=== PATIENT | female | born 1940 | race Caucasian/White ===

== ENCOUNTER → 2019-03-17 07:46 | Outpatient (CLI) | payer MEDICARE, MEDICAID, SELFPAY ==
--- NOTE | 2019-03-17 07:56 | CI_ITS ---
Cerebrovascular Exam Indications: 780.4 Dizziness and giddiness. 433.10 Occlusion/stenosis of carotid artery without cerebral infarction. IMPRESSIONS 1. The bilateral vertebral arteries are patent with normal antegrade flow. 2. Study suggests 50-69% stenosis involving the right internal carotid artery. No change from the study of 20-Nov-2016. 3. Study suggests less than 20% stenosis involving the left internal carotid artery. No change from the study of 20-Nov-2016. History: Risk factors: Current tobacco use. Hypertension. Carotid duplex study. Complete study and Doppler flow study including spectral analysis, color and lomas scale imaging. Height: Height: 144.8cm. Height: 57in. Weight: Weight: 63.5kg. Weight: 139.7lb. Body mass index: BMI: 30.3kg/m^2. Body surface area: BSA: 1.63m^2. Location: Vascular laboratory. Patient status: Outpatient. Tables: Arterial flow: + +--------+--------+ Location V sys V ed + +--------+--------+ Left CCA - distal 64.5cm/s 11.6cm/s + +--------+--------+ Left CCA - proximal 64cm/s 14.3cm/s + +--------+--------+ Left ICA - distal 104cm/s 18.2cm/s + +--------+--------+ Left ICA - mid 72.7cm/s 16.2cm/s + +--------+--------+ Left ICA - proximal 62.9cm/s 16.2cm/s + +--------+--------+ Left ECA 91.8cm/s -------- + +--------+--------+ Left vertebral 63.5cm/s -------- + +--------+--------+ Right CCA - distal 50.3cm/s 11.4cm/s + +--------+--------+ Right CCA - proximal 86.7cm/s 15.7cm/s + +--------+--------+ Right ICA - distal 107cm/s 28.8cm/s + +--------+--------+ Right ICA - mid 155cm/s 35.7cm/s + +--------+--------+ Right ICA - proximal 66.7cm/s 20.8cm/s + +--------+--------+ Right ECA 88cm/s -------- + +--------+--------+ Right vertebral 46.8cm/s -------- + +--------+--------+ Velocity ratios: + + + + + + Right, V sys Right, V ed Left, V sys Left, V ed + + + + + + Max ICA/dist CCA 3.08 3.13 1.61 1.57 + + + + + + (Report amended ) Electronically signed by: Damian Garland [id number]
[2019-03-17 10:33] LABS: Alanine Aminotransferase 23 U/L (12-78); Albumin Level 3.3 gm/dL (3.4-5.0); Alkaline Phosphatase 61 U/L (46-116); Aspartate Amino Transferase 15 U/L (15-37); Bilirubin,Direct 0.1 mg/dL (0.0-0.2); Bilirubin,Indirect 0.2 mg/dL (0.0-0.9); Bilirubin,Total 0.3 mg/dL (0.2-1.0); Chol/HDL Ratio 1.9 (1-3.5); Cholesterol 158 mg/dL (140-200); HDL Cholesterol 82 mg/dL (29-89); LDL Cholesterol 61 mg/dL (0-130); Total Protein,Serum 6.3 gm/dL (6.4-8.2); Triglycerides 74 mg/dL (30-200); VLDL Cholesterol 15 mg/dL (0-40)
== END ==
PROVIDERS: PCP Family Medicine; Visit Provider Nurse Practitioner Family
DX: I65.23 Occlusion and stenosis of bilateral carotid arteries; E11.9 Type 2 diabetes mellitus without complications; E78.5 Hyperlipidemia, unspecified; I11.9 Hypertensive heart disease without heart failure; I25.10 Atherosclerotic heart disease of native coronary artery without angina pectoris
CPT/HCPCS: 36415; 80061; 80076; 93880

== ENCOUNTER → 2019-09-09 14:49 | Outpatient (CLI) | payer MEDICARE, SELFPAY ==
[2019-09-09 15:45] LABS: Basophils # 0.1 K/mm3 (0-0.2); Basophils % 0.8 % (0.1-2.0); Eosinophils # 0.2 K/mm3 (0.0-0.4); Eosinophils % 2.7 % (0.1-12.0); Hematocrit 39.6 % (37.0-47.0); Hemoglobin 12.1 g/dL (12.2-16.2); Lymphocytes % 27.6 % (10-50); Mean Corpuscular HGB Conc 30.5 g/dL (31.8-35.4); Mean Corpuscular Hemoglobin 27.4 pg (27.0-31.2); Mean Corpuscular Volume 89.9 fl (81-99); Mean Platelet Volume 8.8 fl (7.4-10.4); Monocytes # 0.5 K/mm3 (0.1-1.0); Monocytes % 6.6 % (1.7-9.3); Neutrophils # 4.6 K/mm3 (1.8-7.8); Neutrophils % 62.3 % (37.0-80.0); Platelet Count 201 K/mm3 (142-424); Red Cell Distribution Width 18.3 % (11.5-17.5); White Blood Count 7.4 K/mm3 (4.8-10.8)
== END ==
PROVIDERS: Visit Provider Internal Medicine Cardiovascular Disease
DX: D64.9 Anemia, unspecified (principal)
CPT/HCPCS: 36415; 85025

== ENCOUNTER → 2020-06-28 10:02 | Outpatient (CLI) | payer MEDICARE, MEDICAID, SELFPAY ==
--- NOTE | 2020-06-28 10:05 | CA_ITS ---
APPROVED REPORT Environmental Health Safety Manager: Vy Sanchez RVT Laterality: Bilateral Study Quality: Good Indications: Carotid stenosis Risk Factors Hypertension: Hyperlipidemia Diabetes Doppler Spectral Velocity Analysis ECA (R) 56.50/4.50 cm/s ECA (L) 55.50/5.30 cm/s dICA (R) 132.70/16.20 cm/s dICA (L) 64.50/18.10 cm/s Zena (R) 66.00/18.30 cm/s Zena (L) 58.70/14.90 cm/s pICA (R) 110.00/20.80 cm/s pICA (L) 42.40/9.40 cm/s dCCA (R) 35.70/8.50 cm/s dCCA (L) 42.40/10.30 cm/s pCCA (R) 50.60/7.80 cm/s pCCA (L) 69.10/7.40 cm/s Vert (R) 46.30/7.70 cm/s Vert (L) 41.80/7.50 cm/s ICA/CCA 3.72 ICA/CCA 1.52 Findings Study suggests 50-69% stenosis of the right internal cartoid artery unchanged from the 03/17/19 study. Right internal cartoid artery is very tortuous. Study suggests less than 20% stenosis of the left internal cartoid artery unchanged from the 03/17/19 study. Antegrade flow seen bilateral vertebral arteries. Conclusion Study suggests 50-69% stenosis of the right internal cartoid artery unchanged from the 03/17/19 study. Right internal cartoid artery is very tortuous. Study suggests less than 20% stenosis of the left internal cartoid artery unchanged from the 03/17/19 study. Antegrade flow seen bilateral vertebral arteries. Electronically signed by : Damian Garland MD 06/28/2020 16:21:42
--- NOTE | 2020-06-28 10:05 | CA_ITS ---
APPROVED REPORT EXAM: Comprehensive 2D, Doppler, and color-flow Echocardiogram Fruit Sorter: Sheri Arevalo RDCS Ht: 4 ft 6 in Wt: 144lbs BSA: 1.50 BP: 126/44 mmHg Indications: SOA,CAD,HTN,DM,VILLALTA,HLP 2D Dimensions LVOT 1.77 cm (M/F) 1.5-2.5 M-Mode Dimensions RVDd 2.65 cm (0.9-2.6) LVDd 3.68 cm (3.5-5.7) LVDs 2.59 cm (3.5-5.7) IVSd 1.31 cm (0.6-1.1) PWd 1.12 cm (0.6-1.1) EF (Teich) 57.50% FS 29.60% EDV (Teich) 57.40 mL ESV (Teich) 24.40 mL LV Diastology E/A Ratio 0.69 Mitral Valve MV A Velocity 85.00 (40-130 cm/s) Left Ventricle Left atrium is moderately enlarged, left ventricle is normal size, mild concentric left ventricular hypertrophy, visually estimated ejection fraction 55% with no regional wall motion abnormality, grade 1 diastolic dysfunction seen with tissue Doppler evidence of raise left atrial pressure. Right Ventricle Right atrium and right ventricle are normal size and contractility. Aortic Valve Aortic valve is minimally thickened and fibrosed, there is no aortic stenosis or aortic insufficiency. Mitral Valve Mitral valve leaflets are minimally thickened, there is no mitral stenosis, there is mild mitral regurgitation. Tricuspid Valve Tricuspid valve is grossly normal, there is mild tricuspid regurgitation, calculated right ventricular systolic pressure is 42 mmHg. Pulmonic Valve Pulmonic valve is poorly visualized. Great Vessels Aortic root is normal size. Pericardium No significant pericardial effusion noted. Conclusion 1. Moderately enlarged left atrium, normal left ventricular size, mild concentric left ventricular hypertrophy, visually estimated ejection fraction 55% with no regional wall motion abnormality, grade 1 diastolic dysfunction seen with tissue Doppler evidence of raise left atrial pressure. 2. Mild mitral and tricuspid regurgitation. 3. No significant pericardial effusion noted. Electronically signed by : Marvin Elliott, 06/29/2020 15:08:17
== END ==
PROVIDERS: PCP Family Medicine; Visit Provider Internal Medicine Cardiovascular Disease
DX: E78.5 Hyperlipidemia, unspecified (principal); F17.200 Nicotine dependence, unspecified, uncomplicated; I11.9 Hypertensive heart disease without heart failure; I25.10 Atherosclerotic heart disease of native coronary artery without angina pectoris; R42 Dizziness and giddiness; Z95.5 Presence of coronary angioplasty implant and graft; E11.9 Type 2 diabetes mellitus without complications; R06.00 Dyspnea, unspecified; R94.31 Abnormal electrocardiogram [ECG] [EKG]; I65.23 Occlusion and stenosis of bilateral carotid arteries
CPT/HCPCS: 93306; 93880

== ENCOUNTER → 2020-07-14 10:27 | Outpatient (CLI) | payer MEDICARE, SELFPAY ==
[2020-07-14 11:23] LABS: Chloride 107 mmol/L (98-107); Sodium 141 mmol/L (136-145)
[2020-07-14 11:24] LABS: Potassium 4.9 mmoL/L (3.5-5.1)
[2020-07-14 11:26] LABS: Anion Gap 12.9 mEq/L (5-15); Blood Urea Nitrogen 19 mg/dl (7-17); Carbon Dioxide 26 mmol/L (22.0-30.0); Estimated Glomerular Filt Rate 48 ml/min (>60); GFR (African American) 58 ML/MIN (>60)
[2020-07-14 11:27] LABS: Calcium 9.4 mg/dl (8.4-10.2); Glucose 112 mg/dl (74-100)
== END ==
PROVIDERS: Visit Provider Internal Medicine Cardiovascular Disease
DX: E11.9 Type 2 diabetes mellitus without complications (principal); E78.5 Hyperlipidemia, unspecified; F17.200 Nicotine dependence, unspecified, uncomplicated; I10 Essential (primary) hypertension; I11.9 Hypertensive heart disease without heart failure; I25.10 Atherosclerotic heart disease of native coronary artery without angina pectoris; I65.29 Occlusion and stenosis of unspecified carotid artery; R94.31 Abnormal electrocardiogram [ECG] [EKG]; Z95.5 Presence of coronary angioplasty implant and graft
CPT/HCPCS: 36415; 80048

== ENCOUNTER 2020-09-04 17:18 | Emergency (ER) | payer MEDICARE, MEDICAID, SELFPAY ==
--- NOTE | 2020-09-04 17:30 | XR_ITS ---
PROCEDURE: XR WRIST RT MIN 3V CLINICAL INDICATION: FALL Posttraumatic pain COMPARISON: No exams were available for comparison FINDINGS: Severe osteoarthritic changes are present at the 1st metacarpal-carpal joint with prominent periarticular ossification. There is deformity of the trapezium with flattening of the trapezium. Calcification is present lateral to the trapezium consistent with loose body or soft tissue calcification. No fracture or dislocation. Other findings:None. 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
--- NOTE | 2020-09-04 17:30 | XR_ITS ---
PROCEDURE: XR HAND RT MIN 3V CLINICAL INDICATION: FALL Pain and swelling along the dorsal aspect of the hand COMPARISON: No exams were available for comparison FINDINGS: There are severe osteoarthritic changes of the 1st metacarpal-carpal joint with periarticular calcification and lateral subluxation of the 1st metacarpal. Erosive osteoarthritic changes are present at the DIP joint of the third finger. Soft tissue swelling is present dorsally involving the hand. No obvious soft tissue gas or radiopaque foreign body. IMPRESSION: Osteoarthritis with soft tissue swelling. Dictated by: Damian Garland MD 09/05/2020 06:04 Damian Garland MD in [place] 09/05/2020 06:04
[2020-09-04 17:31] VITALS: BP 160/100; PULSE 82; RESP 17; TEMP 36.8; O2SAT 96; BMI 29.2
[2020-09-04 18:06] VITALS: BP 160/100; PULSE 82; RESP 17; TEMP 36.8; O2SAT 96; BMI 29.4
--- NOTE | 2020-09-04 18:32 | HMH.EDUTC ---
[facility] Disposition Clinical Impression: Cellulitis of hand Wrist sprain Qualifiers: Encounter type: initial encounter Laterality: right Qualified Code(s): S63.501A - Unspecified sprain of right wrist, initial encounter Contusion Qualifiers: Encounter type: initial encounter Contusion area: hand Laterality: right Qualified Code(s): S60.221A - Contusion of right hand, initial encounter Disposition: Home, Self-Care Condition on Discharge: Good Instructions: Cellulitis, DI for Wrist Sprain, How To Perform RICE (Rest, Ice, Compress, Elevate) Additional Instructions: *RICE, Rest the extremity, Ice 15-20 minutes 3-4 times daily, Compress- wear the jg wrap as discussed as much as possible to help reduce swelling and pain, Elevate the extremity when at rest *Jg wrap is for support and help control swelling, use it except in the shower. Be sure that is not to tight but not to loose either *Elevate when resting *Ibuprofen every 6-8 hours as needed for pain an inflammation. If need something more can take Tylenol in between doses of Ibuprofen to help Call Orthopedic office for appointment with Dr Richardson Return if needed Follow up with Family Doctor if no improvement or any worsening of symptoms Prescriptions: cephALEXin [Keflex 500mg Cap] 500 mg PO QID 5 Days #20 cap Transmission Status: Received by [facility] #[id number] Referrals: Lee Persaud [Primary Care Provider] - As needed Alissa Richardson MD [Physician] - As needed (Call office for appointment) Time of Disposition: 19:02 Medical Decision Making - Ramon Inquiry Pt receiving controlled substance: No Ramon was queried for this patient: No Vital Signs: 09/04/20 17:31 09/04/20 18:06 09/04/20 18:56 Temperature 98.2 F 98.2 F 98.2 F Temperature Source Oral Oral Pulse Rate 82 Pulse Rate [Right] 82 82 Respiratory Rate 17 17 17 Blood Pressure 160/100 H Blood Pressure [Right Arm] 160/100 H 160/100 H Blood Pressure Mean [Right Arm] 120 120 Blood Pressure Source [Right Arm] Automatic Cuff Blood Pressure Position [Right Arm] Sitting 02 Sat by Pulse Oximetry 96 96 Oxygen Delivery Method Room Air Orders (Tests/Meds): ORDERS Category Date Time Status XR hand RT min 3V Stat Exams 09/04/20 17:30 Taken XR wrist RT min 3V Stat Exams 09/04/20 17:30 Taken - Radiology Data #1 Image(s): Wrist Image Reviewed: Yes I reviewed the patient's radiology image, Yes I reviewed the patient's radiology image w/the ED provider No obvious fracture noted however patient complains of pain over the snuff box area and ? abdnormality noted will place in thumb spica and have patient follow up with orthopedics #2 Image(s): Hand Image Reviewed: Yes I reviewed the patient's radiology image No obvious fracture noted however pain noted over snuff box ?scaphoid fracture - Physician Consults Physician Consulted: Debra Time: 18:35 Reason -: Orthopedic Eval/Care Comment/Response: Spoke with Dr Richardson and she observed xray and advised place patient in thumb spica splint and have her call the office for appointment Medical Decision Narrative: Patient reports pain over the snuff box area however patient also has redness and swelling noted to top of hand like that commonly seen with cellulitis will place patient in thumb spica due to ? scaphoid fracture and place patient on Keflex to cover cellulitis where dog jumped on her hand/wrist [facility] HPI - General Stated complaint: AO possible broken R wrist jumped on by dog Time Seen by Provider: 09/04/20 18:32 Mode of Arrival: Ambulatory Source of Information: Patient Limitations: No Limitations Description of Symptoms (Recalled from Triage Doc. by RN): PATIENT C/O RIGHT WRIST PAIN AND SWELLING AFTER SHE INJURED IT LAST WEEK WHEN SHE TRIPPED AND FELL HEENT Symptoms (Recalled from RN notes): No Resp Symptoms (Recalled from RN notes): No Skin Symptoms (Recalled from RN notes): No MS Symptoms (Recalled f
[2020-09-04 18:56] VITALS: BP 160/100; PULSE 82; RESP 17; TEMP 36.8; O2SAT 96
== END 2020-09-04 19:05 | disposition home or self-care (01) ==
PROVIDERS: Emergency Provider Emergency Medicine; PCP Family Medicine
DX: S63.501A Unspecified sprain of right wrist, initial encounter (principal); S60.221A Contusion of right hand, initial encounter; W54.1XXA Struck by dog, initial encounter; Y92.019 Unspecified place in single-family (private) house as the place of occurrence of the external cause; I25.10 Atherosclerotic heart disease of native coronary artery without angina pectoris; K21.9 Gastro-esophageal reflux disease without esophagitis; E78.5 Hyperlipidemia, unspecified; I10 Essential (primary) hypertension; F17.210 Nicotine dependence, cigarettes, uncomplicated
CPT/HCPCS: 29125; G0463; 73110; 73130; 99201

== ENCOUNTER 2020-09-06 10:04 | Outpatient (RCR) | payer MEDICARE, MEDICAID, SELFPAY | END 2020-09-06 10:25 | disposition home or self-care (01) | LOC: OT 10:04 | PROVIDERS: Visit Provider Orthopaedic Surgery | DX: S60.211A Contusion of right wrist, initial encounter (principal) | CPT/HCPCS: 97763 ==

== ENCOUNTER 2021-01-12 10:50 | Observation (INO) | payer MEDICARE, MEDICAID, SELFPAY ==
[2021-01-12] VITALS (19 sets, daily range): BP systolic 131–164; BP diastolic 52–78; PULSE 60–80; RESP 12–20; TEMP 36.1–36.8; O2SAT 94–100; BMI 30.2; BMI 26.2; BMI 29.9
--- NOTE | 2021-01-12 10:51 | PC.NURSE ---
fsbs 119
--- NOTE | 2021-01-12 10:52 | HMH.EDGENADL ---
ED Disposition Clinical Impression: Syncope and collapse Leukocytosis Qualifiers: Leukocytosis type: unspecified Qualified Code(s): D72.829 - Elevated white blood cell count, unspecified Disposition: Admitted as Observation Condition on Discharge: Good Referrals: PCP,No [Non-Staff] - - Critical Care Critical Care Time: No Attestation: On , the high probability of a clinically significant, sudden or life threatening deterioration of the following system(s) required my full and direct attention, intervention and personal management. The time I documented below is in addition to time spent performing reported procedures but includes the following listed in this critical care notation. Medical Decision Making - Medical Records Medical records reviewed: Yes: I reviewed the patient's medical records. MR Comment: prior [facility], below - [place] Inquiry Pt receiving controlled substance: No Vital Signs: 01/12/21 10:50 01/12/21 11:30 01/12/21 11:33 Temperature 97.8 F Temperature Source Oral Pulse Rate [Apical] 70 68 Pulse Rate [Orthostatic Lying Left Brachial] 65 Pulse Rate [Orthostatic Sitting Left Brachial] 67 Pulse Rate [Orthostatic Standing Left Brachial] 70 Respiratory Rate 12 18 Blood Pressure [Orthostatic Lying Left Arm] 156/60 H Blood Pressure [Orthostatic Sitting Left Arm] 164/72 H Blood Pressure [Orthostatic Standing Left Arm] 139/65 Blood Pressure [Right Arm] 144/52 H 151/67 H Blood Pressure Mean [Right Arm] 82 95 Blood Pressure Source [Right Arm] Automatic Cuff Automatic Cuff Blood Pressure Position [Right Arm] Supine Supine 02 Sat by Pulse Oximetry 94 L 96 Oxygen Delivery Method Room Air Nasal Cannula Oxygen Flow Rate (LPM) 2 - Lab Data Lab Results 01/12/21 10:50: WBC 15.4 H, RBC 4.25, Hgb 12.8, Hct 41.1, MCV 96.8, MCH 30.2, MCHC 31.2 L, RDW 14.0, Plt Count 291, MPV 8.5, Neut % (Auto) 48.7, Lymph % (Auto) 42.3, Gallia % (Auto) 6.5, Eos % (Auto) 1.7, Baso % (Auto) 0.7, Neut # (Auto) 7.5, Lymph # (Auto) 6.5 H, Gallia # (Auto) 1.0, Eos # (Auto) 0.3, Baso # (Auto) 0.1, Total Counted 100, Neutrophils % (Manual) 49, Lymphocytes % (Manual) 42, Monocytes % (Manual) 8, Eosinophils % (Manual) 1, Platelet Estimate Normal, RBC Morphology Normal 01/12/21 10:50: Sodium 139, Potassium 4.7, Chloride 110 H, Carbon Dioxide 23, Anion Gap 10.7, BUN 19 H, Creatinine 1.10 H, Estimated Creat Clear 37, Estimated GFR 48 L, Est GFR ( Amer) 58 L, Glucose 126 H, Calcium 9.3, Troponin I < 0.01 01/12/21 10:55: Urine Color Yellow, Urine Appearance Clear, Urine pH 5.5, Ur Specific Grannis >= 1.030, Urine Protein Negative, Urine Glucose (UA) Negative, Urine Ketones Negative, Urine Blood Negative, Urine Nitrate Negative, Urine Bilirubin Negative, Urine Urobilinogen 0.2, Ur Leukocyte Esterase Negative, Urine WBC 5-10, Urine Bacteria 2+, Hyaline Casts Occasional Result diagrams: 01/12/21 10:50 01/12/21 10:50 Orders (Tests/Meds): ORDERS Category Date Time Status Consult to Cardiology [CONS] Routine Cons 01/12/21 11:32 Active Covid-19 Nasal PCR ([facility]) Routine Lab 01/12/21 11:30 Received Lactic Acid Stat Lab 01/12/21 12:11 Ordered Troponin I Q3H Lab 01/12/21 14:15 Ordered Troponin I Q3H Lab 01/12/21 17:15 Ordered Blood Culture Stat Micro 01/12/21 12:11 Ordered Urine Culture Stat Micro 01/12/21 10:55 Received - ECG Data Tracing #1 EKG interpreted by Wu Barton MD: Rhythm: sinus Rate: 71 [place]: Left Ectopy: none Conduction: Incomplete right bundle branch block ST Segment Changes: J-point elevation in V2 T Wave Changes: none Q Waves: none Voltage criteria for LVH. - Physician Consults Physician Consulted: Van Time: 12:12 Reason -: Admission Comment/Response: Agrees to admit the patient to the hospital. We discussed the patient's clinical information, including history, exam, laboratory and radiology results and ED course. Per hospital procedure, I will write tempor
--- NOTE | 2021-01-12 10:54 | ECG_ITS ---
APPROVED REPORT Exam: Resting ECG HR:71 bpm ECG Measurements Heart Rate 71 AXES WY 168 P 45 QRSd 98 QRS -31 QT 412 T 11 QTc 447 Conclusion Normal sinus rhythm Left axis deviation Incomplete right bundle branch block Voltage criteria for left ventricular hypertrophy Abnormal ECG Electronically signed by : Dov Gonzales, 01/12/2021 20:10:07
--- NOTE | 2021-01-12 11:02 | XR_ITS ---
PROCEDURE: XR CHEST PORTABLE CLINICAL HISTORY: lethargic COMPARISON: CR CXR CHEST(2 VIEWS-NOT PORTABLE) from 11/05/2016 FINDINGS: The cardiomediastinal silhouette and pulmonary vascularity are within normal limits considering a somewhat poor inspiration. There is elevation left hemidiaphragm which was not seen on the previous chest film 11/05/2016. No definite pneumonic infiltrate is seen. I doubt pleural effusion on either side. IMPRESSION: Somewhat poor inspiration which could possibly explain the elevated left hemidiaphragm although there could be interval paresis left phrenic nerve since the previous chest film Dictated by: Dr. Sebastien Marquez MD 01/12/2021 11:50 Dr. Sebastien Marquez MD in [place] 01/12/2021 11:50
--- NOTE | 2021-01-12 11:08 | PC.NURSE ---
notified cardiology of consult on pt.
[2021-01-12 11:17] LABS: Appearance,Urine CLEAR (Clear); Bilirubin,Urine Negative (Negative); Blood, Urine Negative (Negative); Color,Urine YELLOW (Yellow); Glucose,Urine (UA) Negative (Negative); Ketones,Urine Negative (Negative); Leukocyte Esterase,Urine Negative (Negative); Microscopic, Urine URINE MICROSCOPIC (MICROSCOPIC); Nitrate,Urine Negative (Negative); PH,Urine 5.5 (5.0-8.5); Protein,Urine Negative (Negative); Specific Gravity, Urine >= 1.030 (1.005-1.030); Urobilinogen,Urine 0.2 EU/dl (0.2)
[2021-01-12 11:18] LABS: Chloride 110 mmol/L (98-107)
[2021-01-12 11:19] LABS: Basophils # 0.1 K/mm3 (0-0.2); Basophils % 0.7 % (0.1-2.0); Eosinophils # 0.3 K/mm3 (0.0-0.4); Eosinophils % 1.7 % (0.1-12.0); Hematocrit 41.1 % (37.0-47.0); Hemoglobin 12.8 g/dL (12.2-16.2); Lymphocytes # 6.5 K/mm3 (0.7-4.5); Lymphocytes % 42.3 % (10-50); Mean Corpuscular HGB Conc 31.2 g/dL (31.8-35.4); Mean Corpuscular Hemoglobin 30.2 pg (27.0-31.2); Mean Corpuscular Volume 96.8 fl (81-99); Mean Platelet Volume 8.5 fl (7.4-10.4); Monocytes % 6.5 % (1.7-9.3); Neutrophils # 7.5 K/mm3 (1.8-7.8); Neutrophils % 48.7 % (37.0-80.0); Platelet Count 291 K/mm3 (142-424); Potassium 4.7 mmoL/L (3.5-5.1); Red Blood Count 4.25 M/mm3 (4.20-5.40); Sodium 139 mmol/L (136-145); White Blood Count 15.4 K/mm3 (4.8-10.8)
[2021-01-12 11:21] LABS: MANUAL DIFFERENTIAL MANUAL DIFFERENTIAL (MANUAL DIFF)
[2021-01-12 11:22] LABS: Anion Gap 10.7 mEq/L (5-15); Blood Urea Nitrogen 19 mg/dl (7-17); Calcium 9.3 mg/dl (8.4-10.2); Carbon Dioxide 23 mmol/L (22.0-30.0); Creatinine Clearance Estimated 37 mL/min (50-200); Estimated Glomerular Filt Rate 48 ml/min (>60); GFR (African American) 58 ML/MIN (>60); Glucose 126 mg/dl (74-100)
--- NOTE | 2021-01-12 11:24 | PC.NURSE ---
rad at bedside
--- NOTE | 2021-01-12 11:32 | PC.NURSE ---
Caleb Faust at bedside
[2021-01-12 11:34] LABS: Bacteria,Urine 2+ /lpf; Hyaline Casts,Urine Occasional #/lpf (0)
[2021-01-12 11:40] LABS: Troponin I < 0.01 ng/ml (0.00-0.034)
--- NOTE | 2021-01-12 11:42 | HMH.CNCARD ---
History of Present Illness Consult date: 01/12/21 Chief complaint: Syncope Additional Medical History:: 1. Tobacco use, continued 2. History of cardiac catheterization A. History of LAD stent B. Left heart cath, 09/2015:ANGIOGRAPHIC RESULTS: 1. The left main artery is normal 2. The left anterior descending artery has a proximal 20-30% concentric stenosis immediately proximal to the proximal LAD stent which itself is widely patent free of in-stent restenosis 3. The circumflex artery has mild midvessel nonflow limiting plaque 4. The right coronary artery is a dominant vessel and has a proximal [id number]% to 40% stenosis 5. The BRONSON ventriculogram reveals normal ejection fraction estimated at 65% 6. The left ventricular end-diastolic pressure less than 10 mmHg 7. Right atrial pressure is 5 mmHg 8. Right ventricular pressure is 30/5 mmHg 9. Pulmonary artery pressure is 30/10 mmHg 10. Pulmonary artery occlusion pressure is 8 mmHg 11. Right atrial saturation is 74 % 12. Pulmonary artery saturation 7 2 % IMPRESSION: 1. Mild disease in the proximal LAD with a widely patent stent also in the proximal LAD 2. Mild nonocclusive disease in the circumflex artery and dominant right coronary artery 3. Normal ejection fraction 4. Mild pulmonary hypertension 5. Normal left-sided filling pressures PLAN: 1. Medical management 2. Patient requires cardiac rehabilitation. I suspect most of her symptoms are from cardiopulmonary deconditioning 3. Tobacco cessation 4. Treatment of lung disease 3. Obstructive sleep apnea, noncompliant with treatment 4. Hypertension A. Echo, 06/2020, 1. Moderately enlarged left atrium, normal left ventricular size, mild concentric left ventricular hypertrophy, visually estimated ejection fraction 55% with no regional wall motion abnormality, grade 1 diastolic dysfunction seen with tissue Doppler evidence of raise left atrial pressure. 2. Mild mitral and tricuspid regurgitation. 3. No significant pericardial effusion noted 5. GERD 6. Hyperlipidemia 7. Carotid artery stenosis, 50 to 69% ICA stenosis on the right, less than 20% ICA stenosis on the left by ultrasound 06/2020. Reportedly this is stable compared to 2019 study. History of present illness: 80-year-old white female seen in the emergency department for apparent syncopal episode. Patient and daughter are in the room. Daughter relates patient was coming to see Dr. RODAS in the office for routine 6-month follow-up when she had difficulty getting into the car and fell but landed on her bottom without syncopal episode. The daughter required some assistance to get the patient into the car. Upon arriving at the hospital for the office appointment daughter was unable to arouse the patient and called for assistance. ER staff transported the patient into the emergency department. Pulse was noted to be weak and slow but upon examination in the ER, vital signs were noted to be stable. Patient would awaken to verbal stimuli. EKG was obtained with questionable changes and cardiology consulted. EKG shows sinus rhythm with left axis deviation and chronic scooping ST elevation in lead V2 that has been present on prior tracings. Patient denies any chest pain, pressure or tightness. She just describes being weak for a couple of weeks. Upon further questioning the patient was placed on tramadol about 2 weeks ago for chronic back pain. Due to a possible interaction with sertraline patient stopped this sertraline on her own. Patient does awaken to answer questions but drifts off to sleep. She denies any recent fever, chills, nausea, vomiting or diarrhea. Patient states she discontinued tobacco use approximately 4 months ago but the daughter indicates that this has continued. [facility] History Medical History: Reports:: Coronary Artery Disease, Gastroesophageal Reflux Disease(GERD), Hyperlipidemia, Hypertension *Have
[2021-01-12 11:43] LABS: Eosinophils % 1 % (0-3); Lymphocytes % 42 % (10-50); Monocytes % 8 % (2-9); Neutrophils % 49 % (42-76); Platelet Estimate Normal; RBC Morphology Normal; Total Cells Counted 100
--- NOTE | 2021-01-12 11:58 | CA_ITS ---
APPROVED REPORT EXAM: Limited 2D Echocardiogram Russian History Professor: Vy Sanchez RVT Ht: 4 ft 11 in Wt: 130lbs BSA: 1.54 BP: 151/67 mmHg Indications: EF CHECK,SYNCOPE,HTN,HLD,ABN EKG,CAD,STENT,GERD 2D Dimensions LVOT 1.96 cm (M/F) 1.5-2.5 M-Mode Dimensions RVDd 2.13 cm (0.9-2.6) LA Diam 4.32 cm (1.9-4.0) LVDd 5.06 cm (3.5-5.7) Ao Diam 2.54 cm (2.0-3.7) LVDs 3.73 cm (3.5-5.7) IVSd 0.56 cm (0.6-1.1) PWd 0.76 cm (0.6-1.1) EF (Teich) 51.20% FS 26.30% EDV (Teich) 121.60 mL ESV (Teich) 59.30 mL Tricuspid Valve TR P. Velocity 202.00 cm/s RAP Estimate 10.00 mmHg RVSP 26.40 mmHg Conclusion 1. Limited transthoracic echocardiogram is performed to assess left ventricular systolic function. 2. Normal left ventricular size, mild concentric left ventricular hypertrophy, visually estimated ejection fraction in the obtained views 55% with no regional wall motion abnormality. Electronically signed by : Marvin Elliott, 01/12/2021 12:46:01
--- NOTE | 2021-01-12 12:06 | PC.NURSE ---
DR AGUAYO SPEAKING WITH DR LONG
--- NOTE | 2021-01-12 12:19 | PC.NURSE ---
DR LONG HAS AGREED TO ADMIT PT
--- NOTE | 2021-01-12 12:20 | PC.NURSE ---
notified care management of admission
--- NOTE | 2021-01-12 12:38 | HMH.HP ---
*Admission Date: 01/12/21 *Chief complaint: syncope *History of present illness: 80-year-old white female seen in the emergency department for apparent syncopal episode. Patient and daughter are in the room. Daughter relates patient was coming to see Dr. RODAS in the office for routine 6-month follow-up when she had difficulty getting into the car and fell but landed on her bottom without syncopal episode. The daughter required some assistance to get the patient into the car. Upon arriving at the hospital for the office appointment daughter was unable to arouse the patient and called for assistance. ER staff transported the patient into the emergency department. Pulse was noted to be weak and slow but upon examination in the ER, vital signs were noted to be stable. Patient would awaken to verbal stimuli. EKG was obtained with questionable changes and cardiology consulted. EKG shows sinus rhythm with left axis deviation and chronic scooping ST elevation in lead V2 that has been present on prior tracings. Patient denies any chest pain, pressure or tightness. She just describes being weak for a couple of weeks. Upon further questioning the patient was placed on tramadol about 2 weeks ago for chronic back pain. Due to a possible interaction with sertraline patient stopped the sertraline on her own. (above as per Caleb Faust) The patient also states she has had a cold for the past 4 to 5 days. She has had a cough and some sinus congestion as well as some wheezing. She is still down in the emergency room and has had no further syncopal episodes. Her daughter states she has been sleeping most of the time and the patient states she feels weak. [facility] History I have reviewed the patient's past medical history: Yes Medical History: Reports:: Coronary Artery Disease, Gastroesophageal Reflux Disease(GERD), Hyperlipidemia, Hypertension *Have you ever received a pneumonia vaccine?: No *Have you received a flu vaccine this season?: No Other Surgeries: Yes: Cardiac Catheterization, Cholecystectomy, Coronary Stent, Hysterectomy-Total Fractures: Yes - *Social History Smoking Status: Current every day smoker Tobacco Type: cigarettes # Packs/Day (cigarettes): 1 Alcohol Intake: never Substance Use Type: denies use *Occupational Status:: other *Travel in the last 8 weeks: Inside the [place] Family Hx:: Coronary Artery Disease Review of Systems - Constitutional Reports fatigue, Reports malaise, Reports weakness, Denies chills, Denies fever(s) - Eyes Denies blurry vision, Denies double vision - ENT Reports nasal congestion, Denies sore throat - *Cardiovascular Reports shortness of breath, Reports lightheadedness, Denies chest pain, Denies rapid, pounding, or irregular heartbeat - *Respiratory Reports chest congestion, Reports cough, Reports shortness of breath, Reports wheezing - *Gastrointestinal Denies abdominal pain, Denies loose stools, Denies nausea, Denies vomiting - *Genitourinary Denies difficulty urinating, Denies painful urination - *Musculoskeletal Reports muscle weakness, Denies joint pain - *Neurologic Reports fainting, Reports dizziness, Reports weakness, Denies localized weakness, Denies headache(s), Denies numbness Meds Home Medications Medication Instructions Recorded Confirmed Type gabapentin 300 mg capsule 600 mg PO QHS 30 Days #60 cap 03/11/19 01/12/21 History potassium chloride 20 mEq 20 meq PO BID 90 Days #180 tab 03/11/19 01/12/21 History tablet,extended release(part/cryst) ranolazine 500 mg tablet,extended 500 mg PO BID 90 Days #180 tab 03/11/19 01/12/21 History release,12 hr rosuvastatin 40 mg tablet 40 mg PO DAILY 90 Days #90 tab 03/11/19 01/12/21 History sertraline 25 mg tablet 25 mg PO DAILY 90 Days #90 tab 03/11/19 01/12/21 History pantoprazole 20 mg tablet,delayed 40 mg PO DAILY 09/09/19 01/12/21 History release levothyroxine 50 mcg tablet 50 mcg PO DAILY tab 07/14/20 01/12/21 History sucr
[2021-01-12 13:56] LABS: Lactic Acid 0.9 mmol/L (0.7-2.1)
--- NOTE | 2021-01-12 14:05 | PC.NURSE ---
waiting on fax of medication list from [facility]
[2021-01-12 14:32] LABS: Troponin I < 0.01 ng/ml (0.00-0.034)
--- NOTE | 2021-01-12 16:53 | PC.NURSE ---
report given to binta aiken at this time
--- NOTE | 2021-01-12 16:54 | PC.NURSE ---
cheng roman at bs at this time
--- NOTE | 2021-01-12 17:10 | PC.NURSE ---
patient to floor by wheelchair
[2021-01-12 17:31] LABS: Troponin I < 0.01 ng/ml (0.00-0.034)
--- NOTE | 2021-01-12 18:33 | PC.NURSE ---
Attempted to complete medication reconciliation, pt does not know what medications she takes. Contacted daughter and requested home medicines be brought in for review. She stated that she will bring them in the AM.
--- NOTE | 2021-01-12 19:18 | PC.NURSE ---
Sputum induced, pt able to make productive cough. Specimen cup sent to lab.
[2021-01-13] VITALS (8 sets, daily range): BP systolic 150–190; BP diastolic 72–90; PULSE 60–86; RESP 16–18; TEMP 36.8–36.9; O2SAT 91–100; BMI 30.4
--- NOTE | 2021-01-13 06:02 | PC.NURSE ---
Pt is A&Ox4. Inspiratory rhonchi heard bilat t/o. No cough noted. Pt continues to tolerate 1.5-2L NC. Active bowel sounds in all 4 quads, no BM noted. Pt has c/o lower back pain x1 this shift, pt medicated per MAR. No other acute changes or complaints at this time.
--- NOTE | 2021-01-13 07:00 | XR_ITS ---
PROCEDURE: XR CHEST PORTABLE Referring Doctor: Mayte Velasquez Patient Age:80Y CLINICAL HISTORY: wheezing, leukocytosis syncopal episode leading to admission Former smoker COMPARISON: XA R LHEART R L HEART from 10/06/2015 CR CXR CHEST(2 VIEWS-NOT PORTABLE) from 11/05/2016 CR XR CHEST PORTABLE from 01/12/2021 FINDINGS: Today's AP portable upright CXR compared to yesterday's study: On yesterday's P CXR there was prominent elevation left hemidiaphragm-but this is shown significant improvement since then with left hemidiaphragm returning to near baseline position, as seen 2016. 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 Also note borderline thickening of central airways which could reflect mild bronchitis or asthma noting of particularly with noting the history of wheezing Suggestion of round density lower mediastinum projecting to the left of midline-most likely hiatal hernia measuring up to 7 cm diameter. A suggest performing a follow-up CXR after carbonated beverage in attempt to additionally confirm this density as hiatal hernia. . Hilar region the mediastinal structures otherwise with no prominent findings but calcified aortic knob with mildly tortuous aorta. Heart is upper normal in size but of normal pulmonary vascularity no CHF but no pleural effusions. Chest wall unremarkable IMPRESSION: 1..The notable elevation of left hemidiaphragm seen yesterday has for the most part resolved,. The left lower lobe is re-expanded with only minimal residual atelectasis at left infrahilar region/left lung base. Notable improvement and re-expansion here on left 2.. Mild accentuation markings right infrahilar region right base most likely reflecting technique on this student admissions clerk film . Most likely stable since yesterday, difficult to exclude subtle minimal airspace disease in this area 3.. moderate size hiatal hernia most likely accounts for the round at lower mediastinum; however this was not seen in 2016 (At some point in follow-up suggest upright PA and lateral CXR following carbonated beverage, in attempt to further confirm HH the and to re-establish baseline) Dictated by: Alex Walker MD 01/13/2021 08:31 Alex Walker MD in [facility] 01/13/2021 08:31
[2021-01-13 07:06] LABS: Basophils # 0.1 K/mm3 (0-0.2); Basophils % 0.6 % (0.1-2.0); Eosinophils # 0.2 K/mm3 (0.0-0.4); Eosinophils % 1.8 % (0.1-12.0); Hematocrit 41.3 % (37.0-47.0); Hemoglobin 12.9 g/dL (12.2-16.2); Lymphocytes # 3.1 K/mm3 (0.7-4.5); Lymphocytes % 26.3 % (10-50); Mean Corpuscular HGB Conc 31.3 g/dL (31.8-35.4); Mean Corpuscular Hemoglobin 29.6 pg (27.0-31.2); Mean Corpuscular Volume 94.5 fl (81-99); Mean Platelet Volume 8.1 fl (7.4-10.4); Monocytes # 0.7 K/mm3 (0.1-1.0); Monocytes % 6.1 % (1.7-9.3); Neutrophils # 7.6 K/mm3 (1.8-7.8); Neutrophils % 65.2 % (37.0-80.0); Platelet Count 238 K/mm3 (142-424); Red Blood Count 4.37 M/mm3 (4.20-5.40); White Blood Count 11.7 K/mm3 (4.8-10.8)
[2021-01-13 07:27] LABS: Chloride 107 mmol/L (98-107); Potassium 4.4 mmoL/L (3.5-5.1); Sodium 137 mmol/L (136-145)
[2021-01-13 07:30] LABS: Blood Urea Nitrogen 21 mg/dl (7-17); Creatinine Clearance Estimated 45 mL/min (50-200); Estimated Glomerular Filt Rate 60 ml/min (>60); GFR (African American) 73 ML/MIN (>60)
[2021-01-13 07:31] LABS: Anion Gap 7.4 mEq/L (5-15); Calcium 8.9 mg/dl (8.4-10.2); Carbon Dioxide 27 mmol/L (22.0-30.0); Glucose 93 mg/dl (74-100)
--- NOTE | 2021-01-13 08:42 | HMH.ACPN2 ---
<Mayte Velasquez - Last Filed: 01/13/21 08:42> Internal Medicine - PN: Subj *Date: 01/13/21 *Time: 08:42 Interval history: Patient states she is feeling better today. She says her joints are achy and stiff, but otherwise she feels fine. She is unsure if her legs are still weak. She is not been up moving around her room. She states she did rest well last night and ate some breakfast this morning. She has not had any further syncopal episodes. Exam Vital signs and Labs for Last 24 Hours: Temp Pulse Resp BP Pulse Ox 98.2 F 75 16 150/75 H 94 L 01/13/21 03:35 01/13/21 05:50 01/13/21 03:35 01/13/21 03:35 01/13/21 05:50 Laboratory Results - last 24 hr 01/12/21 10:50: WBC 15.4 H, RBC 4.25, Hgb 12.8, Hct 41.1, MCV 96.8, MCH 30.2, MCHC 31.2 L, RDW 14.0, Plt Count 291, MPV 8.5, Neut % (Auto) 48.7, Lymph % (Auto) 42.3, [place] % (Auto) 6.5, Eos % (Auto) 1.7, Baso % (Auto) 0.7, Neut # (Auto) 7.5, Lymph # (Auto) 6.5 H, [place] # (Auto) 1.0, Eos # (Auto) 0.3, Baso # (Auto) 0.1, Total Counted 100, Neutrophils % (Manual) 49, Lymphocytes % (Manual) 42, Monocytes % (Manual) 8, Eosinophils % (Manual) 1, Platelet Estimate Normal, RBC Morphology Normal 01/12/21 10:50: Sodium 139, Potassium 4.7, Chloride 110 H, Carbon Dioxide 23, Anion Gap 10.7, BUN 19 H, Creatinine 1.10 H, Estimated Creat Clear 37, Estimated GFR 48 L, Est GFR ( Amer) 58 L, Glucose 126 H, Calcium 9.3, Troponin I < 0.01 01/12/21 10:55: Urine Color Yellow, Urine Appearance Clear, Urine pH 5.5, Ur Specific [place] >= 1.030, Urine Protein Negative, Urine Glucose (UA) Negative, Urine Ketones Negative, Urine Blood Negative, Urine Nitrate Negative, Urine Bilirubin Negative, Urine Urobilinogen 0.2, Ur Leukocyte Esterase Negative, Urine WBC 5-10, Urine Bacteria 2+, Hyaline Casts Occasional 01/12/21 13:22: Lactate 0.9 01/12/21 14:00: Troponin I < 0.01 01/12/21 16:53: Troponin I < 0.01 01/13/21 06:40: WBC 11.7 H, RBC 4.37, Hgb 12.9, Hct 41.3, MCV 94.5, MCH 29.6, MCHC 31.3 L, RDW 14.0, Plt Count 238, MPV 8.1, Neut % (Auto) 65.2, Lymph % (Auto) 26.3, Runnels % (Auto) 6.1, Eos % (Auto) 1.8, Baso % (Auto) 0.6, Neut # (Auto) 7.6, Lymph # (Auto) 3.1, Runnels # (Auto) 0.7, Eos # (Auto) 0.2, Baso # (Auto) 0.1 01/13/21 06:40: Sodium 137, Potassium 4.4, Chloride 107, Carbon Dioxide 27, Anion Gap 7.4, BUN 21 H, Creatinine 0.90, Estimated Creat Clear 45, Estimated GFR 60, Est GFR ( Amer) 73 D, Glucose 93 D, Calcium 8.9 I & O for Last 24 hours: Intake & Output 01/10/21 01/11/21 01/12/21 01/13/21 11:59 11:59 11:59 11:59 Intake Total 480 / 480 Balance 480 / 480 Weight 130 lb 145 lb 1 oz Microbiology Reports for the Last 24 Hours: Microbiology 01/12/21 19:18 Sputum - Expectorated Sputum Gram Stain - Final 01/12/21 11:30 Nasopharyngeal Coronavirus COVID-19 PCR - Final Radiology Reports for the Last 24 Hours: CXR 1..The notable elevation of left hemidiaphragm seen yesterday has for the most part resolved,. The left lower lobe is re-expanded with only minimal residual atelectasis at left infrahilar region/left lung base. Notable improvement and re-expansion here on left 2.. Mild accentuation markings right infrahilar region right base most likely reflecting technique on this telecommunications repairer film . Most likely stable since yesterday, difficult to exclude subtle minimal airspace disease in this area 3.. moderate size hiatal hernia most likely accounts for the round at lower mediastinum; however this was not seen in 2016 (At some point in follow-up suggest upright PA and lateral CXR following carbonated beverage, in attempt to further confirm HH the and to re-establish baseline) - Constitutional no acute distress - *Routine Respiratory Exam Present: wheezes (improved from yesterday) - *Routine Cardiovascular Exam Present: RRR - *Routine Abdominal Exam Present: soft, normoactive bowel sounds. Absent: tenderness - *Routine Extremities Exam Absent:
--- NOTE | 2021-01-16 17:30 | HMH.DCSUM ---
General - General Admission date:: 01/12/21 Discharge date: 01/13/21 HPI HPI: 80-year-old white female seen in the emergency department for apparent syncopal episode. Patient and daughter are in the room. Daughter relates patient was coming to see Dr. RODAS in the office for routine 6-month follow-up when she had difficulty getting into the car and fell but landed on her bottom without syncopal episode. The daughter required some assistance to get the patient into the car. Upon arriving at the hospital for the office appointment daughter was unable to arouse the patient and called for assistance. ER staff transported the patient into the emergency department. Pulse was noted to be weak and slow but upon examination in the ER, vital signs were noted to be stable. Patient would awaken to verbal stimuli. EKG was obtained with questionable changes and cardiology consulted. EKG shows sinus rhythm with left axis deviation and chronic scooping ST elevation in lead V2 that has been present on prior tracings. Patient denies any chest pain, pressure or tightness. She just describes being weak for a couple of weeks. Upon further questioning the patient was placed on tramadol about 2 weeks ago for chronic back pain. Due to a possible interaction with sertraline patient stopped the sertraline on her own. (above as per Caleb Faust) The patient also states she has had a cold for the past 4 to 5 days. She has had a cough and some sinus congestion as well as some wheezing. She is still down in the emergency room and has had no further syncopal episodes. Her daughter states she has been sleeping most of the time and the patient states she feels weak. Hospital Course Hospital Course: Patient's chest x-ray was relatively unremarkable. Echo showed an EF of 55% . Cardiology felt the patient syncope was related to her medication and/or vasovagal cause. She was admitted for monitoring overnight. She had an elevated white blood cell count and had been sick for 4 to 5 days. It was felt she had a bronchitis and this could contribute to her weakness and syncopal episode. She was started on Zithromax, Rocephin, and duo nebs. She had a repeat chest x-ray the next day showing a moderate size hiatal hernia but nothing acute in the lungs. She felt much better. She stated her joints were achy and stiff, but her weakness had improved. She was able to rest well and ate some breakfast and had no further syncopal episodes. Her white blood cell count improved. She was able to ambulate with a walker and was stable to be discharged home and will follow up with Dr. Persaud in 4 days. Objective Vital signs: Temp Pulse Resp BP Pulse Ox 98.3 F 86 18 190/90 H 97 01/13/21 12:00 01/13/21 12:00 01/13/21 12:00 01/13/21 12:00 01/13/21 12:00 Narrative: - Constitutional no acute distress (appears tired) - *Routine HEENT Exam Head: Present: normocephalic Eye: Present: EOMI, PERRL ENT: Present: mucous membranes dry - *Routine Neck Exam Present: supple. Absent: lymphadenopathy - *Routine Respiratory Exam Present: wheezes (expiratory). Absent: rales - *Routine Cardiovascular Exam Present: RRR - *Routine Abdominal Exam Present: soft, normoactive bowel sounds. Absent: tenderness - *Routine Extremities Exam Absent: cyanosis, clubbing, edema - *Routine Skin Exam Present: warm. Absent: rash - *Routine Neurological Exam Present: alert, oriented X3 Results Labs on day of discharge: Preliminary micro results at discharge 01/12/21 13:22 Blood Culture - Preliminary Blood NO GROWTH AFTER 48 HOURS 01/12/21 13:22 Blood Culture - Preliminary Blood NO GROWTH AFTER 48 HOURS DS: Diagnosis - Discharge Diagnosis (1) Syncope Status: Acute (2) Abnormal EKG Status: Acute (3) CAD (coronary artery disease) Status: Chronic (4) HLD (hyperlipidemia) Status: Chronic (5) HTN (hypertension) Status:
[2021-02-14 11:08] LABS: POC Glucose,Bedside 119 (70-110)
== END 2021-01-13 12:42 | disposition home or self-care (01) ==
LOC: ER 12:12 → 2ND 16:30
PROVIDERS: Admitting Provider Family Medicine; Emergency Provider Emergency Medicine; PCP Family Medicine; Visit Provider Family Medicine
DX: R55 Syncope and collapse (principal); I25.10 Atherosclerotic heart disease of native coronary artery without angina pectoris; E03.9 Hypothyroidism, unspecified; Z72.0 Tobacco use; I10 Essential (primary) hypertension; E78.5 Hyperlipidemia, unspecified; M54.9 Dorsalgia, unspecified; G89.29 Other chronic pain; Z79.899 Other long term (current) drug therapy; Z95.5 Presence of coronary angioplasty implant and graft
CPT/HCPCS: 36415; 71045; 80048; 81001; 82962; 83605; 84484; 85007; 85025; 87040; 87070; 87086; 87205; 93005; 93308; 94640; 99285; G0378; J0456; U0003

== ENCOUNTER 2021-01-27 22:46 | Observation (INO) | payer MEDICARE, MEDICAID, SELFPAY ==
[2021-01-27 22:46] VITALS: BP 160/80; BP 210/97; PULSE 82; RESP 14; TEMP 36.5; O2SAT 97; BMI 31.4
--- NOTE | 2021-01-27 23:14 | ECG_ITS ---
APPROVED REPORT Exam: Resting ECG HR:78 bpm ECG Measurements Heart Rate 78 AXES AK 140 P 35 QRSd 80 QRS -38 QT 392 T 39 QTc 446 Conclusion Normal sinus rhythm Left axis deviation Voltage criteria for left ventricular hypertrophy Abnormal ECG Electronically signed by : Dov Gonzales, 01/28/2021 07:10:16
--- NOTE | 2021-01-27 23:14 | XR_ITS ---
PROCEDURE: XR CHEST PORTABLE CLINICAL HISTORY: weakness COMPARISON: CR CXR CHEST(2 VIEWS-NOT PORTABLE) from 11/05/2016 CR XR CHEST PORTABLE from 01/12/2021 CR XR CHEST PORTABLE from 01/13/[address] CHEST WO CON from 01/28/2021 FINDINGS: The cardiomediastinal silhouette and pulmonary vascularity are within normal limits. Mild atelectatic change noted in the left lower lobe. The remaining lungs are clear. No acute bony abnormalities. IMPRESSION: No change mild left lower lobe atelectasis Dictated by: Damian Garland MD 01/28/2021 07:10 Damian Garland MD in [facility] 01/28/2021 07:10
[2021-01-27 23:25] LABS: Basophils # 0.1 K/mm3 (0-0.2); Basophils % 0.6 % (0.1-2.0); Eosinophils # 0.1 K/mm3 (0.0-0.4); Eosinophils % 1.1 % (0.1-12.0); Hematocrit 39.3 % (37.0-47.0); Hemoglobin 12.9 g/dL (12.2-16.2); Lymphocytes # 2.5 K/mm3 (0.7-4.5); Lymphocytes % 22.8 % (10-50); Mean Corpuscular HGB Conc 32.8 g/dL (31.8-35.4); Mean Corpuscular Hemoglobin 30.3 pg (27.0-31.2); Mean Corpuscular Volume 92.3 fl (81-99); Mean Platelet Volume 8.6 fl (7.4-10.4); Monocytes # 0.7 K/mm3 (0.1-1.0); Monocytes % 6.7 % (1.7-9.3); Neutrophils # 7.6 K/mm3 (1.8-7.8); Neutrophils % 68.8 % (37.0-80.0); Platelet Count 229 K/mm3 (142-424); Red Blood Count 4.25 M/mm3 (4.20-5.40); Red Cell Distribution Width 14.3 % (11.5-17.5)
[2021-01-27 23:32] LABS: Alanine Aminotransferase 18 U/L (12-78); Albumin Level 3.7 g/dl (3.5-5.0); Albumin/Globulin Ratio 1.5 (1.1-1.8); Alkaline Phosphatase 93 U/L (38-126); Anion Gap 6.9 mEq/L (5-15); Aspartate Amino Transferase 32 U/L (14-36); Bilirubin,Total 0.5 mg/dl (0.2-1.3); Blood Urea Nitrogen 15 mg/dl (7-17); Calcium 9.6 mg/dl (8.4-10.2); Carbon Dioxide 25 mmol/L (22.0-30.0); Chloride 108 mmol/L (98-107); Creatinine Clearance Estimated 43 mL/min (50-200); Estimated Glomerular Filt Rate 69 ml/min (>60); GFR (African American) 83 ML/MIN (>60); Globulin 2.5 g/dL (1.3-3.2); Glucose 108 mg/dl (74-100); Potassium 3.9 mmoL/L (3.5-5.1); Sodium 136 mmol/L (136-145); Total Protein,Serum 6.2 g/dl (6.3-8.2)
[2021-01-27 23:37] LABS: C-Reactive Protein 5.7 mg/L (0-4)
[2021-01-27 23:45] LABS: NT Pro Brain Natriuretic Pep. 220 pg/mL (0-450)
[2021-01-27 23:48] LABS: Troponin I < 0.01 ng/ml (0.00-0.034)
[2021-01-27 23:49] LABS: Erythrocyte Sedimentation Rate 19 mm/hr (0-30)
[2021-01-27 23:51] LABS: Procalcitonin 0.047 ng/mL (0.0-2.0)
[2021-01-27 23:52] LABS: Free T4 (Free Thyroxine) 1.59 ng/dl (0.78-2.19)
[2021-01-28] VITALS (12 sets, daily range): BP systolic 138–230; BP diastolic 57–100; PULSE 64–100; RESP 16–18; TEMP 36.4–37.2; O2SAT 91–100; BMI 39.0
[2021-01-28 00:06] LABS: Thyroid Stimulating Hormone 3.99 uIU/mL (0.465-4.68)
[2021-01-28 00:13] LABS: Microscopic, Urine URINE MICROSCOPIC (MICROSCOPIC)
[2021-01-28 00:16] LABS: Appearance,Urine CLEAR (Clear); Bilirubin,Urine Negative (Negative); Blood, Urine 1+ (Negative); Color,Urine YELLOW (Yellow); Glucose,Urine (UA) Negative (Negative); Ketones,Urine Negative (Negative); Leukocyte Esterase,Urine Negative (Negative); Nitrate,Urine Negative (Negative); Protein,Urine Negative (Negative); Specific Gravity, Urine 1.025 (1.005-1.030); Urobilinogen,Urine 0.2 EU/dl (0.2)
--- NOTE | 2021-01-28 00:16 | HMH.EDWEAK ---
ED Disposition Clinical Impression: Hypertensive urgency, Obesity (BMI 30.0-34.9), Hypothyroidism (acquired), Tobacco dependence CAD (coronary artery disease) Qualifiers: Coronary Disease-Associated Artery/Lesion type: [place] artery [place] vs. transplanted heart: [place] heart Associated angina: with unspecified angina Qualified Code(s): I25.119 - Atherosclerotic heart disease of [place] coronary artery with unspecified angina pectoris Disposition: Admitted as Observation Condition on Discharge: Good - Critical Care Critical Care Time: No Attestation: On 01/27/21, the high probability of a clinically significant, sudden or life threatening deterioration of the following system(s) required my full and direct attention, intervention and personal management. The time I documented below is in addition to time spent performing reported procedures but includes the following listed in this critical care notation. Medical Decision Making - Medical Records Medical records reviewed: Yes: I reviewed the patient's medical records. - Ramon Inquiry Pt receiving controlled substance: No Vital Signs: 01/27/21 22:46 01/28/21 00:41 01/28/21 01:08 Temperature 97.7 F Temperature Source Oral Pulse Rate [Right] 82 98 H Respiratory Rate 14 Blood Pressure [Orthostatic Lying] 230/90 H Blood Pressure [Orthostatic Sitting] 220/100 H Blood Pressure [Orthostatic Standing] 210/100 H Blood Pressure [Right Arm] 160/80 H 171/67 H Blood Pressure Mean [Right Arm] 106 101 Blood Pressure Source [Right Arm] Manual Cuff/ Auscultation 02 Sat by Pulse Oximetry 97 99 Oxygen Delivery Method Room Air 01/28/21 02:00 01/28/21 02:30 Temperature Temperature Source Pulse Rate [Right] 100 H 85 Respiratory Rate Blood Pressure [Orthostatic Lying] Blood Pressure [Orthostatic Sitting] Blood Pressure [Orthostatic Standing] Blood Pressure [Right Arm] 160/68 H 166/64 H Blood Pressure Mean [Right Arm] 98 98 Blood Pressure Source [Right Arm] 02 Sat by Pulse Oximetry 99 100 Oxygen Delivery Method - Lab Data Lab results reviewed: Yes: I reviewed the patient's lab results. Lab Results 01/27/21 23:11: WBC 11.0 H, RBC 4.25, Hgb 12.9, Hct 39.3, MCV 92.3, MCH 30.3, MCHC 32.8, RDW 14.3, Plt Count 229, MPV 8.6, Neut % (Auto) 68.8, Lymph % (Auto) 22.8, Gem % (Auto) 6.7, Eos % (Auto) 1.1, Baso % (Auto) 0.6, Neut # (Auto) 7.6, Lymph # (Auto) 2.5, Gem # (Auto) 0.7, Eos # (Auto) 0.1, Baso # (Auto) 0.1, ESR 19 01/27/21 23:11: Sodium 136, Potassium 3.9, Chloride 108 H, Carbon Dioxide 25, Anion Gap 6.9, BUN 15, Creatinine 0.80, Estimated Creat Clear 43, Estimated GFR 69, Est GFR ( Amer) 83, Glucose 108 H, Calcium 9.6, Total Bilirubin 0.5, AST 32, ALT 18, Alkaline Phosphatase 93, Troponin I < 0.01, C-Reactive Protein 5.7 H, Total Protein 6.2 L, Albumin 3.7, Globulin 2.5, Albumin/Globulin Ratio 1.5, Procalcitonin 0.047, TSH 3.99 01/27/21 23:11: Free T4 1.59 01/27/21 23:11: NT-Pro-B Natriuret Pep 220 01/28/21 00:04: Urine Color Yellow, Urine Appearance Clear, Urine pH 6.0, Ur Specific [place] 1.025, Urine Protein Negative, Urine Glucose (UA) Negative, Urine Ketones Negative, Urine Blood 1+, Urine Nitrate Negative, Urine Bilirubin Negative, Urine Urobilinogen 0.2, Ur Leukocyte Esterase Negative, Urine RBC 3-5, Urine WBC Occasional, Ur Squamous Epith Cells 3-5 01/28/21 02:30: Troponin I < 0.01 Result diagrams: 01/27/21 23:11 01/27/21 23:11 Orders (Tests/Meds): ED MEDICATIONS Generic Name Dose Route Start Last Admin Trade Name Freq PRN Reason Stop Dose Admin Sodium Chloride 1,000 mls @ 999 mls/hr 01/27/21 23:15 01/27/21 23:26 Sod Chlor 0.9% 1000ml Bag IV 01/28/21 00:15 999 mls/hr .[id number] LATA Administration Discontinued Medications Generic Name Dose Route Start Last Admin Trade Name Freq PRN Reason Stop Dose Admin Hydralazine HCl 10 mg 01/28/21 00:42 01/28/21 00:50 Hydralazine 20mg/Ml Vial IV 01/28/21 0
[2021-01-28 00:21] LABS: WBC,Urine Occasional #/hpf (0-3)
--- NOTE | 2021-01-28 00:41 | PC.NURSE ---
Bp done manually
--- NOTE | 2021-01-28 01:12 | CT_ITS ---
PROCEDURE: CT CHEST WO CON CLINICAL INDICATION: abd chest xray COMPARISON: CR XR CHEST PORTABLE from 01/27/2021 TECHNIQUE: Axial images obtained with sagittal and coronal reformats. All CT scans at the facility use one or more dose reduction, viz: automated exposure control, ma/kV adjustment per patient size (including targeted exams where dose is matched to indication, i.e. head), or iterative reconstruction technique. FINDINGS: HEART AND MEDIASTINAL STRUCTURES: Enlarged thyroid gland along the isthmus and right lobe which may be better evaluated with ultrasound. Coronary artery calcifications and/or stents noted. Mitral valve annular calcifications noted. LUNGS AND PLEURAL SPACES: 3 mm noncalcified nodule right middle lobe. Atelectasis or infiltrate in the right middle lobe laterally and in the left lower lobe posteriorly. BONY STRUCTURES: No acute bony abnormalities apparent. UPPER ABDOMEN: There is a tubular density in the upper abdomen. This encircles the body/antrum of the stomach and may represent a displaced angelchik prosthesis. ADDITIONAL FINDINGS: There is a 2.5 x 1.7 cm spiculated mass in the mid aspect of the right breast. Suggest mammogram with ultrasound for further evaluation. This is suspicious for malignancy IMPRESSION: 1. Moderate-sized hiatal hernia. 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 2.5 cm spiculated right breast mass suspicious for malignancy. Suggests mammogram and ultrasound for further evaluation. Dictated by: Damian Garland MD 01/28/2021 08:13 Damian Garland MD in [facility] 01/28/2021 08:13
[2021-01-28 03:00] LABS: Troponin I < 0.01 ng/ml (0.00-0.034)
--- NOTE | 2021-01-28 05:14 | PC.NURSE ---
patient up to floor via wheelchair.
[2021-01-28 05:33] LABS: Basophils # 0.1 K/mm3 (0-0.2); Basophils % 0.5 % (0.1-2.0); Eosinophils # 0.2 K/mm3 (0.0-0.4); Hematocrit 39.7 % (37.0-47.0); Hemoglobin 12.8 g/dL (12.2-16.2); Lymphocytes # 2.7 K/mm3 (0.7-4.5); Mean Corpuscular HGB Conc 32.3 g/dL (31.8-35.4); Mean Corpuscular Hemoglobin 29.8 pg (27.0-31.2); Mean Corpuscular Volume 92.4 fl (81-99); Mean Platelet Volume 8.2 fl (7.4-10.4); Monocytes % 6.4 % (1.7-9.3); Neutrophils # 11.2 K/mm3 (1.8-7.8); Platelet Count 255 K/mm3 (142-424); Red Cell Distribution Width 14.1 % (11.5-17.5); White Blood Count 15.1 K/mm3 (4.8-10.8)
[2021-01-28 05:38] LABS: MANUAL DIFFERENTIAL MANUAL DIFFERENTIAL (MANUAL DIFF)
[2021-01-28 05:39] LABS: Chloride 109 mmol/L (98-107); Potassium 3.6 mmoL/L (3.5-5.1); Sodium 139 mmol/L (136-145)
[2021-01-28 05:42] LABS: Anion Gap 8.6 mEq/L (5-15); Blood Urea Nitrogen 15 mg/dl (7-17); Calcium 9.4 mg/dl (8.4-10.2); Carbon Dioxide 25 mmol/L (22.0-30.0); Creatinine Clearance Estimated 56 mL/min (50-200); Estimated Glomerular Filt Rate 60 ml/min (>60); GFR (African American) 73 ML/MIN (>60); Magnesium 1.9 mg/dl (1.6-2.3)
[2021-01-28 05:55] LABS: Troponin I 0.06 ng/ml (0.00-0.034)
[2021-01-28 05:59] LABS: Lymphocytes % 10 % (10-50); Monocytes % 4 % (2-9); Neutrophils % 85 % (42-76); Platelet Estimate Normal; RBC Morphology Normal; Total Cells Counted 100
[2021-01-28 06:00] LABS: Glucose 130 mg/dl (74-100)
--- NOTE | 2021-01-28 06:10 | PC.NURSE ---
patient arrived to the floor at 05:25 in wheelchair; no acute distress noted at this time. Will continue to monitor.
--- NOTE | 2021-01-28 08:25 | HMH.PHAVTE ---
[facility] Pharmacy VTE Monitoring - Patient Demographics Admission date: 01/28/21 Report Date: 01/28/21 Time: 08:25 Allergies/Adverse Reactions: Patient Allergies No Known Drug Allergies [NO KNOWN DRUG ALLERGIES] Allergy (Unknown, Verified 09/22/20 15:34) Height: 1.45 m Weight: 81.873 kg Patient Problems: Current Active Problems Hypertensive urgency (Acute) Obesity (BMI 30.0-34.9) (Acute) Hypothyroidism (acquired) (Acute) Tobacco dependence (Chronic) CAD (coronary artery disease) (Chronic) - VTE Risk Labs: VTE Related Lab Results Hgb 12.8 g/dL (12.2-16.2) 01/28/21 05:25 Hct 39.7 % (37.0-47.0) 01/28/21 05:25 Plt Count 255 K/mm3 (142-424) 01/28/21 05:25 BUN 15 mg/dl (7-17) 01/28/21 05:25 Creatinine 0.90 mg/dl (0.52-1.04) 01/28/21 05:25 Estimated Creat Clear 56 mL/min (50-200) 01/28/21 05:25 - Prophylaxis VTE Prophylaxis Ordered?: Yes Types of VTE Prophylaxis: TEDS Knee High Location of Applied Device: Bilateral Lower Extremeties
--- NOTE | 2021-01-28 08:35 | HMH.PHAINT ---
Addendum entered and electronically signed by Penny Dumas PharmD 01/28/21 10:19: ALSO RECONCILED FROM RX BOTTLES. ALL HOME MEDICATIONS HAVE BEEN RESTARTED. Original Note: HOME MEDICATIONS RECONCILED FROM RECENT DISCHARGE AND PHARMACY FILL LIST.
--- NOTE | 2021-01-28 09:08 | HMH.HP ---
*Admission Date: 01/28/21 *Chief complaint: weakness *History of present illness: this pt presented by ems to ed last pm with wekaness and dec ability to ambulate - usually with walker - her daughter reports progressive weakness over the last few weeks - she was admitted to [facility] overnight in dec for vasovagal episode and bronchitis - has had progressive weakness since - no chest pain and no fever - she was seen in the ed with marked elevated bp - she was admitted for eval and treatment [facility] History I have reviewed the patient's past medical history: Yes Medical History: Reports:: Coronary Artery Disease, Gastroesophageal Reflux Disease(GERD), Hyperlipidemia, Hypertension Denies:: Cancer, Diabetes Mellitus Type 1, Diabetes Mellitus Type 2, MRSA *Have you ever received a pneumonia vaccine?: Yes *Have you received a flu vaccine this season?: Yes Other Medical History: Reports: Arthritis, Thyroid Disease Other Surgeries: Yes: Cardiac Catheterization, Cholecystectomy, Coronary Stent, Hysterectomy-Total, Hysterectomy-Partial Amputation: No Fractures: Yes - *Social History Last grade of school completed: 9th or 10th Smoking Status: Current every day smoker Tobacco Type: cigarettes # Packs/Day (cigarettes): 1 Alcohol Intake: never Substance Use Type: denies use *Occupational Status:: retired Housing: apartment Household Members: none *Travel in the last 8 weeks: None Family Hx:: Heart Attack Review of Systems - Review of Systems Review of systems:: pertinent systems reviewed and negative unless documented below - Constitutional Reports weakness, Denies fever(s) - Eyes Denies change in vision - ENT Denies dry mouth, Denies nosebleed - *Cardiovascular Denies chest pain - *Respiratory Denies cough - *Gastrointestinal Denies abdominal pain - *Genitourinary Denies difficulty starting urination, Denies urinary incontinence - *Musculoskeletal Reports joint pain, Reports back pain, Denies neck pain - Integumentary/Breasts Reports breast lump, Denies rash - *Neurologic Reports weakness, Denies localized weakness, Denies tingling/numbness/burning sensations, Denies seizure-like activity Meds Home Medications Medication Instructions Recorded Confirmed Type gabapentin 300 mg capsule 300 mg PO TID 30 Days #60 cap 03/11/19 01/28/21 History potassium chloride 20 mEq 20 meq PO BID 90 Days #180 tab 03/11/19 01/28/21 History tablet,extended release(part/cryst) ranolazine 500 mg tablet,extended 500 mg PO BID 90 Days #180 tab 03/11/19 01/28/21 History release,12 hr sertraline 25 mg tablet 25 mg PO DAILY 90 Days #90 tab 03/11/19 01/28/21 History levothyroxine 50 mcg tablet 50 mcg PO DAILY tab 07/14/20 01/28/21 History sucralfate 1 gram tablet 1 gm PO ACHS tab 07/14/20 01/28/21 History Losartan Potassium [Cozaar 25mg 25 mg PO DAILY 01/12/21 01/28/21 History Tablets] Metoprolol Succinate [Metoprolol 25 mg PO DAILY 01/12/21 01/28/21 History Succinate 25mg Tablet*] Spironolactone [Spironolactone 25 mg PO MOWEFR 01/12/21 01/28/21 History 25mg Tablet] Aspirin [Aspirin 325mg Tab] 325 mg PO DAILY 01/27/21 01/28/21 History Pantoprazole Sodium [Protonix 40mg 40 mg PO BID 01/28/21 01/28/21 History tablet] Rosuvastatin Calcium [Crestor 40mg 40 mg PO DAILY 01/28/21 01/28/21 History Tablets] Allergies Allergy/AdvReac Type Severity Reaction Status Date / Time No Known Drug Allergies Allergy Unknown Verified 09/22/20 15:34 [NO KNOWN DRUG ALLERGIES] Exam Vital signs and Labs for Last 24 Hours: Temp Pulse Resp BP Pulse Ox 98.9 F 91 H 16 162/59 H 96 01/28/21 08:00 01/28/21 08:00 01/28/21 08:00 01/28/21 08:00 01/28/21 08:00 Laboratory Results - last 24 hr 01/27/21 23:11: WBC 11.0 H, RBC 4.25, Hgb 12.9, Hct 39.3, MCV 92.3, MCH 30.3, MCHC 32.8, RDW 14.3, Plt Count 229, MPV 8.6, Neut % (Auto) 68.8, Lymph % (Auto) 22.8, [place] % (Auto) 6.7, Eos % (Auto) 1.1, Baso % (Auto) 0.6,
--- NOTE | 2021-01-28 17:41 | PC.NURSE ---
Pt has been asleep most of the day in recliner. VSS this shift. Lung sounds clear, pt continues on RA. Pt is able to ambulate w/ x1 assist and walker. Pt is urinating dark, yellow urine per BSC. No other acute changes or complaints at this time.
[2021-01-29] VITALS (22 sets, daily range): BP systolic 137–187; BP diastolic 57–111; PULSE 59–95; RESP 16–19; TEMP 36.4–37.1; O2SAT 92–99; BMI 32.3
--- NOTE | 2021-01-29 | IR_ITS ---
APPROVED REPORT Patient Location: Inpatient Solar Sales Assessor: SPENCER Black RT (R) PROCEDURES Left heart catheterization Left ventriculogram Selective coronary angiogram INDICATION Unstable angina with elevated troponin Informed consent was obtained prior to the procedure. COMPLICATIONS None Estimated Blood Loss: Less than 10 mls TECHNIQUE One percent lidocaine used to anesthetize the right anterior aspect of the wrist. The right radial artery was accessed via the Seldinger technique. A 6 [place] sheath was placed in the right radial artery. 2.5 mg of verapamil, 800 mcg of nitroglycerin, 1mg Lidocaine and 5000 U Heparin were given through the arterial sheath. The trap catheter was also used to perform left heart catheterization, left ventriculogram and selective coronary angiogram. At the end of the procedure the sheath was removed good hemostasis was achieved using Traclet band, patient was transferred to the postop holding area in stable condition. ANGIOGRAPHIC RESULTS The left main artery Normal The left anterior descending artery Is widely patent the proximal segment with a stent in the mid segment which is also widely patent with no in-stent restenosis. Proximally there is excellent transitioning distally to the stent there is a 20% transitioning stenosis The circumflex artery Is nondominant and has a proximal eccentric 30% stenosis followed by an additional 30% stenosis The right coronary artery Is a dominant vessel and has proximal 30 to 40% eccentric stenosis The BRONSON ventriculogram reveals Normal 65% with at least +2 mitral regurgitation The left ventricular end-diastolic pressure 25 mmHg IMPRESSION Widely patent stent with mild nonflow limiting coronary disease Normal ejection fraction with at least +2 mitral regurgitation Elevated LVEDP consistent with diastolic dysfunction PLAN 1. Echocardiogram to evaluate mitral regurgitation 2. Treatment of diastolic dysfunction 3. Medical management for coronary disease Electronically signed by : Remi Anton, 01/29/2021 14:32:49
--- NOTE | 2021-01-29 03:03 | PC.NURSE ---
Pt A&O x4 and has slept on and off through the night. Pt is able to ambulate to the BSC with stand by assist and tolerates well. No complaints of pain. IV patent, NS @ 50. Lungs CTA, bowel sounds x4. abd soft and nontender. No acute changes. VSS, call light in reach, no concerns at this time.
--- NOTE | 2021-01-29 07:57 | HMH.CNCARD ---
History of Present Illness Consult date: 01/29/21 Requesting physician: Coy Romero Consult reason: hypertension Chief complaint: weakness Additional Medical History:: 1. Tobacco use, continued 2. History of cardiac catheterization A. History of LAD stent B. Left heart cath, 09/2015:ANGIOGRAPHIC RESULTS: 1. The left main artery is normal 2. The left anterior descending artery has a proximal 20-30% concentric stenosis immediately proximal to the proximal LAD stent which itself is widely patent free of in-stent restenosis 3. The circumflex artery has mild midvessel nonflow limiting plaque 4. The right coronary artery is a dominant vessel and has a proximal [id number]% to 40% stenosis 5. The BRONSON ventriculogram reveals normal ejection fraction estimated at 65% 6. The left ventricular end-diastolic pressure less than 10 mmHg 7. Right atrial pressure is 5 mmHg 8. Right ventricular pressure is 30/5 mmHg 9. Pulmonary artery pressure is 30/10 mmHg 10. Pulmonary artery occlusion pressure is 8 mmHg 11. Right atrial saturation is 74 % 12. Pulmonary artery saturation 7 2 % IMPRESSION: 1. Mild disease in the proximal LAD with a widely patent stent also in the proximal LAD 2. Mild nonocclusive disease in the circumflex artery and dominant right coronary artery 3. Normal ejection fraction 4. Mild pulmonary hypertension 5. Normal left-sided filling pressures PLAN: 1. Medical management 2. Patient requires cardiac rehabilitation. I suspect most of her symptoms are from cardiopulmonary deconditioning 3. Tobacco cessation 4. Treatment of lung disease 3. Obstructive sleep apnea, noncompliant with treatment 4. Hypertension A. Echo, 06/2020, 1. Moderately enlarged left atrium, normal left ventricular size, mild concentric left ventricular hypertrophy, visually estimated ejection fraction 55% with no regional wall motion abnormality, grade 1 diastolic dysfunction seen with tissue Doppler evidence of raise left atrial pressure. 2. Mild mitral and tricuspid regurgitation. 3. No significant pericardial effusion noted 5. GERD 6. Hyperlipidemia 7. Carotid artery stenosis, 50 to 69% ICA stenosis on the right, less than 20% ICA stenosis on the left by ultrasound 06/2020. Reportedly this is stable compared to 2019 study. History of present illness: this pt presented by ems to ed last pm with wekaness and dec ability to ambulate - usually with walker - her daughter reports progressive weakness over the last few weeks - she was admitted to [facility] overnight in fe for vasovagal episode and bronchitis - has had progressive weakness since - no chest pain and no fever - she was seen in the ed with marked elevated bp - she was admitted for eval and treatment The above per Dr. Romero Patient denies any chest pain, pressure or tightness recently. She does confirm the progression of weakness as noted above and endorses some progressive shortness of breath with exertion over the last several months but no chest pain. Patient also relates her great grandson, age 13, a week ago for meningitis. His organs were harvested for transplant purposes. She is still rightfully very emotional regarding this loss. The is planned this week. Patient denies missing any doses of her medications and admits she was thinking about the loss of her great grandson prior to coming to the ER and being admitted. Peak blood pressure in the ER noted to be 220/100 mmHg. Blood pressure over the last 24 hours has been in the 140-180/80-90s millimeters mercury range. Troponin initially normal x2 with third troponin slightly elevated at 0.06. EKG is sinus rhythm with left axis deviation and voltage criteria for LVH. Discussed consideration of left heart catheterization in light of her positive troponin and patient would like to proceed with this. [facility] History Medical History: Reports:: Coronary Artery Disease, [place]
--- NOTE | 2021-01-29 07:59 | CA_ITS ---
APPROVED REPORT Food And Beverage Lead: Vy Sanchez RVT Study Quality: Fair Indications: HTN urgency Risk Factors Hypertension Obesity Renal Artery Doppler Origin (R) 96.8/ cm/sec Distal (R) 96.8/ cm/sec Renal Aorta Ratio (R) 0.74 Segmental A. (R) 49.8/14.8 cm/sec RI: 0.70 Segmental A. Sup (R) 46.6/14.8 cm/sec Segmental A. Mid (R) 49.8/14.8 cm/sec Segmental A. Inf (R) 47.7/9.5 cm/sec Origin (L) 86.7/ cm/sec Distal (L) 66.5/ cm/sec Renal Aorta Ratio (L) 0.67 Segmental A. (L) 70.8/23.1 cm/sec RI: 0.67 Segmental A. Sup (L) 53.5/11.6 cm/sec Segmental A. Mid (L) 47.7/15.9 cm/sec Segmental A. Inf (L) 70.8/23.1 cm/sec Renal Measurements Kidney Size (R) 9.9x5.3 cm Cortical Thickness (R) 1.3 cm Kidney Size (L) 10.2x6.8 cm Cortical Thickness (L) 1.5 cm Findings Study suggests no evidence of stenosis of the bilateral renal arteries. Non-visualization of bilateral mid renal arteries. Conclusion Study suggests no evidence of stenosis of the bilateral renal arteries. Non-visualization of bilateral mid renal arteries. Electronically signed by : Damian Garland MD 01/29/2021 14:52:47
--- NOTE | 2021-01-29 09:55 | HMH.OTEV ---
OT Inpatient Evaluation Rehab OT IP Evaluation Start: 01/29/21 07:19 Freq: ONCE Status: Complete Protocol: Document 01/29/21 09:46 VEENA (Rec: 01/29/21 09:55 [email or web address] [id number]) Rehab OT IP Assessment Subjective History 80 year old female admitted presented by ems to ed last pm with weakness and dec ability to ambulate - usually with walker - her daughter reports progressive weakness over the last few weeks - she was admitted to [facility] overnight in dec for vasovagal episode and bronchitis - has had progressive weakness since - no chest pain and no fever - she was seen in the ed with marked elevated bp - she was admitted for eval and treatment. PMH: Coronary Artery Disease, Gastroesophageal Reflux Disease(GERD), Hyperlipidemia, Hypertensio Subjective I feel good today. Patient sitting up in recliner at arrival of tx. Patient verbalize to live alone in 1 story apartment with 4-5 NIKKI. Patient ambulated with rollator and completed all ADLs independently. Dtr assist with transportation and IADL tasks. Patient completed all transfers and ambulation task independently with standard walker. Patient completed toileting and LB drsg task independently. No LOB noted. Objective Patient Orientation Person,Place,Time,Name,Age, Birthday,Month,Year,Situation Upper Extremity Gross ROM WNL Transfer Training Sit/Stand Transfer,Sit/Stand/ Step Transfer Assist Level Independent Chair Transfer Ability Independent Chair Transfer Technique Sit to/from Ambulatory Chair Transfer Assistive Devices Standard Walker Lower Body Dressing Ability Independent Overall Commode/Toilet Transfer Ability Independent Commode/Toilet Transfer Technique Sit to/from Ambulatory Rehab OT IP prob,goals,plan Problems Date of Evaluation:
--- NOTE | 2021-01-29 10:42 | HMH.PTEV ---
Physical Therapy Evaluation Rehab PT IP Evaluation Start: 01/29/21 07:19 Freq: ONCE Status: Active Protocol: Document 01/29/21 10:39 BRISEYDA (Rec: 01/29/21 10:42 PHOTAMARA [id number]) Subjective/History History History 80 yowf adm to [facility] with generalized weakness. She reports she lives alone, 7 steps to enter the home, independent with ambulation using RW at baseline. She has intermittent assistance during the day. Subjective Subjective Pt reports she feels good this am. Rehab PT IP Eval Objective Appearance Patient Behavior Appropriate Patient Orientation Person,Place,Time Difficulty following instructions none Speech Pattern Clear Ambulation Patient Able to Ambulate Yes Ambulation Observation IP General Gait Pattern Observation No Deviations/Normal Ambulation Distance (feet) 50 Ambulation Assistive Device Standard Walker Ambulation Ability Supervision/Stand by Balance Ability to Arise Able, uses arms to help Sitting Balance Steady, safe Standing Balance Steady, wide stance Dynamic Sitting Balance Ability Normal Dynamic Standing Balance Ability Good Transfers Bed Transfer Ability Supervision/Stand by Chair Transfer Ability Supervision/Stand by Sit to Stand Bed Transfer Ability Supervision/Stand by Sit to Stand Chair Transfer Ability Supervision/Stand by ROM All Extremities PT ROM Status WFL MMT All Extremities PT MMT WFL Rehab PT IP prob,goals,plan Problems Date of Evaluation: 01/29/21 Discharge Plan PT Discharge Plan Pt appears to be at baseline for all mobility at this time. No inpatient therapy needs currently and she is appropriate to return home once medically stable. G -code Required No Eval Complexity Eval Charge Codes 16892 - Moderate Complexity PHYSICIAN CERTIFICATION: I certify the specified therapy services for Marti Huddleston are required, authorized, and reviewed every 30 days.
[2021-01-29 10:54] LABS: Troponin I 0.02 ng/ml (0.00-0.034)
--- NOTE | 2021-01-29 10:57 | SW/DCPLANNER ---
Addendum entered by Shira Dorsey 01/30/21 10:52: Lizet with [facility] confirmed that patient information has been received and services will begin for this patient. Patient will discharge home today. Addendum entered by Shira Dorsey 01/30/21 09:05: This patient will discharge home today. Patient information and order will be faxed to [facility]. I will follow up with Pratik with [facility] once patient information is reviewed. Addendum entered by Shira Dorsey 01/29/21 13:37: I spoke with patient this afternoon and she has chose to use [facility] at time of discharge. Original Note: Patient/family has requested home health services at time of discharge. I will speak with this patient once heart cath is completed regarding discharge plans and home health services. PT/OT has stated that patient did well and can return home at time of discharge.
--- NOTE | 2021-01-29 13:10 | P.PN_ITS ---
Internal Medicine - PN: Subj *Date: 01/29/21 *Time: 08:10 Interval history: pt sitting up in chair states she feels well today Exam Vital signs and Labs for Last 24 Hours: Temp Pulse Resp BP Pulse Ox 98.0 F 95 H 16 146/85 H 94 L 01/29/21 08:00 01/29/21 08:00 01/29/21 08:00 01/29/21 08:00 01/29/21 08:00 Laboratory Results - last 24 hr 01/29/21 10:28: Troponin I 0.02 I & O for Last 24 hours: Intake & Output 01/27/21 01/28/21 01/29/21 01/30/21 11:59 11:59 11:59 11:59 Intake Total 1000 / 1000 840 / 840 0 / 0 Balance 1000 / 1000 840 / 840 0 / 0 Weight 180 lb 8 oz 150 lb 3 oz - Constitutional no acute distress - *Routine HEENT Exam Head: Present: normocephalic Eye: Present: PERRL ENT: Present: mucous membranes moist - *Routine Neck Exam Present: supple. Absent: lymphadenopathy - *Routine Respiratory Exam Present: CTA bilaterally - *Routine Cardiovascular Exam Present: murmur, S4 - *Routine Abdominal Exam Present: soft, normoactive bowel sounds. Absent: tenderness - *Routine Extremities Exam Absent: cyanosis, clubbing, edema - *Routine Skin Exam Present: warm. Absent: rash - *Routine Neurological Exam Present: alert, oriented X3 - Routine Psychiatric Exam Present: normal affect Assessment and Plan (1) Hypertensive urgency Status: Acute Category: Medical Code(s): I16.0 - Hypertensive urgency (2) Obesity (BMI 30.0-34.9) Status: Acute Category: Medical Code(s): E66.9 - Obesity, unspecified (3) Hypothyroidism (acquired) Status: Acute Category: Medical Code(s): E03.9 - Hypothyroidism, unspecified (4) CAD (coronary artery disease) Status: Chronic Qualifiers: Coronary Disease-Associated Artery/Lesion type: [place] artery [place] vs. transplanted heart: [place] heart Associated angina: with unspecified angina Qualified Code(s): I25.119 - Atherosclerotic heart disease of [place] coronary artery with unspecified angina pectoris Category: Medical Code(s): I25.10 - Atherosclerotic heart disease of [place] coronary artery without angina pectoris (5) Tobacco dependence Status: Chronic Category: Medical Code(s): F17.200 - Nicotine dependence, unspecified, uncomplicated (6) Abnormal EKG Status: Acute Category: Medical Code(s): R94.31 - Abnormal electrocardiogram [ECG] [EKG] (7) Carotid artery stenosis Status: Chronic Qualifiers: Laterality: bilateral Qualified Code(s): I65.23 - Occlusion and stenosis of bilateral carotid arteries Category: Medical Code(s): I65.29 - Occlusion and stenosis of unspecified carotid artery (8) Reactive depression (situational) Status: Acute Category: Medical Code(s): F32.9 - Major depressive disorder, single episode, unspecified - Assessment and plan all Dx Assessment and Plan for all problems:: rounded with Dr Romero all orders per Dr Romero cardiology consult ss consult pt/ot
--- NOTE | 2021-01-29 14:30 | CA_ITS ---
APPROVED REPORT EXAM: Comprehensive 2D, Doppler, and color-flow Echocardiogram Waste Minimization Technician: Teena Valdez, RCS, RVS Ht: 4 ft 9 in Wt: 150lbs BSA: 1.59 BP: 182/101 mmHg Indications: MR, CAD, ABN EKG, GERD Echo Enhancing Agent Comments: Technically difficult exam due to constant patient motion, scanned supine. 2D Dimensions IVSd 0.97 cm LVEF (Visual) 50.60 % PWd 0.94 cm LA Volume 55.20 mL LVDd 4.88 cm LA Volume Index 34.70 mL/m2 (M/F) 16-34 LVDs 3.62 cm Aortic Root 2.81 cm LVOT 1.64 cm (M/F) 1.5-2.5 M-Mode Dimensions LA Diam 4.24 cm (1.9-4.0) Ao Diam 2.87 cm (2.0-3.7) TAPSE 1.30 (<1.7) LV Diastology E Decel Time 240.00 (160-240 msec) E/A Ratio 1.05 MED E' 6.80 (< 7 cm/sec) MED A' 7.30 cm/s E'/MED E' Ratio 16.50 (>14) LAT E' 8.20 (<10 cm/sec) LAT A' 6.80 cm/s E/LAT E' Ratio 13.68 (>14) Pulm Vein s 33.00 cm/sec Ar-A Duration 110.00 msec Aortic Valve LVOT Max 92.00 (70-110 cm/s) LVOT VTI 24.47 cm AoV Peak Declan. 135.00 (50-130 cm/s) AO Peak GR. 7.30 mmHg AO Mean GR. 3.90 (<5 mmHg) AO VTI 34.26 (18-25 cm) GONZALO (VTI) 1.51 (2.5-4.5 cm2) Mitral Valve MV E Max Declan. 112.00 (40-130 cm/s) MV A Velocity 107.00 (40-130 cm/s) E/A Ratio 1.05 MV Decel. Time 240.00 (160-240 ms) MV PHT 70.00 ms Pulmonary Valve PV Peak Velocity 68.00 (50-150 cm/s) Tricuspid Valve TR P. Velocity 255.00 cm/s RAP Estimate 10.00 mmHg RVSP 35.90 mmHg Left Ventricle Left atrium is mildly enlarged, left ventricle is normal size, mild concentric left ventricular hypertrophy, visually estimated ejection fraction 55% with no regional wall motion abnormality, grade 2 diastolic dysfunction seen with tissue Doppler evidence of raise left atrial pressure. Right Ventricle Right atrium and right ventricle are normal size and contractility. Aortic Valve Aortic valve is minimally thickened and fibrosed, there is no aortic stenosis or aortic insufficiency. Mitral Valve Mitral valve leaflets are minimally thickened, there is mild mitral regurgitation. Tricuspid Valve Tricuspid valve grossly normal, there is mild tricuspid regurgitation, calculated right ventricular systolic pressure is 35 mmHg. Pulmonic Valve Pulmonic valve is poorly visualized. Great Vessels Aortic root is normal size. Pericardium No significant pericardial effusion noted. Conclusion 1. Mildly enlarged left atrium, normal left ventricular size, mild concentric left ventricular hypertrophy, visually estimated ejection fraction 55% with no regional wall motion abnormality, grade 2 diastolic dysfunction seen with tissue Doppler evidence of raise left atrial pressure. 2. Mild mitral and tricuspid regurgitation, calculated right ventricular systolic pressure 35 mmHg. 3. No significant pericardial effusion noted. Electronically signed by : Marvin Elliott, 01/29/2021 18:10:04
--- NOTE | 2021-01-29 18:09 | PC.NURSE ---
SHE IS AOX4 BUT HAS SOME EPISODES OF CONFUSION. SHE AMBULATES INDEPENDENTLY TO THE [facility] COM[facility], DOES NOT REQUIRE O2 SUPPORT, ABD IS SOFT AND NON-TENDER WILL BOWEL SOUNDS ACTIVEX4, SHE IS UP TO CHAIR AT THIS TIME, TELFA AND TEGADERM IN PLACE TO RIGHT RADIAL CATH SITE.
[2021-01-30] VITALS: BP 136/84; PULSE 70; PULSE 84; RESP 17; TEMP 36.7; O2SAT 97
[2021-01-30 04:00] VITALS: BP 146/72; PULSE 60; PULSE 80; RESP 17; TEMP 36.7; O2SAT 96
[2021-01-30 05:15] VITALS: BMI 32.3
--- NOTE | 2021-01-30 05:53 | PC.NURSE ---
shift summary pts lung sounds are clear with sats maintained above 90% on room air with a rate ranging from 16-18. pt is alert and oriented X4. pt denies any pain, nausea, vomiting, or diarrhea. pts right radial dressing is clean, dry, and intact.
[2021-01-30 07:21] LABS: Blood Urea Nitrogen 20 mg/dl (7-17); Calcium 8.7 mg/dl (8.4-10.2); Carbon Dioxide 26 mmol/L (22.0-30.0); Chloride 109 mmol/L (98-107); Creatinine Clearance Estimated 47 mL/min (50-200); Estimated Glomerular Filt Rate 60 ml/min (>60); GFR (African American) 73 ML/MIN (>60); Glucose 94 mg/dl (74-100); Sodium 139 mmol/L (136-145)
[2021-01-30 07:31] LABS: Basophils % 0.4 % (0.1-2.0); Eosinophils # 0.2 K/mm3 (0.0-0.4); Hemoglobin 11.1 g/dL (12.2-16.2); Lymphocytes # 1.7 K/mm3 (0.7-4.5); Lymphocytes % 19.3 % (10-50); Mean Corpuscular HGB Conc 31.8 g/dL (31.8-35.4); Mean Corpuscular Hemoglobin 29.8 pg (27.0-31.2); Mean Corpuscular Volume 93.8 fl (81-99); Mean Platelet Volume 8.7 fl (7.4-10.4); Monocytes # 0.7 K/mm3 (0.1-1.0); Neutrophils # 6.2 K/mm3 (1.8-7.8); Neutrophils % 70.3 % (37.0-80.0); Platelet Count 195 K/mm3 (142-424); Red Blood Count 3.74 M/mm3 (4.20-5.40); Red Cell Distribution Width 14.3 % (11.5-17.5); White Blood Count 8.9 K/mm3 (4.8-10.8)
[2021-01-30 08:00] VITALS: BP 133/79; PULSE 57; RESP 18; TEMP 36.6; O2SAT 96
[2021-01-30 08:07] VITALS: PULSE 70
--- NOTE | 2021-01-30 08:39 | HMH.DCSUM ---
General - General Admission date:: 01/28/21 <Coy Romero - 01/30/21 15:54> 01/28/21 <Huey Coley - 01/30/21 08:51> Discharge date: 01/30/21 <RupertopaxtonHuey - 01/30/21 08:51> HPI HPI: this pt presented by ems to ed last pm with wekaness and dec ability to ambulate - usually with walker - her daughter reports progressive weakness over the last few weeks - she was admitted to [facility] overnight in feb for vasovagal episode and bronchitis - has had progressive weakness since - no chest pain and no fever - she was seen in the ed with marked elevated bp - she was admitted for eval and treatment <Huey Coley - 01/30/21 11:46> Hospital Course Hospital Course: this pt presented by ems to ed last pm with wekaness and dec ability to ambulate - usually with walker - her daughter reports progressive weakness over the last few weeks - she was admitted to [facility] overnight in feb for vasovagal episode and bronchitis - has had progressive weakness since - no chest pain and no fever - she was seen in the ed with marked elevated bp - she was admitted for eval and treatment Laboratories in the ED revealed white blood count 11, hemoglobin 12.9, hematocrit 39.3 UA negative Chemistries within normal limits 01/28/21 CXR: IMPRESSION: No change mild left lower lobe atelectasis Dictated by: Dada, 01/28/[address]: FINDINGS: HEART AND MEDIASTINAL STRUCTURES: Enlarged thyroid gland along the isthmus and right lobe which may be better evaluated with ultrasound. Coronary artery calcifications and/or stents noted. Mitral valve annular calcifications noted. LUNGS AND PLEURAL SPACES: 3 mm noncalcified nodule right middle lobe. Atelectasis or infiltrate in the right middle lobe laterally and in the left lower lobe posteriorly. BONY STRUCTURES: No acute bony abnormalities apparent. UPPER ABDOMEN: There is a tubular density in the upper abdomen. This encircles the body/antrum of the stomach and may represent a displaced angelchik prosthesis. ADDITIONAL FINDINGS: There is a 2.5 x 1.7 cm spiculated mass in the mid aspect of the right breast. Suggest mammogram with ultrasound for further evaluation. This is suspicious for malignancy IMPRESSION: 1. Moderate-sized hiatal hernia. 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 2.5 cm spiculated right breast mass suspicious for malignancy. Suggests mammogram and ultrasound for further evaluation. Dictated by: Dada 01/29/21 Renal Artery Duplex: Findings Study suggests no evidence of stenosis of the bilateral renal arteries. Non-visualization of bilateral mid renal arteries. Conclusion Study suggests no evidence of stenosis of the bilateral renal arteries. Non-visualization of bilateral mid renal arteries. Electronically signed by : Damian 01/29/21 Card Cath: ANGIOGRAPHIC RESULTS The left main artery Normal The left anterior descending artery Is widely patent the proximal segment with a stent in the mid segment which is also widely patent with no in-stent restenosis. Proximally there is excellent transitioning distally to the stent there is a 20% transitioning stenosis The circumflex artery Is nondominant and has a proximal eccentric 30% stenosis followed by an additional 30% stenosis The right coronary artery Is a dominant vessel and has proximal 30 to 40% eccentric stenosis The BRONSON ventriculogram reveals Normal 65% with at least +2 mitral regurgitation The left ventricular end-diastolic pressure 25 mmHg IMPRESSION Widely patent stent with mild nonflow limiting coronary disease Normal ejection fraction with at least +2 mitral regurgitation Elevated LVEDP consistent with diastolic dysfunction PLAN 1. Echocardiogram to evaluate mitral regurgitation 2. Treatment of diastolic dysfunction 3. Medical management for coronary disease Electronically signed by : Remi Anton, 01/29/21 ECHO: Conclusion 1. Mildly enlarged left atrium, normal left ventricu
--- NOTE | 2021-01-30 10:26 | HMH.PNCARD ---
Subjective Date: 01/30/21 Time: 10:26 Principal diagnosis: Hypertension Interval history: 80-year-old white female in bedside chair in no acute distress. Sleepy but arouses easily to verbal stimuli but drifts off to sleep again very easily. Denies any chest pain, pressure or tightness. Cardiac catheter results showed stable coronary artery disease. Suspected mitral regurgitation on cardiac cath not verified by echocardiogram. No further work-up at this time. Exam Vital signs and Labs for Last 24 Hours: Temp Pulse Resp BP Pulse Ox 97.9 F 70 18 133/79 96 01/30/21 08:00 01/30/21 08:07 01/30/21 08:00 01/30/21 08:00 01/30/21 08:00 Laboratory Results - last 24 hr 01/29/21 10:28: Troponin I 0.02 01/30/21 06:38: WBC 8.9 D, RBC 3.74 L, Hgb 11.1 L, Hct 35.0 L, MCV 93.8, MCH 29.8, MCHC 31.8, RDW 14.3, Plt Count 195, MPV 8.7, Neut % (Auto) 70.3, Lymph % (Auto) 19.3, Greer % (Auto) 8.0, Eos % (Auto) 2.0, Baso % (Auto) 0.4, Neut # (Auto) 6.2, Lymph # (Auto) 1.7, Greer # (Auto) 0.7, Eos # (Auto) 0.2, Baso # (Auto) 0.0 01/30/21 06:38: Sodium 139, Potassium 4.0, Chloride 109 H, Carbon Dioxide 26, Anion Gap 8.0, BUN 20 H D, Creatinine 0.90, Estimated Creat Clear 47, Estimated GFR 60, Est GFR ( Amer) 73, Glucose 94, Calcium 8.7 I & O for Last 24 hours: Intake & Output 01/27/21 01/28/21 01/29/21 01/30/21 11:59 11:59 11:59 11:59 Intake Total 1000 / 1000 840 / 840 180 / 180 Output Total 600 / 600 Balance 1000 / 1000 840 / 840 -420 / -420 Weight 180 lb 8 oz 150 lb 3 oz 150 lb 3 oz - *Routine Respiratory Exam Present: CTA bilaterally - *Routine Cardiovascular Exam Present: RRR - *Routine Extremities Exam Absent: cyanosis, clubbing, edema Comments: Right radial cath site looks good. Some forearm swelling noted. No evidence of oozing or hematoma at this time Progress Note: A&P (1) Hypertensive urgency Status: Acute (2) Obesity (BMI 30.0-34.9) Status: Acute (3) Hypothyroidism (acquired) Status: Acute (4) CAD (coronary artery disease) Status: Chronic (5) Tobacco dependence Status: Chronic (6) Abnormal EKG Status: Acute (7) Carotid artery stenosis Status: Chronic (8) Reactive depression (situational) Status: Acute Assessment and Plan for All Diagnoses:: Stable from cardiology standpoint for discharge home. Follow-up in our office in 2 weeks. Continue home medications. Will not add furosemide which was started yesterday.
[2021-01-30 12:00] VITALS: PULSE 60
[2021-01-30 12:49] VITALS: BP 148/69; PULSE 67; RESP 18; TEMP 36.7; O2SAT 97
== END 2021-01-30 16:00 | disposition home health service (06) ==
LOC: ER 01-28 01:11 → 2ND 01-28 04:39
PROVIDERS: Internal Medicine; Physician Assistant; Admitting Provider Emergency Medicine; Emergency Provider Emergency Medicine; PCP Family Medicine; Visit Provider Emergency Medicine
DX: I25.110 Atherosclerotic heart disease of native coronary artery with unstable angina pectoris (principal); I10 Essential (primary) hypertension; Z95.5 Presence of coronary angioplasty implant and graft; E03.9 Hypothyroidism, unspecified; Z72.0 Tobacco use; I16.0 Hypertensive urgency; I65.23 Occlusion and stenosis of bilateral carotid arteries; F32.9 Major depressive disorder, single episode, unspecified
CPT/HCPCS: 36415; 71045; 71250; 80048; 80053; 81001; 83735; 83880; 84145; 84439; 84443; 84484; 85007; 85025; 85651; 86140; 93005; 93306; 93458; 93976; 96365; 96375; 97162; 97165; 99152; 99284; C1725; C1769; G0378; J1644; Q9967; U0003

== ENCOUNTER → 2021-02-07 08:02 | Outpatient (CLI) | payer MEDICARE, MEDICAID, SELFPAY ==
--- NOTE | 2021-02-07 08:03 | US_ITS ---
PROCEDURE: US BREAST RT COMPLETE CLINICAL INDICATION: right breast mass seen on chest ct COMPARISON: No exams were available for comparison FINDINGS: There is a markedly hypoechoic mass 6 o'clock position near the nipple with prominent acoustic shadowing beneath with lobulated borders almost as tall as wide corresponding in size and location to the mass on mammogram and this must be considered carcinoma until proven otherwise. There is peripheral vascularity. IMPRESSION: Markedly suspicious hypoechoic mass compatible with the mass seen on the mammogram same date Dictated by: Dr. Sebastien Marquez MD 02/16/2021 11:47 Dr. Sebastien Marquez MD in [facility] 02/16/2021 11:47
--- NOTE | 2021-02-07 08:03 | CT_ITS ---
PROCEDURE: CT HEAD/BRAIN WO CON CLINICAL INDICATION: weakness COMPARISON: CR XR CHEST PORTABLE from 01/27/2021 TECHNIQUE: Axial images obtained. All CT scans at the facility use one or more dose reduction, viz: automated exposure control, ma/kV adjustment per patient size (including targeted exams where dose is matched to indication, i.e. head), or iterative reconstruction technique. FINDINGS: No midline shift, mass effect, intracranial hemorrhage, hydrocephalus, or extra-axial fluid collection is evident. There is generalized atrophy with hypoattenuation of the periventricular white matter consistent with microangiopathic changes. Decreased density inferior aspect of the right cerebellum measuring 9 mm and could be due to small area encephalomalacia change. A small space-occupying lesion is included in the differential diagnosis. 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 There is an air-fluid level in left maxillary sinus and mucosal thickening of the right ethmoid sinus. Frontal sinuses are hypoplastic. IMPRESSION: 1. Small hypodensity in the right cerebellum inferiorly which could be due to small area of infarction or small space-occupying lesion. MRI without and with contrast suggested for further evaluation. 2. Atrophy with chronic ischemic changes and old bilateral lacunar infarctions. 3. Sinusitis Dictated by: Damian Garland MD 02/07/2021 17:07 Damian Garland MD in [facility] 02/07/2021 17:07
--- NOTE | 2021-02-07 08:03 | MM_ITS ---
PROCEDURE: MM DIG MAMM BI DX W/CAD Digital Breast Tomosynthesis Included CLINICAL INDICATION: right breast mass seen on chest ct COMPARISON: No exams were available for comparison TECHNIQUE: Standard CC and MLO images and 3D Tomosynthesis was obtained. R2 CAD reviewed. FINDINGS: Scattered fibroglandular densities are seen in both breast. Is a dominant markedly suspicious mass lower outer quadrant right breast approximately the 8 o'clock position with spiculated borders and suspicious microcalcifications. There is slight inward retraction of skin and superficial breast tissue over the mass. There multiple benign-appearing micro and macrocalcifications in each breast. There appears be a biopsy clip inner quadrant right breast. Recommend the patient be scheduled for immediate biopsy. IMPRESSION: Markedly suspicious mass right breast BI-RAD Category: 5 Highly Suggestive Of Malignancy FOLLOW-UP: IMM Immediate Follow-up Recommended (A letter has been sent to the patient regarding results of the study.) Dictated by: Dr. Sebastien Marquez MD 02/10/2021 09:07 Dr. Sebastien Marquez MD in [facility] 02/10/2021 09:07
== END ==
PROVIDERS: PCP Family Medicine; Visit Provider Emergency Medicine
DX: N64.59 Other signs and symptoms in breast (principal); R53.1 Weakness; R93.0 Abnormal findings on diagnostic imaging of skull and head, not elsewhere classified
CPT/HCPCS: 70450; 76641; 77062; 77066; G0279

== ENCOUNTER → 2021-02-21 17:34 | Outpatient (CLI) | payer MEDICARE, MEDICAID, SELFPAY ==
[2021-02-21 18:03] LABS: Alanine Aminotransferase 12 U/L (12-78); Albumin Level 3.5 g/dl (3.5-5.0); Albumin/Globulin Ratio 1.5 (1.1-1.8); Alkaline Phosphatase 87 U/L (38-126); Anion Gap 10.5 mEq/L (5-15); Aspartate Amino Transferase 22 U/L (14-36); Bilirubin,Total 0.2 mg/dl (0.2-1.3); Blood Urea Nitrogen 25 mg/dl (7-17); Calcium 9.1 mg/dl (8.4-10.2); Carbon Dioxide 25 mmol/L (22.0-30.0); Chloride 108 mmol/L (98-107); Estimated Glomerular Filt Rate 47 ml/min (>60); GFR (African American) 57 ML/MIN (>60); Globulin 2.4 g/dL (1.3-3.2); Glucose 131 mg/dl (74-100); Potassium 4.5 mmoL/L (3.5-5.1); Sodium 139 mmol/L (136-145); Total Protein,Serum 5.9 g/dl (6.3-8.2)
== END ==
PROVIDERS: Visit Provider Nurse Practitioner Family
DX: I10 Essential (primary) hypertension (principal)
CPT/HCPCS: 80053

== ENCOUNTER → 2021-02-22 14:30 | Outpatient (CLI) | payer MEDICARE, MEDICAID, SELFPAY | PROVIDERS: PCP Family Medicine; Visit Provider Physician Assistant | DX: R93.0 Abnormal findings on diagnostic imaging of skull and head, not elsewhere classified (principal) ==

== ENCOUNTER → 2021-02-27 12:27 | Outpatient (CLI) | payer MEDICARE, MEDICAID, SELFPAY ==
--- NOTE | 2021-02-27 12:42 | US_ITS ---
PROCEDURE: US MAMMOTOME BX RT CLINICAL INDICATION: RT BREAST MASS COMPARISON: 02/07/2021 mammogram and ultrasound FINDINGS: Following obtaining informed consent and time-out procedure under aseptic conditions and local anesthesia with 1 percent buffered lidocaine and deeper anesthesia with lidocaine mixed with epinephrine, skin victor manuel was performed and mammotome needle was inserted into the suspicious mass at the 6 o'clock region of the right breast. Multiple mammotome biopsies were obtained and a sterile non ferromagnetic clip was then placed. The patient tolerated the procedure well without evidence of immediate complication. Post biopsy mammogram: Post biopsy changes are noted in the deep and slightly medial aspect of the right breast within the right breast mass. Biopsy clip is present along the dorsal and medial aspect of the mass. Pathology: Invasive moderately differentiated ductal adenocarcinoma, ductal carcinoma in situ, intermediate nuclear grade and cribriform types with necrosis and cancer is a gonzalez of lobules, microcalcifications. ER PA positive and HER2 Jerrica negative IMPRESSION: Uneventful and successful ultrasound-guided mammotome biopsy of the right breast demonstrated invasive ductal adenocarcinoma. Suggest oncology and surgical consult. Dictated by: Damian Garland MD 03/05/2021 09:43 Damian Garland MD in [facility] 03/05/2021 09:43
--- NOTE | 2021-02-27 13:46 | MM_ITS ---
PROCEDURE: US MAMMOTOME BX RT CLINICAL INDICATION: RT BREAST MASS COMPARISON: 02/07/2021 mammogram and ultrasound FINDINGS: Following obtaining informed consent and time-out procedure under aseptic conditions and local anesthesia with 1 percent buffered lidocaine and deeper anesthesia with lidocaine mixed with epinephrine, skin victor manuel was performed and mammotome needle was inserted into the suspicious mass at the 6 o'clock region of the right breast. Multiple mammotome biopsies were obtained and a sterile non ferromagnetic clip was then placed. The patient tolerated the procedure well without evidence of immediate complication. Post biopsy mammogram: Post biopsy changes are noted in the deep and slightly medial aspect of the right breast within the right breast mass. Biopsy clip is present along the dorsal and medial aspect of the mass. Pathology: Invasive moderately differentiated ductal adenocarcinoma, ductal carcinoma in situ, intermediate nuclear grade and cribriform types with necrosis and cancer is a gonzalez of lobules, microcalcifications. ER NV positive and HER2 Jerrica negative IMPRESSION: Uneventful and successful ultrasound-guided mammotome biopsy of the right breast demonstrated invasive ductal adenocarcinoma. Suggest oncology and surgical consult. Dictated by: Damian Garland MD 03/05/2021 09:43 Damian Garland MD in [place] 03/05/2021 09:43
== END ==
PROVIDERS: PCP Family Medicine; Visit Provider Surgery
DX: N63.10 Unspecified lump in the right breast, unspecified quadrant (principal); C50.811 Malignant neoplasm of overlapping sites of right female breast; Z17.0 Estrogen receptor positive status [ER+]
CPT/HCPCS: 19083; 77065; 88305; 88342; 88360; C2618

== ENCOUNTER → 2021-03-21 14:15 | Outpatient (CLI) | payer MEDICARE, MEDICAID, SELFPAY ==
--- NOTE | 2021-03-21 14:35 | ECG_ITS ---
APPROVED REPORT Exam: Resting ECG HR:81 bpm ECG Measurements Heart Rate 81 AXES NC 158 P 37 QRSd 90 QRS -44 QT 376 T -10 QTc 436 Conclusion Normal sinus rhythm Left axis deviation Moderate voltage criteria for LVH, may be normal variant Abnormal ECG Electronically signed by : Dov Gonzales, 03/22/2021 21:18:24
[2021-03-21 14:42] LABS: Basophils # 0.1 K/mm3 (0-0.2); Basophils % 0.8 % (0.1-2.0); Eosinophils # 0.2 K/mm3 (0.0-0.4); Eosinophils % 2.1 % (0.1-12.0); Hematocrit 40.9 % (37.0-47.0); Lymphocytes # 1.9 K/mm3 (0.7-4.5); Lymphocytes % 24.6 % (10-50); Mean Corpuscular HGB Conc 31.7 g/dL (31.8-35.4); Mean Corpuscular Hemoglobin 29.2 pg (27.0-31.2); Mean Corpuscular Volume 92.1 fl (81-99); Mean Platelet Volume 8.6 fl (7.4-10.4); Monocytes # 0.5 K/mm3 (0.1-1.0); Monocytes % 5.7 % (1.7-9.3); Neutrophils # 5.2 K/mm3 (1.8-7.8); Neutrophils % 66.7 % (37.0-80.0); Platelet Count 265 K/mm3 (142-424); Red Blood Count 4.44 M/mm3 (4.20-5.40); Red Cell Distribution Width 13.9 % (11.5-17.5); White Blood Count 7.8 K/mm3 (4.8-10.8)
[2021-03-21 15:23] LABS: Chloride 109 mmol/L (98-107); Potassium 4.7 mmoL/L (3.5-5.1); Sodium 139 mmol/L (136-145)
[2021-03-21 15:26] LABS: Anion Gap 8.7 mEq/L (5-15); Blood Urea Nitrogen 25 mg/dl (7-17); Calcium 9.2 mg/dl (8.4-10.2); Carbon Dioxide 26 mmol/L (22.0-30.0); Estimated Glomerular Filt Rate 53 ml/min (>60); GFR (African American) 64 ML/MIN (>60); Glucose 138 mg/dl (74-100)
[2021-03-21 15:52] LABS: Coronavirus 19 IgG Antibody Positive (Negative); Coronavirus 19 IgM Antibody Negative (Negative)
== END ==
PROVIDERS: Visit Provider Surgery
DX: C50.511 Malignant neoplasm of lower-outer quadrant of right female breast (principal); Z17.0 Estrogen receptor positive status [ER+]; Z01.818 Encounter for other preprocedural examination; Z20.822 Contact with and (suspected) exposure to COVID-19
CPT/HCPCS: 36415; 80048; 85025; 86328; 93005

== ENCOUNTER → 2021-03-22 14:48 | Outpatient (CLI) | payer MEDICARE, MEDICAID, SELFPAY | PROVIDERS: PCP Family Medicine; Visit Provider Surgery | DX: Z20.822 Contact with and (suspected) exposure to COVID-19 (principal) | CPT/HCPCS: 88307; 88342 ==

== ENCOUNTER 2021-03-23 11:02 | Observation (INO) | payer MEDICARE, MEDICAID, SELFPAY ==
[2021-03-22 14:29] VITALS: BMI 30.2
[2021-03-22 15:33] LABS: Adenovirus,PCR Not Detected (NotDetected); Bordetella Pertussis Not Detected (NotDetected); Chlamydophila Pneumoniae, PCR Not Detected (NotDetected); Coronavirus 19, PCR Not Detected (NotDetected); Coronavirus 229E Not Detected (NotDetected); Coronavirus NL63 Not Detected (NotDetected); Coronavirus OC43 Not Detected (NotDetected); Coronovirus HKU1,PCR Not Detected (NotDetected); Human Metapneumovirus Not Detected (NotDetected); Influenza A, PCR Not Detected (NotDetected); Influenza AH1, 2009 Not Detected (NotDetected); Influenza AH1, PCR Not Detected (NotDetected); Influenza AH3,PCR Not Detected (NotDetected); Influenza B, PCR Not Detected (NotDetected); Mycoplasma Pneumoniae, PCR Not Detected (NotDetected); Parainfluenza 1, PCR Not Detected (NotDetected); Parainfluenza 2, PCR Not Detected (NotDetected); Parainfluenza 3, PCR Not Detected (NotDetected); Parainfluenza 4, PCR Not Detected (NotDetected); Respiratory Syncytial Virus Not Detected (NotDetected); Rhinovirus/Enterovirus Not Detected (NotDetected)
[2021-03-23] VITALS (23 sets, daily range): BP systolic 118–200; BP diastolic 55–78; PULSE 73–97; RESP 14–20; TEMP 36.3–42.7; O2SAT 92–99
--- NOTE | 2021-03-23 09:27 | HMH.ANESCL ---
[facility] Anesthesia Checklist - Patient Identification Patient Identification: Arm Band - Structural Data Admitted From: Home Planned Operative Procedure/s: Mastectomy with sentinel node bx Consent for Planned Operative Procedure(s) Verified: Yes - NPO Status Verified Time NPO: 00:00 - Additional verifications Anesthesia Reactions: No Hx Blood Transfusions: Yes Blood Transfusion Reaction: No - Airway Assessment C-Spine Mobility Assessed: Yes TMJ Mobility Assessed: Yes Dentition: Dentures-good fit (Removed) - Neurological Assessment Level of Consciousness: Awake, Alert Hx Seizures: No Numbness or tingling in extremities: No - Anesthesia Plan Anesthesia Risk discussed: Yes ASA Class: III Anesthesia Type: General [facility] History I have reviewed the patient's past medical history: Yes Medical History: Reports:: Cancer (right breast), Chronic Obstructive Pulmonary Disease (COPD), Coronary Artery Disease, Gastroesophageal Reflux Disease(GERD), Hyperlipidemia, Hypertension Denies:: Diabetes Mellitus Type 1, Diabetes Mellitus Type 2, Internal Pacemaker, MRSA, Seizures *Have you ever received a pneumonia vaccine?: Yes *Have you received a flu vaccine this season?: Yes Other Medical History: Reports: Arthritis, Thyroid Disease. Denies: Blood Transfusion Reaction Anesthesia experience/problems:: None Other Surgeries: Yes: Cardiac Catheterization, Cholecystectomy, Colonoscopy, Coronary Stent, Hysterectomy-Total, Hysterectomy-Partial. No: Pacemaker Amputation: No Fractures: Yes - *Social History Last grade of school completed: 9th or 10th Smoking Status: Current every day smoker Tobacco Type: cigarettes # Packs/Day (cigarettes): 1 Alcohol Intake: never Substance Use Type: denies use *Occupational Status:: retired Housing: house Household Members: none *Travel in the last 8 weeks: None Family Hx:: Heart Attack
--- NOTE | 2021-03-23 09:35 | HMH.GSHP ---
HPI HPI: This is an 81-year-old female with recently-diagnosed right breast carcinoma. After discussion with the patient concerning the risks and benefits the decision was made to proceed with mastectomy and axillary sentinel lymph node biopsy. [facility] History Medical History: Reports:: Cancer (right breast), Chronic Obstructive Pulmonary Disease (COPD), Coronary Artery Disease, Gastroesophageal Reflux Disease(GERD), Hyperlipidemia, Hypertension Denies:: Diabetes Mellitus Type 1, Diabetes Mellitus Type 2, Internal Pacemaker, MRSA, Seizures *Have you ever received a pneumonia vaccine?: No *Have you received a flu vaccine this season?: No Other Medical History: Reports: Arthritis, Thyroid Disease. Denies: Blood Transfusion Reaction Anesthesia experience/problems:: None Other Surgeries: Yes: Cardiac Catheterization, Cholecystectomy, Colonoscopy, Coronary Stent, Hysterectomy-Total, Hysterectomy-Partial. No: Pacemaker Amputation: No Fractures: Yes - *Social History Last grade of school completed: 9th or 10th Smoking Status: Current every day smoker Tobacco Type: cigarettes # Packs/Day (cigarettes): 1 Alcohol Intake: never Substance Use Type: denies use *Occupational Status:: retired Housing: house Household Members: none *Travel in the last 8 weeks: None Family Hx:: Heart Attack Review of Systems - Constitutional Denies chills - Eyes Denies change in vision - ENT Denies difficulty swallowing - *Cardiovascular Denies chest pain - *Respiratory Denies cough - *Gastrointestinal Denies abdominal pain - *Genitourinary Denies blood in urine - *Musculoskeletal Denies tingling - Integumentary/Breasts Denies redness - *Neurologic Denies confusion - Psychiatric Denies anxiety - Endocrine Denies cold intolerance - Hematologic/Lymphatic Denies easy bleeding - Allergic/Immunologic Denies wheezing Meds Home Medications Medication Instructions Recorded Confirmed Type potassium chloride 20 mEq 20 meq PO BID 90 Days #180 tab 03/11/19 03/23/21 History tablet,extended release(part/cryst) ranolazine 500 mg tablet,extended 500 mg PO BID 90 Days #180 tab 03/11/19 03/23/21 History release,12 hr sertraline 25 mg tablet 25 mg PO DAILY 90 Days #90 tab 03/11/19 03/23/21 History levothyroxine 50 mcg tablet 50 mcg PO DAILY tab 07/14/20 03/23/21 History sucralfate 1 gram tablet 1 gm PO ACHS tab 07/14/20 03/23/21 History RX: Spironolactone [Spironolactone 25 mg PO MOWEFR 01/12/21 03/23/21 History 25mg Tablet] RX: Aspirin [Aspirin 325mg Tab] 325 mg PO DAILY 01/27/21 03/23/21 History RX: Pantoprazole Sodium [Protonix 40 mg PO BID 01/28/21 03/23/21 History 40mg tablet] RX: Rosuvastatin Calcium [Crestor 40 mg PO DAILY 01/28/21 03/23/21 History 40mg Tablets] RX: Gabapentin [Neurontin 300mg 300 mg PO TID 03/23/21 03/23/21 History capsule] RX: Losartan Potassium [Cozaar 100 mg PO DAILY 03/23/21 03/23/21 History 100mg Tablets] RX: Metoprolol Succinate 25 mg PO DAILY 03/23/21 03/23/21 History [Metoprolol Succinate 25mg Tablet*] Hydrocod/Acet 5/325 mg [Dauphin 1 - 2 tab PO Q6HP PRN #33 tab 03/24/21 Rx 5/325mg tablet] Allergies Allergy/AdvReac Type Severity Reaction Status Date / Time No Known Drug Allergies Allergy Unknown Verified 03/22/21 14:08 [NO KNOWN DRUG ALLERGIES] Exam Vital signs and Labs for Last 24 Hours: Temp Pulse Resp BP Pulse Ox 97.5 F L 90 17 165/78 H 98 03/26/21 08:27 03/26/21 08:27 03/24/21 16:00 03/26/21 08:27 03/24/21 16:00 I & O for Last 24 hours: Intake & Output 03/24/21 03/25/21 03/26/21 03/27/21 11:59 11:59 11:59 11:59 Intake Total 1120 / 1120 360 / 360 0 / 0 Output Total 645 / 645 Balance 475 / 475 360 / 360 0 / 0 - Constitutional no acute distress - *Routine HEENT Exam Head: Present: normocephalic Eye: Present: EOMI ENT: Present: mucous membranes moist - *Routine Neck Exam Present
--- NOTE | 2021-03-23 09:45 | NM_ITS ---
PROCEDURE: NM SENTINEL NODE INJECT ONLY CLINICAL INDICATION: breast mass COMPARISON: No exams were available for comparison FINDINGS: Following obtaining informed consent and after a time-out procedure, under aseptic conditions and local anesthesia with 1 % buffered lidocaine, 1.61 mCi technetium sulfur colloid was injected in the periareolar region of the RIGHT breast in 6 divided doses. The patient tolerated the procedure well without evidence of immediate complications and left nuclear medicine suite in stable condition. IMPRESSION: UNEVENTFUL SENTINEL NODE INJECTION OF THE RIGHT BREAST. Dictated by: Damian Garland MD 03/23/2021 11:52 Damian Garland MD in [facility] 03/23/2021 11:52
--- NOTE | 2021-03-23 12:50 | HMH.OPNOTE ---
Date of procedure: 03/23/21 Pre-op Diagnosis:: Right breast cancer Post-op Diagnosis:: Same Procedure performed:: Right axillary sentinel lymph node biopsy Right mastectomy Surgeon:: Marlon Myles MD Anesthesia: GETA Estimated blood loss (mL): 50 Operative findings:: Right axillary sentinel lymph node with primary count 4273 Background uptake less than 100 Significant lateral extension completed secondary to abundant lateral chest wall adiposity. Despite this lateral extension, formal axillary dissection not completed. Operative note:: After informed consent was obtained the patient was taken to the radiology suite where radioisotope was injected. Please see separate report from the radiology service for detail. After 45 minutes elapsed she was transferred to the operating room. Injection of diluted Lymphazurin was then completed. The right breast and axilla were prepped and draped in a sterile fashion. The neoprobe device was utilized to identify the area of greatest uptake in the axilla. Uptake at the skin level at the axillary margin ranged from 75-400. The point of maximum uptake was carefully marked. A curvilinear incision was made at this site. The subcutaneous tissue was dissected with electrocautery and also bluntly. Fairly deep within the axilla and somewhat cephalad to the point of entry a area of increased nodularity consistent with round lymph nodes was noted. This tissue was carefully elevated and a combination of blunt dissection and electrocautery was utilized to the somewhat firm lymph nodes from surrounding tissue. The target count of this tissue was 4273. Reevaluation of the axilla revealed background to be significantly less than 100 at this site. No additional areas of increased uptake were noted. The deep subcutaneous tissue was reapproximated with interrupted Vicryl and skin was closed with 3-0 Stratafix. Attention was then turned to the breast. The patient had a fairly inferior/lateral palpable mass. She also had abnormal thickening of her skin and underlying tissue and needs the right breast. The decision was made to proceed with fairly caudal incision to just encompass the areolar margin superiorly. An elliptical incision was completed. Secondary to significant lateral chest wall adiposity the incision was extended laterally. A foam wedge was also excised along the lateral margin to allow for closure. The breast tissue was carefully dissected free utilizing electrocautery. The dissection initiated along the medial/superior margin. The dissection was taken to the fascial margin with electrocautery as the breast tissue was elevated. Once the breast was freed from surrounding tissue the superior margin was marked with a short suture and the lateral margin was marked with a long suture. It was passed off for pathologic evaluation. Electrocautery was utilized to achieve hemostasis. The deep subcutaneous tissue was reapproximated with 0 Vicryl after placement of a #10 flat Rodrigo-German drain. Skin was then stapled and dressings were applied. The patient was transferred to recovery in stable condition. Condition: stable Disposition: PACU Specimens:: Right axillary sentinel lymph nodes with target count 4273 Right breast Complications:: No immediate
--- NOTE | 2021-03-23 13:01 | P.PN_ITS ---
[facility] Anesthesia Record Part I Intake, IV Amount: 1,000 Estimated blood loss (mL): 50 Urine output (mL): 300 Blood Pressure: 150/71 SaO2: 99 Pulse Rate: 93 Respiratory Rate: 14 Temperature: 97.4 F Patient is:: Drowsy, Oral/Nasal airway Stable to PACU at:: 12:58
[2021-03-23 13:32] LABS: Microscopic,Cath URINE MICROSCOPIC (MICROSCOPIC)
[2021-03-23 13:46] LABS: Appearance,Urine/Cath CLEAR (Clear); Bilirubin,Cath Negative (Negative); Blood, Urine/Cath Negative (Negative); Color,Urine/Cath YELLOW (Yellow); Glucose,Urine/Cath (UA) Negative (Negative); Ketones,Urine/Cath Negative (Negative); Leukocyte Esterase,Cath Negative (Negative); Nitrate,Cath Negative (Negative); PH,Urine/Cath 5.5 (5.0-8.5); Protein,Urine/Cath Negative (Negative); Urobilinogen,Cath 0.2 EU/dl (0.2)
[2021-03-23 14:26] LABS: RBC,Urine/Cath Occasional # /hpf (0-3)
--- NOTE | 2021-03-23 15:30 | HMH.PHAINT ---
HOME MEDICATIONS RECONCILED FROM RX BOTTLES.
--- NOTE | 2021-03-23 15:31 | P.CONPHA_ITS ---
[facility] Pharmacy VTE Monitoring - Patient Demographics Admission date: 03/23/21 Report Date: 03/23/21 Time: 15:31 Allergies/Adverse Reactions: Patient Allergies No Known Drug Allergies [NO KNOWN DRUG ALLERGIES] Allergy (Unknown, Verified 03/22/21 14:08) Height: 1.45 m Weight: 63.503 kg - VTE Risk Was VTE Risk Assessment Performed: Yes VTE Score: 6 VTE Risk Level: Moderate Risk - Prophylaxis VTE Prophylaxis Ordered?: Yes Types of VTE Prophylaxis: IPCS Thigh High Location of Applied Device: Bilateral Lower Extremeties
--- NOTE | 2021-03-23 15:47 | PC.NURSE ---
DR. GINI CARRION NOTIFIED OF PT'S SURGERY AND ADMIT. VERBALIZES UNDERSTANDING. (NOTIFIED OFFICE STAFF, OFFICE STAFF WILL NOTIFY PHYSICIAN).
--- NOTE | 2021-03-23 22:00 | PC.NURSE ---
SPOKE WITH DR. BORRERO AT THIS TIME REGARDING PT'S DRESSING BEING SATURATED ON THE VERTICAL PORTION OF THE DRESSING. ORDERS TO REMOVE SATURATED PORTION OF DRESSING, CLEAN WITH ALCOHOL AND REPLACE WITH 4X4 GAUZE AND TEGADERM. USE STRICT ASEPTIC TECHNIQUE AND REMAIN STERILE POSSIBLE. NO FURTHER ORDERS AT THIS TIME.
--- NOTE | 2021-03-23 22:35 | PC.NURSE ---
DRESSING CHANGE PERFORMED AT THIS TIME. DRESSING SATURATED WITH SANGENOUS DRAINAGE AND BLOOD REMOVED. WOUND CLEANSED WITH ALCOHOL PER MD. NEW DRESSING OF 4X4 GAUZE AND TEGADERM PLACED. PATIENT TOLERATED DRESSING CHANGE WELL.
[2021-03-24 00:05] VITALS: BP 119/52; PULSE 81; RESP 18; TEMP 37; O2SAT 96
[2021-03-24 04:15] VITALS: BP 150/62; PULSE 81; RESP 17; TEMP 37.3; O2SAT 96
--- NOTE | 2021-03-24 04:15 | PC.NURSE ---
PATIENT HAS DONE WELL THIS SHIFT. VSS AND PAIN WELL CONTROLLED. PT IS A&OX4. BOWELS REMAIN ACTIVE IN ALL QUADRANTS AND LUNGS ARE CTAB. PATIENT HAS AMBULATED TO THE BEDSIDE COMMODE WITH X1 ASSIST. PATIENT HAS DECLINED PAIN MEDICATION FOR MOST OF THE SHIFT. CHEST IS BOUND WITH RONALD WRAP. SMALL AMOUNT OF SERO SANG DRAINAGE NOTED TO DRESSING ON THE FAR RIGHT SIDE. ANITA DRAINING EFFECTIVELY. 115 NOTED TO HAVE BEEN DRAINED THIS SHIFT. CALL LIGHT WITHIN REACH. WILL CONTINUE TO MONITOR.
[2021-03-24 08:03] LABS: Basophils % 0.3 % (0.1-2.0); Eosinophils % 0.2 % (0.1-12.0); Hematocrit 29.3 % (37.0-47.0); Hemoglobin 9.4 g/dL (12.2-16.2); Lymphocytes # 1.4 K/mm3 (0.7-4.5); Lymphocytes % 15.9 % (10-50); Mean Corpuscular HGB Conc 31.9 g/dL (31.8-35.4); Mean Corpuscular Hemoglobin 28.8 pg (27.0-31.2); Mean Corpuscular Volume 90.3 fl (81-99); Mean Platelet Volume 8.7 fl (7.4-10.4); Monocytes # 0.7 K/mm3 (0.1-1.0); Monocytes % 7.4 % (1.7-9.3); Neutrophils # 6.8 K/mm3 (1.8-7.8); Neutrophils % 76.2 % (37.0-80.0); Platelet Count 197 K/mm3 (142-424); Red Blood Count 3.25 M/mm3 (4.20-5.40); White Blood Count 8.9 K/mm3 (4.8-10.8)
[2021-03-24 08:14] LABS: Anion Gap 8.8 mEq/L (5-15); Blood Urea Nitrogen 22 mg/dl (7-17); Carbon Dioxide 25 mmol/L (22.0-30.0); Chloride 107 mmol/L (98-107); Creatinine Clearance Estimated 39 mL/min (50-200); Estimated Glomerular Filt Rate 47 ml/min (>60); GFR (African American) 57 ML/MIN (>60); Glucose 161 mg/dl (74-100); Potassium 4.8 mmoL/L (3.5-5.1); Sodium 136 mmol/L (136-145)
[2021-03-24 08:15] LABS: Calcium 8.1 mg/dl (8.4-10.2)
[2021-03-24 08:18] VITALS: BP 154/62; PULSE 85; RESP 18; TEMP 37.3; O2SAT 94
[2021-03-24 08:22] VITALS: O2SAT 94
--- NOTE | 2021-03-24 08:35 | PC.NURSE ---
30ml blood drainage emptied out of ANITA this morning during assessment. Incision dressing has moderate amt of light red bloody drainage on it. Jg Wraps x2 in place around pt's chest. Pt given incentive spirometer this morning, usage explained as well as demonstrated. Pt only able to obtain 500ml level on incentive. Stressed importance of using q 1hr and reasons why. Verbalized understanding. Low grade temp noted (99.2 oral). Lungs wheezy with light rhonchi. Pt smokes and has intermittent non-productive smokers cough . Wearing scuds while in bed. (+) BS all quads hyperactive. Denies flatus or BM yet. Vitals- 154/62, 85, 18, 99.2 oral, 94% RA H/H- 9.4/29.3 WBC- 8.9
--- NOTE | 2021-03-24 09:45 | HMH.GSPN ---
Subjective Patient reports: no new complaints Progress Note: A&P (1) Breast cancer, right Status: Acute (2) Postoperative anemia Status: Acute Assessment and Plan for All Diagnoses:: Overall, doing well status post right mastectomy and sentinel node biopsy. Repeat hemoglobin/hematocrit this afternoon Possible discharge home later today Exam Vital signs and Labs for Last 24 Hours: Temp Pulse Resp BP Pulse Ox 99.2 F 85 18 154/62 H 94 L 03/24/21 08:18 03/24/21 08:18 03/24/21 08:18 03/24/21 08:18 03/24/21 08:22 Laboratory Results - last 24 hr 03/23/21 10:45: Urine Color Yellow, Urine Appearance Clear, Urine pH 5.5, Ur Specific [place] 1.020, Urine Protein Negative, Urine Glucose (UA) Negative, Urine Ketones Negative, Urine Blood Negative, Urine Nitrate Negative, Urine Bilirubin Negative, Urine Urobilinogen 0.2, Ur Leukocyte Esterase Negative, Urine RBC Occasional, Urine WBC 3-5, Ur Squamous Epith Cells 3-5, Urine Bacteria None 03/24/21 07:42: WBC 8.9, RBC 3.25 L D, Hgb 9.4 L, Hct 29.3 L, MCV 90.3, MCH 28.8, MCHC 31.9, RDW 14.0, Plt Count 197 D, MPV 8.7, Neut % (Auto) 76.2, Lymph % (Auto) 15.9, Bertie % (Auto) 7.4, Eos % (Auto) 0.2, Baso % (Auto) 0.3, Neut # (Auto) 6.8, Lymph # (Auto) 1.4, Bertie # (Auto) 0.7, Eos # (Auto) 0.0, Baso # (Auto) 0.0 03/24/21 07:42: Sodium 136, Potassium 4.8, Chloride 107, Carbon Dioxide 25, Anion Gap 8.8, BUN 22 H, Creatinine 1.10 H, Estimated Creat Clear 39, Estimated GFR 47 L, Est GFR ( Amer) 57 L, Glucose 161 H, Calcium 8.1 L D I & O for Last 24 hours: Intake & Output 03/21/21 03/22/21 03/23/21 03/24/21 11:59 11:59 11:59 11:59 Intake Total 1000 / 1000 Output Total 645 / 645 Balance 355 / 355 Weight 140 lb - Constitutional no acute distress - Routine Chest/Breast/Axilla Exam Comments: Dressings in place. No sign of expanding hematoma. - *Routine Respiratory Exam Absent: respiratory distress - *Routine Cardiovascular Exam Present: RRR
[2021-03-24 12:00] VITALS: BP 126/73; PULSE 85; RESP 18; TEMP 36.6; O2SAT 96
--- NOTE | 2021-03-24 14:10 | PC.NURSE ---
Lab personnel at to draw blood for H/H.
[2021-03-24 14:49] LABS: Hematocrit 29.2 % (37.0-47.0); Hemoglobin 9.4 g/dL (12.2-16.2)
--- NOTE | 2021-03-24 15:12 | HMH.DCSUM ---
General - General Admission date:: 03/23/21 Discharge date: 03/24/21 HPI HPI: This is an 81-year-old female recently diagnosed with right-sided breast cancer. After a long discussion with the patient concern the risks and benefits she chose to undergo right mastectomy and sentinel lymph node biopsy. Hospital Course Hospital Course: The patient underwent right mastectomy with sentinel lymph node biopsy. Please see operative report for detail. Postoperatively, she convalesced well. She remained afebrile with stable and normal vital signs. On the morning of postoperative day one she was found to have mild anemia with a hemoglobin of 9.4. Repeat hemoglobin later that afternoon was stable at 9.4. She was deemed appropriate for discharge. Rhogam Administration: Not Indicated Objective Vital signs: Temp Pulse Resp BP Pulse Ox 97.9 F 85 18 126/73 96 03/24/21 12:00 03/24/21 12:00 03/24/21 12:00 03/24/21 12:00 03/24/21 12:00 no acute distress - *Routine HEENT Exam Head: Present: normocephalic Eye: Present: EOMI ENT: Present: mucous membranes moist - *Routine Neck Exam Present: full ROM - Routine Chest/Breast/Axilla Exam Breast: Present: right mastectomy Comments: Dressings in place. No spreading cellulitis. - *Routine Respiratory Exam Absent: respiratory distress - *Routine Cardiovascular Exam Present: RRR - *Routine Abdominal Exam Present: soft - *Routine Rectal Exam Patient deferred: visual exam - *Routine Exam Patient deferred: external exam - *Routine Extremities Exam Absent: edema - Routine Back/Spine/Pelvis Exam Back/Spine: Present: full ROM - *Routine Skin Exam Absent: erythema - *Routine Neurological Exam Present: alert - Routine Psychiatric Exam Present: normal affect Results Labs on day of discharge: Labs from last 24 hours 03/24/21 03/24/21 03/24/21 14:25 07:42 07:42 WBC 8.9 RBC 3.25 L D Hgb 9.4 L 9.4 L Hct 29.2 L 29.3 L MCV 90.3 MCH 28.8 MCHC 31.9 RDW 14.0 Plt Count 197 D MPV 8.7 Neut % (Auto) 76.2 Lymph % (Auto) 15.9 [place] % (Auto) 7.4 Eos % (Auto) 0.2 Baso % (Auto) 0.3 Neut # (Auto) 6.8 Lymph # (Auto) 1.4 [place] # (Auto) 0.7 Eos # (Auto) 0.0 Baso # (Auto) 0.0 Sodium 136 Potassium 4.8 Chloride 107 Carbon Dioxide 25 Anion Gap 8.8 BUN 22 H Creatinine 1.10 H Estimated Creat Clear 39 Estimated GFR 47 L Est GFR ( Amer) 57 L Glucose 161 H Calcium 8.1 L D DS: Diagnosis - Discharge Diagnosis (1) Breast cancer, right Status: Acute (2) Postoperative anemia Status: Acute Discharge Plan - Patient Discharge Instructions ACTIVITY: Continue current activity, Ambulate as tolerated Additional Instructions: CALL OFFICE Friday03/26/21 TO MAKE AN APPOINTMENT FOR 03/28/21 Patient Instructions: How to Care for a Surgical Wound, How to Use and Care for Your Rodrigo-German Drain, DI for Breast Cancer, DI for Mastectomy with Lymph Node Removal - Follow up Plan Follow up with: Marlon Myles MD [Staff Physician] - 03/28/21 Disposition: Home, Self-Correction Medications: Home Medications Medication Instructions Recorded Confirmed Type potassium chloride 20 mEq 20 meq PO BID 90 Days #180 tab 03/11/19 03/23/21 History tablet,extended release(part/cryst) ranolazine 500 mg tablet,extended 500 mg PO BID 90 Days #180 tab 03/11/19 03/23/21 History release,12 hr sertraline 25 mg tablet 25 mg PO DAILY 90 Days #90 tab 03/11/19 03/23/21 History levothyroxine 50 mcg tablet 50 mcg PO DAILY tab 07/14/20 03/23/21 History sucralfate 1 gram tablet 1 gm PO ACHS tab 07/14/20 03/23/21 History Spironolactone [Spironolactone 25 mg PO MOWEFR 01/12/21 03/23/21 History 25mg Tablet] Aspirin [Aspirin 325mg Tab] 325 mg PO DAILY 01/27/21 03/23/21 History Pantoprazole Sodium [Protonix 40mg 40 mg PO BID 01/28/21
--- NOTE | 2021-03-24 15:18 | PC.NURSE ---
Sitting up in chair watching TV ([place] Cover[employer]). ANITA Drain emptied, 40mls blood. Pt denies feeling any pain or needing anything. States Lortab helped. Small amt of additional bloody drainage noted on Vertical incision. Jg wraps x2 remain in place.
[2021-03-24 16:00] VITALS: BP 137/48; PULSE 72; RESP 17; TEMP 36.6; O2SAT 98
--- NOTE | 2021-03-24 16:30 | PC.NURSE ---
Both IV sites discontinued at this time (rt arm and left arm). Catheters intact. 2x2 gauze and coban applied to sites. Tolerated well.
--- NOTE | 2021-03-24 16:45 | PC.NURSE ---
Dressings removed from surgical site. Site cleaned with alcohol and aseptic technique. Rangel intact. Minimal bruising. Well approximated. No active bleeding or drainage noted. New 4x4, tegaderm and foam tape applied. Tolerated well. Reviewed incision care and s/s to observe for with pt and her daughter. Also instructed them on care and emptying of ANITA drain. Verbalized understanding.
--- NOTE | 2021-03-24 17:40 | PC.NURSE ---
Discharged home via w/c with daughter. Accompanied to private vehicle by OB staff. Verbalized understanding of discharge instructions, medications, and follow up appts.
--- NOTE | 2021-03-26 08:26 | P.PN_ITS ---
[facility] Anesthesia Record Part II Discharge Time: 13:28 Destination: Obstetric PACU nurse assessment reviewed?: Yes Patient Condition:: Good Anesthesia Complications:: None Swallowing reflex intact?: Yes Cyanosis?: No Blood Pressure: 165/78 Pulse Rate: 90 Temperature: 97.5 F Mental Status: Alert & Oriented Pain level:: 0 Nausea and/or vomitting:: None Intake, IV Amount: 0
[2021-03-26 08:27] VITALS: BP 165/78; PULSE 90; TEMP 36.4
== END 2021-03-24 17:40 | disposition home or self-care (01) ==
LOC: OB 11:02
PROVIDERS: Admitting Provider Surgery; PCP Family Medicine; Visit Provider Surgery
PROC: (CPT 19307; principal; 2021-03-23 10:15)
DX: C50.111 Malignant neoplasm of central portion of right female breast (principal); C77.3 Secondary and unspecified malignant neoplasm of axilla and upper limb lymph nodes; Z17.0 Estrogen receptor positive status [ER+]; I10 Essential (primary) hypertension; I25.10 Atherosclerotic heart disease of native coronary artery without angina pectoris; J44.9 Chronic obstructive pulmonary disease, unspecified
CPT/HCPCS: 19307; 38792; 80048; 81001; 85014; 85018; 85025; 87581; 87633; 87798; 88307; 88342; 94761; 96374; G0283; G0378; J0330; J2405

== ENCOUNTER → 2021-04-04 14:07 | Outpatient (CLI) | payer MEDICARE, MEDICAID, SELFPAY ==
[2021-04-04 15:08] LABS: Basophils # 0.1 K/mm3 (0-0.2); Basophils % 0.6 % (0.1-2.0); Eosinophils # 0.2 K/mm3 (0.0-0.4); Eosinophils % 1.5 % (0.1-12.0); Hematocrit 34.6 % (37.0-47.0); Hemoglobin 10.6 g/dL (12.2-16.2); Lymphocytes # 1.6 K/mm3 (0.7-4.5); Lymphocytes % 12.1 % (10-50); Mean Corpuscular HGB Conc 30.6 g/dL (31.8-35.4); Mean Corpuscular Hemoglobin 28.1 pg (27.0-31.2); Monocytes # 0.7 K/mm3 (0.1-1.0); Neutrophils # 10.5 K/mm3 (1.8-7.8); Neutrophils % 80.8 % (37.0-80.0); Platelet Count 407 K/mm3 (142-424); Red Blood Count 3.76 M/mm3 (4.20-5.40); Red Cell Distribution Width 14.5 % (11.5-17.5)
== END ==
PROVIDERS: Visit Provider Surgery
DX: C50.911 Malignant neoplasm of unspecified site of right female breast (principal); Z79.891 Long term (current) use of opiate analgesic
CPT/HCPCS: 36415; 85025

== ENCOUNTER 2021-04-25 14:55 | Outpatient (RCR) | payer MEDICARE, MEDICAID, SELFPAY ==
--- NOTE | 2021-04-25 15:47 | HMH.PTOPWND ---
Rehab Outpt Wound Evaluation Rehab OP Wound Evaluation Start: 04/25/21 15:07 Freq: Status: Active Protocol: Document 04/25/21 15:28 BRISEYDA (Rec: 04/25/21 15:46 PHORNE [id number]) Electronically Signed By Raghu Campo, PT 04/25/21 15:28 Subjective/History History History Pt is 81 yowf who presents with R shld stiffness and edema S/P R mastectomy and SLNB performed 03/23/21 due to breast cancer. She reports no current c/o pain, numbness, tingling, or weakness. She has hx of CCY, partial hysterectomy, HTN, and CAD. Subjective Subjective Currently no c/o of heaviness, aching, or edema in the R UE or axilla. Lymphedema Eval Classification of Lymphedema Secondary Lymphedema Yes Post-Surgical Lymphedema Yes Stemmer's sign Stemmer's Sign no Stage of Lymphedema Lymphedema stages Stage 0 (subjective c/o heaviness and aching) Pain Scale Pain Scale (0-10) 0 Radiation Therapy Has received radiation therapy no Chemo Therapy Has received chemo therapy no Affected Extremities Areas Affected by Lymphedema/Edema Right Upper Extremity,Right Breast,Right Axilla Manual Lymphatic Drainage Treatment Area MLD Treatment Area Right Upper Extremity,Right Breast,Right Axilla Wound Problems/Impairments Impairments Problems/Impairmments Palpation Tenderness,Impaired Recreational Activities, Lymphedema Present,Impaired Self Care/Self Management Prognosis Rehab Potential Good Clinical Impression Consistent with Diagnosis Yes Short Term Goals Number of Weeks 4 Decreased Palpation Tenderness Yes: 1/4 Patient to Understand Lymphedema Yes Treatment and Exercises Shelter Goals Number of Weeks 8 Decreased Palpation Tenderness Yes: 0/4 Decrease Lymphedema Yes Patient to be Ind w/ HEP Yes Patient to be Ind w/ [place] Yes Compression Garments Outpatient Therapy Plan of Care Treatment Plan May Include Therapeutic Exercise Including Home Yes Exercise Program Manual Therapy Techniques Yes Neuromuscular Re-education Yes Therapeutic Activities to Return to Yes Previous Functional/Work Level ADL/Self Care Education Yes Orthotics/Bracing/Splinting Yes Vasopneumatic Comp
== END 2021-04-25 14:59 | disposition home or self-care (01) ==
LOC: PT 14:55
PROVIDERS: PCP Family Medicine; Visit Provider Internal Medicine Medical Oncology
DX: I89.0 Lymphedema, not elsewhere classified (principal); C50.111 Malignant neoplasm of central portion of right female breast
CPT/HCPCS: 97110; 97162

== ENCOUNTER → 2021-05-30 14:19 | Outpatient (CLI) | payer MEDICARE, MEDICAID, SELFPAY ==
[2021-05-30 15:45] LABS: Basophils % 0.5 % (0.1-2.0); Eosinophils # 0.1 K/mm3 (0.0-0.4); Eosinophils % 1.6 % (0.1-12.0); Hematocrit 35.5 % (37.0-47.0); Hemoglobin 11.6 g/dL (12.2-16.2); Lymphocytes # 2.2 K/mm3 (0.7-4.5); Lymphocytes % 26.6 % (10-50); Mean Corpuscular HGB Conc 32.5 g/dL (31.8-35.4); Mean Corpuscular Volume 79.9 fl (81-99); Mean Platelet Volume 8.5 fl (7.4-10.4); Monocytes # 0.6 K/mm3 (0.1-1.0); Monocytes % 6.6 % (1.7-9.3); Neutrophils # 5.3 K/mm3 (1.8-7.8); Neutrophils % 64.6 % (37.0-80.0); Platelet Count 247 K/mm3 (142-424); Red Blood Count 4.45 M/mm3 (4.20-5.40); Red Cell Distribution Width 15.6 % (11.5-17.5); White Blood Count 8.2 K/mm3 (4.8-10.8)
[2021-05-30 16:07] LABS: Alanine Aminotransferase 15 U/L (12-78); Albumin Level 3.5 g/dl (3.5-5.0); Albumin/Globulin Ratio 1.4 (1.1-1.8); Alkaline Phosphatase 85 U/L (38-126); Anion Gap 11.8 mEq/L (5-15); Aspartate Amino Transferase 24 U/L (14-36); Bilirubin,Total 0.3 mg/dl (0.2-1.3); Blood Urea Nitrogen 20 mg/dl (7-17); Calcium 8.9 mg/dl (8.4-10.2); Carbon Dioxide 24 mmol/L (22.0-30.0); Chloride 110 mmol/L (98-107); Estimated Glomerular Filt Rate 53 ml/min (>60); GFR (African American) 64 ML/MIN (>60); Globulin 2.5 g/dL (1.3-3.2); Glucose 111 mg/dl (74-100); Potassium 4.8 mmoL/L (3.5-5.1); Sodium 141 mmol/L (136-145)
[2021-05-30 16:26] LABS: 25-OH Vitamin D, Total 57.1 ng/mL (30-100)
[2021-05-30 17:12] LABS: Vitamin B12 869 pg/mL (239-931)
[2021-05-30 17:23] LABS: Folate > 20.00 ng/mL
== END ==
PROVIDERS: Visit Provider Family Medicine
DX: I25.10 Atherosclerotic heart disease of native coronary artery without angina pectoris (principal); J44.9 Chronic obstructive pulmonary disease, unspecified; R53.83 Other fatigue
CPT/HCPCS: 36415; 80053; 82306; 82607; 82746; 84443; 85025

== ENCOUNTER → 2021-09-12 15:30 | Outpatient (CLI) | payer MEDICARE, MEDICAID, SELFPAY ==
[2021-09-12 16:14] LABS: Basophils # 0.1 K/mm3 (0-0.2); Basophils % 0.7 % (0.1-2.0); Eosinophils # 0.1 K/mm3 (0.0-0.4); Eosinophils % 1.5 % (0.1-12.0); Hemoglobin 12.1 g/dL (12.2-16.2); Lymphocytes % 21.9 % (10-50); Mean Corpuscular HGB Conc 29.6 g/dL (31.8-35.4); Mean Corpuscular Hemoglobin 25.9 pg (27.0-31.2); Mean Corpuscular Volume 87.4 fl (81-99); Mean Platelet Volume 8.1 fl (7.4-10.4); Monocytes # 0.6 K/mm3 (0.1-1.0); Monocytes % 6.3 % (1.7-9.3); Neutrophils # 6.4 K/mm3 (1.8-7.8); Neutrophils % 69.7 % (37.0-80.0); Platelet Count 291 K/mm3 (142-424); Red Blood Count 4.69 M/mm3 (4.20-5.40); Red Cell Distribution Width 16.9 % (11.5-17.5); White Blood Count 9.1 K/mm3 (4.8-10.8)
[2021-09-12 17:38] LABS: Alanine Aminotransferase 14 U/L (12-78); Albumin Level 3.5 g/dl (3.5-5.0); Albumin/Globulin Ratio 1.3 (1.1-1.8); Alkaline Phosphatase 78 U/L (38-126); Anion Gap 13.5 mEq/L (5-15); Aspartate Amino Transferase 21 U/L (14-36); Bilirubin,Total 0.1 mg/dl (0.2-1.3); Blood Urea Nitrogen 19 mg/dl (7-17); Calcium 9.1 mg/dl (8.4-10.2); Carbon Dioxide 22 mmol/L (22.0-30.0); Chloride 109 mmol/L (98-107); Estimated Glomerular Filt Rate 60 ml/min (>60); GFR (African American) 72 ML/MIN (>60); Globulin 2.7 g/dL (1.3-3.2); Glucose 121 mg/dl (74-100); Potassium 4.5 mmoL/L (3.5-5.1); Sodium 140 mmol/L (136-145); Total Protein,Serum 6.2 g/dl (6.3-8.2)
[2021-09-13 15:31] LABS: NT Pro Brain Natriuretic Pep. 199 pg/mL (0-450)
== END ==
PROVIDERS: Internal Medicine Cardiovascular Disease; Visit Provider Internal Medicine Medical Oncology
DX: C50.911 Malignant neoplasm of unspecified site of right female breast (principal); J44.9 Chronic obstructive pulmonary disease, unspecified; Z72.0 Tobacco use; R06.09 Other forms of dyspnea
CPT/HCPCS: 36415; 80053; 83880; 85025

== ENCOUNTER → 2021-09-13 14:35 | Outpatient (CLI) | payer MEDICARE, MEDICAID, SELFPAY | PROVIDERS: Visit Provider Internal Medicine Cardiovascular Disease | DX: R06.02 Shortness of breath (principal) ==

== ENCOUNTER → 2021-09-26 13:09 | Outpatient (CLI) | payer MEDICARE, BC, SELFPAY ==
--- NOTE | 2021-09-26 13:11 | CA_ITS ---
APPROVED REPORT Teletypesetter Monitor: VILMA Laterality: Bilateral Study Quality: Adequate Indications: kristan Risk Factors Hypertension: CAD, Smoking Doppler Spectral Velocity Analysis ECA (R) 91.80/3.20 cm/s ECA (L) 83.90/5.90 cm/s dICA (R) 99.40/24.60 cm/s dICA (L) 71.60/19.20 cm/s Zena (R) 151.80/23.50 cm/s Zena (L) 74.90/20.30 cm/s pICA (R) 33.90/9.20 cm/s pICA (L) 67.90/13.90 cm/s dCCA (R) 50.80/11.80 cm/s dCCA (L) 55.10/11.80 cm/s pCCA (R) 70.00/9.10 cm/s pCCA (L) 63.10/12.30 cm/s Vert (R) 40.60/9.60 cm/s Vert (L) 140.50/11.10 cm/s ICA/CCA 2.10 ICA/CCA 1.30 Findings Duplex evaluation demonstrates antegrade flow of the bilateral Vertebral Arteries. Duplex evaluation demonstrates stenosis of the right proximal internal carotid artery in the range of 50-69% with PSV =140 cm/sec, EDV <100 cm/sec, and IC/CC Ratio <4.0. Duplex evaluation demonstrates stenosis of the left proximal internal carotid artery in the range of 20-49% with PSV <140 cm/sec, EDV <100 cm/sec, and IC/CC Ratio <4.0. Conclusion Duplex evaluation demonstrates antegrade flow of the bilateral Vertebral Arteries. Duplex evaluation demonstrates stenosis of the right proximal internal carotid artery in the range of 50-69% with PSV =140 cm/sec, EDV <100 cm/sec, and IC/CC Ratio <4.0. Duplex evaluation demonstrates stenosis of the left proximal internal carotid artery in the range of 20-49% with PSV <140 cm/sec, EDV <100 cm/sec, and IC/CC Ratio <4.0. Bilateral Toruosity of ICA's noted. Incidentally, a Right Thyroid mass vs enlarged thyroid, suggest thyroid US Electronically signed by : Damian Garland MD 09/26/2021 17:40:05
== END ==
PROVIDERS: PCP Family Medicine; Visit Provider Nurse Practitioner Family
DX: E11.9 Type 2 diabetes mellitus without complications (principal); E78.5 Hyperlipidemia, unspecified; F17.200 Nicotine dependence, unspecified, uncomplicated; I11.9 Hypertensive heart disease without heart failure; I25.10 Atherosclerotic heart disease of native coronary artery without angina pectoris; R42 Dizziness and giddiness; R94.31 Abnormal electrocardiogram [ECG] [EKG]; Z95.5 Presence of coronary angioplasty implant and graft; I65.23 Occlusion and stenosis of bilateral carotid arteries
CPT/HCPCS: 93880

== ENCOUNTER → 2022-03-13 13:34 | Outpatient (CLI) | payer MEDICARE, MEDICAID, SELFPAY ==
[2022-03-13 14:02] LABS: Basophils # 0.1 K/mm3 (0-0.2); Basophils % 1.6 % (0.1-2.0); Eosinophils # 0.1 K/mm3 (0.0-0.4); Hematocrit 36.2 % (37.0-47.0); Hemoglobin 11.3 g/dL (12.2-16.2); Lymphocytes # 1.9 K/mm3 (0.7-4.5); Lymphocytes % 27.6 % (10-50); Mean Corpuscular HGB Conc 31.2 g/dL (31.8-35.4); Mean Corpuscular Hemoglobin 27.4 pg (27.0-31.2); Mean Corpuscular Volume 87.6 fl (81-99); Mean Platelet Volume 8.8 fl (7.4-10.4); Monocytes # 0.6 K/mm3 (0.1-1.0); Monocytes % 8.1 % (1.7-9.3); Neutrophils # 4.1 K/mm3 (1.8-7.8); Neutrophils % 60.6 % (37.0-80.0); Platelet Count 274 K/mm3 (142-424); Red Blood Count 4.13 M/mm3 (4.20-5.40); Red Cell Distribution Width 15.9 % (11.5-17.5); White Blood Count 6.8 K/mm3 (4.8-10.8)
[2022-03-13 14:34] LABS: Alanine Aminotransferase 21 U/L (12-78); Albumin Level 3.4 g/dl (3.5-5.0); Albumin/Globulin Ratio 1.5 (1.1-1.8); Alkaline Phosphatase 81 U/L (38-126); Anion Gap 10.5 mEq/L (5-15); Aspartate Amino Transferase 25 U/L (14-36); Bilirubin,Total 0.2 mg/dl (0.2-1.3); Blood Urea Nitrogen 24 mg/dl (7-17); Calcium 8.7 mg/dl (8.4-10.2); Carbon Dioxide 25 mmol/L (22.0-30.0); Chloride 109 mmol/L (98-107); Estimated Glomerular Filt Rate 53 ml/min (>60); GFR (African American) 64 ML/MIN (>60); Globulin 2.3 g/dL (1.3-3.2); Glucose 143 mg/dl (74-100); Potassium 4.5 mmoL/L (3.5-5.1); Sodium 140 mmol/L (136-145); Total Protein,Serum 5.7 g/dl (6.3-8.2)
== END ==
PROVIDERS: Visit Provider Internal Medicine Medical Oncology
DX: C50.911 Malignant neoplasm of unspecified site of right female breast (principal)
CPT/HCPCS: 36415; 80053; 85025

== ENCOUNTER → 2022-03-20 10:18 | Outpatient (CLI) | payer MEDICARE, MEDICAID, SELFPAY ==
--- NOTE | 2022-03-20 10:27 | XR_ITS ---
FINAL REPORT TECHNIQUE: Chest PA & Lateral CLINICAL HISTORY: dyspnea COMPARISON: January 27, 2021 FINDINGS: 2 views of the chest were performed. The patient is kyphotic. The heart size is normal. There is a small sliding type hiatal hernia. There is scarring in the lung bases. There are no pleural effusions. There is no pneumothorax. The bony thorax appears intact. IMPRESSION: No acute cardiopulmonary process. Reviewed, Interpreted and Dictated by Rasta Conteh MD Transcribed by Laron Poon Authenticated by Rasta Conteh MD on 03/20/2022 01:32:[address] [facility]
== END ==
PROVIDERS: PCP Family Medicine; Visit Provider Physician Assistant
DX: E78.2 Mixed hyperlipidemia (principal); F17.200 Nicotine dependence, unspecified, uncomplicated; I11.9 Hypertensive heart disease without heart failure; I25.119 Atherosclerotic heart disease of native coronary artery with unspecified angina pectoris; I65.23 Occlusion and stenosis of bilateral carotid arteries; R06.00 Dyspnea, unspecified; R42 Dizziness and giddiness; R53.83 Other fatigue; Z95.5 Presence of coronary angioplasty implant and graft
CPT/HCPCS: 71046

== ENCOUNTER → 2022-03-27 12:02 | Outpatient (CLI) | payer MEDICARE, MEDICAID, SELFPAY ==
--- NOTE | 2022-03-27 | CA_ITS ---
APPROVED REPORT Exam: Pharmacologic Technologist: Viridiana Lezama, Ht: 4 ft 11 in Wt: 161 lbs BSA: 1.68 m2 HR: 65 bpm BP: 180/96 mmHg Rhythm: NSR, poor R wave progression, T wave abn inferiorly Indications: SOA Medical History Medical History: HTN, Hyperlipidemia Medications: Levothyroxine,,,,, Metoprolol,,,,, Asa,,,,, Gabapentin,,,,, Losartan,,,,, Pantoprazole,,,,, Sucralfate,,,,, Sertraline,,,,, SpirOnolactone,,,,, RoSUVASTATIN,,,,, Ranolazine,,,,, Potassium,,,,, Cardiac Risk Factors: HTN, Hyperlipidemia Stress Test Details Test: LEXISCAN HR Resting HR: 65 bpm Max Heart Rate (APMHR): 136.531780 bpm Max HR Achieved: 89 bpm Target HR (85% APMHR): 115.065398 bpm % of APMHR: 65.44 Recovery HR: 84 bpm BP Resting BP: 180/96 mmHg Max BP: 186/84 mmHg Recovery BP: 162.0/70.0 mmHg ECG Resting ECG: NSR, poor R wave progression, T wave abn inferiorly Clinical Exercise duration: 04:04 min Highest Stage Achieved: Exercise capacity: 1.0 METs Stress ECG Conclusion During lexiscan pt experinced mild SOA, hot/flushed, nausea, and lightheaded. No CP noted. No arrhythmias noted. No significant changes. Unremarkable lexiscan stress. Myoview images reported separately. Test Summary REST . . . . . . . Sitting REST . . . . . . . Sitting REST 12:08 . . 65 . 180/ 96 . . Stage 1 01:00 . . 77 . . . . Stage 2 01:00 . . 86 . . . . Stage 3 01:00 . . 85 . 154/ 60 . . Stage 4 01:00 . . 85 . 155/ 66 . . Stage 4 01:04 . . 85 . 155/ 66 . Stop exercise at 04:04 RECOVERY 01:00 . . 84 . 158/ 60 . . RECOVERY 02:00 . . 85 . 158/ 60 . . RECOVERY 03:00 . . 80 . 158/ 60 . . RECOVERY 04:00 . . 80 . 158/ 60 . . RECOVERY 05:00 . . 77 . 162/ 70 . . RECOVERY 06:00 . . 77 . 162/ 70 . . RECOVERY 07:00 . . 69 . 162/ 70 . . RECOVERY 08:00 . . 68 . 162/ 70 . . RECOVERY 09:00 . . 67 . 162/ 70 . . RECOVERY 10:00 . . 69 . 186/ 84 . . RECOVERY 11:00 . . 68 . 186/ 84 . . Electronically signed by : Marvin Elliott MD 03/28/2022 06:01:30
--- NOTE | 2022-03-27 12:03 | NM_ITS ---
APPROVED REPORT Exam: Nuclear Stress Test Indication: HTN, HYPERLIPIDEMIA, TOB USE, FM HX., SOB, FATIGUE Patient Location: Outpatient Stress Tech: Viridiana Lezama NM Tech:Alyce Obrien NIMCORahel RT (R)(N)(M) Ht: 4 ft 11 in Wt: 161 lbs Bra Size: 38C HR: 65 bpm BP: 180/96 mmHg BSA: 1.68 m2 BMI: 32.5 History: HTN, HYPERLIPIDEMIA, TOB USE, FM HX., SOB, FATIGUE PT. COULD NOT LAY ON STOMACH FOR PRONE IMAGES Procedure: Patient received a 0.4 mg of intravenous Lexiscan, resting heart rate 65 bpm, resting blood pressure 180/96 mmHg, with Lexiscan maximum heart rate achived was 85 bpm which is Less than 85 % of the maximum predicted heart rate and blood pressure was 154/60 mmHg. With Lexiscan, patient denied any complaint of chest pain. Electrocardiogram Resting electrocardiogram shows sinus rhythm, with Lexiscan there is less than 1.[address] segment depression noted from the baseline EKG. The EKG portion of the Lexiscan is nondiagnostic. Cardiac Stress and Resting SPECT Images: Cardiac Stress and Resting SPECT images were obtained using technetium 99m Myoview 31.1 mCi stress and 10.41 mCi at rest. Gated SPECT for analysis of segmental wall motion and calculation of the ejection fraction also done. Cardiac stress and resting SPECT images show uniform myocardial perfusion without segmental perfusion abnormality, computer derived ejection fraction is 58% with no regional wall motion abnormality, right ventricle is normal size and contractility. Conclusion: 1. The EKG portion of the Lexiscan is nondiagnostic. 2. No scintigraphic evidence of reversible ischemia seen, computer derived ejection fraction is 58% with no regional wall motion abnormality, right ventricle is normal size and contractility. 3. Normal Lexiscan Myoview study. Electronically signed by : Marvin Elliott MD 03/28/2022 06:04:19
--- NOTE | 2022-03-27 12:37 | CA_ITS ---
APPROVED REPORT EXAM: Comprehensive 2D, Doppler, and color-flow Echocardiogram Mask Design Engineer: Danielle Holly, RT(R) Ht: 4 ft 11 in Wt: 161lbs BSA: 1.68 BP: 136/64 mmHg Indications: Shortness of Breath, Fatigue, CAD, Hyperlipidemia, Hypertension/HDD, CAD, stent, R mastectomy 2D Dimensions LVOT 1.87 cm (M/F) 1.5-2.5 LA Volume 34.00 mL LA Volume Index 20.20 mL/m2 (M/F) 16-34 M-Mode Dimensions RVDd 2.44 cm (0.9-2.6) LA Diam 3.62 cm (1.9-4.0) LVDd 4.58 cm (3.5-5.7) Ao Diam 2.30 cm (2.0-3.7) LVDs 3.51 cm (3.5-5.7) IVSd 0.68 cm (0.6-1.1) PWd 0.72 cm (0.6-1.1) EF (Teich) 46.80% FS 23.40% EDV (Teich) 96.30 mL ESV (Teich) 51.20 mL LV Diastology E Decel Time 330.00 (160-240 msec) E/A Ratio 0.64 MED E' 5.40 (< 7 cm/sec) E'/MED E' Ratio 16.63 (>14) LAT E' 4.60 (<10 cm/sec) E/LAT E' Ratio 19.52 (>14) Aortic Valve LVOT Max 107.00 (70-110 cm/s) LVOT VTI 24.39 cm AoV Peak Declan. 125.00 (50-130 cm/s) AO Peak GR. 6.20 mmHg AO Mean GR. 3.10 (<5 mmHg) AO VTI 28.07 (18-25 cm) GONZALO (VTI) 2.39 (2.5-4.5 cm2) Mitral Valve MV E Max Declan. 90.00 (40-130 cm/s) MV A Velocity 140.00 (40-130 cm/s) E/A Ratio 0.64 MV Decel. Time 330.00 (160-240 ms) MV PHT 97.00 ms Tricuspid Valve TR P. Velocity 248.00 cm/s RAP Estimate 15.00 mmHg RVSP 39.60 mmHg Left Ventricle Left atrium is mildly enlarged, left ventricle is normal size, mild concentric left ventricular hypertrophy, estimated ejection fraction 55% with no regional wall motion abnormality, grade 1 diastolic dysfunction seen with tissue Doppler evidence of raise left atrial pressure. Right Ventricle Right atrium and right ventricle are mildly enlarged with normal contractility. Aortic Valve Aortic valve is minimally thickened and fibrosed there is no aortic stenosis or aortic insufficiency. Mitral Valve Mitral valve leaflets are minimally thickened, there is mild mitral regurgitation. Tricuspid Valve Tricuspid grossly normal, there is mild tricuspid regurgitation, calculated right ventricular systolic pressure 39 mmHg. Pulmonic Valve Pulmonic valve is poorly visualized. Great Vessels Aortic root is normal size. Inferior vena cava is poorly visualized. Pericardium No significant pericardial effusion noted. Conclusion 1. Biatrial enlargement, normal left ventricular size, mild concentric left ventricular hypertrophy, estimated ejection fraction 55% with no regional wall motion abnormality, grade 1 diastolic dysfunction seen with tissue Doppler evidence of raise left atrial pressure. 2. Mild mitral and tricuspid regurgitation, calculated right ventricular systolic pressure 39 mmHg. 3. No significant pericardial effusion noted. 4. Inferior vena cava is poorly visualized. Electronically signed by : Marvin Elliott MD 03/27/2022 22:27:39
== END ==
PROVIDERS: PCP Family Medicine; Visit Provider Physician Assistant
DX: E78.2 Mixed hyperlipidemia (principal); F17.200 Nicotine dependence, unspecified, uncomplicated; I11.9 Hypertensive heart disease without heart failure; I25.119 Atherosclerotic heart disease of native coronary artery with unspecified angina pectoris; I65.23 Occlusion and stenosis of bilateral carotid arteries; R06.00 Dyspnea, unspecified; R42 Dizziness and giddiness; R53.83 Other fatigue; Z95.5 Presence of coronary angioplasty implant and graft
CPT/HCPCS: 78452; 93017; 93306; A9502; J2785

== ENCOUNTER → 2022-04-17 08:18 | Outpatient (CLI) | payer MEDICARE, MEDICAID, SELFPAY ==
--- NOTE | 2022-04-17 08:18 | CA_ITS ---
FINAL REPORT TECHNIQUE: Grayscale, color Doppler and duplex Doppler ultrasound of the kidneys, aorta and renal arteries was performed. Multiple velocities were measured. CLINICAL HISTORY: .HTN, Smoker FINDINGS: Aorta velocity: 99.0 cm/sec Right kidney: 10 cm. No evidence of hydronephrosis or mass. Right intrarenal RI: .62 Right renal artery velocity: 186 cm/sec. Right RAR (Renal artery-Aortic Ratio): 1.9 Left Kidney: 10.3 cm. No evidence of hydronephrosis or mass. Left intrarenal RI: .70 Left renal artery velocity: 333 cm/sec. Left RAR (Renal Artery-Aortic Ratio): 3.4 IMPRESSION: There is less than 60% renal artery stenosis on the right. There is greater than or equal to 60% renal artery stenosis on the left. CT angiogram or postcontrast MR angiogram would be more sensitive for evaluation of possible renal artery stenosis. Reviewed, Interpreted and Dictated by Duyen Gregorio MD Transcribed by Narda Gonzales Authenticated by Duyen Gregorio MD on 04/18/2022 07:50:44 AM [facility]
== END ==
PROVIDERS: PCP Family Medicine; Visit Provider Physician Assistant
DX: I10 Essential (primary) hypertension (principal)
CPT/HCPCS: 93976

== ENCOUNTER → 2022-05-15 08:45 | Outpatient (CLI) | payer MEDICARE, MEDICAID, SELFPAY ==
--- NOTE | 2022-05-15 08:46 | CT_ITS ---
FINAL REPORT TECHNIQUE: Pre-and postcontrast images of the abdomen were performed by computed tomography. Extensive 3-D reconstruction images were performed. A CTA was performed. This study was performed with techniques to keep radiation doses as low as reasonably achievable (ALARA). Individualized dose reduction techniques using automated exposure control or adjustment of mA and/or kV according to the patient''s size were employed. CLINICAL HISTORY: ARTHEROSCLEROSIS OF RENAL ARTERY FINDINGS: ABDOMEN: There is mild scarring in the lung bases. There is a moderate hiatal hernia. There are postoperative changes of the right anterior chest wall. There is a presumed gastric lap band sleeve that appears to surround the distal body/antrum of the stomach. Recommend correlation with surgical history and if indicated upper GI. Patient is status post cholecystectomy. There is mild biliary ductal dilatation, likely post cholecystectomy change. Precontrast images demonstrate no evidence of nephrolithiasis. No adrenal masses are identified. The liver, spleen and pancreas are unremarkable. CTA: The abdominal aorta is proper caliber. There is no evidence of aortic dissection. There are moderate to severe vascular calcifications. The celiac axis is normal. There is calcification at the origin of the SMA which obscures detail. There is at least moderate stenosis at this level. There is approximately 60% stenosis of the right renal artery. There is calcified plaque at the origin of the left renal artery which decreases sensitivity with at least 60-70% stenosis. The JOAO is patent. There are severe degenerative changes of the lumbar spine. There are bilateral L5 pars defects. There is grade 2 anterolisthesis of L5 on S1. IMPRESSION: Left greater than right renal artery stenosis. Moderate stenosis of the SMA. Recommend catheter directed angiography. Postoperative changes as described. Reviewed, Interpreted and Dictated by Ilan Patel III, MD Transcribed by Davina Raymundo Authenticated and [facility]
[2022-05-15 09:11] LABS: Blood Urea Nitrogen 18 mg/dl (7-17); Estimated Glomerular Filt Rate 80 ml/min (>60); GFR (African American) 96 ML/MIN (>60)
== END ==
LOC: RAD 08:46
PROVIDERS: PCP Family Medicine; Visit Provider Nurse Practitioner
DX: I70.1 Atherosclerosis of renal artery (principal)
CPT/HCPCS: 36415; 74175; 82565; 84520; Q9967

== ENCOUNTER → 2022-05-28 14:08 | Outpatient (CLI) | payer MEDICARE, MEDICAID, SELFPAY ==
[2022-05-28 15:03] LABS: Basophils # 0.1 K/mm3 (0-0.2); Basophils % 1.1 % (0.1-2.0); Eosinophils # 0.2 K/mm3 (0.0-0.4); Eosinophils % 1.8 % (0.1-12.0); Hematocrit 40.8 % (37.0-47.0); Lymphocytes # 2.2 K/mm3 (0.7-4.5); Lymphocytes % 20.6 % (10-50); Mean Corpuscular HGB Conc 29.5 g/dL (31.8-35.4); Mean Corpuscular Hemoglobin 26.3 pg (27.0-31.2); Mean Corpuscular Volume 89.2 fl (81-99); Mean Platelet Volume 8.6 fl (7.4-10.4); Monocytes # 0.7 K/mm3 (0.1-1.0); Monocytes % 6.7 % (1.7-9.3); Neutrophils # 7.4 K/mm3 (1.8-7.8); Neutrophils % 69.9 % (37.0-80.0); Platelet Count 260 K/mm3 (142-424); Red Blood Count 4.58 M/mm3 (4.20-5.40); Red Cell Distribution Width 17.3 % (11.5-17.5); White Blood Count 10.6 K/mm3 (4.8-10.8)
[2022-05-28 15:17] LABS: Chloride 104 mmol/L (98-107); Potassium 3.3 mmoL/L (3.5-5.1); Sodium 139 mmol/L (136-145)
[2022-05-28 15:20] LABS: Anion Gap 8.3 mEq/L (5-15); Blood Urea Nitrogen 12 mg/dl (7-17); Calcium 9.2 mg/dl (8.4-10.2); Carbon Dioxide 30 mmol/L (22.0-30.0); Estimated Glomerular Filt Rate 80 ml/min (>60); GFR (African American) 96 ML/MIN (>60); Glucose 121 mg/dl (74-100)
== END ==
PROVIDERS: PCP Family Medicine; Visit Provider Physician Assistant
DX: E78.2 Mixed hyperlipidemia (principal); F17.200 Nicotine dependence, unspecified, uncomplicated; I65.23 Occlusion and stenosis of bilateral carotid arteries; I70.1 Atherosclerosis of renal artery; R06.00 Dyspnea, unspecified; R42 Dizziness and giddiness; R93.5 Abnormal findings on diagnostic imaging of other abdominal regions, including retroperitoneum; Z95.5 Presence of coronary angioplasty implant and graft; Z01.812 Encounter for preprocedural laboratory examination; Z20.822 Contact with and (suspected) exposure to COVID-19
CPT/HCPCS: 36415; 80048; 85025; C9803; U0003; U0005

== ENCOUNTER 2022-06-12 06:38 | Day surgery (SDC) | payer MEDICARE, MEDICAID, SELFPAY ==
[2022-06-12] VITALS (62 sets, daily range): BP systolic 70–217; BP diastolic 20–82; PULSE 55–76; RESP 16–48; O2SAT 93–98; BMI 35.2
--- NOTE | 2022-06-12 07:03 | IR_ITS ---
APPROVED REPORT Patient Location: Outpatient Return Agent Airport: [place] RT (R) PROCEDURES Bilateral selective renal angiogram Bare-metal stent deployment to the ostial proximal left renal artery Bare-metal stent deployment to the ostial proximal right renal artery INDICATION Renovascular hypertension, Renal artery stenosis, Malignant hypertension, Abnormal renal duplex Informed consent was obtained prior to the procedure. COMPLICATIONS None Estimated Blood Loss: Less than 10 mls TECHNIQUE 1% lidocaine used to anesthetize the right femoral groin. The right femoral artery was accessed via the Seldinger technique. A 5 Sudanese sheath was placed in the right femoral artery. The JR4 catheter was used to selectively intubate each renal artery. At the end the diagnostic angiogram therapeutic heparin was administered and the 5 Sudanese sheath was exchanged for a 7 Sudanese sheath. A short 7 Sudanese RAVI guide catheter was used to intubate the right renal artery followed by a Choice PT extra-support wire. Initially a 6 mm x 15 mm Herculink stent was deployed at 20 logan reducing the stenosis. A 7 mm x 20 mm balloon was then used to post dilate. The ostium of the right renal artery was not adequately covered therefore 6.5 x 15 mm Herculink stent was then deployed at 20 logan in the ostium of the right renal artery which overlapped the first stent. At the end of the procedure there were excellent angiographic results with wide patency of the right renal artery. This technique was then repeated involving the left renal artery where a 6 mm x 18 mm Herculink stent was deployed at 20 logan reducing the severe ostial stenosis to 0%. After achieving excellent angiographic results the apparatus was removed the patient was transferred to the postop holding area in stable condition for sheath removal ANGIOGRAPHIC RESULTS Right renal artery singular and has an ostial proximal 80% stenosis Left renal artery singular and has an ostial proximal 80% stenosis IMPRESSION Severe to critical bilateral renal artery stenosis Successful percutaneous revascularization of the critically stenosed bilateral renal arteries reducing both vessels to 0% PLAN 1. Dual antiplatelet therapy for 1 month 2. Control of hypertension 3. Close monitoring of blood pressure given the potential for labile and fluctuating hypertension. Electronically signed by : Remi Anton MD 06/12/2022 08:51:32
[2022-06-12 07:23] LABS: Coronavirus 19, PCR Not Detected (NotDetected); Influenza A, PCR Not Detected (NotDetected); Influenza B, PCR Not Detected (NotDetected)
[2022-06-12 09:23] LABS: CATHL Activated Clotting Time 375 SEC (74-125)
[2022-06-12 10:40] LABS: CATHL Activated Clotting Time 219 SEC (74-125)
[2022-06-12 10:41] LABS: CATHL Activated Clotting Time 301 SEC (74-125)
--- NOTE | 2022-06-12 10:57 | SUR.PHASEII ---
called and spoke with Shira Dorsey, Postdoctoral Fellow in regards to patient. Shira stated she will work on obtaining [facility] through [facility] for patient.
--- NOTE | 2022-06-12 10:59 | SW/DCPLANNER ---
I received a call from [employer] Turning [employer] staff (Shayla) regarding home situation. Medicaid Waiver services has been offered to this patient and patient is agreeable. Patient information has been faxed to [facility] / [email or web address] to review.
--- NOTE | 2022-06-12 14:23 | SUR.PHASEII ---
Rissa, pt's daughter, at bedside to pick pt up. pt and daughter both given teaching on home care and discharge instructions (bleeding, dressing, f/u, new medication--plavix). I also spoke with Rissa in regards to patient living alone and needing someone to stay with her tonight. Rissa stated that she would stay with the patient or be sure that someone would stay with her. I also informed her of social worker psychiatric consult and Shira working on getting [facility] through [facility] [place]. Rissa is agreeable with the need for assistance. At discharge right femoral dressing c/d/i.
--- NOTE | 2022-06-12 14:38 | HMH.PHACLD ---
Marti Huddleston has received discharge medication counseling on the following medications: ASPIRIN PLAVIX (NEW) CRESTOR LOSARTAN METOPROLOL
== END 2022-06-12 14:44 | disposition home or self-care (01) ==
PROVIDERS: PCP Family Medicine; Visit Provider Internal Medicine
DX: I70.1 Atherosclerosis of renal artery (principal); E78.2 Mixed hyperlipidemia; F17.200 Nicotine dependence, unspecified, uncomplicated; I77.1 Stricture of artery; I25.119 Atherosclerotic heart disease of native coronary artery with unspecified angina pectoris; I65.23 Occlusion and stenosis of bilateral carotid arteries; R06.00 Dyspnea, unspecified; R93.5 Abnormal findings on diagnostic imaging of other abdominal regions, including retroperitoneum; Z95.5 Presence of coronary angioplasty implant and graft; Z20.822 Contact with and (suspected) exposure to COVID-19; I12.9 Hypertensive chronic kidney disease with stage 1 through stage 4 chronic kidney disease, or unspecified chronic kidney disease; N18.9 Chronic kidney disease, unspecified; Z79.01 Long term (current) use of anticoagulants; F17.210 Nicotine dependence, cigarettes, uncomplicated
CPT/HCPCS: 37236; 37237; 85347; 99152; 99153; C1725; C1769; C1876; C1894; C9803; J1644; J2405; Q9967; U0003; U0005

== ENCOUNTER 2022-06-21 01:51 | Observation (INO) | payer MEDICARE, MEDICAID, SELFPAY ==
[2022-06-21] VITALS (13 sets, daily range): BP systolic 151–211; BP diastolic 65–88; PULSE 61–88; RESP 16–20; TEMP 36.4–37.5; O2SAT 94–99; BMI 33.3; BMI 37.6; BMI 37.7
--- NOTE | 2022-06-21 02:24 | XR_ITS ---
PROCEDURE INFORMATION: Exam: XR Abdomen Exam date and time: 06/21/2022 2:28 AM Age: 82 years old Clinical indication: Constipation TECHNIQUE: Imaging protocol: Radiologic exam of the abdomen. Views: Frontal supine view of the abdomen. 1 View. COMPARISON: CT ANGIO ABDOMEN 05/15/2022 9:39 AM FINDINGS: Tubes, catheters and devices: Nasogastric tube extending below the diaphragm and coiled projecting over left upper hemiabdomen. Surgical clips projecting over the pelvis. Lungs: Left basilar opacity, possibly pneumonia. Gastrointestinal tract: Nonspecific bowel gas pattern. Moderate amount of stool in the colon. Organs: Cholecystectomy. Bones/joints: Unremarkable. IMPRESSION: 1. Nasogastric tube extending below the diaphragm and coiled projecting over left upper hemiabdomen. 2. Nonspecific bowel gas pattern. 3. Left basilar opacity, possibly pneumonia.
--- NOTE | 2022-06-21 02:34 | CT_ITS ---
PROCEDURE INFORMATION: Exam: CT Abdomen And Pelvis With Contrast Exam date and time: 06/21/2022 3:53 AM Age: 82 years old Clinical indication: Constipation; Abdominal pain; Additional info: Abdominal pain, no bm in 5 days TECHNIQUE: Imaging protocol: Computed tomography of the abdomen and pelvis with contrast. Radiation optimization: All CT scans at this facility use at least one of these dose optimization techniques: automated exposure control; mA and/or kV adjustment per patient size (includes targeted exams where dose is matched to clinical indication); or iterative reconstruction. Contrast material: ISOVUE; Contrast volume: 75 ml; Contrast route: IV; COMPARISON: CT ANGIO ABDOMEN 05/15/2022 9:39 AM FINDINGS: Lungs: Nonspecific bibasilar opacities, favoring atelectasis or pneumonia. Punctate subpleural nodule in the right middle lobe. Diaphragm: Large hiatal hernia. Liver: See Gallbladder and bile ducts finding. Gallbladder and bile ducts: Intrahepatic and extrahepatic biliary duct dilatation probably related to cholecystectomy. Pancreas: No ductal dilation. No peripancreatic inflammatory changes. Spleen: Unremarkable. Adrenal glands: Bilateral adrenal thickening. Kidneys and ureters: No hydronephrosis. Unremarkable renogram. Stomach and bowel: Extensive colonic diverticulosis without definite evidence of acute diverticulitis. Postsurgical changes in the stomach. Appendix: No evidence of appendicitis. Intraperitoneal space: No free air. Vasculature: No abdominal aortic aneurysm. Lymph nodes: No enlarged lymph nodes. Urinary bladder: Contrast in the urinary bladder. Reproductive: Hysterectomy. Bones/joints: Scoliosis. Great 3 anterolisthesis of L5 on S1. Soft tissues: Indeterminate 2.4 cm low-attenuation lesion along the pelvic sidewall on the left. This is nonspecific, cannot exclude abscess. Extensive atherosclerotic calcifications small fat containing umbilical hernia. IMPRESSION: 1. Indeterminate 2.4 cm low-attenuation lesion along the pelvic sidewall on the left. This is nonspecific, cannot exclude abscess. This could be definitively characterized with MRI. 2. Nonspecific bibasilar opacities, favoring atelectasis or pneumonia. Recommend imaging follow-up until complete resolution. 3. Intrahepatic and extrahepatic biliary duct dilatation probably related to cholecystectomy. 4. Extensive colonic diverticulosis without definite evidence of acute diverticulitis. 5. Large hiatal hernia. 6. Great 3 anterolisthesis of L5 on S1.
--- NOTE | 2022-06-21 02:44 | HMH.EDGENADL ---
ED Disposition Clinical Impression: Diverticulitis, Intra-abdominal abscess Disposition: Admitted As Inpatient Condition on Discharge: Good - Critical Care Critical Care Time: No Attestation: On 06/21/22, the high probability of a clinically significant, sudden or life threatening deterioration of the following system(s) required my full and direct attention, intervention and personal management. The time I documented below is in addition to time spent performing reported procedures but includes the following listed in this critical care notation. Medical Decision Making - Ramon Inquiry Pt receiving controlled substance: No Vital Signs: 06/21/22 01:52 06/21/22 03:00 06/21/22 03:30 Temperature 99.5 F Temperature Source Oral Pulse Rate 69 66 Pulse Rate [Left Radial] 88 Respiratory Rate 17 Blood Pressure 181/73 H 197/74 H Blood Pressure [Left Arm] 188/71 H Blood Pressure Mean [Left Arm] 110 Blood Pressure Position [Left Arm] Sitting 02 Sat by Pulse Oximetry 99 96 95 Oxygen Delivery Method Room Air Room Air Room Air - Lab Data Lab Results 06/21/22 02:48: WBC 11.4 H, RBC 3.97 L, Hgb 11.3 L, Hct 35.9 L, MCV 90.4, MCH 28.4, MCHC 31.4 L, RDW 16.3, Plt Count 345, MPV 8.6, Neut % (Auto) 70.2, Lymph % (Auto) 20.6, Blaine % (Auto) 6.4, Eos % (Auto) 2.1, Baso % (Auto) 0.7, Neut # (Auto) 8.0 H, Lymph # (Auto) 2.4, Blaine # (Auto) 0.7, Eos # (Auto) 0.2, Baso # (Auto) 0.1, Total Counted 100, Neutrophils % (Manual) 73, Lymphocytes % (Manual) 20, Monocytes % (Manual) 7, Platelet Estimate Normal, Anisocytosis 1+ 06/21/22 02:48: PT 10.8, INR 0.95, APTT 25.7 06/21/22 02:48: Sodium 142, Potassium 3.3 L, Chloride 108 H, Carbon Dioxide 30, Anion Gap 7.3, BUN 22 H, Creatinine 0.90, Estimated Creat Clear 49, Estimated GFR 60, Est GFR ( Amer) 72, Glucose 128 H, Calcium 9.0, Total Bilirubin 0.2, AST 33, ALT 21, Alkaline Phosphatase 106, Total Protein 6.3, Albumin 3.7, Globulin 2.6, Albumin/Globulin Ratio 1.4, Lipase 166 06/21/22 02:48: Lactate 1.5 Result diagrams: 06/21/22 02:48 06/21/22 02:48 Orders (Tests/Meds): ED MEDICATIONS Generic Name Dose Route Start Last Admin Trade Name Vinny PRN Reason Stop Dose Admin Acetaminophen 650 mg 06/21/22 05:38 Acetaminophen 325mg Tab PO 07/21/22 05:37 Q4HP PRN Fever or Mild Pain Piperacillin Sod/Tazobactam 50 mls @ 100 mls/hr 06/21/22 05:45 06/21/22 05:43 Sod 3.375 gm/ Sodium Chloride IV 07/05/22 05:44 100 mls/hr Q8H LATA Administration Lactated Ringer's 1,000 mls @ 50 mls/hr 06/21/22 05:45 Lactated Ringer's 1000 Ml Bag IV 07/21/22 05:44 .Q20H LATA Ibuprofen 400 mg 06/21/22 05:38 Ibuprofen 400 Mg Tablet PO 07/21/22 05:37 Q6HP PRN Mild Pain Ondansetron HCl 4 mg 06/21/22 05:38 Ondansetron 4mg/2ml Vial IV 07/21/22 05:37 Q8HP PRN Nausea Pantoprazole Sodium 40 mg 06/21/22 09:00 Pantoprazole 40mg Tablet PO 07/21/22 08:59 DAILY LATA Discontinued Medications Generic Name Dose Route Start Last Admin Trade Name Vinny PRN Reason Stop Dose Admin Diatrizoate Meglum/Diatrizoate Sod 30 ml 06/21/22 02:34 06/21/22 04:26 Diatrizoate Yolande 66% & Diatrizoate Na 10% 30ml Udc PO 06/21/22 02:35 Not Given ONCE ONE Iopamidol 75 ml 06/21/22 04:23 06/21/22 04:24 Iopamidol-370 (76%);100ml Bottle IV 06/21/22 04:24 75 ml ONCE ONE Administration Sodium Chloride 10 ml 06/21/22 04:23 06/21/22 04:24 Sodium Chloride 0.9% 10ml Syr (Rad Only) IV 06/21/22 04:24 10 ml ONCE ONE Administration ORDERS Category Date Time Status Consult to General Surgery [CONS] Routine Cons 06/21/22 05:35 Ordered UA [Urinalysis and Microscopic] Stat Lab 06/21/22 05:15 Received Medical Decision Narrative: In summary, this patient is an 82-year-old female presenting to the emergency department for evaluation of abdominal pain and constipation. Differential diagnoses include constipation, tessie
--- NOTE | 2022-06-21 02:55 | PC.NURSE ---
PT AND FAMILY MADE AWARE OF EXPECTED WAIT TIMES. BLANKET PROVIDED FOR COMFORT. NO ACUTE DISTRESS NOTED. SMALL AMOUNT OF FORMED STOOL NOTED.
[2022-06-21 03:02] LABS: Basophils # 0.1 K/mm3 (0-0.2); Basophils % 0.7 % (0.1-2.0); Eosinophils # 0.2 K/mm3 (0.0-0.4); Eosinophils % 2.1 % (0.1-12.0); Hematocrit 35.9 % (37.0-47.0); Hemoglobin 11.3 g/dL (12.2-16.2); Lymphocytes # 2.4 K/mm3 (0.7-4.5); Lymphocytes % 20.6 % (10-50); MANUAL DIFFERENTIAL MANUAL DIFFERENTIAL (MANUAL DIFF); Mean Corpuscular HGB Conc 31.4 g/dL (31.8-35.4); Mean Corpuscular Hemoglobin 28.4 pg (27.0-31.2); Mean Corpuscular Volume 90.4 fl (81-99); Mean Platelet Volume 8.6 fl (7.4-10.4); Monocytes # 0.7 K/mm3 (0.1-1.0); Monocytes % 6.4 % (1.7-9.3); Neutrophils % 70.2 % (37.0-80.0); Platelet Count 345 K/mm3 (142-424); Red Blood Count 3.97 M/mm3 (4.20-5.40); Red Cell Distribution Width 16.3 % (11.5-17.5); White Blood Count 11.4 K/mm3 (4.8-10.8)
[2022-06-21 03:24] LABS: Chloride 108 mmol/L (98-107); Potassium 3.3 mmoL/L (3.5-5.1); Sodium 142 mmol/L (136-145)
[2022-06-21 03:27] LABS: Alanine Aminotransferase 21 U/L (12-78); Albumin Level 3.7 g/dl (3.5-5.0); Albumin/Globulin Ratio 1.4 (1.1-1.8); Alkaline Phosphatase 106 U/L (38-126); Anion Gap 7.3 mEq/L (5-15); Aspartate Amino Transferase 33 U/L (14-36); Bilirubin,Total 0.2 mg/dl (0.2-1.3); Blood Urea Nitrogen 22 mg/dl (7-17); Carbon Dioxide 30 mmol/L (22.0-30.0); Creatinine Clearance Estimated 49 mL/min (50-200); Estimated Glomerular Filt Rate 60 ml/min (>60); GFR (African American) 72 ML/MIN (>60); Globulin 2.6 g/dL (1.3-3.2); Glucose 128 mg/dl (74-100); Lipase 166 U/L (23-300); Total Protein,Serum 6.3 g/dl (6.3-8.2)
[2022-06-21 03:28] LABS: Lactic Acid 1.5 mmol/L (0.7-2.1)
[2022-06-21 03:30] LABS: Activated Partial Thrombo Time 25.7 seconds (22.8-30.6); INR 0.95 (0.9-1.1); Prothrombin Time 10.8 seconds (10.1-12.5)
[2022-06-21 04:57] LABS: Anisocytosis 1+; Lymphocytes % 20 % (10-50); Monocytes % 7 % (2-9); Neutrophils % 73 % (42-76); Platelet Estimate Normal; Total Cells Counted 100
--- NOTE | 2022-06-21 05:06 | PC.NURSE ---
Pt ambulated to bathroom with assistance.
[2022-06-21 05:20] LABS: Microscopic, Urine URINE MICROSCOPIC (MICROSCOPIC)
--- NOTE | 2022-06-21 05:36 | PC.NURSE ---
PT AND FAMILY MADE AWARE OF PLAN TO ADMIT.
[2022-06-21 05:48] LABS: Coronavirus 19, PCR Not Detected (NotDetected); Influenza A, PCR Not Detected (NotDetected); Influenza B, PCR Not Detected (NotDetected)
[2022-06-21 06:01] LABS: Appearance,Urine CLEAR (Clear); Bilirubin,Urine Negative (Negative); Blood, Urine Negative (Negative); Color,Urine YELLOW (Yellow); Glucose,Urine (UA) Negative (Negative); Ketones,Urine Negative (Negative); Leukocyte Esterase,Urine Negative (Negative); Nitrate,Urine Negative (Negative); Protein,Urine Negative (Negative); Specific Gravity, Urine 1.015 (1.005-1.030); Urobilinogen,Urine 0.2 EU/dl (0.2)
--- NOTE | 2022-06-21 06:04 | PC.NURSE ---
PT AND FAMILY MADE AWARE THAT REPORT HAS BEEN CALLED AND THEY ARE AWAITING TRANSPORT TO FLOOR. NO COMPLAINTS VOICED. NO ACUTE DISTRESS NOTED.
--- NOTE | 2022-06-21 06:20 | PC.NURSE ---
Report recieved awaiting covid results for transfer to floor.
[2022-06-21 06:29] LABS: Bacteria,Urine Trace /lpf; Squamous Epithelial Cell,Urine Occasional #/hpf (0-5)
--- NOTE | 2022-06-21 06:43 | PC.NURSE ---
PATIENT UP TO FLOOR @ THIS TIME.
--- NOTE | 2022-06-21 07:21 | PC.NURSE ---
Notified Dr. Rosario of consult on pt.
--- NOTE | 2022-06-21 07:59 | HMH.PHAVTE ---
[facility] Pharmacy VTE Monitoring - Patient Demographics Admission date: 06/21/22 Report Date: 06/21/22 Time: 07:59 Allergies/Adverse Reactions: Patient Allergies No Known Drug Allergies [NO KNOWN DRUG ALLERGIES] Allergy (Unknown, Verified 06/19/22 08:24) Height: 1.42 m Weight: 76.158 kg Patient Problems: Current Active Problems Diverticulitis (Acute) Intra-abdominal abscess (Acute) - VTE Risk Labs: VTE Related Lab Results Hgb 11.3 g/dL (12.2-16.2) L 06/21/22 02:48 Hct 35.9 % (37.0-47.0) L 06/21/22 02:48 Plt Count 345 K/mm3 (142-424) 06/21/22 02:48 PT 10.8 seconds (10.1-12.5) 06/21/22 02:48 INR 0.95 (0.9-1.1) 06/21/22 02:48 APTT 25.7 seconds (22.8-30.6) 06/21/22 02:48 BUN 22 mg/dl (7-17) H 06/21/22 02:48 Creatinine 0.90 mg/dl (0.52-1.04) 06/21/22 02:48 Estimated Creat Clear 49 mL/min (50-200) 06/21/22 02:48 Was VTE Risk Assessment Performed: Yes VTE Score: 4 VTE Risk Level: Low Risk Clinical Trial Participant: No - Prophylaxis VTE Prophylaxis Ordered?: Yes Types of VTE Prophylaxis: TEDS Knee High
--- NOTE | 2022-06-21 09:40 | PC.NURSE ---
Called pre op stated that it was okay to take morning meds with sip of water
--- NOTE | 2022-06-21 09:48 | HMH.PHAINT ---
VERIFIED HOME MEDICAITON LIST USING LIST FROM OUTPATIENT PHARMACY
--- NOTE | 2022-06-21 10:06 | HMH.HP ---
*Admission Date: 06/21/22 <Mayte Velasquez - 06/21/22 10:27> *Chief complaint: abdominal pain <Mayte Velasquez - 06/21/22 10:27> *History of present illness: Patient is a 82-year-old female with a history of recent ureteral stent placement, COPD, CAD on Plavix presenting to the emergency department for evaluation of abdominal pain. She reports that she is having diffuse abdominal cramping. She states that she had been constipated and drink magnesium citrate on Friday, and that cleaned her out really well. She states that since then, she has had no bowel movement. She states that her stools have been dark green, but not bloody or melanotic. She has had no other symptoms, such as fevers, chills, nausea, vomiting, chest pain, shortness of breath, dysuria, polyuria, rashes, or swelling. Her daughter reports that they came in tonight because she feels that her mom is anxious because her relative of a bowel perforation. On reassessment, the patient is resting comfortably. Labs demonstrate very mild leukocytosis but otherwise no acute abnormalities. CT scan shows nonspecific intra and extrahepatic biliary duct dilation likely consistent with cholecystectomy. No right upper quadrant tenderness or bump in liver enzymes or bilirubin noted, so do not feel that this is acute. CT scan does demonstrate fat stranding in the left lower quadrant with 2.4 cm fluid collection concerning for an abscess. On reassessment, patient is muffler tender in the suprapubic and left lower quadrant regions. Given this in commendation with her CT scan findings, general surgery was consulted and they recommended admitting to the medicine service and managing the patient here. I started the patient on Zosyn, and the patient was admitted in stable condition for further evaluation and management. Urinalysis pending at this time. (above as per ER physician) This a.m., the patient does feel better. She continues with pain in her suprapubic area and left lower quadrant. She denies any vomiting or nausea. She has not had any further bowel movements. <Mayte Velasquez - 06/21/22 10:27> [facility] History I have reviewed the patient's past medical history: Yes <Mayte Velasquez - 06/21/22 10:27> Medical History: Reports:: Cancer (Hx breast ca), Chronic Obstructive Pulmonary Disease (COPD), Coronary Artery Disease, Gastroesophageal Reflux Disease(GERD), Hyperlipidemia, Hypertension Denies:: Diabetes Mellitus Type 1, Diabetes Mellitus Type 2, Internal Pacemaker, MRSA, Seizures <RonMayte 06/21/22 10:27> *Have you ever received a pneumonia vaccine?: Yes <RonMayte 06/21/22 10:27> *Have you received a flu vaccine this season?: Yes <RonMayte 06/21/22 10:27> Other Medical History: Reports: Arthritis, Thyroid Disease. Denies: Blood Transfusion Reaction <RonMayte 06/21/22 10:27> Laterality Cases: Right: Mastectomy <RonMayte 06/21/22 10:27> Other Surgeries: Yes: Angiogram, Cardiac Catheterization, Cholecystectomy, Colonoscopy, Coronary Stent, Hysterectomy-Total, Hysterectomy-Partial, Other. No: Pacemaker <Mayte Velasquez 06/21/22 10:27> Amputation: No <Trev Velasquez06/21/22 10:27> Fractures: Yes <RonMayte - 06/21/22 10:27> - *Social History Last grade of school completed: High school graduate <RonMayte 06/21/22 10:27> Smoking Status: Current every day smoker <RonMayte 06/21/22 10:27> Tobacco Type: cigarettes <RonMayte - 06/21/22 10:27> # Packs/Day (cigarettes): 1 <RonMayte - 06/21/22 10:27> Alcohol Intake: never <Mayte Velasquez 06/21/22 10:27> Substance Use Type: denies use <Mayte Velasquez 06/21/22 10:27> *Occupational Status:: retired <Mayte Velasquez 06/21/22 10:27> Housing: apartment <Mayte Velasquez 06/21/22 10:27> Household Members: none <Mayte Velasquez 06/21/22 10:27> *Travel in the last 8 weeks: None <Mayte Velasquez 06/21/22 10:27> Family Hx:: Diabetes <Mayte Velasquez 06/21/22 10:27> Review
--- NOTE | 2022-06-21 14:23 | HMH.GSCON ---
*Admission Date: 06/21/22 *Reason for consult:: Diverticulitis with abscess *History of present illness: Patient is an 82-year-old female. She had recently undergone bilateral renal artery stenting by Dr. Anton for hypertension on 06/13/2022. Recommendations were for dual antiplatelet therapy. She has a history of COPD, coronary artery disease, breast cancer. She has undergone mastectomy and managed surgically for her breast cancer by Dr. Myles. Patient states that recently she had felt constipated. She had tried some magnesium citrate. She had developed some lower abdominal cramping. She underwent CT scan which revealed findings of indeterminate 2.4 cm low attenuation lesion along the pelvic sidewall on the left. This was felt to be nonspecific but could not exclude abscess. There was extensive diverticulosis without definite evidence of diverticulitis. She has a large hiatal hernia. She was admitted for inpatient management of possible diverticulitis and surgical consultation was obtained. She was placed on Zosyn. Patient has undergone several previous colonoscopies at outside facility. Sounds as though the last colonoscopy was likely at [facility] approximately 8 or 10 years ago and it was recommended she not undergo additional colonoscopy as she had severe diverticulosis. Patient does feel better but does describe some discomfort in the lower abdomen. Review of Systems - Review of Systems Review of systems:: pertinent systems reviewed and negative unless documented below - *Neurologic Denies headache(s), Denies dizziness, Denies weakness [facility] History I have reviewed the patient's past medical history: Yes Medical History: Reports:: Cancer (Hx breast ca), Chronic Obstructive Pulmonary Disease (COPD), Coronary Artery Disease, Gastroesophageal Reflux Disease(GERD), Hyperlipidemia, Hypertension Denies:: Diabetes Mellitus Type 1, Diabetes Mellitus Type 2, Internal Pacemaker, MRSA, Seizures *Have you ever received a pneumonia vaccine?: Yes *Have you received a flu vaccine this season?: Yes Other Medical History: Reports: Arthritis, Thyroid Disease. Denies: Blood Transfusion Reaction Laterality Cases: Right: Mastectomy Other Surgeries: Yes: Angiogram, Cardiac Catheterization, Cholecystectomy, Colonoscopy, Coronary Stent, Hysterectomy-Total, Hysterectomy-Partial, Other. No: Pacemaker Amputation: No Fractures: Yes - *Social History Last grade of school completed: High school graduate Smoking Status: Current every day smoker Tobacco Type: cigarettes # Packs/Day (cigarettes): 1 Alcohol Intake: never Substance Use Type: denies use *Occupational Status:: retired Housing: apartment Household Members: none *Travel in the last 8 weeks: None Family Hx:: Diabetes Meds Home Medications Medication Instructions Recorded Confirmed Type potassium chloride 20 mEq 20 meq PO BID 90 Days #180 tab 03/11/19 06/21/22 History tablet,extended release(part/cryst) ranolazine 500 mg tablet,extended 500 mg PO BID 90 Days #180 tab 03/11/19 06/21/22 History release,12 hr sertraline 25 mg tablet 25 mg PO DAILY 90 Days #90 tab 03/11/19 06/21/22 History levothyroxine 50 mcg tablet 50 mcg PO DAILY tab 07/14/20 06/21/22 History Aspirin [Aspirin 325mg Tab] 325 mg PO DAILY 01/27/21 06/21/22 History Pantoprazole Sodium [Protonix 40mg 40 mg PO BID 01/28/21 06/21/22 History tablet] Rosuvastatin Calcium [Crestor 40mg 40 mg PO DAILY 01/28/21 06/21/22 History Tablets] Gabapentin [Neurontin 300mg 300 mg PO TID 03/23/21 06/21/22 History capsule] anastrozole 1 mg tablet 1 mg PO DAILY tab 05/30/21 06/21/22 History spironolactone 25 mg tablet 25 mg PO DAILY #30 tab 03/20/22 06/21/22 Rx sucralfate 1 gram tablet 1 g PO ACHS tab 03/20/22 06/21/22 History ipratropium 0.5 mg-albuterol 3 mg 3 ml IH BID ml 05/08/22 06/21/22 History (2.5 mg base)/3 mL nebulization soln losartan 100 mg tablet 100 mg PO DAILY #30 tab 04/24
--- NOTE | 2022-06-21 15:20 | PC.NURSE ---
rounded on patient who was asleep, but easily aroused when staff walked in room. pump was beeping and fixed. patient states she has no questions or concerns about plan of care, she was just tired. call light within reach and encouraged her to ring out with needs or concerns.
--- NOTE | 2022-06-21 18:32 | PC.NURSE ---
Pt is A/Ox4. She has been advanced to a full liquid diet and has tolerated it well. She napping on and off all day. She has went to the bathroom a few times today. Twice being diarrhea episode. She states that she has no abdominal pain.
[2022-06-22] VITALS (9 sets, daily range): BP systolic 152–165; BP diastolic 64–91; PULSE 60–70; RESP 16–17; TEMP 36.4–36.6; O2SAT 92–98; BMI 37.8
--- NOTE | 2022-06-22 05:53 | PC.NURSE ---
pt restless through the night, up to bathroom several times, only 1 moderate loose bm at start of shift, pt stated she felt some better, pts main concern at this time is back pain, pt up to chair this am for comfort, pt is a&o x4; lung sounds noted with some expiratory rhonchi, o2 sats 98% on room air, VSS, no other issues at this time.
--- NOTE | 2022-06-22 08:45 | HMH.ACPN2 ---
<Mayte Velasquez - Last Filed: 06/22/22 08:45> Internal Medicine - PN: Subj *Date: 06/22/22 *Time: 08:45 Interval history: Patient is feeling better this morning. Her abdominal pain is improved and she has tolerated her diet. She does states she did not sleep all night. Her bowels did begin moving. Exam Vital signs and Labs for Last 24 Hours: Temp Pulse Resp BP Pulse Ox 97.8 F 67 16 158/91 H 95 06/22/22 07:46 06/22/22 07:46 06/22/22 07:46 06/22/22 07:46 06/22/22 07:46 I & O for Last 24 hours: Intake & Output 06/19/22 06/20/22 06/21/22 06/22/22 11:59 11:59 11:59 11:59 Intake Total 0 / 0 2316 / 2316 Balance 0 / 0 2316 / 2316 Weight 167 lb 14.4 oz 168 lb 4.8 oz - Constitutional no acute distress - *Routine Respiratory Exam Present: rhonchi, wheezes - *Routine Cardiovascular Exam Present: RRR - *Routine Abdominal Exam Present: soft, normoactive bowel sounds, tenderness (less tenderness in the lower quadrants) - *Routine Extremities Exam Absent: cyanosis, clubbing, edema - *Routine Skin Exam Present: warm. Absent: rash - *Routine Neurological Exam Present: alert, oriented X3 Assessment and Plan (1) Diverticulitis Status: Acute Category: Medical Code(s): K57.92 - Diverticulitis of intestine, part unspecified, without perforation or abscess without bleeding (2) Intra-abdominal abscess Status: Acute Category: Medical Code(s): K65.1 - Peritoneal abscess (3) Hypokalemia Status: Acute Category: Medical Code(s): E87.6 - Hypokalemia (4) Hypothyroidism (acquired) Status: Chronic Category: Medical Code(s): E03.9 - Hypothyroidism, unspecified (5) CAD (coronary artery disease) Status: Chronic Qualifiers: Coronary Disease-Associated Artery/Lesion type: [place] artery [place] vs. transplanted heart: [place] heart Associated angina: with unspecified angina Category: Medical Code(s): I25.10 - Atherosclerotic heart disease of [place] coronary artery without angina pectoris (6) HLD (hyperlipidemia) Status: Chronic Qualifiers: Hyperlipidemia type: mixed hyperlipidemia Qualified Code(s): E78.2 - Mixed hyperlipidemia Category: Medical Code(s): E78.5 - Hyperlipidemia, unspecified (7) HTN (hypertension) Status: Chronic Qualifiers: Hypertension type: essential hypertension Category: Medical Code(s): I10 - Essential (primary) hypertension (8) History of renal stent Problem details: Bilateral renal stents MAY 2022 Status: Chronic Category: Surgical (9) Stented coronary artery Status: Chronic Category: Surgical Code(s): Z95.5 - Presence of coronary angioplasty implant and graft (10) Tobacco dependence Status: Chronic Category: Medical Code(s): F17.200 - Nicotine dependence, unspecified, uncomplicated (11) GERD (gastroesophageal reflux disease) Status: Acute Category: Medical Code(s): K21.9 - Gastro-esophageal reflux disease without esophagitis (12) History of stent insertion of renal artery Status: Acute Category: Medical Code(s): Z98.890 - Other specified postprocedural states - Assessment and plan all Dx Assessment and Plan for all problems:: Abdominal pain is improving. We will continue antibiotics. She has quite a bit more wheezing today. We will check a chest x-ray. <Kvng Aguilar - Last Filed: 06/22/22 09:19> Internal Medicine - PN: Subj *Date: 06/22/22 *Time: 09:18 Exam Vital signs and Labs for Last 24 Hours: Temp Pulse Resp BP Pulse Ox 97.8 F 67 16 158/91 H 95 06/22/22 07:46 06/22/22 07:46 06/22/22 07:46 06/22/22 07:46 06/22/22 07:46 I & O for Last 24 hours: Intake & Output 06/19/22 06/20/22 06/21/22 06/22/22 11:59 11:59 11:59 11:59 Intake Total 0 / 0 6 / 2316 Balance 0 / 0 2315 / 2316 Weight 167 lb 14.4 oz 168 lb 4.8 oz Assessment and Plan (1) Diverticulitis Status: Acute Category: Medical Code
--- NOTE | 2022-06-22 08:47 | XR_ITS ---
PROCEDURE INFORMATION: Exam: XR Chest Exam date and time: 06/22/2022 10:12 AM Age: 82 years old Clinical indication: Wheezing; Additional info: Wheezes TECHNIQUE: Imaging protocol: Radiologic exam of the chest. Views: 1 view. COMPARISON: CR XR CHEST 2V 03/20/2022 10:39 AM FINDINGS: Lungs: Streaky bibasilar atelectasis. Otherwise, no focal airspace consolidation. Pleural spaces: Unremarkable. No pleural effusion. No pneumothorax. Heart/Mediastinum: Unremarkable. No cardiomegaly. Bones/joints: Unremarkable. IMPRESSION: Streaky bibasilar atelectasis. Otherwise, no acute cardiopulmonary abnormality.
[2022-06-22 10:31] LABS: Basophils # 0.1 K/mm3 (0-0.2); Basophils % 0.7 % (0.1-2.0); Eosinophils # 0.2 K/mm3 (0.0-0.4); Eosinophils % 2.3 % (0.1-12.0); Hematocrit 31.8 % (37.0-47.0); Hemoglobin 10.7 g/dL (12.2-16.2); Lymphocytes % 20.5 % (10-50); Mean Corpuscular HGB Conc 33.6 g/dL (31.8-35.4); Mean Corpuscular Hemoglobin 28.7 pg (27.0-31.2); Mean Corpuscular Volume 85.4 fl (81-99); Mean Platelet Volume 7.9 fl (7.4-10.4); Monocytes # 0.7 K/mm3 (0.1-1.0); Monocytes % 7.4 % (1.7-9.3); Neutrophils # 6.6 K/mm3 (1.8-7.8); Neutrophils % 69.1 % (37.0-80.0); Platelet Count 288 K/mm3 (142-424); Red Blood Count 3.72 M/mm3 (4.20-5.40); Red Cell Distribution Width 15.7 % (11.5-17.5); White Blood Count 9.6 K/mm3 (4.8-10.8)
--- NOTE | 2022-06-22 11:40 | HMH.GSPN ---
Subjective Narrative: Patient states that she feels better. Her abdominal tenderness has improved. She has been moving her bowels yesterday. She is tolerating full liquid diet. White blood cell count is normal. Denies nausea. Progress Note: A&P (1) Diverticulitis Status: Acute (2) Intra-abdominal abscess Status: Acute (3) Hypokalemia Status: Acute (4) Hypothyroidism (acquired) Status: Chronic (5) CAD (coronary artery disease) Status: Chronic (6) HLD (hyperlipidemia) Status: Chronic (7) HTN (hypertension) Status: Chronic (8) History of renal stent Problem details: Bilateral renal stents MAY 2022 Status: Chronic (9) Stented coronary artery Status: Chronic (10) Tobacco dependence Status: Chronic (11) GERD (gastroesophageal reflux disease) Status: Acute (12) History of stent insertion of renal artery Status: Acute Assessment and Plan for All Diagnoses:: White blood cell count has normalized. Tolerating diet and no tenderness on examination. Chest x-ray reveals atelectasis. Regarding her possible diverticulitis I will go ahead and advance her diet. May be able to transition to oral antibiotics to complete as an outpatient such as Augmentin. Exam Vital signs and Labs for Last 24 Hours: Temp Pulse Resp BP Pulse Ox 97.6 F 66 16 155/67 H 94 L 06/22/22 11:09 06/22/22 11:09 06/22/22 11:09 06/22/22 11:09 06/22/22 11:09 Laboratory Results - last 24 hr 06/22/22 09:26: WBC 9.6, RBC 3.72 L, Hgb 10.7 L, Hct 31.8 L, MCV 85.4, MCH 28.7, MCHC 33.6, RDW 15.7, Plt Count 288, MPV 7.9, Neut % (Auto) 69.1, Lymph % (Auto) 20.5, [place] % (Auto) 7.4, Eos % (Auto) 2.3, Baso % (Auto) 0.7, Neut # (Auto) 6.6, Lymph # (Auto) 2.0, [place] # (Auto) 0.7, Eos # (Auto) 0.2, Baso # (Auto) 0.1 I & O for Last 24 hours: Intake & Output 07/27/06/20/22 06/21/22 06/22/22 11:59 11:59 11:59 11:59 Intake Total 0 / 0 2316 / 2316 Balance 0 / 0 2316 / 2316 Weight 167 lb 14.4 oz 168 lb 4.8 oz - *Routine Abdominal Exam Absent: tenderness
--- NOTE | 2022-06-22 14:35 | PC.NURSE ---
pt has been up in chair through out the shift. has ambulated with SBA to the bathroom multiple times. has been continent of bowel and bladder. She denies any pain but has audible wheezes upon assessment. md aware. chest xray obtained. she is alert and approprate.
[2022-06-23] VITALS (9 sets, daily range): BP systolic 138–183; BP diastolic 54–84; PULSE 65–84; RESP 16–19; TEMP 36.5–36.7; O2SAT 90–94; BMI 37.8
--- NOTE | 2022-06-23 04:38 | PC.NURSE ---
pt up numerous times to void, pt a&o x4; VSS, pt with scattered rhonchi noted, 02 sats 90 on room air, no edema, no other issues noted, no bm this shift, pt denies any belly discomfort.
--- NOTE | 2022-06-23 08:11 | P.PN_ITS ---
Subjective Narrative: When questioned how she feels the patient states that she feels, terrible . She complains of right hip pain and low back pain. She denies abdominal pain. She has been tolerating a low residue diet without issue. Progress Note: A&P (1) Diverticulitis Status: Acute (2) Intra-abdominal abscess Status: Acute (3) Hypokalemia Status: Acute (4) Hypothyroidism (acquired) Status: Chronic (5) CAD (coronary artery disease) Status: Chronic (6) HLD (hyperlipidemia) Status: Chronic (7) HTN (hypertension) Status: Chronic (8) History of renal stent Problem details: Bilateral renal stents MAY 2022 Status: Chronic (9) Stented coronary artery Status: Chronic (10) Tobacco dependence Status: Chronic (11) GERD (gastroesophageal reflux disease) Status: Acute (12) History of stent insertion of renal artery Status: Acute Assessment and Plan for All Diagnoses:: Regarding her possible diverticulitis I feel that it would be reasonable to transition to oral antibiotics such as Augmentin for planned continued outpatient care of this. Likely would ultimately plan for follow-up imaging in the future as an outpatient with CT scan and possible MRI (based on r adiologist's recommendations) and possible contrast enema. Exam Vital signs and Labs for Last 24 Hours: Temp Pulse Resp BP Pulse Ox 97.9 F 77 17 183/73 H 90 L 06/23/22 04:00 06/23/22 06:34 06/23/22 04:00 06/23/22 04:00 06/23/22 04:00 Laboratory Results - last 24 hr 06/22/22 09:26: WBC 9.6, RBC 3.72 L, Hgb 10.7 L, Hct 31.8 L, MCV 85.4, MCH 28.7, MCHC 33.6, RDW 15.7, Plt Count 288, MPV 7.9, Neut % (Auto) 69.1, Lymph % (Auto) 20.5, [place] % (Auto) 7.4, Eos % (Auto) 2.3, Baso % (Auto) 0.7, Neut # (Auto) 6.6, Lymph # (Auto) 2.0, [place] # (Auto) 0.7, Eos # (Auto) 0.2, Baso # (Auto) 0.1 I & O for Last 24 hours: Intake & Output 07/28/22 07/29/22 07/30/22 07/31/22 11:59 11:59 11:59 11:59 Intake Total 0 / 0 2316 / 2316 1416 / 1416 Balance 0 / 0 2316 / 2316 1416 / 1416 Weight 167 lb 14.4 oz 168 lb 4.8 oz 168 lb 4.814 oz - *Routine Abdominal Exam Present: soft. Absent: tenderness
--- NOTE | 2022-06-23 09:38 | HMH.ACPN2 ---
Internal Medicine - PN: Subj *Date: 06/23/22 *Time: 10:33 Interval history: Patient with no new complaints, states she feels bad, was able to sit in a chair yesterday. Exam Vital signs and Labs for Last 24 Hours: Temp Pulse Resp BP Pulse Ox 97.7 F 80 16 164/68 H 94 L 06/23/22 08:00 06/23/22 08:00 06/23/22 08:00 06/23/22 08:00 06/23/22 08:00 Laboratory Results - last 24 hr 06/22/22 09:26: WBC 9.6, RBC 3.72 L, Hgb 10.7 L, Hct 31.8 L, MCV 85.4, MCH 28.7, MCHC 33.6, RDW 15.7, Plt Count 288, MPV 7.9, Neut % (Auto) 69.1, Lymph % (Auto) 20.5, [place] % (Auto) 7.4, Eos % (Auto) 2.3, Baso % (Auto) 0.7, Neut # (Auto) 6.6, Lymph # (Auto) 2.0, [place] # (Auto) 0.7, Eos # (Auto) 0.2, Baso # (Auto) 0.1 Vital Signs - 24 hr 06/22/22 11:09 06/22/22 15:11 06/22/22 18:36 Temperature 97.6 F 97.9 F Pulse Rate 66 Pulse Rate [Left Radial] 66 68 Respiratory Rate 16 17 Blood Pressure [Left Arm] 155/67 H 152/64 H 02 Sat by Pulse Oximetry 94 L 92 L 06/22/22 19:39 06/22/22 20:00 06/23/22 00:00 Temperature 97.9 F 98.0 F Pulse Rate Pulse Rate [Left Radial] 70 84 Respiratory Rate 17 19 Blood Pressure [Left Arm] 162/75 H 142/54 H 02 Sat by Pulse Oximetry 98 98 90 L 06/23/22 04:00 06/23/22 06:34 06/23/22 08:00 Temperature 97.9 F 97.7 F Pulse Rate 77 Pulse Rate [Left Radial] 72 80 Respiratory Rate 17 16 Blood Pressure [Left Arm] 183/73 H 164/68 H 02 Sat by Pulse Oximetry 90 L 94 L I & O for Last 24 hours: Intake & Output 06/20/22 06/21/22 06/22/22 06/23/22 23:59 23:59 23:59 23:59 Intake Total 600 / 840 2256 / 2256 1176 / 1176 Balance 600 / 840 2256 / 2256 1176 / 1176 Weight 167 lb 8.821 oz 168 lb 4.8 oz 168 lb 4.814 oz - Constitutional no acute distress (sleeping, awakens to voice) - *Routine Respiratory Exam Present: CTA bilaterally - *Routine Cardiovascular Exam Present: RRR Assessment and Plan (1) Diverticulitis Status: Acute Category: Medical Code(s): K57.92 - Diverticulitis of intestine, part unspecified, without perforation or abscess without bleeding (2) Intra-abdominal abscess Status: Acute Category: Medical Code(s): K65.1 - Peritoneal abscess (3) Hypokalemia Status: Acute Category: Medical Code(s): E87.6 - Hypokalemia (4) Hypothyroidism (acquired) Status: Chronic Category: Medical Code(s): E03.9 - Hypothyroidism, unspecified (5) CAD (coronary artery disease) Status: Chronic Qualifiers: Coronary Disease-Associated Artery/Lesion type: [place] artery [place] vs. transplanted heart: [place] heart Associated angina: with unspecified angina Category: Medical Code(s): I25.10 - Atherosclerotic heart disease of [place] coronary artery without angina pectoris (6) HLD (hyperlipidemia) Status: Chronic Qualifiers: Hyperlipidemia type: mixed hyperlipidemia Qualified Code(s): E78.2 - Mixed hyperlipidemia Category: Medical Code(s): E78.5 - Hyperlipidemia, unspecified (7) HTN (hypertension) Status: Chronic Qualifiers: Hypertension type: essential hypertension Category: Medical Code(s): I10 - Essential (primary) hypertension (8) History of renal stent Problem details: Bilateral renal stents MAY 2022 Status: Chronic Category: Surgical (9) Stented coronary artery Status: Chronic Category: Surgical Code(s): Z95.5 - Presence of coronary angioplasty implant and graft (10) Tobacco dependence Status: Chronic Category: Medical Code(s): F17.200 - Nicotine dependence, unspecified, uncomplicated (11) GERD (gastroesophageal reflux disease) Status: Acute Category: Medical Code(s): K21.9 - Gastro-esophageal reflux disease without esophagitis (12) History of stent insertion of renal artery Status: Acute Category: Medical Code(s): Z98.890 - Other specified postprocedural states - Assessment and plan all Dx Assessment and Plan for all problems:: Continue current treatment.
--- NOTE | 2022-06-23 18:09 | PC.NURSE ---
pt has been pleasant. up to chair majority of shift. assist X1 to bsc. pt c/o of back pain this am relieved with Motrin. no c/o pain since then. personal items and call [facility] within reach, no concerns at this time.
--- NOTE | 2022-06-24 03:33 | PC.NURSE ---
pt restless tonight, pt up in chair most of night, pt states that her back hurts in the bed and she sleeps in her recliner at home, VSS, pt with 02 sats 90% on room air, lung sounds clear and diminished with scattered expiratory rhonchi, pt complains of bottom irriated and noted small hemorrhoids, barrier cream applied, pt with bm this shift, pt states her diverticulitis is bothering her, pt up with assist x1 to bsc, skin pwd, no edema noted, pt states she just doesn't feel good, no other issues noted.
[2022-06-24 05:00] VITALS: BMI 37.8
[2022-06-24 06:12] VITALS: PULSE 66; PULSE 70
[2022-06-24 06:40] LABS: Basophils # 0.1 K/mm3 (0-0.2); Basophils % 0.6 % (0.1-2.0); Eosinophils # 0.3 K/mm3 (0.0-0.4); Eosinophils % 3.2 % (0.1-12.0); Hematocrit 32.6 % (37.0-47.0); Hemoglobin 10.5 g/dL (12.2-16.2); Lymphocytes # 1.9 K/mm3 (0.7-4.5); Lymphocytes % 20.6 % (10-50); Mean Corpuscular HGB Conc 32.2 g/dL (31.8-35.4); Mean Corpuscular Hemoglobin 28.2 pg (27.0-31.2); Mean Corpuscular Volume 87.4 fl (81-99); Mean Platelet Volume 8.4 fl (7.4-10.4); Monocytes # 0.6 K/mm3 (0.1-1.0); Monocytes % 6.8 % (1.7-9.3); Neutrophils # 6.5 K/mm3 (1.8-7.8); Neutrophils % 68.8 % (37.0-80.0); Platelet Count 339 K/mm3 (142-424); Red Blood Count 3.73 M/mm3 (4.20-5.40); Red Cell Distribution Width 16.4 % (11.5-17.5); White Blood Count 9.5 K/mm3 (4.8-10.8)
[2022-06-24 06:53] LABS: Chloride 109 mmol/L (98-107)
[2022-06-24 06:54] LABS: Potassium 4.5 mmoL/L (3.5-5.1); Sodium 138 mmol/L (136-145)
[2022-06-24 06:57] LABS: Anion Gap 9.5 mEq/L (5-15); Blood Urea Nitrogen 15 mg/dl (7-17); Calcium 9.4 mg/dl (8.4-10.2); Carbon Dioxide 24 mmol/L (22.0-30.0); Creatinine Clearance Estimated 50 mL/min (50-200); Estimated Glomerular Filt Rate 68 ml/min (>60); GFR (African American) 83 ML/MIN (>60); Glucose 102 mg/dl (74-100)
[2022-06-24 08:00] VITALS: BP 161/66; PULSE 75; RESP 18; TEMP 36.6; O2SAT 93
--- NOTE | 2022-06-24 08:25 | HMH.ACPN2 ---
Internal Medicine - PN: Subj *Date: 06/24/22 *Time: 08:25 Interval history: Patient states she feels better today, wants to go home, tolerating diet. Exam Vital signs and Labs for Last 24 Hours: Temp Pulse Resp BP Pulse Ox 98.1 F 66 17 138/73 90 L 06/23/22 20:00 06/24/22 06:12 06/23/22 20:00 06/23/22 20:00 06/23/22 20:00 Laboratory Results - last 24 hr 06/24/22 06:03: WBC 9.5, RBC 3.73 L, Hgb 10.5 L, Hct 32.6 L, MCV 87.4, MCH 28.2, MCHC 32.2, RDW 16.4, Plt Count 339, MPV 8.4, Neut % (Auto) 68.8, Lymph % (Auto) 20.6, [place] % (Auto) 6.8, Eos % (Auto) 3.2, Baso % (Auto) 0.6, Neut # (Auto) 6.5, Lymph # (Auto) 1.9, [place] # (Auto) 0.6, Eos # (Auto) 0.3, Baso # (Auto) 0.1 06/24/22 06:03: Sodium 138, Potassium 4.5, Chloride 109 H, Carbon Dioxide 24, Anion Gap 9.5, BUN 15, Creatinine 0.80, Estimated Creat Clear 50, Estimated GFR 68, Est GFR ( Amer) 83, Glucose 102 H, Calcium 9.4 I & O for Last 24 hours: Intake & Output 06/21/22 06/22/22 06/23/22 06/24/22 23:59 23:59 23:59 23:59 Intake Total 600 / 840 2256 / 2256 1776 / 1776 1170 / 1170 Balance 600 / 840 2256 / 2256 1776 / 1776 1170 / 1170 Weight 167 lb 8.821 oz 168 lb 4.8 oz 168 lb 4.814 oz 168 lb 4.814 oz - Constitutional no acute distress - *Routine Respiratory Exam Present: CTA bilaterally - *Routine Cardiovascular Exam Present: RRR - *Routine Abdominal Exam Present: soft, normoactive bowel sounds. Absent: tenderness Assessment and Plan (1) Diverticulitis Status: Acute Category: Medical Code(s): K57.92 - Diverticulitis of intestine, part unspecified, without perforation or abscess without bleeding (2) Intra-abdominal abscess Status: Acute Category: Medical Code(s): K65.1 - Peritoneal abscess (3) Hypokalemia Status: Acute Category: Medical Code(s): E87.6 - Hypokalemia (4) Hypothyroidism (acquired) Status: Chronic Category: Medical Code(s): E03.9 - Hypothyroidism, unspecified (5) CAD (coronary artery disease) Status: Chronic Qualifiers: Coronary Disease-Associated Artery/Lesion type: [place] artery [place] vs. transplanted heart: [place] heart Associated angina: with unspecified angina Category: Medical Code(s): I25.10 - Atherosclerotic heart disease of [place] coronary artery without angina pectoris (6) HLD (hyperlipidemia) Status: Chronic Qualifiers: Hyperlipidemia type: mixed hyperlipidemia Qualified Code(s): E78.2 - Mixed hyperlipidemia Category: Medical Code(s): E78.5 - Hyperlipidemia, unspecified (7) HTN (hypertension) Status: Chronic Qualifiers: Hypertension type: essential hypertension Category: Medical Code(s): I10 - Essential (primary) hypertension (8) History of renal stent Problem details: Bilateral renal stents MAY 2022 Status: Chronic Category: Surgical (9) Stented coronary artery Status: Chronic Category: Surgical Code(s): Z95.5 - Presence of coronary angioplasty implant and graft (10) Tobacco dependence Status: Chronic Category: Medical Code(s): F17.200 - Nicotine dependence, unspecified, uncomplicated (11) GERD (gastroesophageal reflux disease) Status: Acute Category: Medical Code(s): K21.9 - Gastro-esophageal reflux disease without esophagitis (12) History of stent insertion of renal artery Status: Acute Category: Medical Code(s): Z98.890 - Other specified postprocedural states - Assessment and plan all Dx Assessment and Plan for all problems:: OK to discharge home today with oral antibiotics.
--- NOTE | 2022-06-24 08:45 | PC.NURSE ---
Patient stated her daughter could pick pt up but not until around 1800 as she works in [employer] at [employer] and does not get off work until 1700
--- NOTE | 2022-06-24 08:52 | HMH.ACPN2 ---
Internal Medicine - PN: Subj *Date: 06/24/22 *Time: 08:52 Exam Vital signs and Labs for Last 24 Hours: Temp Pulse Resp BP Pulse Ox 97.9 F 75 18 161/66 H 93 L 06/24/22 08:00 06/24/22 08:00 06/24/22 08:00 06/24/22 08:00 06/24/22 08:00 Laboratory Results - last 24 hr 06/24/22 06:03: WBC 9.5, RBC 3.73 L, Hgb 10.5 L, Hct 32.6 L, MCV 87.4, MCH 28.2, MCHC 32.2, RDW 16.4, Plt Count 339, MPV 8.4, Neut % (Auto) 68.8, Lymph % (Auto) 20.6, [place] % (Auto) 6.8, Eos % (Auto) 3.2, Baso % (Auto) 0.6, Neut # (Auto) 6.5, Lymph # (Auto) 1.9, [place] # (Auto) 0.6, Eos # (Auto) 0.3, Baso # (Auto) 0.1 06/24/22 06:03: Sodium 138, Potassium 4.5, Chloride 109 H, Carbon Dioxide 24, Anion Gap 9.5, BUN 15, Creatinine 0.80, Estimated Creat Clear 50, Estimated GFR 68, Est GFR ( Amer) 83, Glucose 102 H, Calcium 9.4 I & O for Last 24 hours: Intake & Output 06/21/22 06/22/22 06/23/22 06/24/22 23:59 23:59 23:59 23:59 Intake Total 600 / 840 2256 / 2256 1776 / 177 1223 / 1223 Balance 600 / 840 2256 / 2256 177 / 177 1223 / 1223 Weight 76 kg 76.34 kg 76.34 kg 76.34 kg Assessment and Plan (1) Diverticulitis Status: Acute Category: Medical Code(s): K57.92 - Diverticulitis of intestine, part unspecified, without perforation or abscess without bleeding (2) Intra-abdominal abscess Status: Acute Category: Medical Code(s): K65.1 - Peritoneal abscess (3) Hypokalemia Status: Acute Category: Medical Code(s): E87.6 - Hypokalemia (4) Hypothyroidism (acquired) Status: Chronic Category: Medical Code(s): E03.9 - Hypothyroidism, unspecified (5) CAD (coronary artery disease) Status: Chronic Qualifiers: Coronary Disease-Associated Artery/Lesion type: [place] artery [place] vs. transplanted heart: [place] heart Associated angina: with unspecified angina Category: Medical Code(s): I25.10 - Atherosclerotic heart disease of [place] coronary artery without angina pectoris (6) HLD (hyperlipidemia) Status: Chronic Qualifiers: Hyperlipidemia type: mixed hyperlipidemia Qualified Code(s): E78.2 - Mixed hyperlipidemia Category: Medical Code(s): E78.5 - Hyperlipidemia, unspecified (7) HTN (hypertension) Status: Chronic Qualifiers: Hypertension type: essential hypertension Category: Medical Code(s): I10 - Essential (primary) hypertension (8) History of renal stent Problem details: Bilateral renal stents MAY 2022 Status: Chronic Category: Surgical (9) Stented coronary artery Status: Chronic Category: Surgical Code(s): Z95.5 - Presence of coronary angioplasty implant and graft (10) Tobacco dependence Status: Chronic Category: Medical Code(s): F17.200 - Nicotine dependence, unspecified, uncomplicated (11) GERD (gastroesophageal reflux disease) Status: Acute Category: Medical Code(s): K21.9 - Gastro-esophageal reflux disease without esophagitis (12) History of stent insertion of renal artery Status: Acute Category: Medical Code(s): Z98.890 - Other specified postprocedural states The patient's infection will respond to the chosen ABx?: Yes (NO SPECIMAN, ZOSYN FOR DIVERTICULITIS, WBC HAVE DECREASED, AFEBRILE) Is the patient receiving the right drug, dose, and route?: Yes Could a more targeted ABx be ordered?: No
--- NOTE | 2022-06-24 22:23 | HMH.DCSUM ---
General - General Admission date:: 06/21/22 Discharge date: 06/24/22 HPI HPI: Patient is a 82-year-old female with a history of recent ureteral stent placement, COPD, CAD on Plavix presenting to the emergency department for evaluation of abdominal pain. She reports that she is having diffuse abdominal cramping. She states that she had been constipated and drink magnesium citrate on Friday, and that cleaned her out really well. She states that since then, she has had no bowel movement. She states that her stools have been dark green, but not bloody or melanotic. She has had no other symptoms, such as fevers, chills, nausea, vomiting, chest pain, shortness of breath, dysuria, polyuria, rashes, or swelling. Her daughter reports that they came in tonight because she feels that her mom is anxious because her relative of a bowel perforation. On reassessment, the patient is resting comfortably. Labs demonstrate very mild leukocytosis but otherwise no acute abnormalities. CT scan shows nonspecific intra and extrahepatic biliary duct dilation likely consistent with cholecystectomy. No right upper quadrant tenderness or bump in liver enzymes or bilirubin noted, so do not feel that this is acute. CT scan does demonstrate fat stranding in the left lower quadrant with 2.4 cm fluid collection concerning for an abscess. On reassessment, patient is bottom turning lathe tender in the suprapubic and left lower quadrant regions. Given this in commendation with her CT scan findings, general surgery was consulted and they recommended admitting to the medicine service and managing the patient here. I started the patient on Zosyn, and the patient was admitted in stable condition for further evaluation and management. Urinalysis pending at this time. (above as per ER physician) This a.m., the patient does feel better. She continues with pain in her suprapubic area and left lower quadrant. She denies any vomiting or nausea. She has not had any further bowel movements. Hospital Course Hospital Course: The patient was admitted and started on IV antibiotics and surgery was consulted. She was admitted with a working diagnosis of diverticulitis and possible pelvic abscess. Dr. Rosario saw her and did not feel the need for surgical intervention or interventional radiology. He felt she should be continued on antibiotics and started on a clear liquid diet. If she improved, he felt she could be converted to oral antibiotics and continued outpatient care and follow-up. Her pain did begin improving and she was tolerating a diet. She did begin having some wheezing, therefore chest x-ray was ordered. It showed streaky bibasilar atelectasis, but was otherwise normal. Her bowels did begin moving and her white blood cell count normalized. Dr. Rosario felt her diet could be advanced and she could be transitioned to oral antibiotics such as Augmentin. He felt she would need follow-up imaging in the future such and as outpatient CT or possible MRI. By 06/24/2022, she was feeling better and wanted to go home. She was tolerating her diet and it was felt she could be discharged on oral antibiotics. She will follow-up with Dr. Rosario and her PCP. Objective Vital signs: Temp Pulse Resp BP Pulse Ox 97.9 F 75 18 161/66 H 93 L 06/24/22 08:00 06/24/22 08:00 06/24/22 08:00 06/24/22 08:00 06/24/22 08:00 Narrative: - Constitutional no acute distress <Mayte Velasquez 06/21/22 10:27> - *Routine HEENT Exam Head: Present: normocephalic <Mayte Velasquez 06/21/22 10:27> Eye: Present: EOMI, PERRL <Mayte Velasquez 06/21/22 10:27> ENT: Present: mucous membranes moist <Mayte Velasquez 06/21/22 10:27> - *Routine Neck Exam Present: supple. Absent: lymphadenopathy <Mayte Velasquez 06/21/22 10:27> - *Routine Respiratory Exam Present: wheezes <Mayte Velasquez 06/21/22 10:27> - *Routine Cardiovascular Exam Present: RRR <Mayte Velasquez 06/21/22 10:27>
--- NOTE | 2022-06-25 15:17 | CARE MANAGER ---
Left patient a message for her to call us regarding post discharge status.
--- NOTE | 2022-06-26 14:36 | CARE MANAGER ---
Called and spoke with patient regarding post discharge status. Patient states that she was able to get her 2 new medications and plans to attend her 2 f/u appt that were scheduled at discharge. She states that she feels well and has no complaints at this time.
== END 2022-06-24 12:21 | disposition home or self-care (01) ==
LOC: ER 01:57 → 2ND 05:44
PROVIDERS: Family Medicine; Admitting Provider Family Medicine; Emergency Provider Emergency Medicine; PCP Family Medicine; Visit Provider Family Medicine
DX: K57.20 Diverticulitis of large intestine with perforation and abscess without bleeding (principal); K65.1 Peritoneal abscess; Z79.899 Other long term (current) drug therapy; Z79.01 Long term (current) use of anticoagulants; J44.9 Chronic obstructive pulmonary disease, unspecified; I25.10 Atherosclerotic heart disease of native coronary artery without angina pectoris; I10 Essential (primary) hypertension; E78.5 Hyperlipidemia, unspecified; K21.9 Gastro-esophageal reflux disease without esophagitis; F17.210 Nicotine dependence, cigarettes, uncomplicated; Z95.828 Presence of other vascular implants and grafts; E87.6 Hypokalemia; Z20.822 Contact with and (suspected) exposure to COVID-19; Z90.11 Acquired absence of right breast and nipple; Z85.3 Personal history of malignant neoplasm of breast
CPT/HCPCS: G0378; 36415; 71045; 74018; 74177; 80048; 80053; 81001; 83605; 83690; 85007; 85014; 85018; 85025; 85048; 85049; 85610; 85730; 94640; 99285; C9803; J2543; Q9967; U0003; U0005

== ENCOUNTER → 2022-07-10 16:04 | Outpatient (CLI) | payer MEDICARE, MEDICAID, SELFPAY ==
[2022-07-10 17:42] LABS: Blood Urea Nitrogen 19 mg/dl (7-17); Estimated Glomerular Filt Rate 68 ml/min (>60); GFR (African American) 83 ML/MIN (>60)
== END ==
PROVIDERS: PCP Family Medicine; Visit Provider Surgery
DX: K57.92 Diverticulitis of intestine, part unspecified, without perforation or abscess without bleeding (principal)
CPT/HCPCS: 36415; 82565; 84520

== ENCOUNTER → 2022-07-16 08:58 | Outpatient (CLI) | payer MEDICARE, MEDICAID, SELFPAY ==
--- NOTE | 2022-07-16 09:04 | CT_ITS ---
FINAL REPORT TECHNIQUE: After the administration of oral and intravenous contrast, axial images were obtained through the abdomen and pelvis by computed tomography. Oral contrast was administered. The study was performed with techniques to keep radiation dose as low as reasonably achievable, (ALARA). Individual dose reduction techniques using automated exposure control or adjustment of mA and/or kV according to the patient's size were employed. CLINICAL HISTORY: diverticulitis COMPARISON: June 21, 2022 FINDINGS: Abdomen: There is scarring at the left lung base. The liver parenchyma is homogeneous. There is mild intra and extrahepatic biliary ductal dilatation likely related to prior cholecystectomy. There is a moderate hiatal hernia. The spleen, pancreas, adrenals and kidneys appear unremarkable. The aorta is normal in caliber. There is no free fluid or adenopathy. Pelvis: There is extensive sigmoid diverticulosis without acute sigmoid diverticulitis. There is a small fluid attenuation structure in the lateral left pelvis. This structure measures 2.1 cm and is stable as compared to the previous exam. The structure is well seen on image 86 of series 2. The urinary bladder is unremarkable. There is no free fluid or adenopathy. There is grade 2 spondylolisthesis of L5 on S1 with advanced degenerative change. IMPRESSION: Moderate hiatal hernia. Extensive sigmoid diverticulosis with no acute sigmoid diverticulitis. Fluid attenuation structure in the lateral left pelvis which could represent an ovarian cyst, stable. Reviewed, Interpreted and Dictated by Rasta Conteh MD Transcribed by Davina Raymundo Authenticated and [facility]
== END ==
PROVIDERS: PCP Family Medicine; Visit Provider Surgery
DX: K57.92 Diverticulitis of intestine, part unspecified, without perforation or abscess without bleeding (principal)
CPT/HCPCS: 74177; Q9967

== ENCOUNTER → 2022-08-07 09:19 | Outpatient (CLI) | payer MEDICARE, MEDICAID, SELFPAY ==
--- NOTE | 2022-08-07 09:19 | US_ITS ---
FINAL REPORT CLINICAL HISTORY: pelvic pain-- done tabd COMPARISON: CT dated July 16, 2022 FINDINGS: Sonographic images of the pelvis were obtained. Note is made that this was a technically difficult exam. The uterus and the right ovary are not seen which is consistent with patient history of partial hysterectomy. The left ovary is difficult to visualize and measures approximately 3.2 cm in length. Normal blood flow seen. There is a 2.6 cm probable ovarian or paraovarian cyst. There is no evidence of free fluid. IMPRESSION: 2.6 cm probable left ovarian or paraovarian cyst. Reviewed, Interpreted and Dictated by Ilan Patel III, MD Transcribed by Swathi Garcia Authenticated and [facility]
[2022-08-07 10:49] LABS: Basophils # 0.1 K/mm3 (0-0.2); Basophils % 0.9 % (0.1-2.0); Eosinophils # 0.2 K/mm3 (0.0-0.4); Eosinophils % 2.1 % (0.1-12.0); Hematocrit 40.2 % (37.0-47.0); Lymphocytes # 1.5 K/mm3 (0.7-4.5); Lymphocytes % 19.5 % (10-50); Mean Corpuscular HGB Conc 32.2 g/dL (31.8-35.4); Mean Corpuscular Volume 89.9 fl (81-99); Mean Platelet Volume 8.3 fl (7.4-10.4); Monocytes # 0.6 K/mm3 (0.1-1.0); Monocytes % 7.6 % (1.7-9.3); Neutrophils # 5.4 K/mm3 (1.8-7.8); Platelet Count 294 K/mm3 (142-424); Red Blood Count 4.48 M/mm3 (4.20-5.40); Red Cell Distribution Width 14.7 % (11.5-17.5); White Blood Count 7.7 K/mm3 (4.8-10.8)
[2022-08-07 12:13] LABS: Albumin Level 3.6 g/dl (3.5-5.0); Albumin/Globulin Ratio 1.5 (1.1-1.8); Alkaline Phosphatase 109 U/L (38-126); Anion Gap 10.1 mEq/L (5-15); Blood Urea Nitrogen 14 mg/dl (7-17); Calcium 8.9 mg/dl (8.4-10.2); Carbon Dioxide 31 mmol/L (22.0-30.0); Chloride 103 mmol/L (98-107); Estimated Glomerular Filt Rate 60 ml/min (>60); GFR (African American) 72 ML/MIN (>60); Globulin 2.4 g/dL (1.3-3.2); Glucose 113 mg/dl (74-100); Potassium 4.1 mmoL/L (3.5-5.1); Sodium 140 mmol/L (136-145)
[2022-08-07 12:14] LABS: Alanine Aminotransferase 18 U/L (12-78); Aspartate Amino Transferase 26 U/L (14-36)
[2022-08-07 12:22] LABS: Bilirubin,Total < 0.1 mg/dl (0.2-1.3)
== END ==
PROVIDERS: Internal Medicine Medical Oncology; PCP Family Medicine; Visit Provider Surgery
DX: C50.911 Malignant neoplasm of unspecified site of right female breast (principal); R10.2 Pelvic and perineal pain; N83.209 Unspecified ovarian cyst, unspecified side
CPT/HCPCS: 36415; 76856; 80053; 85025

== ENCOUNTER → 2022-08-21 09:45 | Outpatient (CLI) | payer MEDICARE, MEDICAID, SELFPAY ==
--- NOTE | 2022-08-21 09:46 | FL_ITS ---
FINAL REPORT CLINICAL HISTORY: diverticulitis ft: 2:06 done with gastrografin not barium FINDINGS: GASRTOGRAFIN ENEMA HISTORY: Incomplete colonoscopy. PROCEDURE: Single-contrast Gastrografin was introduced by gravity drip. Spot and overhead films were obtained. FINDINGS: Elementary Librarian film is unremaunremarkable. There is pandiverticulosis most pronounced within the distal colon. No obvious constricting or obstructing lesion is identified to the level of the cecum. IMPRESSION: Pandiverticulosis. FLUOROSCOPY TIME: 2 minutes 6 seconds. 20 radiographs were obtained. Films reviewed , interpreted and dictated by Dr. Avila. Transcribed by Alex Agudelo PA-C. Reviewed, Interpreted and Dictated by Bridger Avila MD Transcribed by YUDY Bee Authenticated and [facility]
== END ==
PROVIDERS: PCP Family Medicine; Visit Provider Surgery
DX: K57.92 Diverticulitis of intestine, part unspecified, without perforation or abscess without bleeding (principal)
CPT/HCPCS: 74270

== ENCOUNTER 2022-10-10 23:22 | Emergency (ER) | payer MEDICARE, MEDICAID, SELFPAY ==
[2022-10-10 23:23] VITALS: BP 203/89; PULSE 78; RESP 16; TEMP 37; O2SAT 95; BMI 34.6
[2022-10-10 23:48] LABS: Basophils # 0.1 K/mm3 (0-0.2); Eosinophils # 0.2 K/mm3 (0.0-0.4); Hematocrit 41.6 % (37.0-47.0); Hemoglobin 13.3 g/dL (12.2-16.2); Lymphocytes # 2.4 K/mm3 (0.7-4.5); Lymphocytes % 20.8 % (10-50); Mean Corpuscular HGB Conc 31.9 g/dL (31.8-35.4); Mean Corpuscular Volume 87.8 fl (81-99); Mean Platelet Volume 8.6 fl (7.4-10.4); Monocytes # 0.7 K/mm3 (0.1-1.0); Monocytes % 6.3 % (1.7-9.3); Neutrophils # 7.9 K/mm3 (1.8-7.8); Neutrophils % 69.8 % (37.0-80.0); Platelet Count 298 K/mm3 (142-424); Red Blood Count 4.74 M/mm3 (4.20-5.40); Red Cell Distribution Width 14.6 % (11.5-17.5); White Blood Count 11.3 K/mm3 (4.8-10.8)
[2022-10-10 23:55] LABS: Chloride 102 mmol/L (98-107); Sodium 142 mmol/L (136-145)
[2022-10-10 23:56] LABS: Potassium 4.1 mmoL/L (3.5-5.1)
[2022-10-10 23:58] LABS: Alanine Aminotransferase 17 U/L (12-78); Alkaline Phosphatase 126 U/L (38-126); Amylase 55 U/L (30-110); Anion Gap 14.1 mEq/L (5-15); Aspartate Amino Transferase 23 U/L (14-36); Blood Urea Nitrogen 20 mg/dl (7-17); Carbon Dioxide 30 mmol/L (22.0-30.0); Creatinine Clearance Estimated 48 mL/min (50-200); Estimated Glomerular Filt Rate 53 ml/min (>60); GFR (African American) 64 ML/MIN (>60); Lipase 128 U/L (23-300)
[2022-10-10 23:59] LABS: Albumin Level 3.9 g/dl (3.5-5.0); Albumin/Globulin Ratio 1.4 (1.1-1.8); Globulin 2.8 g/dL (1.3-3.2); Glucose 104 mg/dl (74-100); Total Protein,Serum 6.7 g/dl (6.3-8.2)
[2022-10-11] LABS: Bilirubin,Total < 0.1 mg/dl (0.2-1.3)
--- NOTE | 2022-10-11 | CT_ITS ---
PROCEDURE INFORMATION: Exam: CT Abdomen And Pelvis With Contrast Exam date and time: 10/11/2022 12:16 AM Age: 82 years old Clinical indication: Abdominal pain; Additional info: Abd pain TECHNIQUE: Imaging protocol: Computed tomography of the abdomen and pelvis with contrast. Radiation optimization: All CT scans at this facility use at least one of these dose optimization techniques: automated exposure control; mA and/or kV adjustment per patient size (includes targeted exams where dose is matched to clinical indication); or iterative reconstruction. Contrast material: ISOVUE; Contrast volume: 75 ml; Contrast route: IV; COMPARISON: CT ABDOMEN PELVIS W CON 07/16/2022 9:18 AM FINDINGS: Lungs: Mild atelectasis in the lung bases. Heart: Heart size normal. Moderate coronary artery calcification in the RCA distribution. Moderate calcification of the mitral annulus. Diaphragm: Moderate-sized hiatal hernia. Liver: Normal contour. No mass lesions. Slight intrahepatic biliary ductal dilatation is unchanged. Gallbladder and bile ducts: Prior cholecystectomy with expected mild postoperative dilatation of the common bile duct. This is unchanged. Pancreas: Normal. No inflammatory changes or ductal dilation. Spleen: Normal. No splenomegaly. Adrenal glands: Slight thickening of the adrenal glands suggesting mild hyperplasia without focal nodule/mass, unchanged. Kidneys and ureters: No acute abnormalities. No hydronephrosis or hydroureter. No urinary tract stones are identified. Stomach and bowel: Stomach is largely contracted. Gastric band surgery, unchanged back to oldest comparison CT 01/28/2021. Discontinuity at the lesser curvature may indicate chronic band disruption. No evidence of associated obstruction or bowel perforation. The small bowel is nondilated with no gross abnormality. Severe diverticulosis involving the distal colon without evidence of acute diverticulitis. Appendix: No evidence of appendicitis. Intraperitoneal space: No free fluid or air. Vasculature: Severe calcific atherosclerosis in the aorta and iliac vessels. Bilateral renal artery stents are patent. Short segment calcified intimal flap in the distal abdominal aortic segment is unchanged suggesting chronic short segment arterial dissection, stable from 06/21/2022. Lymph nodes: No adenopathy. Urinary bladder: Unremarkable as visualized. Reproductive: Uterus and right ovary unremarkable. Simple left adnexal cyst which is probably of ovarian origin measuring 2 cm maximum diameter is unchanged.No further imaging is recommended. (Reference: [facility]) Bones/joints: No acute osseous abnormalities. Osteopenia. Chronic bilateral L5 spondylolysis with grade 2 anterolisthesis and advanced disc degenerative changes L5-S1, with ankylosis across the disc space. Multilevel advanced lumbar disc degenerative changes with moderate leftward convexity scoliosis. Soft tissues: Right breast prosthesis marginally visualized. Small fatty umbilical hernia . No evidence of associated bowel herniation or strangulation. IMPRESSION: 1. No definite acute process. No significant interval change from 07/16/2022. 2. Severe distal colonic diverticulosis with no changes of acute diverticulitis. 3. Moderate-sized hiatal hernia. Evidence of remote prior gastric band placement which is unchanged in appearance back to 01/28/2021, with possible chronic band disruption along the lesser curvature but no evidence of bowel obstruction or perforation. 4. Additional nonemergent findings detailed above. REFERENCES: Edmundo et al. Management of Incidental Adnexal Findings on CT and MRI: A White Paper of the ACR Incidental Findings
--- NOTE | 2022-10-11 | XR_ITS ---
PROCEDURE INFORMATION: Exam: XR Chest Exam date and time: 10/11/2022 12:33 AM Age: 82 years old Clinical indication: Cough TECHNIQUE: Imaging protocol: Radiologic exam of the chest. Views: 1 view. COMPARISON: CR XR CHEST PORTABLE 06/22/2022 10:12 AM FINDINGS: Lungs: Question slight hyperexpansion and hyperlucency with minimal diaphragmatic flattening suggesting possible COPD. Pulmonary vasculature grossly normal. Bandlike alveolar density in the left lung base, atelectasis or scarring, unchanged. Pleural spaces: No pleural effusion. No pneumothorax. Heart/Mediastinum: Heart size within normal limits for portable AP technique. No tracheal/mediastinal shift. Vasculature: The aorta demonstrates mild ectasia/tortuosity and moderate calcific atherosclerosis. Bones/joints: No acute osseous abnormalities are identified. Osteopenia. Intraperitoneal space: Right upper quadrant surgical clips suggest prior cholecystectomy. IMPRESSION: 1. No acute process. No significant radiographic change from 06/22/2022. 2. Bandlike atelectasis or scarring in the left lung base unchanged. No gross pulmonary infiltrates. 3. COPD.
--- NOTE | 2022-10-11 00:05 | PC.NURSE ---
Pt assisted to bedside toilet per Bridger Sutherland RN. No other needs voiced at this time.
[2022-10-11 00:11] LABS: Coronavirus 19, PCR Not Detected (NotDetected); Influenza A, PCR Not Detected (NotDetected); Influenza B, PCR Not Detected (NotDetected); Microscopic, Urine URINE MICROSCOPIC (MICROSCOPIC)
--- NOTE | 2022-10-11 00:16 | PC.NURSE ---
pt to radiology
[2022-10-11 00:25] LABS: Appearance,Urine CLEAR (Clear); Bilirubin,Urine Negative (Negative); Blood, Urine Negative (Negative); Color,Urine YELLOW (Yellow); Glucose,Urine (UA) Negative (Negative); Ketones,Urine Negative (Negative); Leukocyte Esterase,Urine TRACE (Negative); Nitrate,Urine Negative (Negative); Protein,Urine TRACE (Negative); Specific Gravity, Urine 1.015 (1.005-1.030); Urobilinogen,Urine 0.2 EU/dl (0.2)
--- NOTE | 2022-10-11 00:30 | PC.NURSE ---
Pt assisted to BS toilet
--- NOTE | 2022-10-11 00:31 | PC.NURSE ---
Dr. Romero at
--- NOTE | 2022-10-11 00:34 | HMH.EDABDPAI ---
Discharge Plan Disposition Patient Disposition: Home, Self-Care Chief Complaint: Abdominal Pain Prescriptions Prescriptions: No Action potassium chloride 20 mEq tablet,ER particles/crystals 20 meq PO BID 90 Days Qty: 180 Label Comments: ranolazine 500 mg tablet extended release 12 hr 500 mg PO BID 90 Days Qty: 180 Label Comments: sertraline 25 mg tablet 25 mg PO DAILY 90 Days Qty: 90 Label Comments: anastrozole 1 mg tablet 1 mg PO DAILY levothyroxine 50 mcg tablet 50 mcg PO DAILY sucralfate 1 gram tablet 1 gm PO ACHS metoprolol succinate 100 mg tablet extended release 24 hr 100 mg PO DAILY Qty: 90 3RF ipratropium-albuterol 0.5 mg-3 mg(2.5 mg base)/3 mL solution for nebulization 3 ml IH BID losartan 100 mg tablet 100 mg PO DAILY Qty: 30 5RF spironolactone 25 mg tablet 25 mg PO DAILY Qty: 30 5RF clopidogrel 75 mg tablet 75 mg PO DAILY Qty: 90 3RF gabapentin 300 MG capsule 300 mg PO TID aspirin 325 MG tablet 325 mg PO DAILY pantoprazole 40 MG tablet,delayed release (DR/EC) 40 mg PO BID rosuvastatin 40 MG tablet 40 mg PO DAILY amlodipine 5 MG tablet 5 mg PO DAILY 90 Days Qty: 90 1RF Referrals Follow up/Referrals: Lee Persaud [Primary Care Provider] - See instructions Clinical Impressions Clinical Impression: Abdominal pain, Diverticulosis large intestine w/o perforation or abscess w/bleeding, Tobacco dependence Instructions Patient Instructions: DI for Acute Abdominal Pain Discharge ED Provider: Coy Romero Abdominal Pain HPI General Chief Complaint: Abdominal Pain Stated Complaint: Somach pain Time Seen by Provider: 10/11/22 00:00 Mode of Arrival: Wheelchair Source of Information: Patient, Relative and Medical Record Limitations: No Limitations Description of Symptoms (Recalled from ER Triage Doc. by RN): pt c/o abd pain x 3 days. pt denies n/v/d History of Present Illness HPI narrative: abd pain over the last few days MD complaint: abdominal pain Onset (ago): day(s) Consistency: intermittent Location: diffuse Severity: moderate Related Data Home Medications Medication Instructions Recorded Confirmed potassium chloride 20 mEq 20 meq PO BID Supplement 90 days 03/11/19 10/09/22 tablet,extended release(part/cryst) #180 tabs ranolazine 500 mg tablet,extended 500 mg PO BID angina 90 days #180 03/11/19 10/09/22 release,12 hr tabs sertraline 25 mg tablet 25 mg PO DAILY mood 90 days #90 03/11/19 10/09/22 tabs levothyroxine 50 mcg tablet 50 mcg PO DAILY thyroid 07/14/20 10/09/22 aspirin 325 mg tablet 325 mg PO DAILY Heart disease 01/27/21 10/09/22 pantoprazole 40 mg tablet,delayed 40 mg PO BID acid reflux 01/28/21 10/09/22 release rosuvastatin 40 mg tablet 40 mg PO DAILY Cholesterol 01/28/21 10/09/22 gabapentin 300 mg capsule 300 mg PO TID Pain 03/23/21 10/09/22 anastrozole 1 mg tablet 1 mg PO DAILY CHEMO 05/30/21 10/09/22 sucralfate 1 gram tablet 1 gm PO ACHS stomach pain 03/20/22 10/09/22 ipratropium 0.5 mg-albuterol 3 mg 3 ml inhalation BID COPD 05/08/22 10/09/22 (2.5 mg base)/3 mL nebulization soln Previous Rx's Medication Instructions Recorded losartan 100 mg tablet 100 mg PO DAILY High blood 05/08/22 pressure #30 tabs amlodipine 5 mg tablet 5 mg PO DAILY 90 days #90 tabs 06/24/22 spironolactone 25 mg tablet 25 mg PO DAILY Edema #30 tabs 08/01/22 clopidogrel 75 mg tablet 75 mg PO DAILY HX of stents #90 10/02/22 tabs metoprolol succinate 100 mg 100 mg PO DAILY #90 tabs 10/09/22 tablet,extended release 24 hr Allergies Allergy/AdvReac Type Severity Reaction Status Date / Time No Known Drug Allergies Allergy Unknown Verified 10/09/22 13:52 [NO KNOWN DRUG ALLERGIES] [facility] Medical History Breast cancer, right [id number] 2.5cm ER: Positive IN: Positive HER-2/ginger: negati
--- NOTE | 2022-10-11 00:45 | PC.NURSE ---
Pt assisted to BS toilet
--- NOTE | 2022-10-11 01:00 | PC.NURSE ---
Pt assisted to BS toilet per Bridger Sutherland, RN
[2022-10-11 01:10] LABS: Bacteria,Urine Trace /lpf; Squamous Epithelial Cell,Urine Occasional #/hpf (0-5); WBC,Urine Occasional #/hpf (0-3)
--- NOTE | 2022-10-11 01:17 | PC.NURSE ---
Pt assisted to BS toilet per Eren Gabriel RN
[2022-10-11 01:38] LABS: Lactic Acid 1.3 mmol/L (0.7-2.1)
[2022-10-11 01:50] LABS: Troponin I < 0.01 ng/ml (0.00-0.034)
[2022-10-11 02:05] VITALS: BP 195/72; PULSE 78; RESP 16; TEMP 37.1; O2SAT 98
== END 2022-10-11 02:20 | disposition home or self-care (01) ==
PROVIDERS: Emergency Provider Emergency Medicine; PCP Family Medicine
DX: K57.31 Diverticulosis of large intestine without perforation or abscess with bleeding (principal); F17.210 Nicotine dependence, cigarettes, uncomplicated; Z79.899 Other long term (current) drug therapy; E78.5 Hyperlipidemia, unspecified; I10 Essential (primary) hypertension; Z85.3 Personal history of malignant neoplasm of breast; Z86.79 Personal history of other diseases of the circulatory system
CPT/HCPCS: 71045; 74177; 80053; 81001; 82150; 83605; 83690; 84484; 85025; 96365; 96375; 99285; C9803; J2405; Q9967; U0003; U0005

== ENCOUNTER → 2022-11-06 14:49 | Outpatient (CLI) | payer MEDICARE, MEDICAID, SELFPAY ==
--- NOTE | 2022-11-06 14:58 | CA_ITS ---
FINAL REPORT TECHNIQUE: Color Doppler, duplex Doppler and lomas scale sonography of the bilateral neck arterial vasculature was performed. Velocities were measured in the carotid arteries. Stenosis evaluation based on the validated velocity criteria. CLINICAL HISTORY: CASCAD,SMOKER,HTN FINDINGS: The peak systolic velocity of the right common carotid artery is 44 cm/s. The peak systolic velocity of the right internal carotid artery is 153 cm/s and end diastolic velocity 21 cm/s. The ICA/CCA ratio is 3.5. A moderate amount of plaque is present. The right external carotid artery is patent. The right vertebral artery is patent with antegrade flow. The peak systolic velocity of the left common carotid artery is 76 cm/s. The peak systolic velocity of the left internal carotid artery is 61 cm/s and end diastolic velocity 9 cm/s. The ICA/CCA ratio is 0.8. A moderate amount of plaque is present. The left external carotid artery is patent.The left vertebral artery is patent with antegrade flow. IMPRESSION: Less than 50% left carotid stenoses. Less than 50% right carotid stenosis based upon velocity criteria, but the ICA/CCA ratio is elevated suggestive of 50-69% right carotid stenosis. This could be further evaluated with CTA or catheter angiogram. Bilateral patent vertebral arteries with antegrade flow. Reviewed, Interpreted and Dictated by Ilan Patel III, MD Transcribed by Swathi Garcia Authenticated and [facility][1]
== END ==
PROVIDERS: PCP Family Medicine; Visit Provider Physician Assistant
DX: I65.23 Occlusion and stenosis of bilateral carotid arteries (principal)
CPT/HCPCS: 93880

== ENCOUNTER → 2022-12-04 12:46 | Outpatient (CLI) | payer MEDICARE, MEDICAID, SELFPAY ==
--- NOTE | 2022-12-04 12:46 | US_ITS ---
FINAL REPORT CLINICAL HISTORY: following ovarian cyst in post menopausal patient COMPARISON: 07/28/2022 FINDINGS: Limited transvaginal sonographic images of the pelvis were obtained. The uterus is not seen. The right ovary measures 2 cm. There is a 1.3 cm cystic mass in the left adnexa, may represent a small ovarian cyst, partially improved since previous. No free fluid is identified. IMPRESSION: Partially improved left ovarian cyst. Reviewed, Interpreted and Dictated by Ilan Patel III, MD Transcribed by Narda Gonzales Authenticated and . [facility]
== END ==
PROVIDERS: PCP Family Medicine; Visit Provider Obstetrics & Gynecology
DX: N94.89 Other specified conditions associated with female genital organs and menstrual cycle (principal); N95.8 Other specified menopausal and perimenopausal disorders
CPT/HCPCS: 76830

== ENCOUNTER 2022-12-17 00:31 | Emergency (ER) | payer MEDICARE, MEDICAID, SELFPAY ==
[2022-12-17 00:32] VITALS: BP 197/82; PULSE 64; RESP 18; TEMP 36.6; O2SAT 97; BMI 35.9
--- NOTE | 2022-12-17 00:37 | CT_ITS ---
PROCEDURE INFORMATION: Exam: CT Abdomen And Pelvis With Contrast Exam date and time: 12/17/2022 1:24 AM Age: 82 years old Clinical indication: Abdominal pain; Prior surgery TECHNIQUE: Imaging protocol: Computed tomography of the abdomen and pelvis with contrast. Radiation optimization: All CT scans at this facility use at least one of these dose optimization techniques: automated exposure control; mA and/or kV adjustment per patient size (includes targeted exams where dose is matched to clinical indication); or iterative reconstruction. Contrast material: ISOVUE; Contrast volume: 75 ml; Contrast route: IV; COMPARISON: CT ABDOMEN PELVIS W CON 10/11/2022 12:16 AM FINDINGS: Heart: Mild cardiomegaly. Coronary arteries: Moderate coronary artery calcifications in the right coronary artery distribution. Moderate mitral annular calcifications.. Diaphragm: Large hiatal hernia. Liver: Normal. No mass. Gallbladder and bile ducts: Mild intrahepatic biliary ductal dilatation similar to prior exam. Cholecystectomy clips. Post cholecystectomy prominence of the common bile duct. Pancreas: Normal. No ductal dilation. Spleen: Splenule identified. Adrenal glands: Mild adrenal gland thickening bilaterally suggesting mild hyperplasia. Kidneys and ureters: Normal. No hydronephrosis. Stomach and bowel: Gastric band surgery unchanged from the previous exam. Discontinuity at the lesser curvature may indicate chronic band disruption. Scattered colonic diverticula especially in the sigmoid colon. Retained stool in the rectosigmoid colon. Appendix: No evidence of appendicitis. Intraperitoneal space: Unremarkable. No free air. No significant fluid collection. Vasculature: The aorta demonstrates moderate atherosclerotic calcification. Bilateral renal artery stents. Short-segment calcified intimal flap distal abdominal aorta segment is unchanged. Lymph nodes: Unremarkable. No enlarged lymph nodes. Urinary bladder: Unremarkable as visualized. Reproductive: Previously visualized 2 cm left adnexal cyst is no longer visualized. Bones/joints: The lumbar spine demonstrates marked degenerative changes at multiple levels. Chronic bilateral L5 spondylolysis with grade 2 anterolisthesis and advanced disc degenerative changes L5-S1 with ankylosis across the disc space. Multilevel advanced lumbar disc degenerative changes with moderate leftward convex scoliosis. Soft tissues: Fat filled umbilical hernia. IMPRESSION: 1. No free air or fluid or adenopathy. 2. Severe distal predominantly sigmoid diverticulosis similar to the prior exam with no clear-cut evidence for acute diverticulitis. 3. Other (less critical/noncritical/incidental) findings as above; please refer to the body of report for further details.
[2022-12-17 00:48] LABS: Chloride 106 mmol/L (98-107); Potassium 3.7 mmoL/L (3.5-5.1); Sodium 141 mmol/L (136-145)
--- NOTE | 2022-12-17 00:50 | HMH.EDABDPAI ---
Discharge Plan Disposition Patient Disposition: Home, Self-Care Chief Complaint: Abdominal Pain Prescriptions Prescriptions: No Action potassium chloride 20 mEq tablet,ER particles/crystals 20 meq PO BID 90 Days Qty: 180 Label Comments: ranolazine 500 mg tablet extended release 12 hr 500 mg PO BID 90 Days Qty: 180 Label Comments: sertraline 25 mg tablet 25 mg PO DAILY 90 Days Qty: 90 Label Comments: anastrozole 1 mg tablet 1 mg PO DAILY levothyroxine 50 mcg tablet 50 mcg PO DAILY sucralfate 1 gram tablet 1 gm PO ACHS metoprolol succinate 100 mg tablet extended release 24 hr 100 mg PO DAILY Qty: 90 3RF ipratropium-albuterol 0.5 mg-3 mg(2.5 mg base)/3 mL solution for nebulization 3 ml IH BID spironolactone 25 mg tablet 25 mg PO DAILY Qty: 30 5RF clopidogrel 75 mg tablet 75 mg PO DAILY Qty: 90 3RF losartan 100 mg tablet 100 mg PO DAILY Qty: 90 3RF amlodipine 5 mg tablet 5 mg PO DAILY Qty: 90 3RF gabapentin 300 MG capsule 300 mg PO TID aspirin 325 MG tablet 325 mg PO DAILY pantoprazole 40 MG tablet,delayed release (DR/EC) 40 mg PO BID rosuvastatin 40 MG tablet 40 mg PO DAILY Referrals Follow up/Referrals: Lee Persaud [Primary Care Provider] - See instructions Clinical Impressions Clinical Impression: Abdominal pain Instructions Patient Instructions: DI for Acute Abdominal Pain Discharge ED Provider: Coy Romero Abdominal Pain HPI General Chief Complaint: Abdominal Pain Stated Complaint: ABD cramping, constipated Time Seen by Provider: 12/17/22 00:50 Mode of Arrival: Ambulatory Source of Information: Patient and Medical Record Limitations: No Limitations Description of Symptoms (Recalled from ER Triage Doc. by RN): Patient arrived via ems c c/o abdominal pain that began 2 hours ago. States that the pain feels like her stomach is rolling . States that she feels as though she may need to have a bowel movement. States that she had a bm yesterday but her stool was hard. Other way patient states that her bowels have been semi-regular. History of Present Illness HPI narrative: acute abd pain this pm crampy - no diarrhea - no fever or vomiting - has banding 20 yrs ago and has hiatal hernia MD complaint: abdominal pain Onset (ago): hour(s) Consistency: intermittent Severity: moderate Associated symptoms: denies other symptoms Related Data Home Medications Medication Instructions Recorded Confirmed potassium chloride 20 mEq 20 meq PO BID Supplement 90 days 03/11/19 10/09/22 tablet,extended release(part/cryst) #180 tabs ranolazine 500 mg tablet,extended 500 mg PO BID angina 90 days #180 03/11/19 10/09/22 release,12 hr tabs sertraline 25 mg tablet 25 mg PO DAILY mood 90 days #90 03/11/19 10/09/22 tabs levothyroxine 50 mcg tablet 50 mcg PO DAILY thyroid 07/14/20 10/09/22 aspirin 325 mg tablet 325 mg PO DAILY Heart disease 01/27/21 10/09/22 pantoprazole 40 mg tablet,delayed 40 mg PO BID acid reflux 01/28/21 10/09/22 release rosuvastatin 40 mg tablet 40 mg PO DAILY Cholesterol 01/28/21 10/09/22 gabapentin 300 mg capsule 300 mg PO TID Pain 03/23/21 10/09/22 anastrozole 1 mg tablet 1 mg PO DAILY CHEMO 05/30/21 10/09/22 sucralfate 1 gram tablet 1 gm PO ACHS stomach pain 03/20/22 10/09/22 ipratropium 0.5 mg-albuterol 3 mg 3 ml inhalation BID COPD 05/08/22 10/09/22 (2.5 mg base)/3 mL nebulization soln Previous Rx's Medication Instructions Recorded spironolactone 25 mg tablet 25 mg PO DAILY Edema #30 tabs 08/01/22 clopidogrel 75 mg tablet 75 mg PO DAILY HX of stents #90 10/02/22 tabs metoprolol succinate 100 mg 100 mg PO DAILY #90 tabs 10/09/22 tablet,extended release 24 hr losartan 100 mg tablet 100 mg PO DAILY High blood 11/04/22 pressure #90 tabs amlodipine 5 mg tablet 5 mg PO DAILY #90 tabs 12/12/22 Allergies Allergy/AdvReac Type Severity Reaction St
[2022-12-17 00:51] LABS: Alanine Aminotransferase 18 U/L (12-78); Albumin Level 3.6 g/dl (3.5-5.0); Albumin/Globulin Ratio 1.3 (1.1-1.8); Alkaline Phosphatase 95 U/L (38-126); Anion Gap 7.7 mEq/L (5-15); Aspartate Amino Transferase 23 U/L (14-36); Bilirubin,Total 0.3 mg/dl (0.2-1.3); Blood Urea Nitrogen 13 mg/dl (7-17); Carbon Dioxide 31 mmol/L (22.0-30.0); Creatinine Clearance Estimated 48 mL/min (50-200); Estimated Glomerular Filt Rate 80 ml/min (>60); GFR (African American) 96 ML/MIN (>60); Globulin 2.8 g/dL (1.3-3.2); Total Protein,Serum 6.4 g/dl (6.3-8.2)
[2022-12-17 00:52] LABS: Calcium 8.7 mg/dl (8.4-10.2); Glucose 106 mg/dl (74-100)
[2022-12-17 00:59] LABS: Basophils # 0.1 K/mm3 (0-0.2); Eosinophils # 0.2 K/mm3 (0.0-0.4); Eosinophils % 1.9 % (0.1-12.0); Hematocrit 41.5 % (37.0-47.0); Hemoglobin 13.1 g/dL (12.2-16.2); Lymphocytes # 2.4 K/mm3 (0.7-4.5); Lymphocytes % 21.8 % (10-50); Mean Corpuscular HGB Conc 31.6 g/dL (31.8-35.4); Mean Corpuscular Hemoglobin 27.5 pg (27.0-31.2); Mean Corpuscular Volume 86.8 fl (81-99); Mean Platelet Volume 8.3 fl (7.4-10.4); Monocytes # 0.7 K/mm3 (0.1-1.0); Monocytes % 6.6 % (1.7-9.3); Neutrophils # 7.5 K/mm3 (1.8-7.8); Neutrophils % 68.6 % (37.0-80.0); Platelet Count 299 K/mm3 (142-424); Red Blood Count 4.77 M/mm3 (4.20-5.40); Red Cell Distribution Width 15.1 % (11.5-17.5); White Blood Count 10.9 K/mm3 (4.8-10.8)
[2022-12-17 01:25] LABS: Microscopic, Urine URINE MICROSCOPIC (MICROSCOPIC)
[2022-12-17 01:27] LABS: Appearance,Urine CLEAR (Clear); Bilirubin,Urine Negative (Negative); Blood, Urine Negative (Negative); Color,Urine YELLOW (Yellow); Glucose,Urine (UA) Negative (Negative); Ketones,Urine Negative (Negative); Leukocyte Esterase,Urine TRACE (Negative); Nitrate,Urine Negative (Negative); Protein,Urine TRACE (Negative); Specific Gravity, Urine 1.015 (1.005-1.030); Urobilinogen,Urine 0.2 EU/dl (0.2)
[2022-12-17 01:41] LABS: Bacteria,Urine Trace /lpf; WBC,Urine Occasional #/hpf (0-3)
[2022-12-17 03:51] VITALS: BP 160/76; PULSE 76; RESP 20; TEMP 36.8; O2SAT 96
--- NOTE | 2022-12-17 04:10 | PC.NURSE ---
pt helped to family's car. Her clothes that were removed for decontamination was given to family.
== END 2022-12-17 04:10 | disposition home or self-care (01) ==
PROVIDERS: Emergency Provider Emergency Medicine; PCP Family Medicine
DX: R10.9 Unspecified abdominal pain (principal); Z85.3 Personal history of malignant neoplasm of breast; I10 Essential (primary) hypertension; E78.5 Hyperlipidemia, unspecified; Z90.10 Acquired absence of unspecified breast and nipple; Z96.0 Presence of urogenital implants; F17.210 Nicotine dependence, cigarettes, uncomplicated; Z95.5 Presence of coronary angioplasty implant and graft
CPT/HCPCS: 74177; 80053; 81001; 85025; 99285; Q9967

== ENCOUNTER 2023-02-05 21:32 | Emergency (ER) | payer MEDICARE, SELFPAY ==
[2023-02-05 21:35] VITALS: BP 177/88; PULSE 77; RESP 16; TEMP 37.1; O2SAT 100; BMI 34.6
--- NOTE | 2023-02-05 22:13 | CT_ITS ---
PROCEDURE INFORMATION: Exam: CT Abdomen And Pelvis Without Contrast Exam date and time: 02/05/2023 10:32 PM Age: 83 years old Clinical indication: Abdominal pain; Generalized; Additional info: Abd pain TECHNIQUE: Imaging protocol: Computed tomography of the abdomen and pelvis without contrast. Radiation optimization: All CT scans at this facility use at least one of these dose optimization techniques: automated exposure control; mA and/or kV adjustment per patient size (includes targeted exams where dose is matched to clinical indication); or iterative reconstruction. REPORTING DATA: Count of CT and Cardiac NM exams in prior 12 months: This patient has received 5 known CTs and 0 known cardiac nuclear medicine studies in the 12 months prior to the current study. COMPARISON: CT ABDOMEN PELVIS W CON 12/17/2022 1:24 AM FINDINGS: Lungs: Hypoventilatory changes at the lung bases. No lobar consolidation. Coronary arteries: Coronary artery calcifications. Diaphragm: Moderate hiatal hernia. Liver: Parenchymal enhancement is not evaluated without contrast. No hepatomegaly. Gallbladder and bile ducts: Post cholecystectomy change. Pancreas: Parenchymal enhancement is not evaluated without contrast. No ductal dilation. Spleen: Parenchymal enhancement is not evaluated without contrast. No splenomegaly. Adrenal glands: No mass. Kidneys and ureters: Parenchymal enhancement is not evaluated without contrast. No hydronephrosis. Stomach and bowel: Gastric band is present. No bowel obstruction. Diverticulosis coli without evidence for diverticulitis. Appendix: No evidence of appendicitis. Intraperitoneal space: No free air. No significant fluid collection. Vasculature: Limited evaluation without contrast. Extensive calcified atherosclerosis. No abdominal aortic aneurysm. Lymph nodes: No enlarged lymph nodes. Urinary bladder: No acute abnormality. Reproductive: No acute abnormality. Bones/joints: S shaped curvature of the spine. Stable anterolisthesis at L5-S1. No fracture. Soft tissues: 2.3 cm fat containing ventral hernia. Extensive subcutaneous adipose extending beyond the field of view. IMPRESSION: 1. Moderate hiatal hernia. 2. Diverticulosis coli without evidence for diverticulitis. 3. 2.3 cm fat containing ventral hernia. 4. Other chronic and incidental findings described above.
[2023-02-05 22:17] LABS: Microscopic, Urine URINE MICROSCOPIC (MICROSCOPIC)
[2023-02-05 22:30] LABS: Chloride 104 mmol/L (98-107); Potassium 3.2 mmoL/L (3.5-5.1); Sodium 142 mmol/L (136-145)
[2023-02-05 22:32] LABS: Lipase 119 U/L (23-300)
[2023-02-05 22:33] LABS: Alanine Aminotransferase 20 U/L (12-78); Albumin Level 3.7 g/dl (3.5-5.0); Albumin/Globulin Ratio 1.4 (1.1-1.8); Alkaline Phosphatase 154 U/L (38-126); Amylase 48 U/L (30-110); Anion Gap 10.2 mEq/L (5-15); Aspartate Amino Transferase 31 U/L (14-36); Bilirubin,Total 0.3 mg/dl (0.2-1.3); Blood Urea Nitrogen 20 mg/dl (7-17); Calcium 8.4 mg/dl (8.4-10.2); Carbon Dioxide 31 mmol/L (22.0-30.0); Creatinine Clearance Estimated 47 mL/min (50-200); Estimated Glomerular Filt Rate 68 ml/min (>60); GFR (African American) 82 ML/MIN (>60); Globulin 2.7 g/dL (1.3-3.2); Glucose 109 mg/dl (74-100); Total Protein,Serum 6.4 g/dl (6.3-8.2)
[2023-02-05 22:34] LABS: Basophils # 0.1 K/mm3 (0-0.2); Basophils % 0.6 % (0.1-2.0); Eosinophils # 0.1 K/mm3 (0.0-0.4); Eosinophils % 0.9 % (0.1-12.0); Hematocrit 42.2 % (37.0-47.0); Hemoglobin 13.2 g/dL (12.2-16.2); Lymphocytes # 2.5 K/mm3 (0.7-4.5); Lymphocytes % 21.1 % (10-50); Mean Corpuscular HGB Conc 31.2 g/dL (31.8-35.4); Mean Corpuscular Hemoglobin 27.5 pg (27.0-31.2); Mean Corpuscular Volume 88.2 fl (81-99); Mean Platelet Volume 8.4 fl (7.4-10.4); Monocytes # 0.8 K/mm3 (0.1-1.0); Monocytes % 6.6 % (1.7-9.3); Neutrophils # 8.2 K/mm3 (1.8-7.8); Neutrophils % 70.8 % (37.0-80.0); Platelet Count 379 K/mm3 (142-424); Red Blood Count 4.79 M/mm3 (4.20-5.40); White Blood Count 11.7 K/mm3 (4.8-10.8)
--- NOTE | 2023-02-05 22:38 | HMH.EDABDPAI ---
Discharge Plan Disposition Patient Disposition: Home, Self-Care Prescriptions Prescriptions: New cephalexin [cephalexin] 500 mg capsule 500 mg PO TID Qty: 21 0RF No Action potassium chloride 20 mEq tablet,ER particles/crystals 20 meq PO BID 90 Days Qty: 180 Label Comments: ranolazine 500 mg tablet extended release 12 hr 500 mg PO BID 90 Days Qty: 180 Label Comments: sertraline 25 mg tablet 25 mg PO DAILY 90 Days Qty: 90 Label Comments: anastrozole 1 mg tablet 1 mg PO DAILY levothyroxine 50 mcg tablet 50 mcg PO DAILY sucralfate 1 gram tablet 1 gm PO ACHS metoprolol succinate 100 mg tablet extended release 24 hr 100 mg PO DAILY Qty: 90 3RF ipratropium-albuterol 0.5 mg-3 mg(2.5 mg base)/3 mL solution for nebulization 3 ml IH BID spironolactone 25 mg tablet 25 mg PO DAILY Qty: 30 5RF clopidogrel 75 mg tablet 75 mg PO DAILY Qty: 90 3RF losartan 100 mg tablet 100 mg PO DAILY Qty: 90 3RF amlodipine 5 mg tablet 5 mg PO DAILY Qty: 90 3RF gabapentin 300 MG capsule 300 mg PO TID aspirin 325 MG tablet 325 mg PO DAILY pantoprazole 40 MG tablet,delayed release (DR/EC) 40 mg PO BID rosuvastatin 40 MG tablet 40 mg PO DAILY Referrals Follow up/Referrals: Lee Persaud [Primary Care Provider] - See instructions Clinical Impressions Clinical Impression: Abdominal pain, HTN (hypertension) Instructions Patient Instructions: DI for Acute Abdominal Pain Discharge ED Provider: Nick (ED)Coy Abdominal Pain HPI General Chief Complaint: Abdominal Pain Stated Complaint: abd pain Time Seen by Provider: 02/05/23 22:38 Mode of Arrival: Wheelchair Source of Information: Patient and Medical Record Limitations: No Limitations Description of Symptoms (Recalled from ER Triage Doc. by RN): pt advises she has been having lower abd pain since last night and it has gotten progressively worse as the day has progressed. Denies any N/V/D or pain/burning with urination. Advises it feels like a stabbing pain and she has a hx of diverticulitis. History of Present Illness HPI narrative: abd pain over the last 2 days MD complaint: abdominal pain Onset (ago): day(s) Consistency: intermittent Location: diffuse Severity: moderate Quality: sharp Associated symptoms: denies other symptoms Related Data Home Medications Medication Instructions Recorded Confirmed potassium chloride 20 mEq 20 meq PO BID Supplement 90 days 03/11/19 10/09/22 tablet,extended release(part/cryst) #180 tabs ranolazine 500 mg tablet,extended 500 mg PO BID angina 90 days #180 03/11/19 10/09/22 release,12 hr tabs sertraline 25 mg tablet 25 mg PO DAILY mood 90 days #90 03/11/19 10/09/22 tabs levothyroxine 50 mcg tablet 50 mcg PO DAILY thyroid 07/14/20 10/09/22 aspirin 325 mg tablet 325 mg PO DAILY Heart disease 01/27/21 10/09/22 pantoprazole 40 mg tablet,delayed 40 mg PO BID acid reflux 01/28/21 10/09/22 release rosuvastatin 40 mg tablet 40 mg PO DAILY Cholesterol 01/28/21 10/09/22 gabapentin 300 mg capsule 300 mg PO TID Pain 03/23/21 10/09/22 anastrozole 1 mg tablet 1 mg PO DAILY CHEMO 05/30/21 10/09/22 sucralfate 1 gram tablet 1 gm PO ACHS stomach pain 03/20/22 10/09/22 ipratropium 0.5 mg-albuterol 3 mg 3 ml inhalation BID COPD 05/08/22 10/09/22 (2.5 mg base)/3 mL nebulization soln Previous Rx's Medication Instructions Recorded spironolactone 25 mg tablet 25 mg PO DAILY Edema #30 tabs 08/01/22 clopidogrel 75 mg tablet 75 mg PO DAILY HX of stents #90 10/02/22 tabs metoprolol succinate 100 mg 100 mg PO DAILY #90 tabs 10/09/22 tablet,extended release 24 hr losartan 100 mg tablet 100 mg PO DAILY High blood 11/04/22 pressure #90 tabs amlodipine 5 mg tablet 5 mg PO DAILY #90 tabs 12/12/22 cephalexin 500 mg capsule 500 mg PO TID #21 caps 02/06/23 Allergies Allergy/AdvReac Type Severity Reaction Status Date
[2023-02-05 22:45] LABS: Appearance,Urine SL CLOUDY (Clear); Bilirubin,Urine Negative (Negative); Blood, Urine 3+ (Negative); Color,Urine YELLOW (Yellow); Glucose,Urine (UA) Negative (Negative); Ketones,Urine Negative (Negative); Leukocyte Esterase,Urine 1+ (Negative); Nitrate,Urine POSITIVE (Negative); Protein,Urine 2+ (Negative)
--- NOTE | 2023-02-05 23:05 | PC.NURSE ---
Rounded on pt. Updated daughter and pt on POC. Pt advised pain medicine had helped ease the pain. No other needs at this time
[2023-02-05 23:07] VITALS: BP 209/72; PULSE 70; O2SAT 93
[2023-02-05 23:14] LABS: Bacteria,Urine 4+ /lpf
[2023-02-05 23:30] VITALS: BP 205/80; PULSE 76; O2SAT 94
--- NOTE | 2023-02-05 23:50 | PC.NURSE ---
Pt used bedpan. No other needs at this time.
[2023-02-06] VITALS: BP 199/74; PULSE 73; O2SAT 92
[2023-02-06 00:30] VITALS: BP 196/67; PULSE 74; O2SAT 92
[2023-02-06 00:50] VITALS: PULSE 107; PULSE 120
[2023-02-06 01:00] VITALS: BP 181/72; PULSE 100; O2SAT 92
[2023-02-06 01:10] VITALS: BP 181/72; PULSE 91; RESP 17; TEMP 37.1; O2SAT 94
== END 2023-02-06 01:12 | disposition home or self-care (01) ==
PROVIDERS: Emergency Provider Emergency Medicine; PCP Family Medicine
DX: R10.30 Lower abdominal pain, unspecified (principal); I10 Essential (primary) hypertension; E78.5 Hyperlipidemia, unspecified; F17.210 Nicotine dependence, cigarettes, uncomplicated; Z85.3 Personal history of malignant neoplasm of breast; Z90.11 Acquired absence of right breast and nipple; Z96.0 Presence of urogenital implants
CPT/HCPCS: 74176; 80053; 81001; 82150; 83690; 85025; 87086; 87088; 87186; 96361; 96365; 96375; 99284; 99285; J0696; J2405

== ENCOUNTER 2023-02-16 22:34 | Emergency (ER) | payer MEDICARE, MEDICAID, SELFPAY ==
[2023-02-16 22:35] VITALS: BP 208/100; PULSE 82; RESP 16; TEMP 36.6; O2SAT 96; BMI 34.6
--- NOTE | 2023-02-16 22:46 | CT_ITS ---
PROCEDURE INFORMATION: Exam: CT Abdomen And Pelvis With Contrast Exam date and time: 02/17/2023 12:34 AM Age: 83 years old Clinical indication: Abdominal pain; Additional info: Abd pain TECHNIQUE: Imaging protocol: Computed tomography of the abdomen and pelvis with contrast. Radiation optimization: All CT scans at this facility use at least one of these dose optimization techniques: automated exposure control; mA and/or kV adjustment per patient size (includes targeted exams where dose is matched to clinical indication); or iterative reconstruction. Contrast material: ISOVUE; Contrast volume: 75 ml; Contrast route: IV; REPORTING DATA: Count of CT and Cardiac NM exams in prior 12 months: This patient has received 6 known CTs and 0 known cardiac nuclear medicine studies in the 12 months prior to the current study. COMPARISON: CT ABDOMEN PELVIS WO CON 02/05/2023 10:32 PM FINDINGS: Tubes, catheters and devices: A gastric lap band is noted. Lungs: There are minimal dependent atelectatic changes at the lung bases. Diaphragm: A moderate hiatal hernia is present. A small hiatal hernia is present. Liver: Normal. No mass. Gallbladder and bile ducts: The gallbladder is absent. There is no biliary ductal dilation. Pancreas: Normal. No ductal dilation. Spleen: Normal. No splenomegaly. Adrenal glands: Normal. No mass. Kidneys and ureters: Normal. No hydronephrosis. Stomach and bowel: Left colon diverticulosis is present without inflammation. Appendix: No evidence of appendicitis. Intraperitoneal space: Unremarkable. No free air. No significant fluid collection. Vasculature: There is significant calcific atherosclerotic disease. There is no aneurysmal dilation of the aorta. Lymph nodes: Unremarkable. No enlarged lymph nodes. Urinary bladder: Unremarkable as visualized. Reproductive: The uterus is absent. Bones/joints: There is severe degenerative change of the spine with S shaped scoliosis noted. There is grade 2 spondylolisthesis of L5 on S1. Soft tissues: Unremarkable. IMPRESSION: 1. There is no acute process within the abdomen or pelvis. 2. Other nonemergent findings are stable.
[2023-02-16 23:08] LABS: Basophils # 0.1 K/mm3 (0-0.2); Basophils % 0.8 % (0.1-2.0); Eosinophils # 0.3 K/mm3 (0.0-0.4); Hematocrit 37.9 % (37.0-47.0); Hemoglobin 12.3 g/dL (12.2-16.2); Lymphocytes # 2.1 K/mm3 (0.7-4.5); Lymphocytes % 22.7 % (10-50); Mean Corpuscular HGB Conc 32.5 g/dL (31.8-35.4); Mean Corpuscular Hemoglobin 28.3 pg (27.0-31.2); Mean Corpuscular Volume 87.3 fl (81-99); Mean Platelet Volume 8.6 fl (7.4-10.4); Monocytes # 0.6 K/mm3 (0.1-1.0); Monocytes % 6.7 % (1.7-9.3); Neutrophils # 6.1 K/mm3 (1.8-7.8); Neutrophils % 66.8 % (37.0-80.0); Platelet Count 320 K/mm3 (142-424); Red Blood Count 4.34 M/mm3 (4.20-5.40); Red Cell Distribution Width 15.4 % (11.5-17.5); White Blood Count 9.1 K/mm3 (4.8-10.8)
[2023-02-16 23:53] LABS: Microscopic, Urine URINE MICROSCOPIC (MICROSCOPIC)
[2023-02-16 23:55] LABS: Erythrocyte Sedimentation Rate 17 mm/hr (0-30)
[2023-02-16 23:58] LABS: Appearance,Urine CLEAR (Clear); Bilirubin,Urine Negative (Negative); Blood, Urine Negative (Negative); Color,Urine YELLOW (Yellow); Glucose,Urine (UA) Negative (Negative); Ketones,Urine Negative (Negative); Leukocyte Esterase,Urine Negative (Negative); Nitrate,Urine Negative (Negative); Protein,Urine 1+ (Negative); Specific Gravity, Urine 1.015 (1.005-1.030); Urobilinogen,Urine 0.2 EU/dl (0.2)
[2023-02-17 00:18] LABS: Chloride 105 mmol/L (98-107); Potassium 3.6 mmoL/L (3.5-5.1); Sodium 138 mmol/L (136-145)
[2023-02-17 00:19] LABS: Squamous Epithelial Cell,Urine Occasional #/hpf (0-5); WBC,Urine Occasional #/hpf (0-3)
[2023-02-17 00:20] LABS: Amorphous Sediment,Urine Trace /lpf
[2023-02-17 00:20] LABS: Alanine Aminotransferase 17 U/L (12-78); Aspartate Amino Transferase 23 U/L (14-36); Blood Urea Nitrogen 22 mg/dl (7-17); Creatinine Clearance Estimated 47 mL/min (50-200); Estimated Glomerular Filt Rate 95 ml/min (>60); GFR (African American) 115 ML/MIN (>60)
[2023-02-17 00:21] LABS: Albumin Level 3.2 g/dl (3.5-5.0); Albumin/Globulin Ratio 1.3 (1.1-1.8); Alkaline Phosphatase 139 U/L (38-126); Anion Gap 5.6 mEq/L (5-15); Bilirubin,Total 0.3 mg/dl (0.2-1.3); Calcium 8.8 mg/dl (8.4-10.2); Carbon Dioxide 31 mmol/L (22.0-30.0); Globulin 2.4 g/dL (1.3-3.2); Glucose 99 mg/dl (74-100); Total Protein,Serum 5.6 g/dl (6.3-8.2)
[2023-02-17 00:26] LABS: C-Reactive Protein 2.9 mg/L (0-4)
--- NOTE | 2023-02-17 00:28 | PC.NURSE ---
Pt gone to RAD via stretcher
--- NOTE | 2023-02-17 00:39 | PC.NURSE ---
Pt back from RAD
--- NOTE | 2023-02-17 00:44 | PC.NURSE ---
Dr. Romero at
--- NOTE | 2023-02-17 00:52 | HMH.EDABDPAI ---
Discharge Plan Disposition Patient Disposition: Home, Self-Care Chief Complaint: Abdominal Pain Prescriptions Prescriptions: No Action potassium chloride 20 mEq tablet,ER particles/crystals 20 meq PO BID 90 Days Qty: 180 Label Comments: ranolazine 500 mg tablet extended release 12 hr 500 mg PO BID 90 Days Qty: 180 Label Comments: sertraline 25 mg tablet 25 mg PO DAILY 90 Days Qty: 90 Label Comments: anastrozole 1 mg tablet 1 mg PO DAILY levothyroxine 50 mcg tablet 50 mcg PO DAILY sucralfate 1 gram tablet 1 gm PO ACHS metoprolol succinate 100 mg tablet extended release 24 hr 100 mg PO DAILY Qty: 90 3RF ipratropium-albuterol 0.5 mg-3 mg(2.5 mg base)/3 mL solution for nebulization 3 ml IH BID spironolactone 25 mg tablet 25 mg PO DAILY Qty: 30 5RF clopidogrel 75 mg tablet 75 mg PO DAILY Qty: 90 3RF losartan 100 mg tablet 100 mg PO DAILY Qty: 90 3RF amlodipine 5 mg tablet 5 mg PO DAILY Qty: 90 3RF gabapentin 300 MG capsule 300 mg PO TID cephalexin [cephalexin] 500 mg capsule 500 mg PO TID Qty: 21 0RF aspirin 325 MG tablet 325 mg PO DAILY pantoprazole 40 MG tablet,delayed release (DR/EC) 40 mg PO BID rosuvastatin 40 MG tablet 40 mg PO DAILY Referrals Follow up/Referrals: Lee Persaud [Primary Care Provider] - See instructions Nicole Mercedes APRN [Staff Physician] - See instructions Clinical Impressions Clinical Impression: Abdominal pain Instructions Patient Instructions: DI for Acute Abdominal Pain Discharge ED Provider: Nick MADDEN)Coy Abdominal Pain HPI General Chief Complaint: Abdominal Pain Stated Complaint: abd pain Time Seen by Provider: 02/17/23 00:52 Mode of Arrival: Wheelchair Source of Information: Patient, Relative and Medical Record Limitations: No Limitations Description of Symptoms (Recalled from ER Triage Doc. by RN): pt c/o abd pain x several months. pt denies any n/v/d was seen in er on 02/05 with same problem and diagnosed with UTI History of Present Illness HPI narrative: intermittent lower abd pain with no fever or other c/o - has recent uti - treated MD complaint: abdominal pain Onset (ago): hour(s) Consistency: intermittent Severity: moderate Associated symptoms: denies other symptoms Related Data Home Medications Medication Instructions Recorded Confirmed potassium chloride 20 mEq 20 meq PO BID Supplement 90 days 03/11/19 02/14/23 tablet,extended release(part/cryst) #180 tabs ranolazine 500 mg tablet,extended 500 mg PO BID angina 90 days #180 03/11/19 02/14/23 release,12 hr tabs sertraline 25 mg tablet 25 mg PO DAILY mood 90 days #90 03/11/19 02/14/23 tabs levothyroxine 50 mcg tablet 50 mcg PO DAILY thyroid 07/14/20 02/14/23 aspirin 325 mg tablet 325 mg PO DAILY Heart disease 01/27/21 02/14/23 pantoprazole 40 mg tablet,delayed 40 mg PO BID acid reflux 01/28/21 02/14/23 release rosuvastatin 40 mg tablet 40 mg PO DAILY Cholesterol 01/28/21 02/14/23 gabapentin 300 mg capsule 300 mg PO TID Pain 03/23/21 02/14/23 anastrozole 1 mg tablet 1 mg PO DAILY CHEMO 05/30/21 02/14/23 sucralfate 1 gram tablet 1 gm PO ACHS stomach pain 03/20/22 02/14/23 ipratropium 0.5 mg-albuterol 3 mg 3 ml inhalation BID COPD 05/08/22 02/14/23 (2.5 mg base)/3 mL nebulization soln Previous Rx's Medication Instructions Recorded spironolactone 25 mg tablet 25 mg PO DAILY Edema #30 tabs 08/01/22 clopidogrel 75 mg tablet 75 mg PO DAILY HX of stents #90 10/02/22 tabs metoprolol succinate 100 mg 100 mg PO DAILY #90 tabs 10/09/22 tablet,extended release 24 hr losartan 100 mg tablet 100 mg PO DAILY High blood 11/04/22 pressure #90 tabs amlodipine 5 mg tablet 5 mg PO DAILY #90 tabs 12/12/22 cephalexin 500 mg capsule 500 mg PO TID #21 caps 02/06/23 Allergies Allergy/AdvReac Type Severity Reaction Status Date / Time No Known Drug Allergies Allergy Unkno
[2023-02-17 01:08] LABS: Amylase 48 U/L (30-110); Lipase 229 U/L (23-300)
--- NOTE | 2023-02-17 01:36 | PC.NURSE ---
Rounded on pt. No needs voiced at this time.
[2023-02-17 01:37] VITALS: BP 178/89; PULSE 79; O2SAT 95
[2023-02-17 01:58] VITALS: BP 178/89; PULSE 80; RESP 16; TEMP 36.8; O2SAT 99
[2023-02-17 02:09] LABS: Procalcitonin 0.054 ng/mL (0.0-2.0)
== END 2023-02-17 02:13 | disposition home or self-care (01) ==
PROVIDERS: Emergency Provider Emergency Medicine; PCP Family Medicine
DX: R10.9 Unspecified abdominal pain (principal)
CPT/HCPCS: 74177; 80053; 81001; 82150; 83690; 84145; 85025; 85651; 86140; 96360; 96374; 96375; 99284; 99285; J2405; Q9967

== ENCOUNTER → 2023-02-19 12:47 | Outpatient (CLI) | payer MEDICARE, SELFPAY ==
--- NOTE | 2023-02-19 12:56 | US_ITS ---
FINAL REPORT TECHNIQUE: Sonographic images of the pelvis were obtained transvaginally. CLINICAL HISTORY: 6 month follow up COMPARISON: 12/04/2022 FINDINGS: The uterus is surgically absent. The vaginal cuff appears normal. The right ovary is not visualized. There is no abnormal adnexal mass. The left ovary measures 1.2 x 1.0 x 0.9 cm. It is normal in appearance. Color imaging to the left ovary is within normal limits. There is no free fluid. IMPRESSION: Non visualization of the right ovary. Normal left ovary. Reviewed, Interpreted and Dictated by Duyen Gregorio MD Transcribed by Swathi Garcia Authenticated and [facility]
== END ==
PROVIDERS: PCP Family Medicine; Visit Provider Obstetrics & Gynecology
DX: N83.209 Unspecified ovarian cyst, unspecified side (principal)
CPT/HCPCS: 76830

== ENCOUNTER 2023-02-19 13:29 | Emergency (ER) | payer MEDICARE, SELFPAY ==
[2023-02-19 13:38] VITALS: BMI 33.4
--- NOTE | 2023-02-19 13:39 | XR_ITS ---
FINAL REPORT CLINICAL HISTORY: fell, lt arm pain FINDINGS: Three views of the left shoulder were obtained. There is no prior exam for comparison. There is no fracture or dislocation. There is mild degenerative joint disease. Soft tissues are normal. IMPRESSION: No acute osseous abnormality of the left shoulder. Mild degenerative joint disease. Reviewed, Interpreted and Dictated by Duyen Gregorio MD Transcribed by Narda Gonzales Authenticated and [facility]
--- NOTE | 2023-02-19 13:39 | XR_ITS ---
FINAL REPORT CLINICAL HISTORY: fell, lt arm pain FINDINGS: AP, oblique, and lateral views of the left hand were obtained. There is no prior exam for comparison. There is no acute fracture of the left hand. There is multi joint degenerative disease. The bones are osteopenic. There are erosive changes involving the 2nd DIP joint. The soft tissues are normal. IMPRESSION: No acute osseous abnormality of the left hand. Multi joint degenerative disease. Reviewed, Interpreted and Dictated by Duyen Gregorio MD Transcribed by Narda Gonzales Authenticated and . [facility]
--- NOTE | 2023-02-19 13:39 | XR_ITS ---
FINAL REPORT CLINICAL HISTORY: fell, lt arm pain FINDINGS: AP, oblique, and lateral views of the left wrist were obtained. There is no prior exam for comparison. There is no acute fracture or dislocation. There is degenerative joint disease, most pronounced in the 1st carpometacarpal joint. The bones are osteopenic. The soft tissues are normal. IMPRESSION: No acute osseous abnormality of the left wrist. If pain persists, MR is recommended. Degenerative joint disease. Reviewed, Interpreted and Dictated by Duyen Gregorio MD Transcribed by Narda Gonzales Authenticated and [facility]
--- NOTE | 2023-02-19 13:39 | XR_ITS ---
FINAL REPORT CLINICAL HISTORY: fell, lt arm pain FINDINGS: Two views of the left humerus were obtained. No priors are available for comparison. There is no fracture or dislocation. Mild soft tissue edema is seen in the distal arm. IMPRESSION: No acute osseous abnormality. Reviewed, Interpreted and Dictated by uDyen Gregorio MD Transcribed by Narda Gonzales Authenticated and . [facility]
--- NOTE | 2023-02-19 13:39 | XR_ITS ---
FINAL REPORT CLINICAL HISTORY: fell, lt arm pain FINDINGS: AP, oblique, and lateral views of the left elbow were obtained. There is no prior exam for comparison. There is no acute fracture or dislocation. Joint space is preserved. There is no joint effusion. There is mild soft tissue edema. IMPRESSION: No acute osseous abnormality of the left elbow. Reviewed, Interpreted and Dictated by Duyen Gregorio MD Transcribed by Narda Gonzales Authenticated and [facility]
[2023-02-19 13:40] VITALS: PULSE 70; RESP 20; O2SAT 95; BMI 33.4
--- NOTE | 2023-02-19 13:40 | PC.NURSE ---
Called RAD and told them about orders
--- NOTE | 2023-02-19 13:49 | EXP.UTC ---
Discharge Plan Disposition Patient Disposition: Home, Self-Care Condition: Good Prescriptions Prescriptions: No Action potassium chloride 20 mEq tablet,ER particles/crystals 20 meq PO BID 90 Days Qty: 180 Label Comments: ranolazine 500 mg tablet extended release 12 hr 500 mg PO BID 90 Days Qty: 180 Label Comments: sertraline 25 mg tablet 25 mg PO DAILY 90 Days Qty: 90 Label Comments: anastrozole 1 mg tablet 1 mg PO DAILY levothyroxine 50 mcg tablet 50 mcg PO DAILY sucralfate 1 gram tablet 1 gm PO ACHS ipratropium-albuterol 0.5 mg-3 mg(2.5 mg base)/3 mL solution for nebulization 3 ml IH BID spironolactone 25 mg tablet 25 mg PO DAILY Qty: 30 5RF clopidogrel 75 mg tablet 75 mg PO DAILY Qty: 90 3RF losartan 100 mg tablet 100 mg PO DAILY Qty: 90 3RF gabapentin 300 MG capsule 300 mg PO TID cephalexin [cephalexin] 500 mg capsule 500 mg PO TID Qty: 21 0RF aspirin 325 MG tablet 325 mg PO DAILY pantoprazole 40 MG tablet,delayed release (DR/EC) 40 mg PO BID rosuvastatin 40 MG tablet 40 mg PO DAILY metoprolol succinate 100 mg tablet extended release 24 hr 100 mg PO DAILY amlodipine 5 mg tablet 5 mg PO DAILY Referrals Follow up/Referrals: Orville Araya JR, MD [Physician] - See instructions Lee Persaud [Primary Care Provider] - See instructions Activity Restrictions/Add. Instructions Additional Instructions/Restrictions: Rest the extremity, Elevate the extremity as tolerated while you are resting. Take tylenol for pain. Follow up with Dr. Araya (orthopedics) or an orthopedic doctor that you already see if you continue to have pain and swelling of your arm. I put in a referral but you need to call his office and schedule an appointment. Follow up with your regular doctor. GO TO THE ER FOR ANY WORSENING SYMPTOMS Clinical Impressions Clinical Impression: Traumatic hematoma of left upper arm Instructions Patient Instructions: DI for Hematoma (Bruise) Discharge ED Provider: Karel Duarte [facility] [place] HPI General Stated complaint: Fall@home 02/17 LT arm pain, back pain Mode of Arrival: Ambulatory Source of Information: Patient Limitations: No Limitations Time Seen by Provider: 02/19/23 13:47 Description of Symptoms (Recalled from Triage Doc. by RN): Pt fell and hurt left arm and shoulder HEENT Symptoms (Recalled from RN notes): No Resp Symptoms (Recalled from RN notes): No Skin Symptoms (Recalled from RN notes): No MS Symptoms (Recalled from RN notes): No Functional Status (Recalled from RN notes): n/a History of Present Illness Provider Complaint: She states that she fell 3 days ago. She came down on her left shoulder and upper arm. Since then she has had tenderness and bruising of that area. Related Data Home Medications Medication Instructions Recorded Confirmed potassium chloride 20 mEq 20 meq PO BID Supplement 90 days 03/11/19 02/14/23 tablet,extended release(part/cryst) #180 tabs ranolazine 500 mg tablet,extended 500 mg PO BID angina 90 days #180 03/11/19 02/19/23 release,12 hr tabs sertraline 25 mg tablet 25 mg PO DAILY mood 90 days #90 03/11/19 02/19/23 tabs levothyroxine 50 mcg tablet 50 mcg PO DAILY thyroid 07/14/20 02/19/23 aspirin 325 mg tablet 325 mg PO DAILY Heart disease 01/27/21 02/14/23 pantoprazole 40 mg tablet,delayed 40 mg PO BID acid reflux 01/28/21 02/19/23 release rosuvastatin 40 mg tablet 40 mg PO DAILY Cholesterol 01/28/21 02/19/23 gabapentin 300 mg capsule 300 mg PO TID Pain 03/23/21 02/19/23 anastrozole 1 mg tablet 1 mg PO DAILY CHEMO 05/30/21 02/19/23 sucralfate 1 gram tablet 1 gm PO ACHS stomach pain 03/20/22 02/19/23 ipratropium 0.5 mg-albuterol 3 mg 3 ml inhalation BID COPD 05/08/22 02/14/23 (2.5 mg base)/3 mL nebulization soln amlodipine 5 mg tablet 5 mg PO DAILY . 02/19/23 02/19/23 metoprolol succinate 100 mg 100 mg PO DAILY
[2023-02-19 15:08] VITALS: BP 138/88; PULSE 70; RESP 20; TEMP 36.7; O2SAT 95
== END 2023-02-19 15:08 | disposition home or self-care (01) ==
PROVIDERS: Emergency Provider Nurse Practitioner Family; PCP Family Medicine
DX: S40.022A Contusion of left upper arm, initial encounter (principal); F17.210 Nicotine dependence, cigarettes, uncomplicated; W19.XXXA Unspecified fall, initial encounter
CPT/HCPCS: 73030; 73060; 73080; 73110; 73130; 76830

== ENCOUNTER → 2023-03-05 15:10 | Outpatient (CLI) | payer MEDICARE, MEDICAID, SELFPAY ==
--- NOTE | 2023-03-05 15:15 | MM_ITS ---
PROCEDURE INFORMATION: Exam: MG Left Screening 3D Mammography Exam date and time: 03/05/2023 3:05 PM Age: 83 years old Clinical indication: Screening mammogram. h/o RT mastectomy, best images possible, PT cant stand, done in stool, two techs, PT had to be held in machine TECHNIQUE: Imaging protocol: Left Screening tomosynthesis and 2D mammography including computer-aided detection (CAD) when performed.Limited assessment due to difficulty positioning the patient. COMPARISON: MG MM DIG MAMM BI DX W/CAD 02/07/2021 8:28 AM FINDINGS: MAMMOGRAPHY: Breast composition: There are scattered areas of fibroglandular density. Mass: None. Architectural distortion: No new or suspicious architectural distortion. Calcifications: Stable benign-appearing calcifications are present. No new or suspicious cluster of microcalcifications have developed. Asymmetric density: No new or suspicious asymmetric density is present Skin thickening: None. Axillary adenopathy: None. IMPRESSION: No mammographic evidence of malignancy. Recommend annual screening mammography unless otherwise clinically indicated. ASSESSMENT: BI-RADS category 2: Benign
== END ==
PROVIDERS: PCP Family Medicine; Visit Provider Internal Medicine Medical Oncology
DX: Z12.31 Encounter for screening mammogram for malignant neoplasm of breast (principal)
CPT/HCPCS: 77063; 77067

== ENCOUNTER → 2023-04-14 22:15 | Outpatient (CLI) | payer MEDICARE, MEDICAID, SELFPAY ==
[2023-04-14 23:51] LABS: Microscopic, Urine URINE MICROSCOPIC (MICROSCOPIC)
[2023-04-15 00:16] LABS: Appearance,Urine CLEAR (Clear); Bilirubin,Urine Negative (Negative); Blood, Urine 1+ (Negative); Color,Urine YELLOW (Yellow); Glucose,Urine (UA) Negative (Negative); Ketones,Urine Negative (Negative); Leukocyte Esterase,Urine TRACE (Negative); Nitrate,Urine Negative (Negative); Protein,Urine 2+ (Negative); Specific Gravity, Urine >= 1.030 (1.005-1.030)
[2023-04-15 00:28] LABS: Bacteria,Urine 4+ /lpf; Squamous Epithelial Cell,Urine Occasional #/hpf (0-5)
== END ==
PROVIDERS: PCP Internal Medicine Adolescent Medicine; Visit Provider Nurse Practitioner Family
DX: R41.0 Disorientation, unspecified (principal); R82.90 Unspecified abnormal findings in urine; B96.89 Other specified bacterial agents as the cause of diseases classified elsewhere
CPT/HCPCS: 81001; 87086; 87088; 87186

== ENCOUNTER → 2023-06-25 13:33 | Outpatient (POV) | payer MEDICARE, MEDICAID, SELFPAY ==
--- NOTE | 2023-06-25 14:03 | EXP.PAIN.OV ---
HPI Data of Consult Patient: new to practice Consult date: 06/25/23 Requesting Physician: Bing Michelle APRN Consult Narrative Reason for consult: Low back pain, right buttocks pain, right leg pain History of present illness: Ms. Huddleston is a 83 year old female who presents today as a new patient. She is a referral from Luba Thompson's office. Today she rates her pain a 10 out of 10. Patient states her pain is all in her low back along the right side into her right buttocks and right leg. Patient does describe this as a sharp achy sensation that is worse with increased activity. She states moving over in the bed or standing up causes debilitating pain. She states this pain has been going on since she had a fall at [facility] in March of this year. She states they did do imaging in the facility and stated she had no fractures. She does state that she has had falls before and that it may be a combination of those. She also has chronic low back pain its been going on for years. Patient has had physical therapy for her hands and upper extremity weakness in the past that provided some improvement. Patient denies any previous fractures. She does state that she will use Tylenol with minimal improvement. Patient has tried heat and ice and topicals with no additional relief. Patient does state the pain interferes with her ability to perform activities of daily living such as cooking and cleaning or simple ambulation. Patient does present today in wheelchair. Patient is not on any scheduled medications. Her Ramon is [phone]. Its been reviewed and appropriate. CC: Bing Michelle APRN [facility] Disclaimer: The information contained in this section may have been updated after the patient was seen, as this information can be updated by other users. Medical History Breast cancer, right [id number] 2.5cm ER: Positive [place]: Positive HER-2/ginger: negative Breast mass, right Encounter for pre-operative cardiovascular clearance FH: mastectomy HLD (hyperlipidemia) HTN (hypertension) Renal artery stenosis Simple adnexal cyst greater than 1 cm in diameter in postmenopausal patient Surgical History History of renal stent Bilateral renal stents MAY 2022 Hx of total mastectomy of right breast Stented coronary artery Social History (Updated 06/25/23 @ 15:41 by Judit Keene RN) Smoking Status: Current every day smoker tobacco type: cigarettes packs per day: 1 alcohol intake: never substance use type: denies use current occupational status: retired Travel in the last 8 weeks: None household members: none housing: apartment current occupational exposures/hazards: No caffeine: No Review of Systems Review of Systems Review of systems:: pertinent systems reviewed and negative unless documented below Review of systems (narrative): Review of Systems: General: No recent weight changes, no fever, no sleep disturbances Respiratory: No cough, no shortness of air, no recurring pulmonary infections Cardiovascular/peripheral vascular: No chest pain, no palpitations, no edema, no shortness of breath Gastrointestinal: No new onset incontinence, normal bowel movements reported Genitourinary: No new onset incontinence Musculoskeletal: Low back pain, right buttocks pain, right leg pain Psychiatric: [Normal mood/affect] Neurological: [Denies weakness in extremities], [denies balance issues] Meds Home Medications and Allergies Home Medications Medication Instructions Recorded Confirmed Type ranolazine 500 mg tablet,extended 500 mg PO BID angina 90 days #180 03/11/19 06/25/23 History release,12 hr tabs sertraline 25 mg tablet 25 mg PO DAILY mood 90 days #90 03/11/19 06/25/23 History tabs levothyroxine 50 mcg tablet 50 mcg PO DAILY thyroid 07/14/20 06/25/23 History aspirin 325 mg tablet 325 mg PO DAILY Heart diseas
[2023-06-25 15:40] VITALS: BP 103/51; PULSE 66; RESP 17; O2SAT 93; BMI 33.4
== END ==
PROVIDERS: Visit Provider Nurse Practitioner Family
DX: M54.50 Low back pain, unspecified (principal); G89.29 Other chronic pain; M79.18 Myalgia, other site; M54.16 Radiculopathy, lumbar region; M79.604 Pain in right leg
CPT/HCPCS: 99202; G0463

== ENCOUNTER 2023-07-07 19:58 | Emergency (ER) | payer MEDICARE, MEDICAID, SELFPAY ==
[2023-07-07] VITALS (7 sets, daily range): BP systolic 165–195; BP diastolic 61–83; PULSE 61–67; RESP 14; TEMP 36.7; O2SAT 95–97; BMI 33.4
--- NOTE | 2023-07-07 20:07 | XR_ITS ---
PROCEDURE INFORMATION: Exam: XR Right Hip Exam date and time: 07/07/2023 8:21 PM Age: 83 years old Clinical indication: Injury or trauma; Fall; Blunt trauma (contusions or hematomas); Right; Hip TECHNIQUE: Imaging protocol: Radiologic exam of the right hip. Views: 2 or 3 views hip with pelvis when performed. COMPARISON: CT ABDOMEN PELVIS W CON 02/17/2023 12:34 AM FINDINGS: Bones/joints: Partially visualized lumbar scoliosis and significant multilevel degenerative disc disease. Moderate degenerative changes of the pubic symphysis. No acute fracture. Soft tissues: Unremarkable. IMPRESSION: No acute fracture. Degenerative changes of the lumbar spine and pubic symphysis noted.
--- NOTE | 2023-07-07 20:07 | XR_ITS ---
PROCEDURE INFORMATION: Exam: XR Right Knee Exam date and time: 07/07/2023 8:21 PM Age: 83 years old Clinical indication: Injury or trauma; Fall; Blunt trauma; Knee; Right TECHNIQUE: Imaging protocol: Radiologic exam of the right knee. Views: 3 views. COMPARISON: No relevant prior studies available. FINDINGS: Bones/joints: Osseous alignment is normal. No acute fracture or joint fluid. Mild spurring of the patella and tibial spines compatible with early osteoarthritis. Soft tissues: Normal. IMPRESSION: No acute abnormality
--- NOTE | 2023-07-07 20:07 | XR_ITS ---
PROCEDURE INFORMATION: Exam: XR Chest Exam date and time: 07/07/2023 8:21 PM Age: 83 years old Clinical indication: Injury or trauma; Fall; Blunt trauma (contusions or hematomas) TECHNIQUE: Imaging protocol: Radiologic exam of the chest. Views: 1 view. COMPARISON: CR XR CHEST PORTABLE 10/11/2022 12:33 AM FINDINGS: Lungs: Unremarkable. No consolidation. Pleural spaces: Unremarkable. No pleural effusion. No pneumothorax. Heart/Mediastinum: Unremarkable. No cardiomegaly. Vasculature: Moderate atherosclerotic calcification in the aortic arch. Bones/joints: Mild degenerative changes of the spine and right shoulder. IMPRESSION: No acute interval change
[2023-07-07 20:16] LABS: Basophils % 0.4 % (0.1-2.0); Eosinophils # 0.2 K/mm3 (0.0-0.4); Eosinophils % 1.9 % (0.1-12.0); Hematocrit 38.7 % (37.0-47.0); Lymphocytes # 2.8 K/mm3 (0.7-4.5); Lymphocytes % 31.9 % (10-50); Mean Corpuscular Hemoglobin 27.1 pg (27.0-31.2); Mean Corpuscular Volume 87.4 fl (81-99); Mean Platelet Volume 8.8 fl (7.4-10.4); Monocytes # 0.8 K/mm3 (0.1-1.0); Neutrophils % 56.8 % (37.0-80.0); Platelet Count 280 K/mm3 (142-424); Red Blood Count 4.43 M/mm3 (4.20-5.40); Red Cell Distribution Width 17.4 % (11.5-17.5); White Blood Count 8.7 K/mm3 (4.8-10.8)
[2023-07-07 20:19] LABS: Chloride 105 mmol/L (98-107); Sodium 141 mmol/L (136-145)
[2023-07-07 20:22] LABS: Alanine Aminotransferase 19 U/L (12-78); Albumin Level 3.2 g/dl (3.5-5.0); Albumin/Globulin Ratio 1.1 (1.1-1.8); Alkaline Phosphatase 103 U/L (38-126); Aspartate Amino Transferase 27 U/L (14-36); Bilirubin,Total 0.2 mg/dl (0.2-1.3); Blood Urea Nitrogen 19 mg/dl (7-17); Calcium 9.1 mg/dl (8.4-10.2); Carbon Dioxide 25 mmol/L (22.0-30.0); Creatinine Clearance Estimated 43 mL/min (50-200); Estimated Glomerular Filt Rate 47 ml/min (>60); GFR (African American) 57 ML/MIN (>60); Globulin 2.8 g/dL (1.3-3.2); Glucose 120 mg/dl (74-100)
--- NOTE | 2023-07-07 22:23 | CT_ITS ---
PROCEDURE INFORMATION: Exam: CT Pelvis Without Contrast; Skeletal Exam date and time: 07/07/2023 10:32 PM Age: 83 years old Clinical indication: Injury or trauma; Fall; Blunt trauma (contusions or hematomas); Right; Hip; Additional info: Fall, hip pain TECHNIQUE: Imaging protocol: Computed tomography of the pelvis without contrast. Exam focused on the skeleton. Radiation optimization: All CT scans at this facility use at least one of these dose optimization techniques: automated exposure control; mA and/or kV adjustment per patient size (includes targeted exams where dose is matched to clinical indication); or iterative reconstruction. REPORTING DATA: Count of CT and Cardiac NM exams in prior 12 months: This patient has received 5 known CTs and 0 known cardiac nuclear medicine studies in the 12 months prior to the current study. COMPARISON: CT ABDOMEN PELVIS W CON 02/17/2023 12:34 AM FINDINGS: Stomach and bowel: Severe diverticulosis of the distal colon. No evidence of diverticulitis. No evidence of bowel obstruction. Reproductive: Uterus is surgically absent. No adnexal abnormality. Vasculature: Dense atherosclerotic calcification in the distal aorta and iliac arteries. Slight fusiform dilation of the distal aorta measuring maximum diameter of 2 cm. Bones/joints: Bilateral spondylolysis and grade 2 anterolisthesis of L5. Severe degenerative disc changes throughout the lower lumbar spine, most pronounced at the lumbosacral junction where there is complete loss of disc space and partial osseous fusion. These findings produce severe narrowing of the bilateral L5 neural exit foramina. Partially visualized lumbar scoliosis also noted. No definite acute fracture. Soft tissues: Unremarkable. IMPRESSION: 1. No acute fracture 2. Severe chronic/arthritic changes of the lower lumbar spine including grade 2 anterolisthesis of L5 due to spondylolysis and severe narrowing of the bilateral L5 neural exit foramina. 3. Severe atherosclerotic changes with 2 cm abdominal aortic aneurysm 4. Severe diverticulosis of the distal colon without evidence of diverticulitis.
--- NOTE | 2023-07-07 22:23 | HMH.EDGENADL ---
Discharge Plan Disposition Patient Disposition: Home, Self-Care Condition: Good Prescriptions Prescriptions: No Action ranolazine 500 mg tablet extended release 12 hr 500 mg PO BID 90 Days Qty: 180 Patient Comments: sertraline 25 mg tablet 25 mg PO DAILY 90 Days Qty: 90 Patient Comments: anastrozole 1 mg tablet 1 mg PO DAILY levothyroxine 50 mcg tablet 50 mcg PO DAILY sucralfate 1 gram tablet 1 gm PO ACHS ipratropium-albuterol 0.5 mg-3 mg(2.5 mg base)/3 mL solution for nebulization 3 ml IH BID spironolactone 25 mg tablet 25 mg PO DAILY Qty: 30 5RF clopidogrel 75 mg tablet 75 mg PO DAILY Qty: 90 3RF losartan 100 mg tablet 100 mg PO DAILY Qty: 90 3RF gabapentin 300 MG capsule 300 mg PO TID linaclotide 145 mcg capsule 145 mcg PO DAILY Rx Instructions: Take half an hour before first meal of day with water. Do not crush or chew aspirin 325 MG tablet 325 mg PO DAILY pantoprazole 40 MG tablet,delayed release (DR/EC) 40 mg PO BID rosuvastatin 40 MG tablet 40 mg PO DAILY metoprolol succinate 100 mg tablet extended release 24 hr 100 mg PO DAILY amlodipine 5 mg tablet 5 mg PO DAILY Referrals Follow up/Referrals: Dov Gonzales MD [Primary Care Provider] - See instructions Activity Restrictions/Add. Instructions Additional Instructions/Restrictions: Talk to your family doctor about physical therapy. Call your family doctor to establish care for this visit to the emergency department and schedule follow-up within 48 hours to ensure improvement. If you have any worsening of your condition or any other concerning signs or symptoms, return to the emergency department or your primary care doctor for further evaluation. Take Tylenol every 6 hours (4 times daily) and ibuprofen every 6 hours (4 times daily) as needed with food and water to prevent GI upset and kidney damage. Clinical Impressions Clinical Impression: Acute pain of right lower extremity, Fall Discharge ED Provider: Romario Garcia Adult [facility] General Chief complaint: Fall Stated complaint: Fall Time Seen by Provider: 07/07/23 22:23 Mode of Arrival: Family Vehicle Source of Information: Patient and EMS Limitations: No Limitations Description of Symptoms (Recalled from ER Triage Doc. by RN): 83 yo female presents following a low impact fall in her room at the residential. Patient states she had gotten up to go to the bathroom, was headed back to her w/c and either missed it as she sat or slid down the front of it and fell on to the floor. States she did hit her head, but denies LOC, syncope, visual disturbance. [id number]. CC includes: slight head pain, neck and shoulder stiffness, right hip and knee pain. History of Present Illness HPI narrative: Patient presents for evaluation of fall from bed, presents from residential, complains of sacral back pain and right hip pain, nonradiating, mild in severity, no previous therapies, no distal numbness or tingling, injuries are closed, no head injury, no loss of consciousness, was in normal state of health prior to onset of symptoms. Denies any chest pain or palpitations or chest wall injury. No appreciable bruising. At baseline has difficulties with ambulation, no exacerbation of the symptoms with the exception of some mild pain. Related Data Home Medications Medication Instructions Recorded Confirmed ranolazine 500 mg tablet,extended 500 mg PO BID angina 90 days #180 03/11/19 07/08/23 release,12 hr tabs sertraline 25 mg tablet 25 mg PO DAILY mood 90 days #90 03/11/19 07/08/23 tabs levothyroxine 50 mcg tablet 50 mcg PO DAILY thyroid 07/14/20 07/08/23 aspirin 325 mg tablet 325 mg PO DAILY Heart disease 01/27/21 07/08/23 pantoprazole 40 mg tablet,delayed 40 mg PO BID acid reflux 01/28/21 07/08/23 release rosuvastatin 40 mg tablet 40 mg PO DAILY Cholesterol 01/28/21 07/08/23 gabapentin
--- NOTE | 2023-07-08 00:13 | PC.NURSE ---
gave report to Lalita López at [facility]
[2023-07-08 00:14] VITALS: BP 181/75; PULSE 86; RESP 18; TEMP 36.6
== END 2023-07-08 01:01 | disposition home or self-care (01) ==
PROVIDERS: Emergency Provider Emergency Medicine; PCP Internal Medicine Adolescent Medicine
DX: I10 Essential (primary) hypertension (principal); M25.551 Pain in right hip; M54.50 Low back pain, unspecified; E78.5 Hyperlipidemia, unspecified; I70.1 Atherosclerosis of renal artery; W06.XXXA Fall from bed, initial encounter
CPT/HCPCS: 71045; 72192; 73502; 73562; 80053; 85025; 99285

== ENCOUNTER 2023-07-08 13:44 | Day surgery (SDC) | payer MEDICARE, MEDICAID, SELFPAY ==
[2023-07-08 13:57] VITALS: BP 134/93; PULSE 58; RESP 18; TEMP 36.4; O2SAT 93; BMI 22.9
[2023-07-08 14:11] VITALS: BP 122/87; PULSE 87; RESP 18; O2SAT 96
[2023-07-08 14:12] VITALS: BP 122/87; PULSE 87; RESP 18; O2SAT 96
[2023-07-08 14:15] VITALS: BP 150/61; PULSE 56; RESP 18; O2SAT 93
--- NOTE | 2023-07-08 14:16 | EXP.PAIN.PRO ---
Procedure Date: 07/08/23 Time: 14:15 Anesthesiologist:: Jamari Szymanski CRNA Complications:: None Pre-procedure Diagnosis:: Degenerative disc lumbar spine multilevels. Lumbar radiculopathy. Lumbar spondylosis. Multilevel lumbar facet arthropathy. Multilevel lumbar disc bulge. Post-procedure Diagnosis:: Same. Indications for Procedure:: Patient is a very pleasant 83-year-old female comes our clinic today for right L4-5, L5-S1 transforaminal epidural steroid injection. Patient complains of low lumbar right-sided pain as well as right hip and leg radicular symptoms to the foot. She rates her pain 7/10. Procedure Details:: Details of the procedure were explained to the patient. The patient was taken the procedure room placed in the prone position. The area of the lumbar spine was cleansed using chlorhexidine as a cleansing solution. At this time using fluoroscopy guidance markers were placed on the right lateral border of the L4 and L5 vertebral body. The skin and subcutaneous tissue was anesthetized using 1% lidocaine and 25-gauge needle. At this time using a 22-gauge 3-1/2 inch spinal needle the right upper one third of the L4-5 foramen was accessed. The same was done at the right L5-S1 foramen. Needle positions were confirmed and a lateral view using fluoroscopy and contrast dye. At this time 1 cc of 1% lidocaine +20 mg of Depo-Medrol was injected at each level after negative aspiration. [place] were removed. Band-Aid applied. Patient tolerated the procedure without difficulty. There are no complications. Plan and Disposition:: Patient was discharged without incident.
== END 2023-07-08 14:15 | disposition home or self-care (01) ==
PROVIDERS: PCP Internal Medicine Adolescent Medicine; Visit Provider Nurse Anesthetist, Certified Registered
DX: M51.16 Intervertebral disc disorders with radiculopathy, lumbar region (principal); M47.26 Other spondylosis with radiculopathy, lumbar region
CPT/HCPCS: 64483; 64484; J1030

== ENCOUNTER → 2023-07-23 10:06 | Outpatient (POV) | payer MEDICARE, MEDICAID, SELFPAY ==
[2023-07-23 10:52] VITALS: BP 143/92; PULSE 65; RESP 18; O2SAT 92; BMI 33.4
--- NOTE | 2023-07-23 11:04 | EXP.PAIN.SOA ---
[facility] Pain Management SOAP Note Subjective:: Patient is a pleasant 83-year-old female who presents today for follow-up of lumbar medial branch block right-sided L4-L5 and L5-S1 on 07/08/2023. We are currently treating the patient for degenerative disc disease of lumbar spine with lumbar radiculopathy symptoms, lumbar facet arthropathy, lumbar spondylosis. Today she rates that she had at least 50% improvement following this injection however it only lasted approximately 2 days. Patient does state that during that time her pain was much better and she was able to increase her activity. Today she does feel like she is back at her baseline. Patient does describe her pain as a sharp achy sensation all along the right side of her low back that is worse with increased activity. She also does state that she has some right hip pain. Patient does state that her pain is worse with bending or twisting. Patient does continue to use [id number] Tylenol and presents today in wheelchair to help with ambulation. Patient does state that she does also take gabapentin 300 mg twice a day at [facility]. She denies any side effects from this medication patient. Patient is currently on blood thinners that is written by Dr. Anton's office. Her Ramon is [phone]. Its been reviewed and appropriate. Review of Systems: General: No recent weight changes, no fever, no sleep disturbances Respiratory: No cough, no shortness of air, no recurring pulmonary infections Cardiovascular/peripheral vascular: No chest pain, no palpitations, no edema, no shortness of breath Gastrointestinal: No new onset incontinence, normal bowel movements reported Genitourinary: No new onset incontinence Musculoskeletal: Low back pain right-sided, right hip pain Psychiatric: [Normal mood/affect] Neurological: [Denies weakness in extremities], [denies balance issues] Objective:: Physical Exam: General: Alert and oriented x3, no acute distress, pleasant and cooperative Lungs: Respirations even and unlabored, symmetrical chest expansion Eyes: PERRL Musculoskeletal: Flexion and extension of lumbar [spine] somewhat guarded secondary to pain, [antalgic gait noted] positive Kemps test, positive point tenderness along right greater trochanteric bursa Neurological: Speech clear, no gross sensory deficit Assessment:: Degenerative disc disease of lumbar spine with lumbar radiculopathy symptoms, lumbar facet arthropathy, lumbar spondylosis, right-sided greater trochanteric bursitis Plan:: Patient did have significant improvement following her lumbar medial branch block that provided more than 50% relief however only lasted short-term. I have discussed with the patient that she may benefit from repeating this injection. Risk and benefits were discussed with the patient and she would like to proceed forward with this plan of care. We will contact Dr. Anton's office and confirm she can stop her blood thinner again for another 7 days prior to this injection. I have also discussed with the patient in future she may benefit from a right bursa injection. We will discuss this at future visits. Patient will be scheduled for a right-sided lumbar medial branch block L4-L5 and L5-S1. If she does have significant improvement following this injection we will proceed forward with the lumbar RFA after. Patient has been instructed to contact the clinic with any concerns before the next appointment. Dr. De La Cruz has reviewed this note and agrees with this plan of care. This note was dictated using voice recognition software and make contain errors or omissions. [facility] Disclaimer: The information contained in this section may have been updated after the patient was seen, as this information can be updated by other users. Medical History Breast cancer, right [id number] 2.5cm ER: Positive [place]: Positive HER-2/ginger: negative Breast mass, right Encounter for
== END ==
PROVIDERS: Visit Provider Nurse Practitioner Family
DX: M51.16 Intervertebral disc disorders with radiculopathy, lumbar region (principal); M47.26 Other spondylosis with radiculopathy, lumbar region; M70.61 Trochanteric bursitis, right hip
CPT/HCPCS: 99212; G0463

== ENCOUNTER 2023-08-12 13:36 | Day surgery (SDC) | payer MEDICARE, SELFPAY ==
[2023-08-12 13:48] VITALS: BP 164/67; PULSE 61; RESP 18; TEMP 36.6; O2SAT 94; BMI 35.9
[2023-08-12 13:59] VITALS: BP 153/86; PULSE 75; RESP 18; O2SAT 96
[2023-08-12 14:00] VITALS: BP 131/45; BP 153/86; PULSE 59; PULSE 75; RESP 18; O2SAT 94; O2SAT 96
--- NOTE | 2023-08-12 14:00 | EXP.PAIN.PRO ---
Procedure Date: 08/12/23 Time: 13:45 Anesthesiologist:: Jamari Szymanski CRNA Complications:: None Pre-procedure Diagnosis:: Degenerative disc lumbar spine multilevels. Lumbar radiculopathy. Lumbar spondylosis. Multilevel lumbar facet arthropathy. Post-procedure Diagnosis:: Same. Indications for Procedure:: Patient is a very pleasant 83-year-old female who has responded well to medial branch blocks/facet injections L4-5, L5-S1 on the right on 07/08/2023. Patient reports pain is returned to some degree. However, overall she is better. Pain is in the low back she describes as constant, dull, aching. Patient also complains of bilateral hip and leg radicular symptoms. She rates her pain 8/10. Procedure Details:: Details of the procedure explained to the patient. Patient taken to procedure room placed in the prone position on fluoroscopy table. The area over the lumbar spine was cleaned using chlorhexidine as a cleansing solution. Under fluoroscopy guidance using a 22-gauge 3 and half inch needle the facet joint at L4-5 and L5-S1 on the right was accessed with ease. 1 cc of 1% lidocaine +10 mg of Depo-Medrol was injected at each site. Patient tolerated procedure without difficulty. No complications. Plan and Disposition:: Patient was discharged out incident.
== END 2023-08-12 14:00 | disposition home or self-care (01) ==
PROVIDERS: PCP Internal Medicine Adolescent Medicine; Visit Provider Nurse Anesthetist, Certified Registered
DX: M47.896 Other spondylosis, lumbar region (principal); M51.16 Intervertebral disc disorders with radiculopathy, lumbar region
CPT/HCPCS: 64493; 64494; J1030

== ENCOUNTER → 2023-09-10 13:48 | Outpatient (POV) | payer MEDICARE, SELFPAY ==
--- NOTE | 2023-09-10 14:50 | EXP.PAIN.SOA ---
[facility] Pain Management SOAP Note Subjective:: Patient is a pleasant 83-year-old female who presents today for follow-up of right lumbar medial branch block L4-L5 and L5-S1 on 08/12/2023. We are currently treating the patient for degenerative disc disease of lumbar spine with lumbar radiculopathy symptoms, lumbar facet arthropathy, lumbar spondylosis. Today she rates her pain an 8 out of 10. Patient states that that injection did provide 2 to 3 days of relief however today she is complaining about her right hip and right leg pain. Patient does state this is an aching, throbbing sensation that is worse with increased activity. She does have numbness and tingling into her lower extremity and states it goes all the way down to her foot. Patient denies any new injury. She does state the pain interferes with her ability perform activities of daily living and even simple ambulation. Patient is at [facility] and is on Plavix by Dr. Anton's office. Her Ramon is [phone]. Its been reviewed and appropriate. Review of Systems: General: No recent weight changes, no fever, no sleep disturbances Respiratory: No cough, no shortness of air, no recurring pulmonary infections Cardiovascular/peripheral vascular: No chest pain, no palpitations, no edema, no shortness of breath Gastrointestinal: No new onset incontinence, normal bowel movements reported Genitourinary: No new onset incontinence Musculoskeletal: Low back pain, right hip pain, right leg pain Psychiatric: [Normal mood/affect] Neurological: [Denies weakness in extremities], [denies balance issues] Objective:: Physical Exam: General: Alert and oriented x3, no acute distress, pleasant and cooperative Lungs: Respirations even and unlabored, symmetrical chest expansion Eyes: PERRL Musculoskeletal: Flexion and extension of lumbar [spine] somewhat guarded secondary to pain, [antalgic gait noted] positive right leg raise with decreased sensation to light touch and decreased reflexes along the right leg Neurological: Speech clear, no gross sensory deficit Assessment:: Degenerative disc disease of lumbar spine with lumbar radiculopathy symptoms, right leg pain, lumbar facet arthropathy, lumbar spondylosis Plan:: Patient is experiencing worsening pain in her low back along the right hip and down her entire right leg. Patient did have limited range of motion of her lumbar spine along with a positive right leg raise and decreased sensation to light touch and decreased reflexes during today's exam. I have discussed with the patient that she may benefit from a right transforaminal epidural steroid injection. Risk and benefits were discussed with the patient and she would like to proceed forward with this plan of care. Patient is currently on Plavix and we will contact Dr. Anton's office and confirm she can stop this medication prior to injection. I have also counseled the family present during today's visit that we will contact [facility] to give a date for stopping her blood thinner. Patient will be scheduled for a right transforaminal epidural steroid injection L4-L5 and L5-S1. Patient has been instructed to contact the clinic with any concerns before the next appointment. Dr. De La Cruz has reviewed this note and agrees with this plan of care. This note was dictated using voice recognition software and make contain errors or omissions. [facility] Disclaimer: The information contained in this section may have been updated after the patient was seen, as this information can be updated by other users. Medical History Breast cancer, right [id number] 2.5cm ER: Positive [place]: Positive HER-2/ginger: negative Breast mass, right Encounter for pre-operative cardiovascular clearance FH: mastectomy HLD (hyperlipidemia) HTN (hypertension) Renal artery stenosis Simple adnexal cyst greater than 1 cm in diameter in postmenopausal patient Surgical Hi
[2023-09-10 15:41] VITALS: BP 155/57; PULSE 65; RESP 18; O2SAT 97; BMI 33.3
== END ==
PROVIDERS: Visit Provider Nurse Practitioner Family
DX: M51.16 Intervertebral disc disorders with radiculopathy, lumbar region (principal); M47.26 Other spondylosis with radiculopathy, lumbar region; M79.604 Pain in right leg
CPT/HCPCS: 99212; G0463

== ENCOUNTER 2023-09-11 11:41 | Emergency (ER) | payer MEDICARE, SELFPAY ==
[2023-09-11] VITALS (20 sets, daily range): BP systolic 68–166; BP diastolic 40–65; PULSE 51–59; RESP 14–18; TEMP 36.6; O2SAT 91–98; BMI 31.8
--- NOTE | 2023-09-11 12:07 | XR_ITS ---
FINAL REPORT CLINICAL HISTORY: fall ankle injury FINDINGS: RIGHT TIBIA AND FIBULA AP and lateral views of the right tibia and fibula were obtained. There is a fracture of the medial malleolus and distal fibular metaphysis. There is mild posterior subluxation of the talus at the tibiotalar joint. Lateral soft tissue swelling is noted. IMPRESSION: Fracture of the medial malleolus and distal fibular metaphysis. Reviewed, Interpreted and Dictated by Ilan Patel III, MD Transcribed by Heide Mistry Authenticated and [facility]
--- NOTE | 2023-09-11 12:07 | XR_ITS ---
FINAL REPORT CLINICAL HISTORY: fall injury FINDINGS: RIGHT FOOT 3 views of the right foot were obtained. There is no acute fracture or dislocation. Visualized joint spaces are normally aligned. Soft tissues are unremarkable. IMPRESSION: No acute bony abnormality. Reviewed, Interpreted and Dictated by Ilan Patel III, MD Transcribed by Heide Mistry Authenticated and [facility]
--- NOTE | 2023-09-11 12:07 | XR_ITS ---
FINAL REPORT CLINICAL HISTORY: fall injury FINDINGS: RIGHT ANKLE 3 views of the right ankle were obtained. There is a fracture of the medial malleolus and distal fibular metaphysis. There is mild posterior subluxation of the talus at the tibiotalar joint. Lateral soft tissue swelling is noted. IMPRESSION: Fracture of the medial malleolus and distal fibular metaphysis. Reviewed, Interpreted and Dictated by Ilan Patel III, MD Transcribed by Heide Mistry Authenticated and [facility]
--- NOTE | 2023-09-11 12:07 | HMH.EDGENADL ---
Discharge Plan Disposition Patient Disposition: Home, Self-Care Prescriptions Prescriptions: New hydrocodone-acetaminophen 5-325 mg tablet 1 tab PO Q6H PRN (Reason: pain) 3 Days Qty: 12 0RF No Action ranolazine 500 mg tablet extended release 12 hr 500 mg PO BID 90 Days Qty: 180 Patient Comments: sertraline 25 mg tablet 25 mg PO DAILY 90 Days Qty: 90 Patient Comments: anastrozole 1 mg tablet 1 mg PO DAILY levothyroxine 50 mcg tablet 50 mcg PO DAILY sucralfate 1 gram tablet 1 gm PO ACHS ipratropium-albuterol 0.5 mg-3 mg(2.5 mg base)/3 mL solution for nebulization 3 ml IH BID spironolactone 25 mg tablet 25 mg PO DAILY Qty: 30 5RF clopidogrel 75 mg tablet 75 mg PO DAILY Qty: 90 3RF losartan 100 mg tablet 100 mg PO DAILY Qty: 90 3RF gabapentin 300 MG capsule 300 mg PO TID linaclotide 145 mcg capsule 145 mcg PO DAILY Rx Instructions: Take half an hour before first meal of day with water. Do not crush or chew aspirin 325 MG tablet 325 mg PO DAILY pantoprazole 40 MG tablet,delayed release (DR/EC) 40 mg PO BID rosuvastatin 40 MG tablet 40 mg PO DAILY metoprolol succinate 100 mg tablet extended release 24 hr 100 mg PO DAILY amlodipine 5 mg tablet 5 mg PO DAILY Referrals Follow up/Referrals: Claus Michelle DO [Staff Physician] - See instructions Activity Restrictions/Add. Instructions Additional Instructions/Restrictions: He is continue to take your blood thinners and to follow-up with Dr. Michelle within 1 week make sure that you are nonweightbearing in that lower extremity. Clinical Impressions Clinical Impression: Bimalleolar ankle fracture Discharge ED Provider: Kathryn Solorio General Adult HPI General Chief complaint: PAIN Stated complaint: rt ankle swelling Time Seen by Provider: 09/11/23 12:06 Mode of Arrival: EMS Limitations: No Limitations Description of Symptoms (Recalled from ER Triage Doc. by RN): PT WITH RIGHT ANKLE PAIN/SWELLING. REPORTS LEG GAVE OUT YESTERDAY AFTER LEAVING PAIN MANAGEMENT APPOINTMENT. NOTED ROTATION. PULSES PER DOPPLER, DECREASED MOVEMENT OF TOES History of Present Illness HPI narrative: Patient is an 83-year-old female here with a right lower extremity injury distal leg ankle and foot after falling while try to get into a car. States that she can adequately move her legs and has normal sensation. No injuries elsewhere. Per chart review she is on aspirin and Plavix no other anticoagulants. Related Data Home Medications Medication Instructions Recorded Confirmed ranolazine 500 mg tablet,extended 500 mg PO BID angina 90 days #180 03/11/19 08/12/23 release,12 hr tabs sertraline 25 mg tablet 25 mg PO DAILY mood 90 days #90 03/11/19 08/12/23 tabs levothyroxine 50 mcg tablet 50 mcg PO DAILY thyroid 07/14/20 08/12/23 aspirin 325 mg tablet 325 mg PO DAILY Heart disease 01/27/21 08/12/23 pantoprazole 40 mg tablet,delayed 40 mg PO BID acid reflux 01/28/21 08/12/23 release rosuvastatin 40 mg tablet 40 mg PO DAILY Cholesterol 01/28/21 08/12/23 gabapentin 300 mg capsule 300 mg PO TID Pain 03/23/21 08/12/23 anastrozole 1 mg tablet 1 mg PO DAILY CHEMO 05/30/21 08/12/23 sucralfate 1 gram tablet 1 gm PO ACHS stomach pain 03/20/22 08/12/23 ipratropium 0.5 mg-albuterol 3 mg 3 ml inhalation BID COPD 05/08/22 08/12/23 (2.5 mg base)/3 mL nebulization soln amlodipine 5 mg tablet 5 mg PO DAILY . 02/19/23 08/12/23 metoprolol succinate 100 mg 100 mg PO DAILY . 02/19/23 08/12/23 tablet,extended release 24 hr linaclotide 145 mcg capsule 145 mcg PO DAILY BOWELS 06/25/23 08/12/23 Previous Rx's Medication Instructions Recorded spironolactone 25 mg tablet 25 mg PO DAILY Edema #30 tabs 08/01/22 clopidogrel 75 mg tablet 75 mg PO DAILY HX of stents #90 10/02/22 tabs losartan 100 mg tablet 100 mg PO DAILY High blood 11/04/22 pressure #90 tabs hydrocod
--- NOTE | 2023-09-11 12:21 | PC.NURSE ---
XR AT BEDSIDE
--- NOTE | 2023-09-11 13:59 | PC.NURSE ---
Assumed patient care at this time
--- NOTE | 2023-09-11 13:59 | PC.NURSE ---
Case management called in regards to pre-authorization form for transfer back to [place]
--- NOTE | 2023-09-11 14:22 | PC.NURSE ---
notified EMS of transport back to [facility]
--- NOTE | 2023-09-11 14:23 | PC.NURSE ---
Called Nickie at [facility] and gave report for transport back to facility. EMS has been notified per Noa CHANDLER
--- NOTE | 2023-09-11 14:26 | PC.NURSE ---
Went in to check on patient; Patient BP: 68/30 MAP of 51. Paitent HR 51. Patient stated she did not feel well and felt sick to her stomach. MD notified and @ BS V/O per MD for a liter of LR and 4mg SL Zofran.
--- NOTE | 2023-09-11 14:38 | PC.NURSE ---
@ BS with patient BP is now 101/48 with a MAP of 60 HR 55. MD aware no new orders at this time
--- NOTE | 2023-09-11 14:50 | ECG_ITS ---
APPROVED REPORT Exam: Resting ECG HR:55 bpm ECG Measurements Heart Rate 55 AXES HI 174 P 15 QRSd 89 QRS -42 QT 449 T -1 QTc 437 Conclusion SINUS BRADYCARDIA LEFT AXIS DEVIATION [QRS AXIS < -30] PATTERN CONSISTENT WITH PULMONARY DISEASE POSSIBLE RIGHT VENTRICULAR CONDUCTION DELAY [RSR (QR) IN V1/V2] MODERATE VOLTAGE CRITERIA FOR LVH, CONSIDER NORMAL VARIANT [MEETS CRITERIA IN ONE OF: R(aVL), S(V1), R(V5), R(V5/V6)+S(V1)] ABNORMAL ECG UNCONFIRMED REPORT Electronically signed by : Dov Gonzales MD 09/12/2023 14:28:47
--- NOTE | 2023-09-11 14:53 | PC.NURSE ---
Called Nickie to let her know that patient would not be returning to [facility] at this time.
--- NOTE | 2023-09-11 15:11 | XR_ITS ---
PROCEDURE INFORMATION: Exam: XR Chest Exam date and time: 09/11/2023 3:35 PM Age: 83 years old Clinical indication: Dyspnea TECHNIQUE: Imaging protocol: Radiologic exam of the chest. Views: 1 view. COMPARISON: CR XR CHEST PORTABLE images (no report) 07/07/2023 8:21 PM FINDINGS: Tubes, catheters and devices: EKG leads. Lungs: Streaky left basilar opacities. Pleural spaces: Unremarkable. No pleural effusion. No pneumothorax. Heart/Mediastinum: Unremarkable. No cardiomegaly. Vasculature: Atherosclerosis. Bones/joints: Unremarkable. Organs: Cholecystectomy. IMPRESSION: Streaky left basilar opacities may represent atelectasis and/or pneumonia.
[2023-09-11 15:22] LABS: Basophils % 0.3 % (0.1-2.0); Eosinophils # 0.2 K/mm3 (0.0-0.4); Eosinophils % 1.3 % (0.1-12.0); Hematocrit 38.6 % (37.0-47.0); Hemoglobin 12.5 g/dL (12.2-16.2); Lymphocytes # 2.8 K/mm3 (0.7-4.5); Lymphocytes % 22.7 % (10-50); Mean Corpuscular HGB Conc 32.3 g/dL (31.8-35.4); Mean Corpuscular Hemoglobin 29.5 pg (27.0-31.2); Mean Corpuscular Volume 91.4 fl (81-99); Mean Platelet Volume 8.6 fl (7.4-10.4); Monocytes # 0.8 K/mm3 (0.1-1.0); Monocytes % 6.7 % (1.7-9.3); Neutrophils # 8.4 K/mm3 (1.8-7.8); Platelet Count 255 K/mm3 (142-424); Red Blood Count 4.22 M/mm3 (4.20-5.40); Red Cell Distribution Width 15.9 % (11.5-17.5); White Blood Count 12.1 K/mm3 (4.8-10.8)
[2023-09-11 15:28] LABS: Chloride 105 mmol/L (98-107); Potassium 4.5 mmoL/L (3.5-5.1); Sodium 137 mmol/L (136-145)
[2023-09-11 15:31] LABS: Alanine Aminotransferase 26 U/L (12-78); Albumin Level 3.5 g/dl (3.5-5.0); Albumin/Globulin Ratio 1.3 (1.1-1.8); Alkaline Phosphatase 96 U/L (38-126); Anion Gap 9.5 mEq/L (5-15); Aspartate Amino Transferase 38 U/L (14-36); Bilirubin,Total 0.3 mg/dl (0.2-1.3); Blood Urea Nitrogen 24 mg/dl (7-17); Calcium 8.5 mg/dl (8.4-10.2); Carbon Dioxide 27 mmol/L (22.0-30.0); Creatinine Clearance Estimated 53 mL/min (50-200); Estimated Glomerular Filt Rate 53 ml/min (>60); GFR (African American) 64 ML/MIN (>60); Globulin 2.7 g/dL (1.3-3.2); Glucose 147 mg/dl (74-100); Lipase 104 U/L (23-300); Total Protein,Serum 6.2 g/dl (6.3-8.2)
[2023-09-11 15:43] LABS: Troponin I < 0.01 ng/ml (0.00-0.034)
--- NOTE | 2023-09-11 16:49 | PC.NURSE ---
Rounded on patient; call light within reach. Light dimmed per patient's request
--- NOTE | 2023-09-11 17:02 | PC.NURSE ---
Called [facility] for patient transportation to [facility]
--- NOTE | 2023-09-11 17:15 | PC.NURSE ---
pt trasnferred to EMS stretcher with assist x 4, no complications. PT back to [facility].
== END 2023-09-11 17:23 | disposition home or self-care (01) ==
PROVIDERS: Student in an Organized Health Care Education/Training Program; Emergency Provider Emergency Medicine
DX: S82.841A Displaced bimalleolar fracture of right lower leg, initial encounter for closed fracture (principal); I95.9 Hypotension, unspecified; E78.5 Hyperlipidemia, unspecified; I10 Essential (primary) hypertension; W19.XXXA Unspecified fall, initial encounter
CPT/HCPCS: 29515; 71045; 73590; 73610; 73630; 80053; 83690; 84484; 85025; 93005; 96361; 96374; 99285; J2405

== ENCOUNTER → 2023-09-15 15:11 | Outpatient (CLI) | payer MEDICARE, SELFPAY ==
[2023-09-15 15:38] LABS: Basophils % 0.2 % (0.1-2.0); Eosinophils % 0.2 % (0.1-12.0); Hematocrit 36.7 % (37.0-47.0); Hemoglobin 12.4 g/dL (12.2-16.2); Lymphocytes # 1.4 K/mm3 (0.7-4.5); Lymphocytes % 11.5 % (10-50); Mean Corpuscular HGB Conc 33.7 g/dL (31.8-35.4); Mean Corpuscular Volume 88.9 fl (81-99); Mean Platelet Volume 8.9 fl (7.4-10.4); Monocytes # 0.8 K/mm3 (0.1-1.0); Monocytes % 6.1 % (1.7-9.3); Neutrophils # 10.2 K/mm3 (1.8-7.8); Neutrophils % 82.1 % (37.0-80.0); Platelet Count 285 K/mm3 (142-424); Red Blood Count 4.12 M/mm3 (4.20-5.40); Red Cell Distribution Width 15.6 % (11.5-17.5); White Blood Count 12.4 K/mm3 (4.8-10.8)
[2023-09-15 16:19] LABS: Anion Gap 17.7 mEq/L (5-15); Blood Urea Nitrogen 24 mg/dl (7-17); Calcium 9.2 mg/dl (8.4-10.2); Carbon Dioxide 21 mmol/L (22.0-30.0); Chloride 100 mmol/L (98-107); Estimated Glomerular Filt Rate 53 ml/min (>60); GFR (African American) 64 ML/MIN (>60); Glucose 191 mg/dl (74-100); Potassium 4.7 mmoL/L (3.5-5.1); Sodium 134 mmol/L (136-145)
== END ==
PROVIDERS: PCP Internal Medicine Adolescent Medicine; Visit Provider Nurse Practitioner Family
DX: R53.83 Other fatigue (principal)
CPT/HCPCS: 80048; 85025

== ENCOUNTER → 2023-09-16 02:06 | Outpatient (CLI) | payer MEDICARE, SELFPAY ==
[2023-09-16 02:22] LABS: Microscopic, Urine URINE MICROSCOPIC (MICROSCOPIC)
[2023-09-16 02:25] LABS: Appearance,Urine CLEAR (Clear); Bilirubin,Urine Negative (Negative); Blood, Urine Negative (Negative); Color,Urine YELLOW (Yellow); Glucose,Urine (UA) Negative (Negative); Ketones,Urine Negative (Negative); Leukocyte Esterase,Urine Negative (Negative); Nitrate,Urine Negative (Negative); PH,Urine 5.5 (5.0-8.5); Protein,Urine TRACE (Negative); Urobilinogen,Urine 0.2 EU/dl (0.2)
[2023-09-16 02:37] LABS: Squamous Epithelial Cell,Urine Occasional #/hpf (0-5); WBC,Urine Occasional #/hpf (0-3)
== END ==
PROVIDERS: PCP Nurse Practitioner Family; Visit Provider Nurse Practitioner Family
DX: D72.829 Elevated white blood cell count, unspecified (principal); R82.90 Unspecified abnormal findings in urine
CPT/HCPCS: 81001; 87086

== ENCOUNTER 2023-09-18 14:09 | Outpatient (RCR) | payer MEDICARE, SELFPAY | END 2023-09-18 15:00 | disposition home or self-care (01) | LOC: PT 14:09 | PROVIDERS: Visit Provider Orthopaedic Surgery | DX: S82.841A Displaced bimalleolar fracture of right lower leg, initial encounter for closed fracture (principal) | CPT/HCPCS: 97760 ==

== ENCOUNTER 2023-09-23 13:12 | Day surgery (SDC) | payer MEDICARE, SELFPAY ==
[2023-09-23 13:29] VITALS: BP 127/55; PULSE 62; RESP 18; TEMP 36.1; O2SAT 94; BMI 34.6
[2023-09-23 13:56] VITALS: BP 121/57; PULSE 61; RESP 18; O2SAT 97
[2023-09-23 14:00] VITALS: BP 151/51; PULSE 59; RESP 18; O2SAT 94
--- NOTE | 2023-09-23 14:01 | EXP.PAIN.PRO ---
Procedure Date: 09/23/23 Time: 14:00 Anesthesiologist:: Jamari Szymanski CRNA Complications:: None Pre-procedure Diagnosis:: Degenerative disc lumbar spine multilevels. Lumbar radiculopathy. Lumbar spinal stenosis. Lumbar facet arthropathy. Lumbar spondylosis. Post-procedure Diagnosis:: Same. Indications for Procedure:: Patient is a very pleasant 83-year-old female comes our clinic today for right L4-5, L5-S1 transforaminal epidural steroid injection. Patient received this very same injection on 08/12/2023 with 1 to 2 days of relief. Patient describes low back pain is constant, dull, aching. Patient also complains of right hip and leg radicular symptoms to the foot. Patient rates her pain 9/10. Since her last injection patient has fallen and broken the right foot. She is wearing a compression boot. Patient has extreme difficulty getting up out of the wheelchair. Patient is obese. Patient is unable to get on the fluoroscopy table. I discussed in detail with the patient regarding simply doing a lumbar epidural steroid injection intralaminar at the L4-5 level. She wishes to proceed. Procedure Details:: Procedure: Lumbar epidural steroid injection under fluoroscopy Informed consent was obtained and the risks and benefits of the procedure were explained to the patient. The patient was taken to the procedure room and noninvasive monitors placed, including noninvasive blood pressure cuff and pulse oximeter. The back was viewed using C-arm Fluoroscopy and prepped using Chloraprep as a cleansing solution and the L4-L5 interspace was palpated. Skin and subcutaneous tissues were anesthetized using lidocaine 1.5% and a 25-gauge needle. After this, an 18-gauge Touhy epidural needle was placed into the L4-L5 interspace and advanced using fluoroscopic guidance and loss of resistance to air until the epidural space was encountered. After confirmation of needle placement in the epidural with loss of resistance a solution containing normal saline, 3 mL and Depo-Medrol 80 mg were incrementally injected into the lumbar epidural space. The patient tolerated the procedure well with no complications. The patient was observed in the Pain Clinic and then discharged home neurologically intact. Plan and Disposition:: Patient was discharged without incident.
[2023-09-23 14:04] VITALS: BP 130/59; PULSE 61; RESP 18; O2SAT 98
== END 2023-09-23 14:00 | disposition home or self-care (01) ==
PROVIDERS: PCP Nurse Practitioner Family; Visit Provider Nurse Anesthetist, Certified Registered
DX: M51.16 Intervertebral disc disorders with radiculopathy, lumbar region (principal); M47.26 Other spondylosis with radiculopathy, lumbar region; M48.061 Spinal stenosis, lumbar region without neurogenic claudication
CPT/HCPCS: 62323; J1030

== ENCOUNTER → 2023-10-05 11:18 | Outpatient (CLI) | payer MEDICARE, SELFPAY ==
[2023-10-05 12:28] LABS: Basophils # 0.1 K/mm3 (0-0.2); Basophils % 0.3 % (0.1-2.0); Eosinophils # 0.2 K/mm3 (0.0-0.4); Eosinophils % 0.9 % (0.1-12.0); Hematocrit 36.7 % (37.0-47.0); Lymphocytes # 1.6 K/mm3 (0.7-4.5); Lymphocytes % 8.1 % (10-50); Mean Corpuscular HGB Conc 32.7 g/dL (31.8-35.4); Mean Corpuscular Hemoglobin 29.7 pg (27.0-31.2); Mean Platelet Volume 9.1 fl (7.4-10.4); Monocytes % 4.7 % (1.7-9.3); Neutrophils # 17.5 K/mm3 (1.8-7.8); Neutrophils % 86.1 % (37.0-80.0); Platelet Count 304 K/mm3 (142-424); Red Blood Count 4.03 M/mm3 (4.20-5.40); Red Cell Distribution Width 15.9 % (11.5-17.5); White Blood Count 20.3 K/mm3 (4.8-10.8)
[2023-10-05 12:32] LABS: MANUAL DIFFERENTIAL MANUAL DIFFERENTIAL (MANUAL DIFF)
[2023-10-05 12:46] LABS: Strep Scrn Group A (Rapid) Negative (Negative)
[2023-10-05 12:57] LABS: Lymphocytes % 5 % (10-50); Monocytes % 8 % (2-9); Neutrophils % 87 % (42-76); Platelet Estimate Normal; RBC Morphology Normal; Total Cells Counted 100
[2023-10-05 13:22] LABS: Chloride 108 mmol/L (98-107); Sodium 137 mmol/L (136-145)
[2023-10-05 13:23] LABS: Potassium 4.9 mmoL/L (3.5-5.1)
[2023-10-05 13:25] LABS: Blood Urea Nitrogen 24 mg/dl (7-17); Estimated Glomerular Filt Rate 68 ml/min (>60); GFR (African American) 82 ML/MIN (>60)
[2023-10-05 13:26] LABS: Anion Gap 14.9 mEq/L (5-15); Calcium 9.1 mg/dl (8.4-10.2); Carbon Dioxide 19 mmol/L (22.0-30.0); Glucose 99 mg/dl (74-100)
== END ==
PROVIDERS: PCP Internal Medicine Adolescent Medicine; Visit Provider Nurse Practitioner Family
DX: R06.09 Other forms of dyspnea (principal); R50.9 Fever, unspecified; B95.0 Streptococcus, group A, as the cause of diseases classified elsewhere
CPT/HCPCS: 80048; 85007; 85025; 87275; 87276; 87430

== ENCOUNTER 2023-10-12 08:24 | Inpatient (IN) | payer MEDICARE, SELFPAY ==
[2023-10-12] VITALS (19 sets, daily range): BP systolic 100–153; BP diastolic 40–84; PULSE 65–106; RESP 24–44; TEMP 37.2–39.1; O2SAT 87–100; BMI 27.4; BMI 27.8
--- NOTE | 2023-10-12 08:42 | CT_ITS ---
PROCEDURE INFORMATION: Exam: CT Head Without Contrast Exam date and time: 10/12/2023 9:42 AM Age: 83 years old Clinical indication: Altered mental status/memory loss; Confusion or disorientation; Additional info: AMS TECHNIQUE: Imaging protocol: Computed tomography of the head without contrast. Radiation optimization: All CT scans at this facility use at least one of these dose optimization techniques: automated exposure control; mA and/or kV adjustment per patient size (includes targeted exams where dose is matched to clinical indication); or iterative reconstruction. REPORTING DATA: Count of CT and Cardiac NM exams in prior 12 months: This patient has received 4 known CTs and 0 known cardiac nuclear medicine studies in the 12 months prior to the current study. COMPARISON: CT HEAD/BRAIN WO CON 02/07/2021 8:14 AM FINDINGS: Limitations: Study is technically limited due to motion artifact. Brain: No evidence of intracranial hemorrhage. Small old cerebellar infarcts, stable. Old lacunar infarcts both basal ganglia and old brainstem unchanged. Diffuse chronic white matter microvascular changes, stable. Mild age related cerebral volume loss. Cerebral ventricles: Unremarkable for age. Paranasal sinuses: Chronic left maxillary sinusitis otherwise visualized sinuses are unremarkable. No fluid levels. Mastoid air cells: Visualized mastoid air cells are well aerated. Bones/joints: Unremarkable. No acute fracture. Soft tissues: Unremarkable. IMPRESSION: 1. No acute intracranial abnormalities. 2. 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
--- NOTE | 2023-10-12 08:42 | CT_ITS ---
PROCEDURE INFORMATION: Exam: CTA Chest With Contrast Exam date and time: 10/12/2023 9:49 AM Age: 83 years old Clinical indication: Other: Hypoxemia; Additional info: AMS hypoxemia TECHNIQUE: Imaging protocol: Computed tomographic angiography of the chest with contrast. Exam focused on the arteries. 3D rendering (Not supervised by radiologist): MIP and/or 3D reconstructed images were created by the technologist. Radiation optimization: All CT scans at this facility use at least one of these dose optimization techniques: automated exposure control; mA and/or kV adjustment per patient size (includes targeted exams where dose is matched to clinical indication); or iterative reconstruction. Contrast material: ISOVUE; Contrast volume: 70 ml; Contrast route: INTRAVENOUS (IV); REPORTING DATA: Count of CT and Cardiac NM exams in prior 12 months: This patient has received 4 known CTs and 0 known cardiac nuclear medicine studies in the 12 months prior to the current study. COMPARISON: CR XR CHEST PORTABLE 09/11/2023 3:35 PM FINDINGS: Limitations: Study is technically limited due to motion artifact. Pulmonary arteries: Main pulmonary trunk, right and left pulmonary arteries, interlobar branches and 1st order segmental branches are adequately opacified without filling defects or other evidence of acute pulmonary embolism. However more distal subsegmental branches cannot be adequately assessed due to technical limitations of the study. Aorta: Scattered atherosclerotic changes of the thoracic aorta. No aortic aneurysm. Thyroid: 3.5 cm nodule rising from thyroid isthmus, nonspecific. Lungs: Left lower lobe consolidation and smaller consolidation left lingula and right lung base in part secondary to atelectasis with superimposed pneumonia to be excluded. Pleural spaces: Unremarkable. No pneumothorax. No pleural effusion. Heart: Heart is mildly enlarged. Mild calcification of coronary arteries. No significant pericardial effusion. Lymph nodes: Unremarkable. No enlarged lymph nodes. Diaphragm: Moderate size hiatal hernia. Bones/joints: Unremarkable. No acute fracture. Soft tissues: Unremarkable. IMPRESSION: 1. Technically limited but negative CT angiogram of the chest. No evidence of acute pulmonary embolism to major branches of the pulmonary vascular tree. 2. Scattered consolidation most pronounced left lower lung zone in part secondary to atelectasis with superimposed pneumonia to be excluded. 3. 3.5 cm thyroid nodule better assessed on thyroid ultrasound exam. COMMENTS: Consistent with the [employer]'s Incidental Findings Committee white paper (J Am Josseline Radiol 2015): In patients aged 35 years and older with an incidental thyroid nodule equal to or greater than 1.[address], MRI or extrathyroidal US, further evaluation with dedicated thyroid US is recommended for patients with normal life expectancy and without comorbidities. For smaller nodules without suspicious features, no further evaluation or follow up is recommended.
--- NOTE | 2023-10-12 08:43 | XR_ITS ---
PROCEDURE INFORMATION: Exam: XR Chest Exam date and time: 10/12/2023 9:59 AM Age: 83 years old Clinical indication: Cough; Patient HX: SOB; Additional info: AMS recent pna TECHNIQUE: Imaging protocol: Radiologic exam of the chest. Views: 1 view. COMPARISON: CT ANGIO CHEST PE PROTOCOL 10/12/2023 9:49 AM FINDINGS: Limitations: Evaluation is limited due to patient rotation. Lungs: Lung volumes are decreased. Patchy consolidation left lung base. Pleural spaces: Unremarkable. No pleural effusion. No pneumothorax. Heart/Mediastinum: Heart is mildly enlarged. Bones/joints: Unremarkable for age. IMPRESSION: Mild cardiomegaly with patchy consolidation left lung base.
[2023-10-12 08:44] LABS: POC Glucose,Bedside 166 (70-110)
--- NOTE | 2023-10-12 08:48 | HMH.EDGENADL ---
Discharge Plan Disposition Patient Disposition: Admitted Chief Complaint: Shortness of Breath/Dyspnea Prescriptions Prescriptions: No Action ranolazine 500 mg tablet extended release 12 hr 500 mg PO BID 90 Days Qty: 180 Patient Comments: sertraline 25 mg tablet 25 mg PO DAILY 90 Days Qty: 90 Patient Comments: anastrozole 1 mg tablet 1 mg PO DAILY levothyroxine 50 mcg tablet 50 mcg PO DAILY sucralfate 1 gram tablet 1 gm PO ACHS ipratropium-albuterol 0.5 mg-3 mg(2.5 mg base)/3 mL solution for nebulization 3 ml IH BID spironolactone 25 mg tablet 25 mg PO DAILY Qty: 30 5RF clopidogrel 75 mg tablet 75 mg PO DAILY Qty: 90 3RF losartan 100 mg tablet 100 mg PO DAILY Qty: 90 3RF gabapentin 300 MG capsule 300 mg PO TID linaclotide 145 mcg capsule 145 mcg PO DAILY Rx Instructions: Take half an hour before first meal of day with water. Do not crush or chew aspirin 325 MG tablet 325 mg PO DAILY pantoprazole 40 MG tablet,delayed release (DR/EC) 40 mg PO BID rosuvastatin 40 MG tablet 40 mg PO DAILY metoprolol succinate 100 mg tablet extended release 24 hr 100 mg PO DAILY amlodipine 5 mg tablet 5 mg PO DAILY hydrocodone-acetaminophen 5-325 mg tablet 1 tab PO Q6H PRN (Reason: pain) 3 Days Qty: 12 0RF hydrocodone-acetaminophen 5-300 mg tablet 1 tab PO Q8H PRN (Reason: severe pain) Qty: 12 0RF Referrals Follow up/Referrals: Provider,Referral, MD [Referring] - See instructions Clinical Impressions Clinical Impression: Acute hypoxemic respiratory failure, Acute alteration in mental status Pneumonia Qualifiers: Pneumonia type: due to unspecified organism Laterality: left Lung location: lower lobe of lung Qualified Code(s): J18.9 - Pneumonia, unspecified organism Sepsis Qualifiers: Sepsis type: sepsis due to unspecified organism Sepsis acute organ dysfunction status: with acute organ dysfunction Severe sepsis acute organ dysfunction type: acute respiratory failure Acute respiratory failure type: with hypoxia Severe sepsis shock status: without septic shock Qualified Code(s): A41.9 - Sepsis, unspecified organism; R65.20 - Severe sepsis without septic shock; J96.01 - Acute respiratory failure with hypoxia Discharge ED Provider: Catarina,Ross A General Adult HPI General Chief complaint: Shortness of Breath/Dyspnea Stated complaint: SOA, lethargic Time Seen by Provider: 10/12/23 08:28 History of Present Illness HPI narrative: This is an 83-year-old female with history of hypertension, hyperlipidemia, UTIs, hypothyroidism, diverticulitis, CKD, CAD presenting with altered mental status. Per EMS, patient was recently admitted to hospital, treated for pneumonia and UTI. Finished antibiotics this morning, 10/12. Today, staff is checking on patient and she was acutely altered. Not unresponsive, but difficult to arouse. Usually she is alert, conversational, this was far from her baseline. EMS was called. Patient was transported to the emergency department. Patient unable to contribute to history. Related Data Home Medications Medication Instructions Recorded Confirmed ranolazine 500 mg tablet,extended 500 mg PO BID angina 90 days #180 03/11/19 09/23/23 release,12 hr tabs sertraline 25 mg tablet 25 mg PO DAILY mood 90 days #90 03/11/19 09/23/23 tabs levothyroxine 50 mcg tablet 50 mcg PO DAILY thyroid 07/14/20 09/23/23 aspirin 325 mg tablet 325 mg PO DAILY Heart disease 01/27/21 09/23/23 pantoprazole 40 mg tablet,delayed 40 mg PO BID acid reflux 01/28/21 09/23/23 release rosuvastatin 40 mg tablet 40 mg PO DAILY Cholesterol 01/28/21 09/23/23 gabapentin 300 mg capsule 300 mg PO TID Pain 03/23/21 09/23/23 anastrozole 1 mg tablet 1 mg PO DAILY CHEMO 05/30/21 09/23/23 sucralfate 1 gram tablet 1 gm PO ACHS stomach pain 03/20/22 09/23/23 ipratropium 0.5 mg-albuterol 3 mg 3 ml inhalation BID COPD
[2023-10-12 08:56] LABS: Basophils # 0.1 K/mm3 (0-0.2); Basophils % 0.2 % (0.1-2.0); Eosinophils # 0.1 K/mm3 (0.0-0.4); Eosinophils % 0.5 % (0.1-12.0); Hematocrit 37.8 % (37.0-47.0); Lymphocytes # 1.4 K/mm3 (0.7-4.5); Lymphocytes % 5.7 % (10-50); Mean Corpuscular HGB Conc 31.7 g/dL (31.8-35.4); Mean Corpuscular Hemoglobin 28.7 pg (27.0-31.2); Mean Corpuscular Volume 90.4 fl (81-99); Mean Platelet Volume 8.6 fl (7.4-10.4); Monocytes # 0.6 K/mm3 (0.1-1.0); Monocytes % 2.3 % (1.7-9.3); Neutrophils % 91.3 % (37.0-80.0); Platelet Count 333 K/mm3 (142-424); Red Blood Count 4.18 M/mm3 (4.20-5.40); Red Cell Distribution Width 15.7 % (11.5-17.5); White Blood Count 24.1 K/mm3 (4.8-10.8)
[2023-10-12 08:57] LABS: MANUAL DIFFERENTIAL MANUAL DIFFERENTIAL (MANUAL DIFF)
--- NOTE | 2023-10-12 08:59 | ECG_ITS ---
APPROVED REPORT Exam: Resting ECG HR:89 bpm ECG Measurements Heart Rate 89 AXES MS 129 P -17 QRSd 93 QRS -54 QT 337 T 61 QTc 384 Conclusion SINUS RHYTHM PATTERN CONSISTENT WITH PULMONARY DISEASE LEFT ANTERIOR FASCICULAR BLOCK [QRS AXIS <= -45, QR IN I, RS IN II] MINIMAL VOLTAGE CRITERIA FOR LVH, CONSIDER NORMAL VARIANT [MEETS CRITERIA IN ONE OF: R(aVL), S(V1), R(V5), R(V5/V6)+S(V1)] ABNORMAL ECG UNCONFIRMED REPORT Electronically signed by : Dov Gonzales MD 10/15/2023 17:16:11
[2023-10-12 09:03] LABS: Lactic Acid 1.5 mmol/L (0.7-2.1)
[2023-10-12 09:06] LABS: Lymphocytes % 2 % (10-50); Monocytes % 5 % (2-9); Neutrophils % 93 % (42-76); Total Cells Counted 100
[2023-10-12 09:07] LABS: Platelet Estimate Normal; RBC Morphology Normal
[2023-10-12 09:09] LABS: Hemoglobin A1C 5.9 % (4.0-6.0)
[2023-10-12 09:12] LABS: Alanine Aminotransferase 36 U/L (12-78); Albumin Level 3.5 g/dl (3.5-5.0); Albumin/Globulin Ratio 1.2 (1.1-1.8); Alkaline Phosphatase 118 U/L (38-126); Anion Gap 16.3 mEq/L (5-15); Aspartate Amino Transferase 43 U/L (14-36); Bilirubin,Total 0.5 mg/dl (0.2-1.3); Blood Urea Nitrogen 36 mg/dl (7-17); Carbon Dioxide 18 mmol/L (22.0-30.0); Chloride 107 mmol/L (98-107); Estimated Glomerular Filt Rate 47 ml/min (>60); GFR (African American) 57 ML/MIN (>60); Glucose 145 mg/dl (74-100); Potassium 5.3 mmoL/L (3.5-5.1); Sodium 136 mmol/L (136-145); Total Protein,Serum 6.5 g/dl (6.3-8.2)
[2023-10-12 09:13] LABS: Microscopic, Urine URINE MICROSCOPIC (MICROSCOPIC)
[2023-10-12 09:13] LABS: VBG Base Excess -8.8 mmol/L (-2.4-2.3); VBG HCO3 18.4 mmol/L (23-30); VBG Oxygen Saturation 64.8 % (50-70); VBG PCO2 42.9 mmol/L (35-51); VBG PH 7.25 mmol/L (7.31-7.41); VBG PO2 37.1 mmol/L (28-40); VBG Total CO2 19.7 mmol/L (23-27)
[2023-10-12 09:14] LABS: Salicylate < 1.0 mg/dL (2.0-20.0)
[2023-10-12 09:18] LABS: Appearance,Urine CLEAR (Clear); Bilirubin,Urine Negative (Negative); Blood, Urine Negative (Negative); Color,Urine YELLOW (Yellow); Glucose,Urine (UA) Negative (Negative); Ketones,Urine Negative (Negative); Leukocyte Esterase,Urine TRACE (Negative); Nitrate,Urine Negative (Negative); Protein,Urine 2+ (Negative); Specific Gravity, Urine >= 1.030 (1.005-1.030); Urobilinogen,Urine 0.2 EU/dl (0.2)
[2023-10-12 09:18] LABS: NT Pro Brain Natriuretic Pep. 403 pg/mL (0-450); Troponin I < 0.01 ng/ml (0.00-0.034)
[2023-10-12 09:20] LABS: T4 (Thyroxine) 5.3 ug/dl (5.53-11.0)
--- NOTE | 2023-10-12 09:20 | PC.NURSE ---
RT at BS placing pt on vapotherm
[2023-10-12 09:33] LABS: Thyroid Stimulating Hormone 0.65 uIU/mL (0.465-4.68)
--- NOTE | 2023-10-12 09:34 | PC.NURSE ---
pt to CT via stretcher on NRB for oxygen
[2023-10-12 09:35] LABS: Coronavirus 19, PCR Not Detected (NotDetected); Influenza A, PCR Not Detected (NotDetected); Influenza B, PCR Not Detected (NotDetected)
[2023-10-12 09:38] LABS: Amphetamine/Metha Screen,Urine Negative ng/ml (<1000)
[2023-10-12 09:39] LABS: Barbiturates Screen,Urine Negative ng/ml (<200); Benzodiazepines Screen,Urine Negative ng/ml (<200)
[2023-10-12 09:40] LABS: Cannabinoid Screen,Urine Negative ng/ml (<50)
[2023-10-12 09:41] LABS: Cocaine Screen,Urine Negative ng/ml (<300)
[2023-10-12 09:42] LABS: Methadone Screen,Urine Negative ng/ml (<300); Opiate Screen,Urine Negative ng/ml (<300)
[2023-10-12 09:43] LABS: Phencyclidine Screen,Urine Negative ng/ml (<25)
[2023-10-12 09:46] LABS: Bacteria,Urine Trace /lpf; RBC,Urine Occasional #/hpf (0-3); Squamous Epithelial Cell,Urine Occasional #/hpf (0-5); WBC,Urine Occasional #/hpf (0-3)
[2023-10-12 09:47] LABS: Acetone, Serum (Rapid) None Detected (None Detect)
--- NOTE | 2023-10-12 10:27 | CT_ITS ---
PROCEDURE INFORMATION: Exam: CT Abdomen And Pelvis With Contrast Exam date and time: 10/12/2023 9:49 AM Age: 83 years old Clinical indication: Abdominal pain; Generalized; Additional info: Abd pain TECHNIQUE: Imaging protocol: Computed tomography of the abdomen and pelvis with contrast. 3D rendering (Not supervised by radiologist): MIP and/or 3D reconstructed images were created by the technologist. Radiation optimization: All CT scans at this facility use at least one of these dose optimization techniques: automated exposure control; mA and/or kV adjustment per patient size (includes targeted exams where dose is matched to clinical indication); or iterative reconstruction. Contrast material: ISOVUE; Contrast volume: 70 ml; Contrast route: IV; REPORTING DATA: Count of CT and Cardiac NM exams in prior 12 months: This patient has received 4 known CTs and 0 known cardiac nuclear medicine studies in the 12 months prior to the current study. COMPARISON: CT BONY PELVIS 07/07/2023 10:32 PM FINDINGS: Lungs: Please refer to discussion of CT exam of the chest Liver: Normal. No mass. Gallbladder and bile ducts: Gallbladder has been removed. There is mild associated dilatation of the common bile duct. Pancreas: Unremarkable. Spleen: Normal. No splenomegaly. Adrenal glands: Normal. No mass. Kidneys and ureters: Kidneys are unremarkable. No calculi or hydronephrosis detected. Stomach and bowel: Numerous diverticula sigmoid colon. No evidence of acute diverticulitis.Limited: Study is technically limited due to motion artifact. Appendix: No evidence of appendicitis. Intraperitoneal space: Unremarkable. No free air. No significant fluid collection. Vasculature: Abdominal aorta and iliac vessels are diffusely calcified. There is no aortic aneurysm. Lymph nodes: Unremarkable. No enlarged lymph nodes. Urinary bladder: There is a Drummond catheter balloon within the urinary bladder which is collapsed and difficult to further assess. Reproductive: Unremarkable as visualized. Bones/joints: Mild scoliosis with multilevel asymmetric degenerative changes throughout the lumbar spine. Chronic grade 1 isthmic spondylolisthesis L5-S1 with advanced degenerative disc/endplate changes, stable. No acute bony abnormalities. Soft tissues: Mild diastasis of the abdominal wall with small fat containing umbilical hernia. IMPRESSION: 1. No acute findings within the abdomen or pelvis. 2. Sigmoid diverticulosis. No evidence of acute diverticulitis. 3. Additional chronic findings as above.
[2023-10-12 10:32] LABS: Ammonia < 9 umol/L (9-30)
--- NOTE | 2023-10-12 10:35 | PC.NURSE ---
Pt adjusted in bed for comfort. Dentures removed and placed in denture cup with pt label on outside. Oral care performed. No other needs or complaints voiced. Call light remains within reach.
[2023-10-12 11:04] LABS: Procalcitonin 0.125 ng/mL (0.0-2.0)
--- NOTE | 2023-10-12 11:15 | PC.NURSE ---
waiting environment coordinator back from hospitalist for admission
--- NOTE | 2023-10-12 11:33 | PC.NURSE ---
warehouse loader aware waiting chronometer repairer back from hospitalist for admission. Charge nurse on second floor states to house she has notified hospitalist to call ER back
--- NOTE | 2023-10-12 11:40 | PC.NURSE ---
DR RUFFIN S/W DR SANTIAGO FOR ADMISSION
--- NOTE | 2023-10-12 11:44 | PC.NURSE ---
HOME SCHOOL COORDINATOR NOTIFIED OF ADMISSION
--- NOTE | 2023-10-12 11:49 | PC.NURSE ---
ACADEMIC REGISTRAR REPORT BED ASSIGNMENT IS 218, STEP-DOWN
--- NOTE | 2023-10-12 12:20 | PC.NURSE ---
GAVE REPORT TO RAMESH WALKER ON MED/SURG
--- NOTE | 2023-10-12 13:18 | PC.NURSE ---
pt admitted to 218 from ED via stretcher, pt on vapotherm 20L and 60% FiO2, pt has 2 IV's left upper extremity and lovell catheter in place
--- NOTE | 2023-10-12 13:36 | PC.NURSE ---
notified MD Reeves that pt has no VTE prophylaxis ordered, MD Reeves stated entering orders now
--- NOTE | 2023-10-12 13:40 | EXP.PHA.CONS ---
Pharmacy Consult Date: 10/12/23 Time: 13:40 Referring provider: DR. SANTIAGO Reason for Consult:: VANCOMYCIN DOSING Allergies Allergy/AdvReac Type Severity Reaction Status Date / Time No Known Drug Allergies Allergy Unknown Verified 10/12/23 13:16 [NO KNOWN DRUG ALLERGIES] Home Medications Medication Instructions Recorded Confirmed Type ranolazine 500 mg tablet,extended 500 mg PO BID angina 90 days #180 03/11/19 09/23/23 History release,12 hr tabs sertraline 25 mg tablet 25 mg PO DAILY mood 90 days #90 03/11/19 09/23/23 History tabs levothyroxine 50 mcg tablet 50 mcg PO DAILY thyroid 07/14/20 09/23/23 History aspirin 325 mg tablet 325 mg PO DAILY Heart disease 01/27/21 09/23/23 History pantoprazole 40 mg tablet,delayed 40 mg PO BID acid reflux 01/28/21 09/23/23 History release rosuvastatin 40 mg tablet 40 mg PO DAILY Cholesterol 01/28/21 09/23/23 History gabapentin 300 mg capsule 300 mg PO TID Pain 03/23/21 09/23/23 History anastrozole 1 mg tablet 1 mg PO DAILY CHEMO 05/30/21 09/23/23 History sucralfate 1 gram tablet 1 gm PO ACHS stomach pain 03/20/22 09/23/23 History ipratropium 0.5 mg-albuterol 3 mg 3 ml inhalation BID COPD 05/08/22 09/23/23 History (2.5 mg base)/3 mL nebulization soln spironolactone 25 mg tablet 25 mg PO DAILY Edema #30 tabs 08/01/22 09/23/23 Rx clopidogrel 75 mg tablet 75 mg PO DAILY HX of stents #90 10/02/22 09/23/23 Rx tabs losartan 100 mg tablet 100 mg PO DAILY High blood 11/04/22 09/23/23 Rx pressure #90 tabs amlodipine 5 mg tablet 5 mg PO DAILY . 02/19/23 09/23/23 History metoprolol succinate 100 mg 100 mg PO DAILY . 02/19/23 09/23/23 History tablet,extended release 24 hr linaclotide 145 mcg capsule 145 mcg PO DAILY BOWELS 06/25/23 09/23/23 History hydrocodone 5 mg-acetaminophen 300 1 tab PO Q8H PRN severe pain #12 09/11/23 09/23/23 Rx mg tablet tabs hydrocodone 5 mg-acetaminophen 325 1 tab PO Q6H PRN pain 3 days #12 09/11/23 09/23/23 Rx mg tablet tabs New Prescriptions to Start Prescriptions: Height: 1.63 m Weight: 72.575 kg Laboratory Results:: Laboratory Results - last 24 hr 10/12/23 08:37: POC Glucose 166 H 10/12/23 08:46: WBC 24.1 H*, RBC 4.18 L, Hgb 12.0 L, Hct 37.8, MCV 90.4, MCH 28.7, MCHC 31.7 L, RDW 15.7, Plt Count 333, MPV 8.6, Neut % (Auto) 91.3 H, Lymph % (Auto) 5.7 L, [place] % (Auto) 2.3, Eos % (Auto) 0.5, Baso % (Auto) 0.2, Neut # (Auto) 22.0 H, Lymph # (Auto) 1.4, [place] # (Auto) 0.6, Eos # (Auto) 0.1, Baso # (Auto) 0.1, Total Counted 100, Neutrophils % (Manual) 93 H, Lymphocytes % (Manual) 2 L, Monocytes % (Manual) 5, Platelet Estimate Normal, RBC Morphology Normal, APTT 27.0, Sodium 136, Potassium 5.3 H, Chloride 107, Carbon Dioxide 18 L, Anion Gap 16.3 H, BUN 36 H, Creatinine 1.10 H, Estimated GFR 47 L, Est GFR ( Amer) 57 L, Glucose 145 H, Hemoglobin A1c 5.9, Lactate 1.5, Calcium 9.0, Total Bilirubin 0.5, AST 43 H, ALT 36, Alkaline Phosphatase 118, Troponin I < 0.01, NT-Pro-B Natriuret Pep 403, Total Protein 6.5, Albumin 3.5, Globulin 3.0, Albumin/Globulin Ratio 1.2, Procalcitonin 0.125, TSH 0.65, Thyroxine (T4) 5.3 L, Salicylates < 1.0 L, Acetone Level None detected 10/12/23 09:04: VBG pH 7.25 L, VBG pCO2 42.9, VBG pO2 37.1, VBG HCO3 18.4 L, VBG Total CO2 19.7 L, VBG O2 Saturation 64.8, VBG Base Excess -8.8 L 10/12/23 09:09: Urine Color Yellow, Urine Appearance Clear, Urine pH 6.0, Ur Specific [place] >= 1.030, Urine Protein 2+, Urine Glucose (UA) Negative, Urine Ketones Negative, Urine Blood Negative, Urine Nitrate Negative, Urine Bilirubin Negative, Urine Urobilinogen 0.2, Ur Leukocyte Esterase Trace, Urine RBC Occasional, Urine WBC Occasional, Ur Squamous Epith Cells Occasional, Urine Bacteria Trace, Urine Opiates Screen Negative, Urine Methadone Screen Negative, Ur Barbituates Screen Negative, Ur Phencyclidine Scrn Negative, Ur Amphetamines Screen Negative, U Benzodiazepines Scrn Negative, Urine Cocaine Screen Negative, U Marijuana (THC) Screen Ne
--- NOTE | 2023-10-12 13:49 | PC.NURSE ---
first troponin obtained at 1345, changed time for second troponin to 1645 so that will be 3 hours from collection of first troponin
[2023-10-12 14:21] LABS: Procalcitonin 0.149 ng/mL (0.0-2.0); Troponin I < 0.01 ng/ml (0.00-0.034)
--- NOTE | 2023-10-12 17:58 | EXP.HP ---
History of Present Illness *Admission Date: 10/12/23 *Reason for visit:: SOB *History of present illness: Patient is a 83-year-old female with past medical history of CAD hypertension, breast cancer, CHF, GERD who presented to hospital due to change in mental status, hypoxia. Patient is unable to provide medical history. Patient chart, no family is present at the bedside, patient reportedly lives at alf facility. Assessment Acute hypoxic respiratory failure satting less than 90% on room air Sepsis present on admission likely source pulmonary Pneumonia, presumed gram-positive pneumonia Acute on chronic CHF Hyperkalemia ANDRESSA on CKD CAD Hypertension Breast cancer GERD Plan Start vancomycin, Zosyn Check procalcitonin Check blood cultures MRSA nasal swab COVID-19 checked-negative, influenza checked - negative I have a bowel movement yesterday, hyperplastic We will watch the patient Holding off of nephrotoxic medication Consult pulmonary Resume home amlodipine, Plavix, levothyroxine, metoprolol, statin DVT prophylaxis-heparin PFSH PFSH Disclaimer: The information contained in this section may have been updated after the patient was seen, as this information can be updated by other users. Medical History Breast cancer, right [id number] 2.5cm ER: Positive [place]: Positive HER-2/ginger: negative Breast mass, right Encounter for pre-operative cardiovascular clearance FH: mastectomy HLD (hyperlipidemia) HTN (hypertension) Renal artery stenosis Simple adnexal cyst greater than 1 cm in diameter in postmenopausal patient Surgical History History of renal stent Bilateral renal stents MAY 2022 Hx of total mastectomy of right breast Stented coronary artery Family History Other No significant family history Social History (Updated 10/12/23 @ 13:25 by Mariah Malik RN) Smoking Status: Former smoker tobacco type: cigarettes packs per day: 1 alcohol intake: never substance use type: denies use current occupational status: retired Travel in the last 8 weeks: None household members: none housing: apartment current occupational exposures/hazards: No caffeine: No Review of Systems Review of Systems Review of systems:: unable to obtain Meds Home Medications and Allergies Home Medications Medication Instructions Recorded Confirmed Type ranolazine 500 mg tablet,extended 500 mg PO BID Angina 90 days #180 03/11/19 10/12/23 History release,12 hr tabs levothyroxine 50 mcg tablet 50 mcg PO DAILY thyroid 07/14/20 10/12/23 History aspirin 325 mg tablet 325 mg PO DAILY Heart disease 01/27/21 10/12/23 History pantoprazole 40 mg tablet,delayed 40 mg PO BID acid reflux 01/28/21 10/12/23 History release rosuvastatin 40 mg tablet 40 mg PO HS Cholesterol 01/28/21 10/12/23 History gabapentin 300 mg capsule 300 mg PO BID Neuropathy 03/23/21 10/12/23 History anastrozole 1 mg tablet 1 mg PO DAILY Chemotherapy 05/30/21 10/12/23 History sucralfate 1 gram tablet 1 gm PO ACHS Esophagitis 03/20/22 10/12/23 History clopidogrel 75 mg tablet 75 mg PO DAILY HX of stents #90 10/02/22 10/12/23 Rx tabs amlodipine 5 mg tablet 5 mg PO DAILY Hypertension 02/19/23 10/12/23 History metoprolol succinate 100 mg 100 mg PO DAILY Hypertension 02/19/23 10/12/23 History tablet,extended release 24 hr acetaminophen 500 mg tablet 1,000 mg PO Q6HP PRN Mild 10/12/23 10/12/23 History pain/fever albuterol sulfate 0.63 mg/3 mL 0.63 mg inhalation BID Copd 10/12/23 10/12/23 History solution for nebulization cholecalciferol (vitamin D3) 50 50 mcg PO DAILY Supplement 10/12/23 10/12/23 History mcg (2,000 unit) tablet (Vitamin D3) ipratropium 20 mcg-albuterol 100 1 puff inhalation QID Copd 10/12/23 10/12/23 History mcg/actuation mist for inhala
--- NOTE | 2023-10-12 20:59 | PC.NURSE ---
Addendum entered by Yesenia Minor RN 10/13/23 03:56: Pt SpO2 maintaining at 98-100% SpO2 while asleep after breathing tx. Original Note: Pt desatting to 87%-90% SpO2 on 30 L 80% FiO2 when asleep, SpO2 increased to 94-98% when awake. Pt denies requiring CPAP at night. RN increased HOB and instructed pt to take deep breaths. Pt able to take small, shallow breaths at this time. Informed Will, RT regarding situation. RT informed RN he was aware of situation.
[2023-10-13] VITALS (17 sets, daily range): BP systolic 93–145; BP diastolic 37–74; PULSE 60–100; RESP 18–30; TEMP 36.4–37.1; O2SAT 85–100; BMI 27.0
--- NOTE | 2023-10-13 03:55 | PC.NURSE ---
Catherine Mattson RN from [facility] called for pt update. Answered all questions at this time.
--- NOTE | 2023-10-13 04:13 | PC.NURSE ---
Shift summary: Pt AOx3 (sans situation) and drowsy throughout shift, but arousable to voice and able to follow commands. Vapotherm 30 L 80% FiO2 applied throughout shift, SpO2 98-100%. Beginning of shift, pt desatted when asleep, but issue resolved as shift progressed. Drummond catheter and R foot brace (from fall three weeks ago) in place. VSS. No acute events or issues overnight.
[2023-10-13 05:38] LABS: Basophils % 0.1 % (0.1-2.0); Eosinophils # 0.1 K/mm3 (0.0-0.4); Eosinophils % 0.4 % (0.1-12.0); Hematocrit 33.1 % (37.0-47.0); Lymphocytes # 1.6 K/mm3 (0.7-4.5); Lymphocytes % 6.2 % (10-50); Mean Corpuscular HGB Conc 31.4 g/dL (31.8-35.4); Mean Corpuscular Hemoglobin 28.1 pg (27.0-31.2); Mean Corpuscular Volume 89.3 fl (81-99); Mean Platelet Volume 8.2 fl (7.4-10.4); Monocytes # 1.1 K/mm3 (0.1-1.0); Monocytes % 4.3 % (1.7-9.3); Neutrophils # 22.3 K/mm3 (1.8-7.8); Platelet Count 330 K/mm3 (142-424); Red Cell Distribution Width 15.9 % (11.5-17.5); White Blood Count 25.1 K/mm3 (4.8-10.8)
[2023-10-13 05:42] LABS: MANUAL DIFFERENTIAL MANUAL DIFFERENTIAL (MANUAL DIFF)
[2023-10-13 05:43] LABS: Chloride 111 mmol/L (98-107); Potassium 3.9 mmoL/L (3.5-5.1); Sodium 141 mmol/L (136-145)
[2023-10-13 05:46] LABS: Anion Gap 14.9 mEq/L (5-15); Blood Urea Nitrogen 32 mg/dl (7-17); Calcium 8.2 mg/dl (8.4-10.2); Carbon Dioxide 19 mmol/L (22.0-30.0); Creatinine Clearance Estimated 39 mL/min (50-200); Estimated Glomerular Filt Rate 43 ml/min (>60); GFR (African American) 52 ML/MIN (>60); Glucose 121 mg/dl (74-100)
[2023-10-13 05:52] LABS: Hemoglobin 10.4 g/dL (12.2-16.2)
[2023-10-13 05:57] LABS: Lymphocytes % 10 % (10-50); Neutrophils % 90 % (42-76); Platelet Estimate Normal; RBC Morphology Normal; Total Cells Counted 100
--- NOTE | 2023-10-13 08:16 | SW/DCPLANNER ---
Addendum entered by Shira Dorsey 10/15/23 09:03: I have updated Aruna w/ [place] that the plan for this patient is to return today. Addendum entered by Shira Dorsey 10/14/23 11:16: I have updated Aruna that patient may return tomorrow. Original Note: This patient currently resides at [facility] level of care. I will continue to follow up w/ Aruna at [place] until discharge date is known. Updated patient information has been faxed.
--- NOTE | 2023-10-13 09:21 | PC.NURSE ---
0908 applied 2 lpm nc as pt desatting to 85 when sleeping. 09 o2 increased to 3lpm r/t pt o2 sats 88% when sleeping on 2lpm
--- NOTE | 2023-10-13 10:31 | EXP.PULM.CON ---
History of Present Illness History of present illness: Ms. Finnegan is a 83-year-old female with a reported history of CAD, hypertension, CHF, GERD presented with worsening mentation and hypoxic respiratory failure. [facility] Disclaimer: The information contained in this section may have been updated after the patient was seen, as this information can be updated by other users. Medical History (Updated 10/13/23 @ 11:31 by Adolph Orellana MD) Acute respiratory failure with hypoxia Breast cancer, right Breast mass, right Encounter for pre-operative cardiovascular clearance FH: mastectomy HLD (hyperlipidemia) HTN (hypertension) Renal artery stenosis Simple adnexal cyst greater than 1 cm in diameter in postmenopausal patient Surgical History History of renal stent Hx of total mastectomy of right breast Stented coronary artery Family History Other No significant family history Social History (Updated 10/12/23 @ 13:25 by Mariah Malik RN) Smoking Status: Former smoker tobacco type: cigarettes packs per day: 1 alcohol intake: never substance use type: denies use current occupational status: retired Travel in the last 8 weeks: None household members: none housing: apartment current occupational exposures/hazards: No caffeine: No Review of Systems Review of Systems Review of systems (narrative): Limited given patient being lethargic with complaints of fatigue worsening cough productive phlegm and right lower extremity pain *Cardiovascular Cardiovascular: Reports dyspnea, Reports dyspnea on exertion and Reports orthopnea *Respiratory Respiratory: Reports change in phlegm color, Reports chest congestion, Reports dyspnea, Reports dyspnea on exertion, Reports excessive phlegm production, Denies hemoptysis, Denies pain on inspiration and Reports wheezing *Genitourinary Comments: Complains of dysuria and urgency *Musculoskeletal Comments: Right lower extremity pain, unna boot in place Allergic/Immunologic Allergic/Immunologic: Reports wheezing Pulmonology Exam Inpatient Vital signs and Labs for Last 24 Hours: Temp Pulse Resp BP Pulse Ox O2 Del Method O2 Flow Rate 97.5 F L 69 18 122/47 L 90 L Nasal Cannula 3 10/13/23 08:00 10/13/23 10:30 10/13/23 10:30 10/13/23 10:00 10/13/23 10:00 10/13/23 10:00 10/13/23 10:00 FiO2 80 10/13/23 06:00 Laboratory Results - last 24 hr 10/12/23 08:46: Procalcitonin 0.125 10/12/23 10:15: Ammonia < 9 L 10/12/23 13:40: Troponin I < 0.01, Procalcitonin 0.149 10/13/23 05:26: WBC 25.1 H*, RBC 3.70 L, Hgb 10.4 L D, Hct 33.1 L, MCV 89.3, MCH 28.1, MCHC 31.4 L, RDW 15.9, Plt Count 330, MPV 8.2, Neut % (Auto) 89.0 H, Lymph % (Auto) 6.2 L, [place] % (Auto) 4.3, Eos % (Auto) 0.4, Baso % (Auto) 0.1, Neut # (Auto) 22.3 H, Lymph # (Auto) 1.6, [place] # (Auto) 1.1 H, Eos # (Auto) 0.1, Baso # (Auto) 0.0, Total Counted 100, Neutrophils % (Manual) 90 H, Lymphocytes % (Manual) 10, Platelet Estimate Normal, RBC Morphology Normal, Sodium 141, Potassium 3.9 D, Chloride 111 H, Carbon Dioxide 19 L, Anion Gap 14.9, BUN 32 H, Creatinine 1.20 H, Estimated Creat Clear 39, Estimated GFR 43 L, Est GFR ( Amer) 52 L, Glucose 121 H, Calcium 8.2 L I & O for Labs for Last 24 Hours: Intake & Output 10/10/23 10/11/23 10/12/23 10/13/23 23:59 23:59 23:59 23:59 Intake Total 60 / 350 480 / 480 Output Total 600 / 800 200 / 200 Balance -540 / -450 280 / 280 Weight 163 lb 4 oz 158 lb 4.67 oz Constitutional: Present severe distress Head: Present normocephalic and atraumatic ENT: Present normal exam, normal oropharynx and mucous membranes moist Neck: Present normal inspection and full ROM Respiratory: Present prolonged expiratory phase, respiratory distress, rhonchi, wheezes and diminished air movement; Absent normal respiratory effort or able to speak in complete sentenc
--- NOTE | 2023-10-13 10:55 | DIET.NUTRFU ---
Chart reviewed, patient follows a MSOFT ground with thin liquids at [facility]. She also avoids seed, nuts and [place]s at [place]. Changed diet and notified kitchen
--- NOTE | 2023-10-13 11:45 | EXP.ACUTE.PN ---
Subjective *Date: 10/13/23 *Time: 11:30 Interval history: On morning rounds, patient's oxygen saturation is in the low 90s on room air. Wears oxygen at home to sleep. Labs reviewed, white cell count stable. Slight worsening in kidney function. No nausea or vomiting. Ate a small amount of oatmeal, not very hungry today. Interactive on exam. Denies chest pain, nausea, vomiting. Medical Exam Vital signs and Labs for Last 24 Hours: Vital Signs Temp Pulse Pulse Resp BP BP Pulse Ox 10/13/23 16:00 60 10/13/23 15:20 10/13/23 15:10 98.2 F 65 22 120/74 100 10/13/23 13:56 10/13/23 12:00 60 10/13/23 11:56 98.4 F 64 24 93/49 L 100 10/13/23 11:00 10/13/23 10:30 69 18 10/13/23 10:00 63 25 H 122/47 L 90 L 10/13/23 08:00 80 10/13/23 09:20 88 L 10/13/23 09:12 85 L 10/13/23 09:08 10/13/23 08:00 97.5 F L 10/13/23 08:00 76 26 H 136/53 L 96 10/13/23 07:52 78 98 10/13/23 06:43 10/13/23 06:00 72 26 H 136/46 L 100 10/13/23 04:00 60 10/13/23 05:00 10/13/23 04:00 98.0 F 66 30 H 137/42 L 100 10/13/23 04:00 100 10/13/23 03:00 10/13/23 00:00 90 10/13/23 02:00 90 30 H 120/45 L 100 10/13/23 01:00 10/13/23 00:00 98.4 F 100 H 30 H 142/37 H 100 10/12/23 23:00 10/12/23 22:00 100 H 30 H 126/41 L 100 10/12/23 20:00 100 H 10/12/23 21:15 100 H 30 H 101/44 L 96 10/12/23 21:15 10/12/23 20:00 106 H 100 10/12/23 20:00 106 H 30 H 153/67 H 153/67 H 100 10/12/23 19:50 98.9 F 10/12/23 18:58 O2 Del Method O2 Flow Rate FiO2 10/13/23 16:00 10/13/23 15:20 Nasal Cannula 3 10/13/23 15:10 Nasal Cannula 3 10/13/23 13:56 Nasal Cannula 3 10/13/23 12:00 10/13/23 11:56 Nasal Cannula 3 10/13/23 11:00 Nasal Cannula 3 10/13/23 10:30 10/13/23 10:00 Nasal Cannula 3 10/13/23 08:00 10/13/23 09:20 Nasal Cannula 2 10/13/23 09:12 Room Air 10/13/23 09:08 Nasal Cannula 2 10/13/23 08:00 10/13/23 08:00 Room Air 10/13/23 07:52 Room Air 10/13/23 06:43 Room Air 10/13/23 06:00 Vapotherm 30 80 10/13/23 04:00 10/13/23 05:00 Vapotherm 30 10/13/23 04:00 Vapotherm 30 80 10/13/23 04:00 Vapotherm 30 80 10/13/23 03:00 Vapotherm 30 10/13/23 00:00 10/13/23 02:00 Vapotherm 30 80 10/13/23 01:00 Vapotherm 30 10/13/23 00:00 Vapotherm 30 80 10/12/23 23:00 Vapotherm 30 10/12/23 22:00 Vapotherm 30 80 10/12/23 20:00 10/12/23 21:15 Vapotherm 30 80 10/12/23 21:15 Vapotherm 30 10/12/23 20:00 Vapotherm 30 80 10/12/23 20:00 Vapotherm 30 80 10/12/23 19:50 10/12/23 18:58 Vapotherm 30 Intake and Output 10/13/23 10/13/23 10/13/23 07:59 15:59 23:59 Intake Total 290 / 720 310 / 720 120 / 720 Output Total 200 / 400 200 / 400 0 / 400 Balance 90 / 320 110 / 320 120 / 320 Intake: Intake, Oral Amount 240 / 620 260 / 620 120 / 620 Intake, Total IV Amount 50 / 100 50 / 100 Pipercillin/Tazo 3.375 gm In 0. 50 / 100 50 / 100 9 % Sodium Chloride 50 ml @ 100 mls/hr IV Q6H [facility] Rx#:[id number] Output: Output, Urine Amount 200 / 200 0 / 200 Output, Urine Amount (Catheter) 200 / 200 [place] 200 / 200 Other: Number of Unmeasured Voids 0 1 Number of Bowel Movements 1 Weight 71.8 kg 71.8 kg Patient Weight 10/13/23 23:59 Weight 71.8 kg Laboratory Results - last 24 hr 10/13/23 05:26: WBC 25.1 H*, RBC 3.70 L, Hgb 10.4 L D, Hct 33.1 L, MCV 89.3, MCH 28.1, MCHC 31.4 L, RDW 15.9, Plt Count 330, MPV 8.2, Neut % (Auto) 89.0 H, Lymph % (Auto) 6.2 L, [place] % (Auto) 4.3, Eos % (Auto) 0.4, Baso % (Auto) 0.1, Neut # (Auto) 22.3 H, Lymph # (Auto) 1.6, [place] # (Auto) 1.1 H, Eos # (Auto) 0.1, Baso # (Auto) 0.0, Total Counted 100, Neutrophils % (Manual) 90 H, Lymphocytes % (Man
--- NOTE | 2023-10-13 19:08 | PC.NURSE ---
A&O TO NAME AND BIRTHDAY ONLY. DIMINISHED LUNG SOUNDS NOTED THROUGHOUT. EXPIRATORY RHONCHI NOTED IN LEFT LOBE. COUGH NOTED. SPUTUM SENT TO LAB. SOFT NONTENDER ABDOMEN NOTED. HAD BM EARLIER THIS AM. ACTIVE BOWEL SOUNDS NOTED. +1 PULSES NOTED THROUGHOUT. HAD YEAGER EARLIER BUT IT WAS REMOVED. BRIEF IN PLACE. HAS VOIDED SINCE YEAGER WAS REMOVED. CHANGED NEEDED. PT TURNED Q2 HOURS TO PREVENT SKIN BREAKDOWN. BED ALARM ON TO PROMOTE SAFETY. BED IN LOWEST POSITION. CALL LIGHT WITHIN REACH.
[2023-10-14] VITALS (14 sets, daily range): BP systolic 143–159; BP diastolic 54–65; PULSE 65–88; RESP 16–24; TEMP 36.5–37; O2SAT 90–96; BMI 27.8
--- NOTE | 2023-10-14 06:00 | XR_ITS ---
PROCEDURE INFORMATION: Exam: XR Chest Exam date and time: 10/14/2023 5:22 AM Age: 83 years old Clinical indication: Condition or disease; Lung condition and disease; Pneumonia; Additional info: Pnm TECHNIQUE: Imaging protocol: Radiologic exam of the chest. Views: 1 view. COMPARISON: CR XR CHEST PORTABLE 10/12/2023 9:59 AM FINDINGS: Lungs: Stable bilateral lower lobe infiltrates are identified. Pleural spaces: Unremarkable. No pleural effusion. No pneumothorax. Heart/Mediastinum: Unremarkable. No cardiomegaly. Bones/joints: Unremarkable. IMPRESSION: Stable bilateral lower lobe infiltrates.
[2023-10-14 06:08] LABS: Basophils % 0.2 % (0.1-2.0); Eosinophils # 0.1 K/mm3 (0.0-0.4); Eosinophils % 0.7 % (0.1-12.0); Hemoglobin 9.7 g/dL (12.2-16.2); Lymphocytes # 1.6 K/mm3 (0.7-4.5); Mean Corpuscular HGB Conc 32.4 g/dL (31.8-35.4); Mean Corpuscular Hemoglobin 28.4 pg (27.0-31.2); Mean Corpuscular Volume 87.5 fl (81-99); Mean Platelet Volume 8.1 fl (7.4-10.4); Monocytes # 0.9 K/mm3 (0.1-1.0); Monocytes % 4.6 % (1.7-9.3); Neutrophils # 17.4 K/mm3 (1.8-7.8); Neutrophils % 86.6 % (37.0-80.0); Platelet Count 324 K/mm3 (142-424); Red Blood Count 3.42 M/mm3 (4.20-5.40); Red Cell Distribution Width 15.8 % (11.5-17.5)
[2023-10-14 06:09] LABS: MANUAL DIFFERENTIAL MANUAL DIFFERENTIAL (MANUAL DIFF)
[2023-10-14 06:21] LABS: Eosinophils % 1 % (0-3); Lymphocytes % 8 % (10-50); Monocytes % 6 % (2-9); Neutrophils % 85 % (42-76); Total Cells Counted 100
[2023-10-14 06:22] LABS: Hypochromasia 1+; Platelet Estimate Normal
[2023-10-14 06:36] LABS: Anion Gap 13.4 mEq/L (5-15); Blood Urea Nitrogen 27 mg/dl (7-17); Calcium 8.3 mg/dl (8.4-10.2); Carbon Dioxide 17 mmol/L (22.0-30.0); Chloride 110 mmol/L (98-107); Creatinine Clearance Estimated 48 mL/min (50-200); Estimated Glomerular Filt Rate 53 ml/min (>60); GFR (African American) 64 ML/MIN (>60); Glucose 122 mg/dl (74-100); Potassium 3.4 mmoL/L (3.5-5.1); Sodium 137 mmol/L (136-145)
[2023-10-14 07:08] LABS: Thyroid Stimulating Hormone 0.44 uIU/mL (0.465-4.68)
--- NOTE | 2023-10-14 09:43 | EXP.PULM.PN ---
Subjective *Date: 10/14/23 *Time: 11:25 Interval history: No acute respiratory events overnight. Patient admits improvement in her respiratory symptoms. Pulmonology Exam Inpatient Vital signs and Labs for Last 24 Hours: Temp Pulse Resp BP Pulse Ox O2 Del Method O2 Flow Rate 98.6 F 79 24 145/65 H 90 L Nasal Cannula 4 10/14/23 07:34 10/14/23 07:34 10/14/23 07:34 10/14/23 07:34 10/14/23 07:34 10/14/23 07:34 10/14/23 07:34 FiO2 80 10/13/23 06:00 Laboratory Results - last 24 hr 10/14/23 05:53: WBC 20.0 H, RBC 3.42 L, Hgb 9.7 L, Hct 30.0 L, MCV 87.5, MCH 28.4, MCHC 32.4, RDW 15.8, Plt Count 324, MPV 8.1, Neut % (Auto) 86.6 H, Lymph % (Auto) 8.0 L, [place] % (Auto) 4.6, Eos % (Auto) 0.7, Baso % (Auto) 0.2, Neut # (Auto) 17.4 H, Lymph # (Auto) 1.6, [place] # (Auto) 0.9, Eos # (Auto) 0.1, Baso # (Auto) 0.0, Total Counted 100, Neutrophils % (Manual) 85 H, Lymphocytes % (Manual) 8 L, Monocytes % (Manual) 6, Eosinophils % (Manual) 1, Platelet Estimate Normal, Hypochromasia 1+, Sodium 137, Potassium 3.4 L, Chloride 110 H, Carbon Dioxide 17 L, Anion Gap 13.4, BUN 27 H, Creatinine 1.00, Estimated Creat Clear 48, Estimated GFR 53 L, Est GFR ( Amer) 64 D, Glucose 122 H, Calcium 8.3 L, TSH 0.44 L D I & O for Labs for Last 24 Hours: Intake & Output 10/11/23 10/12/23 10/13/23 10/14/23 23:59 23:59 23:59 23:59 Intake Total 60 / 350 720 / 720 270 / 270 Output Total 600 / 800 400 / 400 0 / 0 Balance -540 / -450 320 / 320 270 / 270 Weight 163 lb 4 oz 158 lb 4.67 oz 162 lb 11.2 oz Constitutional: Present moderate distress Head: Present normocephalic and atraumatic ENT: Present normal exam, normal oropharynx and mucous membranes moist Neck: Present normal inspection and full ROM Respiratory: Present rhonchi, normal respiratory effort and able to speak in complete sentences; Absent respiratory distress or wheezes Cardiac: Present S1/S2, Tachycardia and radial pulses present GI: Present soft and distention; Absent tenderness or guarding Rectal (female): Present deferred (female): Present deferred Skin: Present intact; Absent cyanosis or jaundice Neuro: Present alert and awake; Absent oriented x 3 Extremities: Present normal inspection; Absent clubbing or cyanosis Psychiatric: Present normal affect and cooperative Assessment and Plan *Assessment and plan (1) Acute respiratory failure with hypoxia: Status: Acute Category: Medical Code(s): J96.01 - Acute respiratory failure with hypoxia (2) Pneumonia: Status: Acute Qualifiers: Laterality: left Lung location: lower lobe of lung Pneumonia type: due to unspecified organism Qualified Code(s): J18.9 - Pneumonia, unspecified organism Category: Medical Code(s): J18.9 - Pneumonia, unspecified organism Plan Ms. Finnegan is a 83-year-old female with a reported history of CAD, hypertension, CHF, GERD presented with worsening mentation and hypoxic respiratory failure CTA upon admission, motion artifact no evidence of large/proximal pulmonary embolism. Bilateral lower lobe consolidation, left greater than right. No effusion noted. Significant neutrophilic leukocytosis upon admission, worsening. COVID-19 and flu PCR negative. CT abdomen no acute findings upon admission. Patient was initiated on vancomycin and Zosyn upon admission. Blood and sputum cultures along with nasal MRSA PCR pending Will update: Continue to receive linezolid and cefepime. Leukocytosis improving. Stable oxygen requirements. Chest x-ray from this morning stable, no worsening. Sputum cultures and blood cultures and nasal MRSA PCR pending. BUN/creatinine improving. Oliguria. Improving mentation. Responding to verbal commands appropriately. Admits improvement in her symptoms Plan: Incentive spirometry, out of bed to chair, activity as tolerated Continue NC O2 Supplementation as needed to maintain O2 saturation 90% and above DuoNebs every 6 hours on scheduled basis, w
--- NOTE | 2023-10-14 16:32 | PC.NURSE ---
Pt alert to name, birthday, year, and county throughout shift. Pt is unsure of situation to why she is in the hospital. Pt lung sounds bilaterally diminished. Abdomen soft and nontender. Active bowel sounds. Patient incontinent with brief. Pt bed alarm on, bed in lowest position. Pt using 4L NC throughout shift with O2 sat >90%. Pt has had no complaints through shift.
--- NOTE | 2023-10-14 20:00 | EXP.ACUTE.PN ---
Subjective *Date: 10/14/23 *Time: 21:17 Interval history: Showing clinical improvement. On 4 L nasal cannula this morning. Chest imaging today however shows slight increase in right lower and left lower lobe opacification. White cell count improving. Patient more alert and interactive on exam. States she is feeling better. Tolerating p.o. intake. Afebrile. No nausea, chest pain, vomiting or diarrhea. Medical Exam Vital signs and Labs for Last 24 Hours: Vital Signs Temp Pulse Pulse Resp BP Pulse Ox O2 Del Method 10/14/23 18:44 77 10/14/23 18:42 74 10/14/23 18:42 Nasal Cannula 10/14/23 18:08 Nasal Cannula 10/14/23 17:00 Nasal Cannula 10/14/23 16:00 68 10/14/23 15:52 98.5 F 65 18 159/62 H 96 Room Air 10/14/23 14:58 Nasal Cannula 10/14/23 12:00 74 10/14/23 12:00 98.4 F 71 19 143/55 H 95 Nasal Cannula 10/14/23 13:00 Nasal Cannula 10/14/23 08:00 68 10/14/23 10:58 77 10/14/23 10:58 88 10/14/23 11:00 Nasal Cannula 10/14/23 08:00 Nasal Cannula 10/14/23 09:00 Nasal Cannula 10/13/23 23:00 Nasal Cannula 10/13/23 21:00 Nasal Cannula 10/14/23 07:34 98.6 F 79 24 145/65 H 90 L Nasal Cannula 10/14/23 06:00 94 L Nasal Cannula 10/14/23 05:56 72 10/14/23 05:56 76 10/14/23 04:00 70 10/14/23 04:00 98.0 F 69 22 147/56 H 91 L Nasal Cannula 10/14/23 00:00 80 10/14/23 00:00 97.7 F 77 20 149/63 H 92 L Nasal Cannula 10/13/23 23:57 71 10/13/23 23:57 72 O2 Flow Rate 10/14/23 18:44 10/14/23 18:42 10/14/23 18:42 4 10/14/23 18:08 4 10/14/23 17:00 4 10/14/23 16:00 10/14/23 15:52 10/14/23 14:58 4 10/14/23 12:00 10/14/23 12:00 10/14/23 13:00 4 10/14/23 08:00 10/14/23 10:58 10/14/23 10:58 10/14/23 11:00 4 10/14/23 08:00 4 10/14/23 09:00 4 10/13/23 23:00 4 10/13/23 21:00 3 10/14/23 07:34 4 10/14/23 06:00 6 10/14/23 05:56 10/14/23 05:56 10/14/23 04:00 10/14/23 04:00 5 10/14/23 00:00 10/14/23 00:00 2 10/13/23 23:57 10/13/23 23:57 Intake and Output 10/14/23 10/14/23 10/14/23 07:59 15:59 23:59 Intake Total 270 / 1300 270 / 1300 760 / 1300 Output Total 0 / 0 0 / 0 0 / 0 Balance 270 / 1300 270 / 1300 760 / 1300 Intake: Intake, Oral Amount 270 / 900 270 / 900 360 / 900 Intake, Total IV Amount 400 / 400 Cefepime HCl 2 gm In 0.9 % 100 / 100 Sodium Chloride 100 ml @ 200 mls/hr IV Q12H [facility] Rx#:[id number] Linezolid 600 mg In 300 ml @ 300 / 300 300 mls/hr IV Q12H [facility] Rx#: [id number] Output: Output, Urine Amount 0 / 0 0 / 0 0 / 0 Other: Number of Voids 0 0 Number of Unmeasured Voids 2 Number of Bowel Movements 1 Weight 73.799 kg Patient Weight 10/14/23 23:59 Weight 73.799 kg Laboratory Results - last 24 hr 10/14/23 05:53: WBC 20.0 H, RBC 3.42 L, Hgb 9.7 L, Hct 30.0 L, MCV 87.5, MCH 28.4, MCHC 32.4, RDW 15.8, Plt Count 324, MPV 8.1, Neut % (Auto) 86.6 H, Lymph % (Auto) 8.0 L, [place] % (Auto) 4.6, Eos % (Auto) 0.7, Baso % (Auto) 0.2, Neut # (Auto) 17.4 H, Lymph # (Auto) 1.6, [place] # (Auto) 0.9, Eos # (Auto) 0.1, Baso # (Auto) 0.0, Total Counted 100, Neutrophils % (Manual) 85 H, Lymphocytes % (Manual) 8 L, Monocytes % (Manual) 6, Eosinophils % (Manual) 1, Platelet Estimate Normal, Hypochromasia 1+, Sodium 137, Potassium 3.4 L, Chloride 110 H, Carbon Dioxide 17 L, Anion Gap 13.4, BUN 27 H, Creatinine 1.00, Estimated Creat Clear 48, Estimated GFR 53 L, Est GFR ( Amer) 64 D, Glucose 122 H, Calcium 8.3 L, TSH 0.44 L D I & O for Labs for Last 24 Hours: Intake & Output 10/11/23 10/12/23 10/13/23 10/14/23 23:59 23:59 23:59 23:59 Intake Total 60 / 350 720 / 720 1300 / 1300 Output Total 600 / 800 400 / 400 0 / 0 Balance -540 / -450 320 / 320 1300 / 1300 Weight 74.049 kg 71.8 kg 73.799 kg
[2023-10-15] VITALS: BP 131/60; PULSE 70; PULSE 75; RESP 18; TEMP 37.7; O2SAT 95
[2023-10-15 04:00] VITALS: BP 122/55; PULSE 69; PULSE 70; RESP 18; TEMP 36.4; O2SAT 94; BMI 28.0
[2023-10-15 05:46] VITALS: PULSE 66; PULSE 68; O2SAT 93
[2023-10-15 06:21] LABS: Basophils % 0.2 % (0.1-2.0); Eosinophils # 0.2 K/mm3 (0.0-0.4); Eosinophils % 1.4 % (0.1-12.0); Hematocrit 29.5 % (37.0-47.0); Hemoglobin 9.8 g/dL (12.2-16.2); Lymphocytes # 1.3 K/mm3 (0.7-4.5); Lymphocytes % 9.7 % (10-50); Mean Corpuscular HGB Conc 33.2 g/dL (31.8-35.4); Mean Corpuscular Hemoglobin 29.1 pg (27.0-31.2); Mean Corpuscular Volume 87.6 fl (81-99); Mean Platelet Volume 8.2 fl (7.4-10.4); Monocytes # 0.6 K/mm3 (0.1-1.0); Monocytes % 4.8 % (1.7-9.3); Neutrophils # 11.2 K/mm3 (1.8-7.8); Neutrophils % 83.9 % (37.0-80.0); Platelet Count 324 K/mm3 (142-424); Red Blood Count 3.37 M/mm3 (4.20-5.40); Red Cell Distribution Width 15.7 % (11.5-17.5); White Blood Count 13.4 K/mm3 (4.8-10.8)
[2023-10-15 06:30] LABS: Anion Gap 13.3 mEq/L (5-15); Blood Urea Nitrogen 18 mg/dl (7-17); Carbon Dioxide 17 mmol/L (22.0-30.0); Chloride 108 mmol/L (98-107); Creatinine Clearance Estimated 48 mL/min (50-200); Estimated Glomerular Filt Rate 60 ml/min (>60); GFR (African American) 72 ML/MIN (>60); Glucose 100 mg/dl (74-100); Potassium 3.3 mmoL/L (3.5-5.1); Sodium 135 mmol/L (136-145)
[2023-10-15 08:00] VITALS: BP 165/75; PULSE 60; PULSE 68; RESP 21; TEMP 36.9; O2SAT 98
--- NOTE | 2023-10-15 08:33 | EXP.DC.SUM ---
General Admission date:: 10/12/23 Discharge date: 10/15/23 HPI HPI HPI: Patient is a 83-year-old female with past medical history of CAD hypertension, breast cancer, CHF, GERD who presented to hospital due to change in mental status, hypoxia. Patient is unable to provide medical history. Patient chart, no family is present at the bedside, patient reportedly lives at group home facility. Assessment Acute hypoxic respiratory failure satting less than 90% on room air Sepsis present on admission likely source pulmonary Pneumonia, presumed gram-positive pneumonia Acute on chronic CHF Hyperkalemia ANDRESSA on CKD Hospital Course Hospital Course Hospital Course: Patient is a 83-year-old female with past medical history of CAD hypertension, breast cancer, CHF, GERD who presented to hospital due to change in mental status, hypoxia. Interactive on exam this morning. Showing continued improvement daily. White cell count improved to 13.5. On 2 L nasal cannula oxygen. Tolerating p.o. intake and medications. Stable for discharge back to nursing facility. Problems addressed during hospitalization as follows: Pneumonia/acute hypoxemic respiratory failure Sepsis, resolving -Pulmonology consulted, appreciate their recommendations. Transitioned to linezolid and levofloxacin. Will complete 7 days total of antibiotics. MRSA swab was positive. Sputum cultures remain negative. Had single bottle from blood culture come back positive, dsuspected to be commensal. Will continue coverage however for both gram-positive and healthcare acquired pneumonia. Will complete 7 days total of Zyvox with 3 more days at 600 mg twice daily. Levaquin is renally dosed every 48 hours. Due for next dose on 10/16. Tolerating 2 L nasal cannula oxygen with good saturation greater 90%. Continue DuoNebs as needed every 6 hours. Leukocytosis improved significantly from 25 on admission to 13.5 on day of discharge. Long-acting inhaler added at discharge. -Repeat CBC, CMP, magnesium in 1 week ANDRESSA on CKD -Creatinine normalized. 0.9 on day of discharge with BUN of 18. Electrolytes acceptable with potassium 3.3. Appears at baseline kidney function CAD Hypertension - Continue amlodipine 5 mg daily, Lipitor 40 mg nightly, Plavix 75 mg daily, ranolazine 500 mg extended release twice daily, metoprolol 100 mg daily CAD Continue levothyroxine 50 mcg daily for hypothyroidism, TSH normal at 0.44 Continue pantoprazole 40 mg daily per home regimen Exam Data for Last 24 hours Vital signs and Labs for Last 24 Hours: Temp Pulse Resp BP Pulse Ox O2 Del Method O2 Flow Rate 97.6 F 66 18 122/55 L 93 L Nasal Cannula 4 10/15/23 04:00 10/15/23 05:46 10/15/23 04:00 10/15/23 04:00 10/15/23 05:46 10/15/23 06:45 10/15/23 06:45 FiO2 80 10/13/23 06:00 Laboratory Results - last 24 hr 10/15/23 05:58: WBC 13.4 H D, RBC 3.37 L, Hgb 9.8 L, Hct 29.5 L, MCV 87.6, MCH 29.1, MCHC 33.2, RDW 15.7, Plt Count 324, MPV 8.2, Neut % (Auto) 83.9 H, Lymph % (Auto) 9.7 L, [place] % (Auto) 4.8, Eos % (Auto) 1.4, Baso % (Auto) 0.2, Neut # (Auto) 11.2 H, Lymph # (Auto) 1.3, [place] # (Auto) 0.6, Eos # (Auto) 0.2, Baso # (Auto) 0.0, Sodium 135 L, Potassium 3.3 L, Chloride 108 H, Carbon Dioxide 17 L, Anion Gap 13.3, BUN 18 H D, Creatinine 0.90, Estimated Creat Clear 48, Estimated GFR 60, Est GFR ( Amer) 72, Glucose 100, Calcium 8.0 L, Magnesium 2.0 I & O for Last 24 hours: Intake & Output 10/12/23 10/13/23 10/14/23 10/15/23 23:59 23:59 23:59 23:59 Intake Total 60 / 350 720 / 720 1300 / 1300 Output Total 600 / 800 400 / 400 0 / 0 0 / 0 Balance -540 / -450 320 / 320 1300 / 1300 0 / 0 Weight 74.049 kg 71.8 kg 73.799 kg 74.661 kg Microbiology Reports for the Last 24 Hours: Microbiology 10/12/23 19:45 Nose MRSA Culture - Final 10/12/23 08:52 Blood Blood Culture - Preliminary Constitutional Constitutional: no acute distress, average body habitus, chronically ill ap
--- NOTE | 2023-10-15 10:18 | PC.NURSE ---
94% ON 2LNC
[2023-10-15 10:43] VITALS: PULSE 77; PULSE 78
[2023-10-15 12:00] VITALS: BP 144/58; PULSE 68; PULSE 70; RESP 21; TEMP 36.9; O2SAT 94
--- NOTE | 2023-10-16 10:05 | PC.NURSE ---
pt culture results on worklist, Notifieid Dr. Tinsley, who reviewed pts chart and culture results. Gave verbal order for Bactrim DS 800-160 1 tablet PO BID x14 days, 28 tablets. States not to stop Levaquin or zyvox. contacted [facility]. Spoke with pts nurse SISSY Ramos. notified her of blood culture results. Gave her verbal prescription for Bactrim(as above) per Dr. Tinsley and to not stop other antibiotics. fax number obtained to fax over culture results to [facility]
== END 2023-10-15 16:12 | DRG 871 ==
LOC: ER 11:21 → 2ND 13:36
PROVIDERS: Internal Medicine Adolescent Medicine; Admitting Provider Internal Medicine; Emergency Provider Emergency Medicine; PCP Internal Medicine Adolescent Medicine; Visit Provider Internal Medicine
DX: A41.9 Sepsis, unspecified organism (principal); J15.9 Unspecified bacterial pneumonia; J96.01 Acute respiratory failure with hypoxia; I13.0 Hypertensive heart and chronic kidney disease with heart failure and stage 1 through stage 4 chronic kidney disease, or unspecified chronic kidney disease; R65.20 Severe sepsis without septic shock; E78.5 Hyperlipidemia, unspecified; Z87.440 Personal history of urinary (tract) infections; E03.9 Hypothyroidism, unspecified; N18.9 Chronic kidney disease, unspecified; Z87.891 Personal history of nicotine dependence; K21.9 Gastro-esophageal reflux disease without esophagitis; E87.5 Hyperkalemia; Z95.5 Presence of coronary angioplasty implant and graft; C50.511 Malignant neoplasm of lower-outer quadrant of right female breast; Z17.0 Estrogen receptor positive status [ER+]
CPT/HCPCS: 36415; 70450; 71045; 71275; 74177; 80048; 80053; 80305; 80329; 81001; 82009; 82140; 82803; 82962; 83036; 83605; 83735; 83880; 84145; 84436; 84443; 84484; 85007; 85025; 85730; 87040; 87070; 87081; 87205; 87636; 93005; 94640; 94760; 99291; J1956; J2020; J2543; Q9967

== ENCOUNTER → 2023-10-28 10:03 | Outpatient (CLI) | payer MEDICARE, SELFPAY ==
--- NOTE | 2023-10-28 10:08 | XR_ITS ---
FINAL REPORT CLINICAL HISTORY: right foot pain broke 3 wks ago COMPARISON: 09/11/2023 FINDINGS: RIGHT FOOT: Three views of the right foot were obtained. There is mild degenerative change present. There is an oblique fracture of the distal fibular metaphysis. This was seen on the prior exam of September 11. The joint spaces are intact. There is no soft tissue abnormality. IMPRESSION: Mild degenerative change. Oblique fracture of the distal fibular metaphysis, also present on the prior film of September 11. Reviewed, Interpreted and Dictated by Ilan Patel III, MD Transcribed by Aida Montana Authenticated and [facility]
--- NOTE | 2023-10-28 10:08 | XR_ITS ---
FINAL REPORT CLINICAL HISTORY: right ankle pain broke 3 wks ago COMPARISON: 09/11/2023 FINDINGS: RIGHT ANKLE: Three views of the right ankle were obtained. There is an oblique fracture of the distal tibial metaphysis and distal medial malleolus. The alignment of these fractures is stable and unchanged from films of August. The joint spaces and mortise are intact. Soft tissue swelling remains present. IMPRESSION: Oblique fracture of the distal tibial metaphysis and the distal medial malleolus, with stable alignment. Soft tissue swelling remains present. Reviewed, Interpreted and Dictated by Ilan Patel III, MD Transcribed by Aida Montana Authenticated and . [facility]
== END ==
PROVIDERS: PCP Internal Medicine Adolescent Medicine; Visit Provider Orthopaedic Surgery
DX: M79.671 Pain in right foot (principal); S99.911A Unspecified injury of right ankle, initial encounter
CPT/HCPCS: 73610; 73630

== ENCOUNTER → 2023-10-29 09:26 | Outpatient (POV) | payer MEDICARE, SELFPAY ==
[2023-10-29 09:52] VITALS: BP 92/42; PULSE 63; RESP 18; O2SAT 97; BMI 37.0
--- NOTE | 2023-10-29 10:01 | EXP.PAIN.SOA ---
[facility] Pain Management SOAP Note Subjective:: Patient is a pleasant 83-year-old female who presents today for follow-up of right transforaminal epidural steroid injection L4-L5 and L5-S1. We are currently treating the patient for degenerative disc disease of lumbar spine with lumbar radiculopathy symptoms, lumbar facet arthropathy, lumbar spondylosis. Today she rates her pain an 8 out of 10. She states since her last visit that she did end up having a fall in the [facility] parking lot where she landed on her bottom however she did end up fracturing her right foot. Patient does present today with walking boot on. Patient states that they did have a follow-up appointment with the doctor who stated that she was approximately 60% healed. Patient states that it did not require surgery. Patient also states that a couple of weeks ago on the Friday before she did end up having to be hospitalized for pneumonia. Patient stayed for approximately 4 days. Patient has been prescribed antibiotics and is still recovering from this illness. She states today her pain is in 1 area in her right thigh and denies any radiating symptoms. She describes this as a aching, throbbing sensation. Patient does state that she feels like the last injection did not provide significant relief however she did have her foot issues and may have been more difficult to shrimper the improvement. Patient is at [employer] and is on Plavix by Dr. Anton's office. Her Ramon has been reviewed and appropriate. Review of Systems: General: No recent weight changes, no fever, no sleep disturbances Respiratory: Some cough and shortness of breath recent pneumonia illness Cardiovascular/peripheral vascular: No chest pain, no palpitations, no edema, no shortness of breath Gastrointestinal: No new onset incontinence, normal bowel movements reported Genitourinary: No new onset incontinence Musculoskeletal: Right thigh pain Psychiatric: [Normal mood/affect] Neurological: [Denies weakness in extremities], [denies balance issues] Objective:: Physical Exam: General: Alert and oriented x3, no acute distress, pleasant and cooperative Lungs: Respirations even and unlabored, symmetrical chest expansion, coarse crackles with auscultation Eyes: PERRL Musculoskeletal: Flexion and extension of lumbar [spine] somewhat guarded secondary to pain, [antalgic gait noted] Neurological: Speech clear, no gross sensory deficit Assessment:: Degenerative disc disease of lumbar spine with lumbar radiculopathy symptoms, lumbar facet arthropathy, lumbar spondylosis Plan:: Patient continues to have issues with her low back and limited range of motion of her lumbar spine during today's visit. I have discussed with the patient that due to her continued issues pneumonia I will order her a 7-day dose of prednisone 20 mg twice daily. Patient will return to clinic in 1 month for reevaluation of symptoms and plan of care. Patient has been instructed to contact the clinic with any concerns before the next appointment. Dr. De La Cruz has reviewed this note and agrees with this plan of care. This note was dictated using voice recognition software and make contain errors or omissions. [facility] Disclaimer: The information contained in this section may have been updated after the patient was seen, as this information can be updated by other users. Medical History Acute respiratory failure with hypoxia Breast cancer, right [id number] 2.5cm ER: Positive [place]: Positive HER-2/ginger: negative Breast mass, right Encounter for pre-operative cardiovascular clearance FH: mastectomy HLD (hyperlipidemia) HTN (hypertension) Renal artery stenosis Simple adnexal cyst greater than 1 cm in diameter in postmenopausal patient Surgical History History of renal stent Bilateral renal stents MAY 2022 Hx of total m
== END ==
LOC: SC.PAIN 09:26
PROVIDERS: PCP Internal Medicine Adolescent Medicine; Visit Provider Nurse Practitioner Family
DX: M51.16 Intervertebral disc disorders with radiculopathy, lumbar region (principal); M47.26 Other spondylosis with radiculopathy, lumbar region
CPT/HCPCS: 99212; G0463

== ENCOUNTER 2023-10-31 18:03 | Inpatient (IN) | payer MEDICARE, SELFPAY ==
[2023-10-31] VITALS (10 sets, daily range): BP systolic 115–184; BP diastolic 47–70; PULSE 66–78; RESP 16–29; TEMP 37.2; O2SAT 92–98; BMI 27.6; BMI 26.4
--- NOTE | 2023-10-31 18:18 | HMH.EDGENADL ---
Discharge Plan Disposition Patient Disposition: Admitted Chief Complaint: Abdominal Pain Clinical Impressions Clinical Impression: Coffee ground emesis, Acute UTI Discharge ED Provider: Moises Hinojosa General Adult HPI General Chief complaint: Abdominal Pain Stated complaint: gi bleed Time Seen by Provider: 10/31/23 18:07 History of Present Illness HPI narrative: 83-year-old female, history complicated by prior breast cancer status postmastectomy, coronary artery disease hypertension, hyperlipidemia, memory issues presents with abdominal pain and dark brown/black coffee-ground emesis. Patient is on aspirin and Plavix (last stent was a long time ago), on no other blood thinners. No history of liver disease or prior GI bleeding in the past. Patient is a poor historian, daughter helps provide history. Patient reports right-sided abdominal pain. Denies any specific urinary symptoms. Denies any shortness of breath. Patient had a large bowel movement at the nursing facility that was normal in color earlier today. At the nursing facility she then had a large volume black emesis and is continuing to vomit in ED. Related Data Home Medications Medication Instructions Recorded Confirmed ranolazine 500 mg tablet,extended 500 mg PO BID Angina 90 days #180 03/11/19 10/29/23 release,12 hr tabs levothyroxine 50 mcg tablet 50 mcg PO DAILY thyroid 07/14/20 10/29/23 aspirin 325 mg tablet 325 mg PO DAILY Heart disease 01/27/21 10/29/23 pantoprazole 40 mg tablet,delayed 40 mg PO BID acid reflux 01/28/21 10/29/23 release rosuvastatin 40 mg tablet 40 mg PO HS Cholesterol 01/28/21 10/29/23 gabapentin 300 mg capsule 300 mg PO BID Neuropathy 03/23/21 10/29/23 anastrozole 1 mg tablet 1 mg PO DAILY Chemotherapy 05/30/21 10/29/23 sucralfate 1 gram tablet 1 gm PO ACHS Esophagitis 03/20/22 10/29/23 amlodipine 5 mg tablet 5 mg PO DAILY Hypertension 02/19/23 10/29/23 metoprolol succinate 100 mg 100 mg PO DAILY Hypertension 02/19/23 10/29/23 tablet,extended release 24 hr acetaminophen 500 mg tablet 1,000 mg PO Q6HP PRN Mild 10/12/23 10/29/23 pain/fever cholecalciferol (vitamin D3) 50 50 mcg PO DAILY Supplement 10/12/23 10/29/23 mcg (2,000 unit) tablet (Vitamin D3) ipratropium 20 mcg-albuterol 100 1 puff inhalation QID Copd 10/12/23 10/29/23 mcg/actuation mist for inhalation (Combivent Respimat) lactulose 20 gram/30 mL oral 20 g PO DAILYP PRN Constipation 10/12/23 10/29/23 solution losartan 100 mg tablet 100 mg PO DAILY Hypertension 10/12/23 10/29/23 multivitamin with minerals 1 tab PO DAILY Supplement 10/12/23 10/29/23 ondansetron HCl 4 mg tablet 4 mg PO Q6H PRN Vomiting 10/12/23 10/29/23 polyethylene glycol 3350 17 gram 17 g PO DAILY Constipation 10/12/23 10/29/23 oral powder packet sennosides 8.6 mg-docusate sodium 8.6 tab PO BID Bowel care 10/12/23 10/29/23 50 mg tablet sertraline 50 mg tablet 50 mg PO HS Depression 10/12/23 10/29/23 spironolactone 25 mg tablet 25 mg PO DAILY Hypertension 10/12/23 10/29/23 vit C 250 mg-vit E 90 mg-zinc 40 1 tab PO BID Eye care 10/12/23 10/29/23 mg-copper 1 [id number] capsule (PreserVision AREDS-2) Previous Rx's Medication Instructions Recorded clopidogrel 75 mg tablet 75 mg PO DAILY HX of stents #90 10/02/22 tabs levofloxacin 750 mg tablet 750 mg PO Q48H 3 days #2 tabs 10/15/23 linezolid 600 mg tablet 600 mg PO BID 3 days #7 tabs 10/15/23 Allergies Allergy/AdvReac Type Severity Reaction Status Date / Time No Known Drug Allergies Allergy Unknown Verified 10/28/23 10:52 [NO KNOWN DRUG ALLERGIES] [facility] Disclaimer: The information contained in this section may have been updated after the patient was seen, as this information can be updated by other users. Medical History Acute respiratory failure with hypoxia Breast cancer, right [id number] 2.5cm ER: Positive [place]: Positive HER-2/ginger: ne
--- NOTE | 2023-10-31 18:32 | CT_ITS ---
PROCEDURE INFORMATION: Exam: CTA Abdomen and Pelvis With Contrast Exam date and time: 10/31/2023 7:42 PM Age: 83 years old Clinical indication: Abdominal pain; Acute; Additional info: Rlq pain, hematemesis TECHNIQUE: Imaging protocol: Computed tomographic angiography of the abdomen and pelvis with contrast. Exam focused on the arteries. 3D rendering (Not supervised by radiologist): MIP and/or 3D reconstructed images were created by the technologist. Radiation optimization: All CT scans at this facility use at least one of these dose optimization techniques: automated exposure control; mA and/or kV adjustment per patient size (includes targeted exams where dose is matched to clinical indication); or iterative reconstruction. Contrast material: ISOVUE; Contrast volume: 100 ml; Contrast route: INTRAVENOUS (IV); REPORTING DATA: Count of CT and Cardiac NM exams in prior 12 months: This patient has received 7 known CTs and 0 known cardiac nuclear medicine studies in the 12 months prior to the current study. COMPARISON: CT ANGIO ABDOMEN 05/15/2022 9:39 AM FINDINGS: Pleural spaces: Small left pleural effusion. Bibasilar atelectasis. Heart: Valvular and coronary artery calcifications. Diaphragm: Large hiatal hernia distended with fluid. Aorta: No aortic aneurysm. No aortic dissection. Celiac trunk and mesenteric arteries: No occlusion or significant stenosis. Renal arteries: Renal arterial stents are patent. Right iliac arteries: No occlusion or significant stenosis. Left iliac arteries: No occlusion or significant stenosis. Other arteries: Extensive atherosclerosis. Liver: No mass. Gallbladder and bile ducts: Cholecystectomy. Biliary ectasia. Pancreas: Unremarkable. No mass. No ductal dilation. Spleen: Unremarkable. No splenomegaly. Adrenal glands: Unremarkable. No mass. Kidneys and ureters: Unremarkable. No solid mass. No hydronephrosis. Stomach and bowel: Moderate distention of the colon with stool and fluid. No obstruction or abscess. Appendix: No evidence of appendicitis. Intraperitoneal space: Unremarkable. No free air. No significant fluid collection. Lymph nodes: Unremarkable. No enlarged lymph nodes. Urinary bladder: Unremarkable. No mass. Reproductive: Hysterectomy. 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 Advanced degenerative change. No acute fracture. Scoliosis. Soft tissues: Unremarkable. Other findings: No other acute pathology seen. As above. IMPRESSION: 1. Small left pleural effusion. Bibasilar atelectasis. 2. Large hiatal hernia distended with fluid. 3. Moderate distention of the colon with stool and fluid. No obstruction or abscess. 4. No other acute pathology seen. As above.
--- NOTE | 2023-10-31 18:34 | XR_ITS ---
PROCEDURE INFORMATION: Exam: XR Chest Exam date and time: 10/31/2023 6:34 PM Age: 83 years old Clinical indication: Other: Hematemesis TECHNIQUE: Imaging protocol: Radiologic exam of the chest. Views: 1 view. COMPARISON: CR XR CHEST PORTABLE 10/14/2023 5:22 AM FINDINGS: Lungs: There is coarsening of the bronchovascular markings. Pleural spaces: No evidence of pleural effusion, pneumothorax, or pleural thickening in the visualized pleural spaces. Heart/Mediastinum: Stable cardiac and mediastinal contours. Vasculature: There are calcifications of the aortic arch. Diaphragm: There is elevation of the left hemidiaphragm. Bones/joints: No evidence of acute osseous abnormalities within the visualized portions of the thoracic spine and ribs. Osseous structures appear appropriate for patient age. Intraperitoneal space: There are right upper quadrant surgical clips suggesting prior cholecystectomy. IMPRESSION: No dense parenchymal consolidation, pleural effusion, or pneumothorax.
--- NOTE | 2023-10-31 18:38 | PC.NURSE ---
rad at bedside for port cxr
[2023-10-31 18:59] LABS: Basophils % 0.1 % (0.1-2.0); Eosinophils % 0.1 % (0.1-12.0); Hematocrit 34.7 % (37.0-47.0); Hemoglobin 10.7 g/dL (12.2-16.2); Lymphocytes # 1.6 K/mm3 (0.7-4.5); Lymphocytes % 7.7 % (10-50); Mean Corpuscular HGB Conc 30.9 g/dL (31.8-35.4); Mean Corpuscular Volume 93.7 fl (81-99); Mean Platelet Volume 8.8 fl (7.4-10.4); Monocytes # 0.9 K/mm3 (0.1-1.0); Monocytes % 4.1 % (1.7-9.3); Neutrophils # 18.4 K/mm3 (1.8-7.8); Neutrophils % 87.9 % (37.0-80.0); Platelet Count 428 K/mm3 (142-424); Red Cell Distribution Width 17.9 % (11.5-17.5); White Blood Count 20.9 K/mm3 (4.8-10.8)
[2023-10-31 19:01] LABS: MANUAL DIFFERENTIAL MANUAL DIFFERENTIAL (MANUAL DIFF)
[2023-10-31 19:02] LABS: Alanine Aminotransferase 30 U/L (12-78); Albumin Level 3.4 g/dl (3.5-5.0); Albumin/Globulin Ratio 1.2 (1.1-1.8); Alkaline Phosphatase 158 U/L (38-126); Anion Gap 14.3 mEq/L (5-15); Aspartate Amino Transferase 39 U/L (14-36); Bilirubin,Total 0.4 mg/dl (0.2-1.3); Blood Urea Nitrogen 25 mg/dl (7-17); Calcium 9.2 mg/dl (8.4-10.2); Carbon Dioxide 17 mmol/L (22.0-30.0); Chloride 108 mmol/L (98-107); Creatinine Clearance Estimated 43 mL/min (50-200); Estimated Glomerular Filt Rate 43 ml/min (>60); GFR (African American) 52 ML/MIN (>60); Globulin 2.9 g/dL (1.3-3.2); Glucose 134 mg/dl (74-100); Lipase 59 U/L (23-300); Potassium 5.3 mmoL/L (3.5-5.1); Sodium 134 mmol/L (136-145); Total Protein,Serum 6.3 g/dl (6.3-8.2)
[2023-10-31 19:03] LABS: Lactic Acid 1.9 mmol/L (0.7-2.1)
[2023-10-31 19:07] LABS: INR 1.08 (0.9-1.1); Prothrombin Time 11.6 seconds (10.1-12.5)
[2023-10-31 19:14] LABS: Hypochromasia 1+; Lymphocytes % 10 % (10-50); Monocytes % 1 % (2-9); Neutrophils % 89 % (42-76); Platelet Estimate Normal; Total Cells Counted 100
[2023-10-31 19:41] LABS: Microscopic, Urine URINE MICROSCOPIC (MICROSCOPIC)
[2023-10-31 19:48] LABS: Appearance,Urine CLEAR (Clear); Blood, Urine Negative (Negative); Color,Urine YELLOW (Yellow); Glucose,Urine (UA) Negative (Negative); Ketones,Urine TRACE (Negative); Leukocyte Esterase,Urine Negative (Negative); Nitrate,Urine POSITIVE (Negative); Protein,Urine 1+ (Negative); Specific Gravity, Urine >= 1.030 (1.005-1.030)
--- NOTE | 2023-10-31 20:00 | PC.NURSE ---
Rounded on patient and family updated on plan of care call light within reach
[2023-10-31 20:05] LABS: Bilirubin,Urine 2+ (Negative)
--- NOTE | 2023-10-31 20:06 | PC.NURSE ---
ROunded on patient; call light within reach of patient
[2023-10-31 20:09] LABS: Amorphous Sediment,Urine Trace /lpf; Bacteria,Urine Trace /lpf; RBC,Urine Occasional #/hpf (0-3); WBC,Urine Occasional #/hpf (0-3)
--- NOTE | 2023-10-31 21:15 | PC.NURSE ---
Called lab to obtained blood cultures before administering abx
--- NOTE | 2023-10-31 21:38 | PC.NURSE ---
House notified of Admission at this time.
--- NOTE | 2023-10-31 21:38 | PC.NURSE ---
Ivette, Hospitalist in room at this time.
--- NOTE | 2023-10-31 21:40 | PC.NURSE ---
patient Admitted to room 205 on second floor at this time.
--- NOTE | 2023-10-31 21:45 | PC.NURSE ---
patient admitted to room 206 on second floor at this time.
--- NOTE | 2023-10-31 22:00 | PC.NURSE ---
Rounded on patient; patient had a BM. Cleaned patient up with Arcadio TIWARI. Placed new linens on patient, patient placed in new brief. Patien repositioned in bed for comfort. Nothing needed at this time. Call light within reach
--- NOTE | 2023-10-31 22:18 | PC.NURSE ---
REport called to [facility] Second floor RAMESH
--- NOTE | 2023-10-31 22:27 | PC.NURSE ---
Warm blankets provided to patient; call light within reach
--- NOTE | 2023-10-31 22:30 | EXP.HP ---
History of Present Illness *Admission Date: 10/31/23 *Reason for visit:: Coffee ground emesis *History of present illness: This is an 83-year-old female with past medical history of hypertension, hyperlipidemia, breast cancer who presents to the emergency department from her SNF for further evaluation of coffee-ground emesis. She initially was complaining of right lower quadrant pain to her staff at the SNF . Reports from the SNF RN that she has had dark tarry stools up until today. Today she was noticed coffee-ground emesis around her mouth and was more confused than normal. She is on aspirin and Plavix for history of cardiac stents but is not on any anticoagulation. Daughter is at the bedside and provides collateral secondary to patient's mental status. She reports that patient was admitted to the hospital in late September for pneumonia and was discharged about 15 days ago. She reports he has been doing well since. Patient presents today encephalopathic and able to state name only. Strong smell of GI blood noted from room. Nursing in the ED report 2 episodes of coffee-ground emesis 1 melanotic stool. Vital signs notable for increased respiratory rate in the 20s, oxygen saturations in the low 90s requiring nasal cannula. Leukocytosis with a white blood cell count of 20, creatinine of 1.2 which is above baseline of 0.9. Lactic acid of 1.9. Mildly elevated AST. Nitrite positive urine. Given patient's upper GI bleed, ED physician medicated her with Protonix, she was given Rocephin for her urinalysis and admitted to the hospitalist service for further evaluation and management. [facility] Disclaimer: The information contained in this section may have been updated after the patient was seen, as this information can be updated by other users. Medical History Acute respiratory failure with hypoxia Breast cancer, right Breast mass, right Encounter for pre-operative cardiovascular clearance FH: mastectomy HLD (hyperlipidemia) HTN (hypertension) Renal artery stenosis Simple adnexal cyst greater than 1 cm in diameter in postmenopausal patient Surgical History History of renal stent Hx of total mastectomy of right breast Stented coronary artery Family History Other No significant family history Social History (Updated 10/31/23 @ 23:24 by Shiela Shelton RN) Smoking Status: Former smoker tobacco type: cigarettes packs per day: 1 alcohol intake: never substance use type: denies use current occupational status: retired Travel in the last 8 weeks: None household members: none housing: apartment current occupational exposures/hazards: No caffeine: No Review of Systems Review of Systems Review of systems:: unable to obtain Meds Home Medications and Allergies Home Medications Medication Instructions Recorded Confirmed Type ranolazine 500 mg tablet,extended 500 mg PO BID Angina 90 days #180 03/11/19 10/31/23 History release,12 hr tabs levothyroxine 50 mcg tablet 50 mcg PO DAILY thyroid 07/14/20 10/31/23 History aspirin 325 mg tablet 325 mg PO DAILY Heart disease 01/27/21 10/31/23 History pantoprazole 40 mg tablet,delayed 40 mg PO BID acid reflux 01/28/21 10/31/23 History release rosuvastatin 40 mg tablet 40 mg PO HS Cholesterol 01/28/21 10/31/23 History gabapentin 300 mg capsule 300 mg PO BID Neuropathy 03/23/21 10/31/23 History anastrozole 1 mg tablet 1 mg PO DAILY Chemotherapy 05/30/21 10/31/23 History sucralfate 1 gram tablet 1 gm PO ACHS Esophagitis 03/20/22 11/01/23 History clopidogrel 75 mg tablet 75 mg PO DAILY HX of stents #90 10/02/22 10/31/23 Rx tabs amlodipine 5 mg tablet 5 mg PO DAILY Hypertension 02/19/23 10/31/23 History metoprolol succinate 100 mg 100 mg PO DAILY Hypertension 02/19/23 10/31/23 History tablet,exte
--- NOTE | 2023-10-31 22:34 | PC.NURSE ---
Changed and cleaned up patient before patient left to go to Second floor at this time.
--- NOTE | 2023-10-31 22:36 | PC.NURSE ---
pt arrived to floor at this time
--- NOTE | 2023-10-31 22:48 | EXP.SEPSISRE ---
[facility] Tissue Perfusion Eval Sepsis Re-Evaluation Performed: Yes Date Performed: 10/31/23 Time Performed: 22:48
[2023-11-01] VITALS (9 sets, daily range): BP systolic 98–115; BP diastolic 41–83; PULSE 67–93; RESP 16–20; TEMP 36.8–37.7; O2SAT 93–100; BMI 26.4
[2023-11-01 00:35] LABS: Basophils # 0.1 K/mm3 (0-0.2); Basophils % 0.2 % (0.1-2.0); Eosinophils # 0.1 K/mm3 (0.0-0.4); Eosinophils % 0.2 % (0.1-12.0); Lymphocytes # 1.3 K/mm3 (0.7-4.5); Lymphocytes % 4.9 % (10-50); Mean Corpuscular HGB Conc 30.9 g/dL (31.8-35.4); Mean Corpuscular Hemoglobin 29.1 pg (27.0-31.2); Mean Corpuscular Volume 94.3 fl (81-99); Mean Platelet Volume 8.3 fl (7.4-10.4); Monocytes # 1.1 K/mm3 (0.1-1.0); Monocytes % 4.1 % (1.7-9.3); Neutrophils # 23.8 K/mm3 (1.8-7.8); Neutrophils % 90.5 % (37.0-80.0); Platelet Count 398 K/mm3 (142-424); Red Blood Count 3.18 M/mm3 (4.20-5.40); Red Cell Distribution Width 18.2 % (11.5-17.5); White Blood Count 26.3 K/mm3 (4.8-10.8)
[2023-11-01 00:45] LABS: Hemoglobin 9.3 g/dL (12.2-16.2)
--- NOTE | 2023-11-01 00:48 | PC.NURSE ---
Patient arrived to unit from ED at 2236 via stretcher with daughter via side. Patient alert to self, confusion noted. Daughter states that patient's baseline is alert and orient X4. Patient lives at [facility]. Patient transferred from stretcher to bed. Patient noted with a large amount of loose stool. Patient received a bed bath, brown emesis noted around patients mouth. Admitting diagnosis is Upper GI Bleed. Full assessment to follow.
--- NOTE | 2023-11-01 02:34 | PC.NURSE ---
Pt hx of a total right mastectomy 2 years prior. IV noted to be in right AC, removed by RN. Multiple RNs attempted to get IV access in left arm and was unsuccessful. Was able to obtain IV in left AC after multiple attempts with ultrasound. IV fluids and antibiotics late due to this. Kathryn Broderick APRN made aware.
--- NOTE | 2023-11-01 04:59 | PC.NURSE ---
ED placed IV in Right AC, IV removed d/t patient having a h/o right mastectomy. IV inserted with the use of the vein ultrasound via [employer] to the Left Upper Arm with a 20g, IV infiltrated. IV removed. New IV inserted to Left AC with the use of the vein ultrasound via [employer]. IV medication started as ordered. Ivette JUNG aware of why IV medication was delayed in being given d/t no IV site and patient being a very difficult stick. Patient tolerating medication, no adverse reactions noted. Patient is opening eyes more and is talking outloud to herself. No emesis noted since being admitted. Patient laying in bed at this time with bed in lowest position, call light in reach and bed alarm on and properly functioning.
--- NOTE | 2023-11-01 05:00 | XR_ITS ---
PROCEDURE INFORMATION: Exam: XR Chest Exam date and time: 11/01/2023 5:16 AM Age: 83 years old Clinical indication: Shortness of breath TECHNIQUE: Imaging protocol: Radiologic exam of the chest. Views: 1 view. COMPARISON: CR XR CHEST PORTABLE 10/31/2023 6:34 PM FINDINGS: Lungs: Bibasilar airspace disease somewhat more prominent on the left and increasing since the prior study. Pleural spaces: Unremarkable. No pleural effusion. No pneumothorax. Heart/Mediastinum: Unremarkable. No cardiomegaly. Bones/joints: Unremarkable. IMPRESSION: Increasing bibasilar airspace disease most prominently on the left.
--- NOTE | 2023-11-01 08:23 | EXP.SURG.CON ---
History of Present Illness *Admission Date: 10/31/23 *Reason for visit:: Upper GI bleed *History of present illness: Patient is a 83-year-old female resident of [facility] with history of breast cancer (cared for by Dr. 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 She is on aspirin and Plavix. She presented to the emergency department in the early evening of 10/31/2023 with symptoms of abdominal pain and reported dark brown emesis. She had some reported right-sided abdominal pain. She had reported normal bowel movement at the half-way prior to presentation to the emergency department. She underwent thorough evaluation in the emergency department. She arrived at the emergency department hemodynamically stable. Evaluation in the emergency department revealed leukocytosis of 21,000. Hemoglobin 10.7. BUN 25 with a creatinine of 1.2. Potassium 5.3. Urinalysis revealed positive nitrate, trace bacteria, occasional white blood cells. According to the record she is on pantoprazole. She underwent CTA of the abdomen and pelvis. This revealed small left pleural effusion, large hiatal hernia, moderate distention of the colon with stool and fluid without obstruction or abscess . She was admitted for inpatient management. Surgical consultation was ordered for upper GI bleed . Laboratory studies obtained at midnight revealed progressive leukocytosis of 26,000. I had seen the patient in the past as an inpatient for possible diverticulitis. She has a history of significant diverticulosis in the past and chronic laxative dependent constipation and associated abdominal pain. She has previously has been seen in the digestive health clinic for abdominal pain and constipation. She did previously have a colonoscopy in 2013 at outside facility which revealed extremely heavy burden of diverticulosis and it was recommended by the relays draftsperson that she no longer undergo colonoscopy due to this as there was appreciable possibility of perforation given her heavy diverticulosis burden. [facility] Disclaimer: The information contained in this section may have been updated after the patient was seen, as this information can be updated by other users. Medical History Acute respiratory failure with hypoxia Breast cancer, right Breast mass, right Encounter for pre-operative cardiovascular clearance FH: mastectomy HLD (hyperlipidemia) HTN (hypertension) Renal artery stenosis Simple adnexal cyst greater than 1 cm in diameter in postmenopausal patient Surgical History History of renal stent Hx of total mastectomy of right breast Stented coronary artery Family History Other No significant family history Social History (Updated 10/31/23 @ 23:24 by Shiela Shelton RN) Smoking Status: Former smoker tobacco type: cigarettes packs per day: 1 alcohol intake: never substance use type: denies use current occupational status: retired Travel in the last 8 weeks: None household members: none housing: apartment current occupational exposures/hazards: No caffeine: No Meds Home Medications and Allergies Home Medications Medication Instructions Recorded Confirmed Type ranolazine 500 mg tablet,extended 500 mg PO BID Angina 90 days #180 03/11/19 10/31/23 History release,12 hr tabs levothyroxine 50 mcg tablet 50 mcg PO DAILY thyroid 07/14/20 10/31/23 History aspirin 325 mg tablet 325 mg PO DAILY Heart disease 01/27/21 10/31/23 History pantoprazole 40 mg tablet,delayed 40 mg PO BID acid reflux 01/28/21 10/31/23 History release rosuvastatin 40 mg tablet 40 mg PO HS Cholesterol 01/28/21 10/31/23 History gabapentin 300 mg capsule 300 mg PO BID Neuropathy 03/23/21
[2023-11-01 11:41] LABS: Basophils # 0.1 K/mm3 (0-0.2); Basophils % 0.3 % (0.1-2.0); Eosinophils # 0.1 K/mm3 (0.0-0.4); Eosinophils % 0.4 % (0.1-12.0); Hematocrit 27.9 % (37.0-47.0); Hemoglobin 8.6 g/dL (12.2-16.2); Lymphocytes # 1.5 K/mm3 (0.7-4.5); Lymphocytes % 6.3 % (10-50); Mean Corpuscular Hemoglobin 29.5 pg (27.0-31.2); Mean Corpuscular Volume 95.2 fl (81-99); Mean Platelet Volume 8.6 fl (7.4-10.4); Monocytes # 1.1 K/mm3 (0.1-1.0); Monocytes % 4.5 % (1.7-9.3); Neutrophils # 21.4 K/mm3 (1.8-7.8); Neutrophils % 88.6 % (37.0-80.0); Platelet Count 370 K/mm3 (142-424); Red Blood Count 2.94 M/mm3 (4.20-5.40); Red Cell Distribution Width 18.3 % (11.5-17.5); White Blood Count 24.2 K/mm3 (4.8-10.8)
[2023-11-01 11:45] LABS: MANUAL DIFFERENTIAL MANUAL DIFFERENTIAL (MANUAL DIFF)
[2023-11-01 11:46] LABS: Anion Gap 10.7 mEq/L (5-15); Blood Urea Nitrogen 26 mg/dl (7-17); Calcium 6.5 mg/dl (8.4-10.2); Carbon Dioxide 12 mmol/L (22.0-30.0); Chloride 120 mmol/L (98-107); Creatinine Clearance Estimated 45 mL/min (50-200); Estimated Glomerular Filt Rate 47 ml/min (>60); GFR (African American) 57 ML/MIN (>60); Glucose 103 mg/dl (74-100); Potassium 3.7 mmoL/L (3.5-5.1); Sodium 139 mmol/L (136-145)
--- NOTE | 2023-11-01 11:48 | PC.NURSE ---
Attempted midline insertion to left arm, attempts unsuccessful. Unable to attempt in right arm d/t hx of mastectomy. RN and MD notified.
--- NOTE | 2023-11-01 11:51 | EXP.PHA.CONS ---
Pharmacy Consult Date: 11/01/23 Time: 11:51 Referring provider: DR. PARMAR Reason for Consult:: VANCOMYCIN DOSING Allergies Allergy/AdvReac Type Severity Reaction Status Date / Time No Known Drug Allergies Allergy Unknown Verified 10/28/23 10:52 [NO KNOWN DRUG ALLERGIES] Home Medications Medication Instructions Recorded Confirmed Type ranolazine 500 mg tablet,extended 500 mg PO BID Angina 90 days #180 03/11/19 10/31/23 History release,12 hr tabs levothyroxine 50 mcg tablet 50 mcg PO DAILY thyroid 07/14/20 10/31/23 History aspirin 325 mg tablet 325 mg PO DAILY Heart disease 01/27/21 10/31/23 History pantoprazole 40 mg tablet,delayed 40 mg PO BID acid reflux 01/28/21 10/31/23 History release rosuvastatin 40 mg tablet 40 mg PO HS Cholesterol 01/28/21 10/31/23 History gabapentin 300 mg capsule 300 mg PO BID Neuropathy 03/23/21 10/31/23 History anastrozole 1 mg tablet 1 mg PO DAILY Chemotherapy 05/30/21 10/31/23 History sucralfate 1 gram tablet 1 gm PO ACHS Esophagitis 03/20/22 10/31/23 History clopidogrel 75 mg tablet 75 mg PO DAILY HX of stents #90 10/02/22 10/31/23 Rx tabs amlodipine 5 mg tablet 5 mg PO DAILY Hypertension 02/19/23 10/31/23 History metoprolol succinate 100 mg 100 mg PO DAILY Hypertension 02/19/23 10/31/23 History tablet,extended release 24 hr acetaminophen 500 mg tablet 1,000 mg PO Q6HP PRN Mild 10/12/23 10/31/23 History pain/fever cholecalciferol (vitamin D3) 50 50 mcg PO DAILY Supplement 10/12/23 10/31/23 History mcg (2,000 unit) tablet (Vitamin D3) ipratropium 20 mcg-albuterol 100 1 puff inhalation QID Copd 10/12/23 10/31/23 History mcg/actuation mist for inhalation (Combivent Respimat) losartan 100 mg tablet 100 mg PO DAILY Hypertension 10/12/23 10/31/23 History multivitamin with minerals 1 tab PO DAILY Supplement 10/12/23 10/31/23 History ondansetron HCl 4 mg tablet 4 mg PO Q6H PRN Vomiting 10/12/23 10/31/23 History polyethylene glycol 3350 17 gram 17 g PO HS Constipation 10/12/23 10/31/23 History oral powder packet sennosides 8.6 mg-docusate sodium 8.6 tab PO BID Bowel care 10/12/23 10/31/23 History 50 mg tablet sertraline 50 mg tablet 50 mg PO HS Depression 10/12/23 10/31/23 History spironolactone 25 mg tablet 25 mg PO DAILY Hypertension 10/12/23 10/31/23 History vit C 250 mg-vit E 90 mg-zinc 40 1 tab PO BID Eye care 10/12/23 10/31/23 History mg-copper 1 [id number] capsule (PreserVision AREDS-2) ferrous sulfate 325 mg (65 mg 325 mg PO DIRECTED 10/31/23 10/31/23 History iron) tablet prednisone 20 mg tablet 20 mg PO BID 10/31/23 10/31/23 History New Prescriptions to Start Prescriptions: Height: 1.7 m Weight: 76.476 kg Laboratory Results:: Laboratory Results - last 24 hr 10/31/23 18:12: WBC 20.9 H*, RBC 3.70 L, Hgb 10.7 L, Hct 34.7 L, MCV 93.7, MCH 29.0, MCHC 30.9 L, RDW 17.9 H, Plt Count 428 H, MPV 8.8, Neut % (Auto) 87.9 H, Lymph % (Auto) 7.7 L, [place] % (Auto) 4.1, Eos % (Auto) 0.1, Baso % (Auto) 0.1, Neut # (Auto) 18.4 H, Lymph # (Auto) 1.6, [place] # (Auto) 0.9, Eos # (Auto) 0.0, Baso # (Auto) 0.0, Total Counted 100, Neutrophils % (Manual) 89 H, Lymphocytes % (Manual) 10, Monocytes % (Manual) 1 L, Platelet Estimate Normal, Hypochromasia 1+, PT 11.6, INR 1.08, Sodium 134 L, Potassium 5.3 H, Chloride 108 H, Carbon Dioxide 17 L, Anion Gap 14.3, BUN 25 H, Creatinine 1.20 H, Estimated Creat Clear 43, Estimated GFR 43 L, Est GFR ( Amer) 52 L, Glucose 134 H, Lactate 1.9, Calcium 9.2, Total Bilirubin 0.4, AST 39 H, ALT 30, Alkaline Phosphatase 158 H, Total Protein 6.3, Albumin 3.4 L, Globulin 2.9, Albumin/Globulin Ratio 1.2, Lipase 59 10/31/23 18:20: Blood Type O Positive, Antibody Screen Negative 10/31/23 19:32: Urine Color Yellow, Urine Appearance Clear, Urine pH 5.0, Ur Specific [place] >= 1.030, Urine Protein 1+, Urine Glucose (UA) Negative, Urine Ketones Trace, Urine Blood Negative, Urine Nitrate Positive, Urine Bilirubin 2+ A, Urine Urobilinog
[2023-11-01 11:56] LABS: Lactic Acid 3.1 mmol/L (0.7-2.1)
[2023-11-01 12:03] LABS: Procalcitonin 1.34 ng/mL (0.0-2.0)
[2023-11-01 12:17] LABS: Lymphocytes % 11 % (10-50); Monocytes % 3 % (2-9); Neutrophils % 86 % (42-76); Platelet Estimate Normal; RBC Morphology Normal; Total Cells Counted 100
[2023-11-01 15:56] LABS: Reflex Lactic Add Lactic Reflex
--- NOTE | 2023-11-01 16:38 | EXP.PN ---
Subjective *Date: 11/01/23 *Time: 16:38 Interval history: patient was seen and evaluated at the bedside. denies chest pain, shortness of breath, nausea, vomiting, abdominal pain. Patient does not have any complaints at this time. feels better overall Exam Data for Last 24 hours Vital signs and Labs for Last 24 Hours: Temp Pulse Resp BP Pulse Ox O2 Del Method O2 Flow Rate 98.7 F 74 19 115/83 93 L Nasal Cannula 5 11/01/23 16:00 11/01/23 16:00 11/01/23 16:00 11/01/23 16:00 11/01/23 16:00 11/01/23 16:00 11/01/23 16:00 Laboratory Results - last 24 hr 10/31/23 18:12: WBC 20.9 H*, RBC 3.70 L, Hgb 10.7 L, Hct 34.7 L, MCV 93.7, MCH 29.0, MCHC 30.9 L, RDW 17.9 H, Plt Count 428 H, MPV 8.8, Neut % (Auto) 87.9 H, Lymph % (Auto) 7.7 L, [place] % (Auto) 4.1, Eos % (Auto) 0.1, Baso % (Auto) 0.1, Neut # (Auto) 18.4 H, Lymph # (Auto) 1.6, [place] # (Auto) 0.9, Eos # (Auto) 0.0, Baso # (Auto) 0.0, Total Counted 100, Neutrophils % (Manual) 89 H, Lymphocytes % (Manual) 10, Monocytes % (Manual) 1 L, Platelet Estimate Normal, Hypochromasia 1+, PT 11.6, INR 1.08, Sodium 134 L, Potassium 5.3 H, Chloride 108 H, Carbon Dioxide 17 L, Anion Gap 14.3, BUN 25 H, Creatinine 1.20 H, Estimated Creat Clear 43, Estimated GFR 43 L, Est GFR ( Amer) 52 L, Glucose 134 H, Lactate 1.9, Calcium 9.2, Total Bilirubin 0.4, AST 39 H, ALT 30, Alkaline Phosphatase 158 H, Total Protein 6.3, Albumin 3.4 L, Globulin 2.9, Albumin/Globulin Ratio 1.2, Lipase 59 10/31/23 18:20: Blood Type O Positive, Antibody Screen Negative 10/31/23 19:32: Urine Color Yellow, Urine Appearance Clear, Urine pH 5.0, Ur Specific [place] >= 1.030, Urine Protein 1+, Urine Glucose (UA) Negative, Urine Ketones Trace, Urine Blood Negative, Urine Nitrate Positive, Urine Bilirubin 2+ A, Urine Urobilinogen 1.0, Ur Leukocyte Esterase Negative, Urine RBC Occasional, Urine WBC Occasional, Amorphous Sediment Trace, Urine Bacteria Trace 11/01/23 00:25: WBC 26.3 H* D, RBC 3.18 L, Hgb 9.3 L D, Hct 30.0 L, MCV 94.3, MCH 29.1, MCHC 30.9 L, RDW 18.2 H, Plt Count 398, MPV 8.3, Neut % (Auto) 90.5 H, Lymph % (Auto) 4.9 L, [place] % (Auto) 4.1, Eos % (Auto) 0.2, Baso % (Auto) 0.2, Neut # (Auto) 23.8 H, Lymph # (Auto) 1.3, [place] # (Auto) 1.1 H, Eos # (Auto) 0.1, Baso # (Auto) 0.1 11/01/23 11:30: Sodium 139, Potassium 3.7 D, Chloride 120 H, Carbon Dioxide 12 L, Anion Gap 10.7, BUN 26 H, Creatinine 1.10 H, Estimated Creat Clear 45, Estimated GFR 47 L, Est GFR ( Amer) 57 L, Glucose 103 H D, Lactate 3.1 H, Calcium 6.5 L, Procalcitonin 1.34 11/01/23 : WBC 24.2 H*, RBC 2.94 L, Hgb 8.6 L, Hct 27.9 L, MCV 95.2, MCH 29.5, MCHC 31.0 L, RDW 18.3 H, Plt Count 370, MPV 8.6, Neut % (Auto) 88.6 H, Lymph % (Auto) 6.3 L, [place] % (Auto) 4.5, Eos % (Auto) 0.4, Baso % (Auto) 0.3, Neut # (Auto) 21.4 H, Lymph # (Auto) 1.5, [place] # (Auto) 1.1 H, Eos # (Auto) 0.1, Baso # (Auto) 0.1, Total Counted 100, Neutrophils % (Manual) 86 H, Lymphocytes % (Manual) 11, Monocytes % (Manual) 3, Platelet Estimate Normal, RBC Morphology Normal I & O for Last 24 hours: Intake & Output 10/29/23 10/30/23 10/31/23 11/01/23 23:59 23:59 23:59 23:59 Output Total 0 / 0 0 / 0 Balance 0 / 0 0 / 0 Weight 76.476 kg 76.476 kg Constitutional Constitutional: no acute distress Comments: Patient appears weak and frail *Routine HEENT Exam Head: Present normocephalic Eye: Present EOMI and PERRL ENT: Present mucous membranes moist *Routine Neck Exam Neck: Present supple; Absent lymphadenopathy *Routine Respiratory Exam Respiratory: Present CTA bilaterally *Routine Cardiovascular Exam Cardiovascular: Present RRR *Routine Abdominal Exam Abdominal: Present soft and normoactive bowel sounds; Absent tenderness *Routine Extremities Exam Extremities: Absent cyanosis, clubbing or edema *Routine Skin Exam Skin: Present warm; Absent rash *Routine Neurological Exam Comments: Patient appears confused, not able to hold conversations, not following commands Assessment a
[2023-11-01 18:10] LABS: Lactic Acid Follow Up (RFLX 1) 2.1 mmol/L (0.7-2.1)
[2023-11-01 20:03] LABS: Reflex Lactic (2 hrs) Add Lactic Reflex
[2023-11-01 21:13] LABS: Lactic Acid Follow up (RFLX 2) 1.7 mmol/L (0.7-2.1)
[2023-11-02] VITALS (18 sets, daily range): BP systolic 92–155; BP diastolic 40–72; PULSE 69–99; RESP 16–22; TEMP 36.5–38.3; O2SAT 94–100; BMI 26.4
[2023-11-02 08:15] LABS: Chloride 121 mmol/L (98-107); Potassium 3.5 mmoL/L (3.5-5.1); Sodium 142 mmol/L (136-145)
[2023-11-02 08:18] LABS: Alanine Aminotransferase 22 U/L (12-78); Albumin Level 2.2 g/dl (3.5-5.0); Albumin/Globulin Ratio 0.9 (1.1-1.8); Alkaline Phosphatase 127 U/L (38-126); Anion Gap 6.5 mEq/L (5-15); Aspartate Amino Transferase 22 U/L (14-36); Bilirubin,Total 0.3 mg/dl (0.2-1.3); Blood Urea Nitrogen 32 mg/dl (7-17); Calcium 7.3 mg/dl (8.4-10.2); Carbon Dioxide 18 mmol/L (22.0-30.0); Creatinine Clearance Estimated 38 mL/min (50-200); Estimated Glomerular Filt Rate 39 ml/min (>60); GFR (African American) 47 ML/MIN (>60); Globulin 2.4 g/dL (1.3-3.2); Glucose 101 mg/dl (74-100); Total Protein,Serum 4.6 g/dl (6.3-8.2)
[2023-11-02 08:52] LABS: Basophils % 0.1 % (0.1-2.0); Eosinophils % 0.1 % (0.1-12.0); Hematocrit 21.9 % (37.0-47.0); Lymphocytes # 1.1 K/mm3 (0.7-4.5); Lymphocytes % 7.7 % (10-50); Mean Corpuscular HGB Conc 31.9 g/dL (31.8-35.4); Mean Corpuscular Hemoglobin 30.1 pg (27.0-31.2); Mean Corpuscular Volume 94.2 fl (81-99); Mean Platelet Volume 8.7 fl (7.4-10.4); Monocytes # 0.6 K/mm3 (0.1-1.0); Monocytes % 3.9 % (1.7-9.3); Neutrophils # 12.4 K/mm3 (1.8-7.8); Neutrophils % 88.2 % (37.0-80.0); Platelet Count 295 K/mm3 (142-424); Red Blood Count 2.32 M/mm3 (4.20-5.40); Red Cell Distribution Width 18.3 % (11.5-17.5); White Blood Count 14.1 K/mm3 (4.8-10.8)
[2023-11-02 08:59] LABS: MANUAL DIFFERENTIAL MANUAL DIFFERENTIAL (MANUAL DIFF)
--- NOTE | 2023-11-02 09:57 | EXP.SURG.PN ---
Subjective Narrative: Patient somewhat more alert. States that she feels bad all over however she denies abdominal pain. Had somewhat of a dark stool yesterday. Stool occult ordered for this morning. Temperature is 101.0 ?F. Denies shortness of breath. Good oxygenation on 2 L nasal cannula. Exam Data for Last 24 hours Vital signs and Labs for Last 24 Hours: Temp Pulse Resp BP Pulse Ox O2 Del Method O2 Flow Rate 101.0 F H 99 H 22 92/52 L 97 Nasal Cannula 2 11/02/23 07:56 11/02/23 07:56 11/02/23 07:56 11/02/23 07:56 11/02/23 07:56 11/02/23 07:56 11/02/23 07:56 Laboratory Results - last 24 hr 11/01/23 11:30: Sodium 139, Potassium 3.7 D, Chloride 120 H, Carbon Dioxide 12 L, Anion Gap 10.7, BUN 26 H, Creatinine 1.10 H, Estimated Creat Clear 45, Estimated GFR 47 L, Est GFR ( Amer) 57 L, Glucose 103 H D, Lactate 3.1 H, Calcium 6.5 L, Procalcitonin 1.34 11/01/23 17:45: Lactate 2.1 11/01/23 20:55: Lactate 1.7 11/01/23 : WBC 24.2 H*, RBC 2.94 L, Hgb 8.6 L, Hct 27.9 L, MCV 95.2, MCH 29.5, MCHC 31.0 L, RDW 18.3 H, Plt Count 370, MPV 8.6, Neut % (Auto) 88.6 H, Lymph % (Auto) 6.3 L, [place] % (Auto) 4.5, Eos % (Auto) 0.4, Baso % (Auto) 0.3, Neut # (Auto) 21.4 H, Lymph # (Auto) 1.5, [place] # (Auto) 1.1 H, Eos # (Auto) 0.1, Baso # (Auto) 0.1, Total Counted 100, Neutrophils % (Manual) 86 H, Lymphocytes % (Manual) 11, Monocytes % (Manual) 3, Platelet Estimate Normal, RBC Morphology Normal 11/02/23 07:45: WBC 14.1 H D, RBC 2.32 L, Hgb 7.0 L, Hct 21.9 L, MCV 94.2, MCH 30.1, MCHC 31.9, RDW 18.3 H, Plt Count 295, MPV 8.7, Neut % (Auto) 88.2 H, Lymph % (Auto) 7.7 L, [place] % (Auto) 3.9, Eos % (Auto) 0.1, Baso % (Auto) 0.1, Neut # (Auto) 12.4 H, Lymph # (Auto) 1.1, [place] # (Auto) 0.6, Eos # (Auto) 0.0, Baso # (Auto) 0.0, Sodium 142, Potassium 3.5, Chloride 121 H, Carbon Dioxide 18 L, Anion Gap 6.5, BUN 32 H, Creatinine 1.30 H, Estimated Creat Clear 38, Estimated GFR 39 L, Est GFR ( Amer) 47 L, Glucose 101 H, Calcium 7.3 L, Total Bilirubin 0.3, AST 22 D, ALT 22 D, Alkaline Phosphatase 127 H, Total Protein 4.6 L D, Albumin 2.2 L, Globulin 2.4, Albumin/Globulin Ratio 0.9 L I & O for Last 24 hours: Intake & Output 10/30/23 10/31/23 11/01/23 11/02/23 11:59 11:59 11:59 11:59 Output Total 0 / 0 0 / 0 Balance 0 / 0 0 / 0 Weight 168 lb 9.6 oz 168 lb 9.611 oz *Routine Abdominal Exam Abdominal: Present soft; Absent tenderness Progress Note: A&P Assessment and plan (1) Sepsis: Status: Acute (2) Coffee ground emesis: Status: Acute (3) Acute UTI: Status: Acute (4) ANDRESSA (acute kidney injury): Status: Acute (5) Metabolic encephalopathy: Status: Acute (6) Hypertension: Status: Acute (7) HLD (hyperlipidemia): Status: Chronic (8) Hypoxia: Status: Acute (9) Anemia: Status: Acute (10) Hypothyroidism: Status: Acute Assessment and Plan Assessment and Plan for All Diagnoses:: Patient has findings of sepsis. Has shown some improvement in leukocytosis. However still febrile. On antibiotics. Consider sending COVID. She has shown some diminished hemoglobin to 7. No obvious active bleeding. Stool occult pending. Would not plan for urgent EGD as she has no evidence of active bleeding and likelihood of need for intervention is low. Procedure would be more diagnostic and would not perform EGD as an urgent procedure in her setting of sepsis as this would potentially compromise her from a respiratory standpoint. Recommend continuation of therapeutic proton pump inhibitors, transfuse as necessary. If she shows suboptimal response to possible transfusion and/or continues to show diminishing hemoglobin may need EGD.
[2023-11-02 10:00] LABS: Occult Blood,Stool Positive (Negative)
[2023-11-02 10:16] LABS: Lymphocytes % 5 % (10-50); Monocytes % 2 % (2-9); Neutrophils % 93 % (42-76); Platelet Estimate Normal; RBC Morphology Normal; Total Cells Counted 100
[2023-11-02 13:39] LABS: Adenovirus,PCR Not Detected (NotDetected); Coronavirus 19, PCR Not Detected (NotDetected); Coronavirus 229E Not Detected (NotDetected); Coronavirus NL63 Not Detected (NotDetected); Coronavirus OC43 Not Detected (NotDetected); Coronovirus HKU1,PCR Not Detected (NotDetected); Human Metapneumovirus Not Detected (NotDetected); Influenza A, PCR Not Detected (NotDetected); Influenza AH1, 2009 Not Detected (NotDetected); Influenza AH1, PCR Not Detected (NotDetected); Influenza AH3,PCR Not Detected (NotDetected); Influenza B, PCR Not Detected (NotDetected); Parainfluenza 1, PCR Not Detected (NotDetected); Parainfluenza 2, PCR Not Detected (NotDetected); Parainfluenza 3, PCR Not Detected (NotDetected); Parainfluenza 4, PCR Not Detected (NotDetected); Respiratory Syncytial Virus Not Detected (NotDetected); Rhinovirus/Enterovirus Not Detected (NotDetected)
[2023-11-02 15:17] LABS: Hematocrit 21.1 % (37.0-47.0)
[2023-11-02 15:19] LABS: Hemoglobin 6.6 g/dL (12.2-16.2)
--- NOTE | 2023-11-02 15:33 | EXP.PN ---
Subjective *Date: 11/02/23 *Time: 15:33 Interval history: patient was seen and evaluated at the bedside. not feeling well, denies chest pain, shortness of breath, vomiting, abdominal pain. Feels nauseated. Exam Data for Last 24 hours Vital signs and Labs for Last 24 Hours: Temp Pulse Resp BP Pulse Ox O2 Del Method O2 Flow Rate 97.7 F 89 22 103/47 L 100 Nasal Cannula 2 11/02/23 15:13 11/02/23 15:13 11/02/23 15:13 11/02/23 15:13 11/02/23 15:13 11/02/23 15:13 11/02/23 15:13 Laboratory Results - last 24 hr 11/01/23 17:45: Lactate 2.1 11/01/23 18:00: Stool Occult Blood Positive A 11/01/23 20:55: Lactate 1.7 11/02/23 07:45: WBC 14.1 H D, RBC 2.32 L, Hgb 7.0 L, Hct 21.9 L, MCV 94.2, MCH 30.1, MCHC 31.9, RDW 18.3 H, Plt Count 295, MPV 8.7, Neut % (Auto) 88.2 H, Lymph % (Auto) 7.7 L, [place] % (Auto) 3.9, Eos % (Auto) 0.1, Baso % (Auto) 0.1, Neut # (Auto) 12.4 H, Lymph # (Auto) 1.1, [place] # (Auto) 0.6, Eos # (Auto) 0.0, Baso # (Auto) 0.0, Total Counted 100, Neutrophils % (Manual) 93 H, Lymphocytes % (Manual) 5 L, Monocytes % (Manual) 2, Platelet Estimate Normal, RBC Morphology Normal, Sodium 142, Potassium 3.5, Chloride 121 H, Carbon Dioxide 18 L, Anion Gap 6.5, BUN 32 H, Creatinine 1.30 H, Estimated Creat Clear 38, Estimated GFR 39 L, Est GFR ( Amer) 47 L, Glucose 101 H, Calcium 7.3 L, Total Bilirubin 0.3, AST 22 D, ALT 22 D, Alkaline Phosphatase 127 H, Total Protein 4.6 L D, Albumin 2.2 L, Globulin 2.4, Albumin/Globulin Ratio 0.9 L 11/02/23 13:30: Chlamy pneumoniae PCR TNP, Adenovirus (PCR) Not detected, B. pertussis DNA (PCR) TNP, Coronavirus OC43 (PCR) Not detected, Coronavirus HKU1 (PCR) Not detected, Coronavirus 229E (PCR) Not detected, SARS-CoV-2 (PCR) Not detected, Coronavirus NL63 (PCR) Not detected, Human Metapneumovir PCR Not detected, Influenza A (H1) PCR Not detected, Influ A (H1N1/09) PCR Not detected, Influenza A (H3) PCR Not detected, Influenza Type A (PCR) Not detected, Influenza Type B (PCR) Not detected, M. pneumoniae (PCR) TNP, Parainfluenza 1 (PCR) Not detected, Parainfluenza 2 (PCR) Not detected, Parainfluenza 3 (PCR) Not detected, Parainfluenza 4 (PCR) Not detected, RSV (PCR) Not detected, Entero/Rhino (PCR) Not detected 11/02/23 14:50: Hgb 6.6 L*, Hct 21.1 L I & O for Last 24 hours: Intake & Output 10/30/23 10/31/23 11/01/23 11/02/23 23:59 23:59 23:59 23:59 Intake Total 120 / 120 Output Total 0 / 0 0 / 0 Balance 0 / 0 0 / 0 120 / 120 Weight 76.476 kg 76.476 kg 76.46 kg Constitutional Constitutional: no acute distress Comments: Patient appears weak and frail *Routine HEENT Exam Head: Present normocephalic Eye: Present EOMI and PERRL ENT: Present mucous membranes moist *Routine Neck Exam Neck: Present supple; Absent lymphadenopathy *Routine Respiratory Exam Respiratory: Present CTA bilaterally *Routine Cardiovascular Exam Cardiovascular: Present RRR *Routine Abdominal Exam Abdominal: Present soft and normoactive bowel sounds; Absent tenderness *Routine Extremities Exam Extremities: Absent cyanosis, clubbing or edema *Routine Skin Exam Skin: Present warm; Absent rash *Routine Neurological Exam Comments: Patient appears confused, not able to hold conversations, not following commands Assessment and Plan *Assessment and plan (1) Sepsis: Status: Acute Qualifiers: Sepsis type: sepsis due to unspecified organism Sepsis acute organ dysfunction status: without acute organ dysfunction Qualified Code(s): A41.9 - Sepsis, unspecified organism Category: Medical Code(s): A41.9 - Sepsis, unspecified organism (2) Coffee ground emesis: Status: Acute Category: Medical Code(s): K92.0 - Hematemesis (3) Acute UTI: Status: Acute Category: Medical Code(s): N39.0 - Urinary tract infection, site not specified (4) ANDRESSA (acute kidney injury): Status: Acute Category: Medical Code(s): N17.9 - Acute kidne
--- NOTE | 2023-11-02 16:26 | PC.NURSE ---
Addendum entered by Shiela Lowe RN 11/02/23 16:34: waiting on blood tubing Original Note: blood bank just notified this nurse that pts unit of blood should be ready in about 10 minutes.
--- NOTE | 2023-11-02 19:10 | PC.NURSE ---
pt has done well this shift, much improvement from yesterday. a&o x3, alert to self, place, and year. pt passed bed side swallow, has ate independently at lunch and supper, drinking adequately t/o shift. no signs of aspiration noted. vss. pt currently receiving blood transfusion, tolerating well, resting. cb within reach and bed alarm on for pt safety.
--- NOTE | 2023-11-02 21:19 | PC.NURSE ---
Blood Transfusion completed at 2100. VS: 153/51, 98.2, 94, 18, 96% 2L per NC. Pt. A+O X3. Awake and is talking to staff. Pleasant and cooperative.
[2023-11-03] VITALS (27 sets, daily range): BP systolic 100–158; BP diastolic 41–87; PULSE 78–109; RESP 16–24; TEMP 36.3–37.2; O2SAT 93–100; BMI 26.4
[2023-11-03 00:15] LABS: Hematocrit 27.3 % (37.0-47.0)
[2023-11-03 00:25] LABS: Hemoglobin 8.7 g/dL (12.2-16.2)
--- NOTE | 2023-11-03 07:00 | P.PN_ITS ---
Subjective Narrative: Patient had decreasing hemoglobin to 6.6 yesterday and was transfused 1 unit packed red blood cells with hyper response posttransfusion hemoglobin of 8.7. She is more alert. Stool occult positive. Patient more alert. Respiratory panel negative. Patient has been on a soft mechanical diet. Exam Data for Last 24 hours Vital signs and Labs for Last 24 Hours: Temp Pulse Resp BP Pulse Ox O2 Del Method O2 Flow Rate 98.9 F 82 17 121/62 98 Nasal Cannula 2 11/03/23 04:00 11/03/23 06:26 11/03/23 04:00 11/03/23 04:00 11/03/23 06:26 11/03/23 06:26 11/03/23 06:26 Laboratory Results - last 24 hr 10/31/23 18:20: Blood Type O Positive, Antibody Screen Negative, Crossmatch (AHG) See Detail 11/01/23 18:00: Stool Occult Blood Positive A 11/02/23 07:45: WBC 14.1 H D, RBC 2.32 L, Hgb 7.0 L, Hct 21.9 L, MCV 94.2, MCH 30.1, MCHC 31.9, RDW 18.3 H, Plt Count 295, MPV 8.7, Neut % (Auto) 88.2 H, Lymph % (Auto) 7.7 L, [place] % (Auto) 3.9, Eos % (Auto) 0.1, Baso % (Auto) 0.1, Neut # (Auto) 12.4 H, Lymph # (Auto) 1.1, [place] # (Auto) 0.6, Eos # (Auto) 0.0, Baso # (Auto) 0.0, Total Counted 100, Neutrophils % (Manual) 93 H, Lymphocytes % (Manual) 5 L, Monocytes % (Manual) 2, Platelet Estimate Normal, RBC Morphology Normal, Sodium 142, Potassium 3.5, Chloride 121 H, Carbon Dioxide 18 L, Anion Gap 6.5, BUN 32 H, Creatinine 1.30 H, Estimated Creat Clear 38, Estimated GFR 39 L, Est GFR ( Amer) 47 L, Glucose 101 H, Calcium 7.3 L, Total Bilirubin 0.3, AST 22 D, ALT 22 D, Alkaline Phosphatase 127 H, Total Protein 4.6 L D, Albumin 2.2 L, Globulin 2.4, Albumin/Globulin Ratio 0.9 L 11/02/23 13:30: Chlamy pneumoniae PCR TNP, Adenovirus (PCR) Not detected, B. pertussis DNA (PCR) TNP, Coronavirus OC43 (PCR) Not detected, Coronavirus HKU1 (PCR) Not detected, Coronavirus 229E (PCR) Not detected, SARS-CoV-2 (PCR) Not detected, Coronavirus NL63 (PCR) Not detected, Human Metapneumovir PCR Not detected, Influenza A (H1) PCR Not detected, Influ A (H1N1/09) PCR Not detected, Influenza A (H3) PCR Not detected, Influenza Type A (PCR) Not detected, Influenza Type B (PCR) Not detected, M. pneumoniae (PCR) TNP, Parainfluenza 1 (PCR) Not detected, Parainfluenza 2 (PCR) Not detected, Parainfluenza 3 (PCR) Not detected, Parainfluenza 4 (PCR) Not detected, RSV (PCR) Not detected, Entero/Rhino (PCR) Not detected 11/02/23 14:50: Hgb 6.6 L*, Hct 21.1 L, Blood Type Confirm O Positive 11/02/23 23:50: Hgb 8.7 L D, Hct 27.3 L I & O for Last 24 hours: Intake & Output 10/31/23 11/01/23 11/02/23 11/03/23 11:59 11:59 11:59 11:59 Intake Total 1590 / 1590 Output Total 0 / 0 0 / 0 Balance 0 / 0 0 / 0 1590 / 1590 Weight 168 lb 9.6 oz 168 lb 9.047 oz 168 lb 9.047 oz Progress Note: A&P Assessment and plan (1) Sepsis: Status: Acute (2) Coffee ground emesis: Status: Acute (3) Acute UTI: Status: Acute (4) ANDRESSA (acute kidney injury): Status: Acute (5) Metabolic encephalopathy: Status: Acute (6) Hypertension: Status: Acute (7) HLD (hyperlipidemia): Status: Chronic (8) Hypoxia: Status: Acute (9) Anemia: Status: Acute (10) Hypothyroidism: Status: Acute Assessment and Plan Assessment and Plan for All Diagnoses:: Plan for upper endoscopy today given Hemoccult positivity and anemia needing transfusion.
--- NOTE | 2023-11-03 08:47 | P.PCN_ITS ---
Procedure: Date: 11/03/23 Patient Date of :: 1940 Procedure Performed:: Esophagogastroduodenoscopy Indications:: Patient is an 83-year-old female who is resident at [facility]. She has multiple medical comorbidities. She was admitted after presenting to the emergency department on 10/31/2023 with symptoms of abdominal pain and reported dark brown emesis. She was found to have leukocytosis and findings consistent with sepsis. She was started on antibiotics. She had improvement in her signs of sepsis but had continued decrease in her hemoglobin to 6.6 after being admitted with a hemoglobin of 10.7. She was transfused a single unit and had response to 8.7. She had Hemoccult positivity. Given her Hemoccult positivity and need for transfusion plan was made for upper endoscopy for diagnostic purposes. Performing Provider:: Ilan Rosario MD Referring Provider:: . Sedation:: MAC sedation Procedure:: Patient history was obtained and appropriate physical examination was performed. Patient's medications and allergies were reviewed. Informed consent was obtained after explaining the benefits, alternatives, and risks of the procedure including, but not limited to, bleeding, perforation, missed lesions, and adverse reaction to anesthesia medications. Patient was transported to endoscopy procedure room. Patient was connected to monitoring devices. Throughout the procedure the patient's blood pressure, pulse, and oxygen saturations were monitored continuously. Patient identification and planned procedure were verified by the staff. Patient was positioned in lateral decubitus position. Olympus endoscope was inserted via the oropharynx. There was some cricopharyngeal spasm. Esophagus was cannulated. There was some significant tortuosity of the esophagus consistent with esophageal dysmotility. Gastroesophageal junction was encountered at 30 cm from the incisors. There was moderately large sliding hiatal hernia. Stomach was cannulated and insufflated. Retroflexion revealed moderately large sliding hiatal hernia. There is minor diffuse nonerosive gastropathy. Pylorus was traversed. Duodenal bulb and duodenal sweep appeared unremarkable. No evidence of any recent or active GI bleeding. Stomach was desufflated and the endoscope was withdrawn. Findings:: Cricopharyngeal spasm Esophageal dysmotility Moderately large sliding hiatal hernia Mild diffuse nonerosive gastropathy No evidence of recent or active upper GI blood loss source. Recommendations:: Continue expectant medical management. Given prior history and nature of her anemia I would not pursue colonoscopy immediately. Complications:: None immediately apparent Estimated blood obtained (mL): 0 Colonoscopy Component Colonoscopy Component Was a colonoscopy performed during today's procedure?: No
--- NOTE | 2023-11-03 09:03 | EXP.ANES.I ---
[facility] Anesthesia Record Part I Anesthesia Record I Intake, IV Amount: 350 Hydration: Adequate Estimated blood loss (mL): 0 Urine output (mL): 0 Blood Products used (#): none Blood Pressure: 106/51 SaO2: 99 Pulse Rate: 92 Airway Patency: Patent Respiratory Rate: 16 Temperature: 97.3 F Patient is:: Awake, Drowsy, Nasal O2 (4L/m NC) and Stable Stable to PACU at:: 08:45
--- NOTE | 2023-11-03 10:12 | SW/DCPLANNER ---
This patient currently resides at [facility] level of care. I will continue to follow up w/ Aruna at [place] until patient is medically stable for discharge. Discharge date is unknown at this time.
--- NOTE | 2023-11-03 11:27 | HMH.OTEV ---
OT Inpatient Evaluation Rehab OT IP Evaluation Start: 11/03/23 10:11 Freq: ONCE Status: Active Protocol: Document 11/03/23 11:17 AZUCENA (Rec: 11/03/23 11:27 [facility] [id number]) Rehab OT IP Assessment Subjective History Pt oriented x 3 on arrival. Pt agreeable to engage in therapy session. Pt admitted on 10/31/23 due to upper GI bleed. This is an 83-year-old female with past medical history of hypertension, hyperlipidemia, breast cancer who presents to the emergency department from her SNF for further evaluation of coffee- ground emesis. She initially was complaining of right lower quadrant pain to her staff at the SNF . Reports from the SNF RN that she has had dark tarry stools up until today. Today she was noticed coffee- ground emesis around her mouth and was more confused than normal. She is on aspirin and Plavix for history of cardiac stents but is not on any anticoagulation. Pt reports prior to being in the hospital, she lived as a custodial resident at [facility]. Pt claims she required assistance with all ADLs and functional transfers. She used a wheelchair at all times. However she did explain most of the time she was in bed. Subjective Yes I need help. Objective Patient Orientation Person,Place,Birthday Right Upper Extremity Gross ROM WFL Left Upper Extremity Gross ROM WFL Bed Mobility bed mobility-scooting,bed mobility - supine/sit,bed mobility - rolling Assist Level Total/Dependent (100%) Rehab OT IP prob,goals,plan Problems Date of Evaluation: 11/03/23 Rehab Potential Rehab Potential Innapropriate for Skilled Therapy Discharge Plan OT Discharge Plan At this time, pt appears to be
--- NOTE | 2023-11-03 12:55 | HMH.PTEV ---
Physical Therapy Evaluation Rehab PT IP Evaluation Start: 11/03/23 10:11 Freq: ONCE Status: Active Protocol: Document 11/03/23 12:52 PABLOGUNNER (Rec: 11/03/23 12:55 SURENDRA [id number]) Subjective/History History History Pt is an 83 y/o female who presented to [facility] ED from [facility] on 10/31/23 for further evaluation of coffee-ground emesis. Per history & physical note, She initially was complaining of right lower quadrant pain to her staff at the [facility] . Reports from the SNF RN that she has had dark tarry stools up until today. Today she was noticed coffee- ground emesis around her mouth and was more confused than normal. She is on aspirin and Plavix for history of cardiac stents but is not on any anticoagulation. Daughter is at the bedside and provides collateral secondary to patient's mental status. She reports that patient was admitted to the hospital in late September for pneumonia and was discharged about 15 days ago. She reports he has been doing well since. Patient presents today encephalopathic and able to state name only. Strong smell of GI blood noted from room. Nursing in the ED report 2 episodes of coffee-ground emesis 1 melanotic stool. Vital signs notable for increased respiratory rate in the 20s, oxygen saturations in the low 90s requiring nasal cannula. Leukocytosis with a white blood cell count of 20, creatinine of 1.2 which is above baseline of 0.9. Lactic acid of 1.9. Mildly elevated AST. Nitrite positive urine. Given patient's upper GI bleed, ED physician medicated
--- NOTE | 2023-11-03 16:59 | EXP.PN ---
Subjective *Date: 11/03/23 *Time: 17:10 Interval history: patient was seen and evaluated at the bedside. feels ok, no active complains, going for EGD today, denies chest pain, shortness of breath, vomiting, abdominal pain. Exam Data for Last 24 hours Vital signs and Labs for Last 24 Hours: Temp Pulse Resp BP Pulse Ox O2 Del Method O2 Flow Rate 97.9 F 99 H 18 158/71 H 97 Nasal Cannula 1 11/03/23 15:50 11/03/23 15:50 11/03/23 15:50 11/03/23 15:50 11/03/23 15:50 11/03/23 15:50 11/03/23 15:50 Laboratory Results - last 24 hr 10/31/23 18:20: Blood Type O Positive, Antibody Screen Negative, Crossmatch (AHG) See Detail 11/02/23 23:50: Hgb 8.7 L D, Hct 27.3 L I & O for Last 24 hours: Intake & Output 10/31/23 11/01/23 11/02/23 11/03/23 23:59 23:59 23:59 23:59 Intake Total 660 / 1590 1280 / 1280 Output Total 0 / 0 0 / 0 0 / 0 Balance 0 / 0 0 / 0 660 / 1590 1280 / 1280 Weight 76.476 kg 76.476 kg 76.46 kg 76.46 kg Constitutional Constitutional: no acute distress Comments: Patient appears weak and frail *Routine HEENT Exam Head: Present normocephalic Eye: Present EOMI and PERRL ENT: Present mucous membranes moist *Routine Neck Exam Neck: Present supple; Absent lymphadenopathy *Routine Respiratory Exam Respiratory: Present CTA bilaterally *Routine Cardiovascular Exam Cardiovascular: Present RRR *Routine Abdominal Exam Abdominal: Present soft and normoactive bowel sounds; Absent tenderness *Routine Extremities Exam Extremities: Absent cyanosis, clubbing or edema *Routine Skin Exam Skin: Present warm; Absent rash *Routine Neurological Exam Comments: Patient appears confused, not able to hold conversations, not following commands Assessment and Plan *Assessment and plan (1) Sepsis: Status: Acute Qualifiers: Sepsis acute organ dysfunction status: without acute organ dysfunction Sepsis type: sepsis due to unspecified organism Qualified Code(s): A41.9 - Sepsis, unspecified organism Category: Medical Code(s): A41.9 - Sepsis, unspecified organism (2) Coffee ground emesis: Status: Acute Category: Medical Code(s): K92.0 - Hematemesis (3) Acute UTI: Status: Acute Category: Medical Code(s): N39.0 - Urinary tract infection, site not specified (4) ANDRESSA (acute kidney injury): Status: Acute Category: Medical Code(s): N17.9 - Acute kidney failure, unspecified (5) Metabolic encephalopathy: Status: Acute Category: Medical Code(s): G93.41 - Metabolic encephalopathy (6) Hypertension: Status: Acute Qualifiers: Hypertension type: primary hypertension Qualified Code(s): I10 - Essential (primary) hypertension Category: Medical Code(s): I10 - Essential (primary) hypertension (7) HLD (hyperlipidemia): Status: Chronic Qualifiers: Hyperlipidemia type: mixed hyperlipidemia Qualified Code(s): E78.2 - Mixed hyperlipidemia Category: Medical Code(s): E78.5 - Hyperlipidemia, unspecified (8) Hypoxia: Status: Acute Category: Medical Code(s): R09.02 - Hypoxemia (9) Anemia: Status: Acute Qualifiers: Anemia type: other cause Other causes of anemia: other cause, not classified Qualified Code(s): D64.89 - Other specified anemias Category: Medical Code(s): D64.9 - Anemia, unspecified (10) Hypothyroidism: Status: Acute Qualifiers: Hypothyroidism type: acquired Qualified Code(s): E03.9 - Hypothyroidism, unspecified Category: Medical Code(s): E03.9 - Hypothyroidism, unspecified Plan Patient is a 83-year-old female who presented to hospital due to change in mental status. Patient has past medical history of hypertension hyperlipidemia breast cancer. Assessment Sepsis present on admission likely source pulmonary, UTI - improving Suspected pneumonia Urin
--- NOTE | 2023-11-03 18:56 | PC.NURSE ---
PT VERY SLEEPY TODAY. ANSWER QUESTIONS AND FOLLOW COMMANDS. TOLERATED DIET WELL. 1LNC FOR O2 SUPPORT. DENIES PAIN OR N/V. INTERMITTENT COUGH NOTED. MULTIPLE BOWEL MOVEMENTS THIS SHIFT.
[2023-11-04] VITALS (8 sets, daily range): BP systolic 140–171; BP diastolic 77–88; PULSE 70–106; RESP 20–24; TEMP 36.6–37.1; O2SAT 94–97; BMI 30.7
[2023-11-04 04:18] LABS: Basophils % 0.2 % (0.1-2.0); Eosinophils # 0.2 K/mm3 (0.0-0.4); Eosinophils % 2.6 % (0.1-12.0); Hematocrit 27.3 % (37.0-47.0); Hemoglobin 8.7 g/dL (12.2-16.2); Lymphocytes # 1.4 K/mm3 (0.7-4.5); Lymphocytes % 15.5 % (10-50); Mean Corpuscular HGB Conc 31.9 g/dL (31.8-35.4); Mean Corpuscular Hemoglobin 29.4 pg (27.0-31.2); Mean Corpuscular Volume 91.9 fl (81-99); Mean Platelet Volume 8.1 fl (7.4-10.4); Monocytes # 0.7 K/mm3 (0.1-1.0); Monocytes % 7.4 % (1.7-9.3); Neutrophils # 6.7 K/mm3 (1.8-7.8); Neutrophils % 74.3 % (37.0-80.0); Platelet Count 286 K/mm3 (142-424); Red Blood Count 2.97 M/mm3 (4.20-5.40); Red Cell Distribution Width 17.2 % (11.5-17.5)
[2023-11-04 04:25] LABS: Alanine Aminotransferase 36 U/L (12-78); Alkaline Phosphatase 105 U/L (38-126); Aspartate Amino Transferase 39 U/L (14-36); Bilirubin,Total 0.4 mg/dl (0.2-1.3); Blood Urea Nitrogen 13 mg/dl (7-17); Calcium 6.9 mg/dl (8.4-10.2); Carbon Dioxide 14 mmol/L (22.0-30.0); Chloride 118 mmol/L (98-107); Creatinine Clearance Estimated 50 mL/min (50-200); Estimated Glomerular Filt Rate 60 ml/min (>60); GFR (African American) 72 ML/MIN (>60); Glucose 101 mg/dl (74-100)
[2023-11-04 04:30] LABS: Vancomycin,Trough 13.7 ug/mL (5.0-10.0)
[2023-11-04 04:38] LABS: Albumin Level 2.3 g/dl (3.5-5.0); Albumin/Globulin Ratio 0.9 (1.1-1.8); Anion Gap 7.7 mEq/L (5-15); Globulin 2.6 g/dL (1.3-3.2); Magnesium 1.6 mg/dl (1.6-2.3); Sodium 137 mmol/L (136-145); Total Protein,Serum 4.9 g/dl (6.3-8.2)
[2023-11-04 04:40] LABS: Potassium 2.7 mmoL/L (3.5-5.1)
--- NOTE | 2023-11-04 08:17 | PC.NURSE ---
Courtesy Note: pt changed and turned to supine. pt denies needing any additional assistance. Call pruitt within reach. Jean SRNA
--- NOTE | 2023-11-04 08:18 | EXP.PHA.PN ---
Subjective *Date: 11/04/23 *Time: 08:18 Medical Exam Vital signs and Labs for Last 24 Hours: Vital Signs Temp Pulse Pulse Resp BP BP Pulse Ox 11/04/23 07:00 11/04/23 06:11 77 11/04/23 06:11 74 11/04/23 06:11 94 L 11/04/23 05:00 11/04/23 04:00 98.7 F 85 24 162/82 H 97 11/04/23 04:00 88 11/04/23 03:00 11/04/23 00:00 97.8 F 96 H 22 151/78 H 95 11/04/23 01:00 11/04/23 00:00 91 H 11/03/23 23:00 11/03/23 21:00 11/03/23 22:43 88 11/03/23 22:43 88 11/03/23 21:55 107 H 11/03/23 20:00 97.5 F L 108 H 24 139/74 97 11/03/23 20:00 109 H 11/03/23 18:53 11/03/23 17:00 11/03/23 18:34 93 H 11/03/23 18:34 93 H 11/03/23 18:34 93 L 11/03/23 16:00 90 11/03/23 12:00 90 11/03/23 15:50 97.9 F 99 H 18 158/71 H 97 11/03/23 14:55 96 H 17 125/64 98 11/03/23 13:55 93 H 17 136/68 97 11/03/23 12:55 89 16 153/70 H 93 L 11/03/23 11:55 93 H 16 143/64 H 95 11/03/23 11:25 93 H 17 148/63 H 95 11/03/23 10:55 89 17 130/62 94 L 11/03/23 10:25 97.9 F 90 16 126/51 L 99 11/03/23 09:55 97.9 F 91 H 17 126/64 96 11/03/23 09:40 98.1 F 95 H 16 155/87 H 96 11/03/23 09:25 98 F 93 H 16 131/58 L 96 11/03/23 09:10 97.7 F 108 H 16 100/65 L 96 11/03/23 14:29 11/03/23 13:00 11/03/23 12:10 86 11/03/23 12:10 88 11/03/23 11:00 11/03/23 09:00 11/03/23 10:39 97.7 F 11/03/23 08:54 84 18 106/48 L 99 11/03/23 08:33 82 18 106/41 L 99 11/03/23 08:45 87 18 120/48 L 100 11/03/23 08:33 11/03/23 09:04 97.3 F L 92 H 16 106/51 L O2 Del Method O2 Flow Rate 11/04/23 07:00 Nasal Cannula 1 11/04/23 06:11 11/04/23 06:11 11/04/23 06:11 Nasal Cannula 1 11/04/23 05:00 Nasal Cannula 1 11/04/23 04:00 Nasal Cannula 2 11/04/23 04:00 11/04/23 03:00 Nasal Cannula 1 11/04/23 00:00 Nasal Cannula 2 11/04/23 01:00 Nasal Cannula 1 11/04/23 00:00 11/03/23 23:00 Nasal Cannula 1 11/03/23 21:00 Nasal Cannula 1 11/03/23 22:43 11/03/23 22:43 11/03/23 21:55 Nasal Cannula 1 11/03/23 20:00 Nasal Cannula 2 11/03/23 20:00 11/03/23 18:53 Nasal Cannula 1 11/03/23 17:00 Nasal Cannula 1 11/03/23 18:34 11/03/23 18:34 11/03/23 18:34 Nasal Cannula 2 11/03/23 16:00 11/03/23 12:00 11/03/23 15:50 Nasal Cannula 1 11/03/23 14:55 Nasal Cannula 1 11/03/23 13:55 Nasal Cannula 1 11/03/23 12:55 Nasal Cannula 1 11/03/23 11:55 Nasal Cannula 1 11/03/23 11:25 Nasal Cannula 1 11/03/23 10:55 Nasal Cannula 1 11/03/23 10:25 Nasal Cannula 1 11/03/23 09:55 Nasal Cannula 1 11/03/23 09:40 Nasal Cannula 1 11/03/23 09:25 Nasal Cannula 2 11/03/23 09:10 Nasal Cannula 2 11/03/23 14:29 Nasal Cannula 1 11/03/23 13:00 Nasal Cannula 1 11/03/23 12:10 11/03/23 12:10 11/03/23 11:00 Nasal Cannula 1 11/03/23 09:00 Nasal Cannula 1 11/03/23 10:39 11/03/23 08:54 Room Air 11/03/23 08:33 Room Air 11/03/23 08:45 Room Air 11/03/23 08:33 Nasal Cannula 4 11/03/23 09:04 Intake and Output 11/03/23 11/04/23 11/04/23 23:59 07:59 15:59 Intake Total 1980 534 / 534 Output Total 0 / 0 0 / 0 Balance 1980 534 / 534 Intake: Intake, Oral Amount 540 / 1140 Intake, Total IV Amount 92 / 542 534 / 534 0.9 % Sodium Chloride 1000ML 1, 534 / 534 000 ml @ 50 mls/hr IV .Q20H [facility] Rx#:[id number] Pantoprazole Sodium 80 mg In 0. 92 / 192 9 % Sodium Chloride 100 ml @ 10 mls/hr IV .Q10H [facility] Rx#: [id number] Infusion Intake 1349 / 1349 0.9 % Sodium Chloride 1000ML 1, 1349 / 1349 000 ml @ 50 mls/hr IV .Q20H [facility] Rx#:[id number] Output: Output, Urine Amount 0 / 0 0 / 0 Other:
[2023-11-04 10:29] LABS: Vancomycin,Peak 21.7 ug/ml (11-39)
--- NOTE | 2023-11-04 12:05 | PC.NURSE ---
COURTESY NOTE: afternoon round completed on pt. pt denies needing assistance at this time. call edmond within reach. Girish SRNA
[2023-11-04 13:45] LABS: Chloride 117 mmol/L (98-107); Potassium 3.3 mmoL/L (3.5-5.1); Sodium 138 mmol/L (136-145)
[2023-11-04 13:48] LABS: Anion Gap 7.3 mEq/L (5-15); Blood Urea Nitrogen 10 mg/dl (7-17); Calcium 6.9 mg/dl (8.4-10.2); Carbon Dioxide 17 mmol/L (22.0-30.0); Creatinine Clearance Estimated 58 mL/min (50-200); Estimated Glomerular Filt Rate 68 ml/min (>60); GFR (African American) 82 ML/MIN (>60); Glucose 123 mg/dl (74-100); Magnesium 2.3 mg/dl (1.6-2.3)
--- NOTE | 2023-11-04 15:13 | EXP.DC.SUM ---
General Admission date:: 10/31/23 Discharge date: 11/04/23 HPI HPI HPI: This is an 83-year-old female with past medical history of hypertension, hyperlipidemia, breast cancer who presents to the emergency department from her SNF for further evaluation of coffee-ground emesis. She initially was complaining of right lower quadrant pain to her staff at the SNF . Reports from the SNF RN that she has had dark tarry stools up until today. Today she was noticed coffee-ground emesis around her mouth and was more confused than normal. She is on aspirin and Plavix for history of cardiac stents but is not on any anticoagulation. Daughter is at the bedside and provides collateral secondary to patient's mental status. She reports that patient was admitted to the hospital in late September for pneumonia and was discharged about 15 days ago. She reports he has been doing well since. Patient presents today encephalopathic and able to state name only. Strong smell of GI blood noted from room. Nursing in the ED report 2 episodes of coffee-ground emesis 1 melanotic stool. Vital signs notable for increased respiratory rate in the 20s, oxygen saturations in the low 90s requiring nasal cannula. Leukocytosis with a white blood cell count of 20, creatinine of 1.2 which is above baseline of 0.9. Lactic acid of 1.9. Mildly elevated AST. Nitrite positive urine. Given patient's upper GI bleed, ED physician medicated her with Protonix, she was given Rocephin for her urinalysis and admitted to the hospitalist service for further evaluation and management. Hospital Course Hospital Course Hospital Course: Patient is a 83-year-old female who presented to hospital due to change in mental status. Patient has past medical history of hypertension, hyperlipidemia, breast cancer. Concern for anemia, sepsis, GI bleed. Admitted to medicine for further management. Surgery was consulted. No upper GI bleed source at this time. Hemoglobin is remained stable after transfusion. Patient clinically improving on IV antibiotics. Stable for discharge back to nursing facility to complete antibiotic course. Problems addressed as follows: Sepsis present on admission likely source pulmonary and UTI - improving Suspected pneumonia Urinary tract infection Acute metabolic encephalopathy - resolved -Patient admitted to medicine for further management of her sepsis. Started on broad-spectrum antibiotics and cultures obtained. Responded to general IV fluid resuscitation. Tolerated Vanco and Zosyn during admission. Has been afebrile for 36 hours prior to discharge. White cell count initially 20, peaked at 26 and improved to 9 by day of discharge. Cultures negative to date. Will de-escalate antibiotics to levofloxacin to complete 7-day course. This will provide coverage for both above and below the diaphragm. Based on previous urinary cultures as well previous pathogens have been sensitive to Levaquin. 2 doses sent to [facility] to be administered on the and . Patient 1 L nasal cannula on day of discharge. Tolerating weaning. Continue to wean as tolerated. Goal saturations greater than 90%. Upper GI bleed - Concern for coffee-ground emesis. Hemoglobin dropped below 7 during admission. Status post 1 unit packed red blood cells. Hemoglobin responded well and has been stable at 8.7 on day of discharge. Recommend repeat CMP, magnesium, CBC in 1 week to monitor electrolytes, kidney function, hemoglobin. Continue Protonix 40 mg daily for GI prophylaxis. Surgery was consulted, status post EGD with the following findings Findings:: Cricopharyngeal spasm Esophageal dysmotility Moderately large sliding hiatal hernia Mild diffuse nonerosive gastropathy No evidence of recent or active upper GI blood loss source. Acute kidney injury: Creatinine 1.3 on admission. Improved to 0.8 by day of discharge. Stable at this time. Patient noted to have hypokalemia and hypomagnesemia o
[2023-11-09 22:36] LABS: MRSA DNA PCR Negative
== END 2023-11-04 17:45 | DRG 871 ==
LOC: ER 18:12 → 2ND 22:30
PROVIDERS: Internal Medicine; Nurse Practitioner Acute Care; Surgery; Admitting Provider Internal Medicine Adolescent Medicine; Emergency Provider Emergency Medicine; PCP Internal Medicine Adolescent Medicine; Visit Provider Internal Medicine Adolescent Medicine
PROC: 0DJ08ZZ Inspection of Upper Intestinal Tract, Via Natural or Artificial Opening Endoscopic (ICD-10-PCS; CPT 43235; principal; 2023-11-03 08:15)
DX: A41.9 Sepsis, unspecified organism (principal); G93.41 Metabolic encephalopathy; K92.0 Hematemesis; N39.0 Urinary tract infection, site not specified; N17.9 Acute kidney failure, unspecified; I10 Essential (primary) hypertension; E78.2 Mixed hyperlipidemia; R09.02 Hypoxemia; D64.89 Other specified anemias; E03.9 Hypothyroidism, unspecified; I25.10 Atherosclerotic heart disease of native coronary artery without angina pectoris; Z85.3 Personal history of malignant neoplasm of breast; K44.9 Diaphragmatic hernia without obstruction or gangrene; K31.9 Disease of stomach and duodenum, unspecified
CPT/HCPCS: 43235; 36415; 71045; 73610; 73630; 74174; 80048; 80053; 80202; 81001; 82272; 83605; 83690; 83735; 84145; 85007; 85014; 85018; 85025; 85610; 86850; 87040; 87086; 87632; 87635; 87641; 94640; 94760; 94761; 97162; 97166; 99212; 99285; C1751; G0328; G0378; G0463; J0696; J2405; J2543; J3370; J3475; P9016; Q9967

== ENCOUNTER 2023-11-11 00:22 | Observation (INO) | payer MEDICARE, SELFPAY ==
[2023-11-11] VITALS (21 sets, daily range): BP systolic 103–173; BP diastolic 45–86; PULSE 53–68; RESP 14–22; TEMP 36.3–36.9; O2SAT 91–100; BMI 30.2
[2023-11-11 01:11] LABS: Basophils % 0.1 % (0.1-2.0); Lymphocytes # 2.3 K/mm3 (0.7-4.5); Lymphocytes % 11.5 % (10-50); Mean Corpuscular HGB Conc 32.1 g/dL (31.8-35.4); Mean Corpuscular Hemoglobin 30.4 pg (27.0-31.2); Mean Corpuscular Volume 94.6 fl (81-99); Mean Platelet Volume 7.6 fl (7.4-10.4); Monocytes # 0.9 K/mm3 (0.1-1.0); Monocytes % 4.2 % (1.7-9.3); Neutrophils % 84.1 % (37.0-80.0); Platelet Count 338 K/mm3 (142-424); Red Blood Count 2.65 M/mm3 (4.20-5.40); Red Cell Distribution Width 17.1 % (11.5-17.5); White Blood Count 20.2 K/mm3 (4.8-10.8)
--- NOTE | 2023-11-11 01:13 | PC.NURSE ---
hemocult collected and sent to lab
[2023-11-11 01:17] LABS: Alanine Aminotransferase 30 U/L (12-78); Albumin Level 2.6 g/dl (3.5-5.0); Albumin/Globulin Ratio 1.1 (1.1-1.8); Alkaline Phosphatase 99 U/L (38-126); Anion Gap 5.9 mEq/L (5-15); Aspartate Amino Transferase 26 U/L (14-36); Bilirubin,Total 0.2 mg/dl (0.2-1.3); Blood Urea Nitrogen 32 mg/dl (7-17); Calcium 7.3 mg/dl (8.4-10.2); Carbon Dioxide 26 mmol/L (22.0-30.0); Chloride 105 mmol/L (98-107); Creatinine Clearance Estimated 47 mL/min (50-200); Estimated Glomerular Filt Rate 47 ml/min (>60); GFR (African American) 57 ML/MIN (>60); Globulin 2.4 g/dL (1.3-3.2); Glucose 140 mg/dl (74-100); Potassium 3.9 mmoL/L (3.5-5.1); Sodium 133 mmol/L (136-145)
--- NOTE | 2023-11-11 01:19 | ED_ITS ---
Discharge Plan Disposition Patient Disposition: Admitted Chief Complaint: GI Bleed Clinical Impressions Clinical Impression: Acute GI bleeding, Anemia, Left upper extremity swelling Discharge ED Provider: Moises Hinojosa Adult HPI General Chief complaint: GI Bleed Stated complaint: gi bleed Time Seen by Provider: 11/11/23 00:45 Mode of Arrival: EMS Source of Information: Patient, EMS and Medical Record Limitations: No Limitations Description of Symptoms (Recalled from ER Triage Doc. by RN): detention staff reported that they went to check patient and she had large softball sized clots in her brief. EMS reports that there was bright red blood staining on shower chair and bed. Patient denies pain, was recently admitted for similar complaints. History of Present Illness HPI narrative: 83-year-old female, history of recent admission for pneumonia, UTI and upper GI bleeding presents with reported lower GI bleeding. She was discharged on 11/04. She had an EGD at that time that showed moderate hiatal hernia and mild diffuse nonerosive gastropathy without evidence of acute or recent upper GI bleeding. She was discharged on Protonix. She reports that she has had no other symptoms recently. She denies any specific chest pain abdominal pain shortness of breath. She denies any vomiting. Patient was noted to have bright red blood in the diaper per nursing facility. She shortly thereafter reportedly had large- volume dark tarry stools and blood clots. No recent fever. Related Data Home Medications Medication Instructions Recorded Confirmed ranolazine 500 mg tablet,extended 500 mg PO BID Angina 90 days #180 03/11/19 10/31/23 release,12 hr tabs levothyroxine 50 mcg tablet 50 mcg PO DAILY thyroid 07/14/20 10/31/23 pantoprazole 40 mg tablet,delayed 40 mg PO BID acid reflux 01/28/21 10/31/23 release rosuvastatin 40 mg tablet 40 mg PO HS Cholesterol 01/28/21 10/31/23 gabapentin 300 mg capsule 300 mg PO BID Neuropathy 03/23/21 10/31/23 anastrozole 1 mg tablet 1 mg PO DAILY Chemotherapy 05/30/21 10/31/23 sucralfate 1 gram tablet 1 gm PO ACHS Esophagitis 03/20/22 11/01/23 amlodipine 5 mg tablet 5 mg PO DAILY Hypertension 02/19/23 10/31/23 metoprolol succinate 100 mg 100 mg PO DAILY Hypertension 02/19/23 10/31/23 tablet,extended release 24 hr acetaminophen 500 mg tablet 1,000 mg PO Q6HP PRN Mild 10/12/23 10/31/23 pain/fever cholecalciferol (vitamin D3) 50 50 mcg PO DAILY Supplement 10/12/23 10/31/23 mcg (2,000 unit) tablet (Vitamin D3) ipratropium 20 mcg-albuterol 100 1 puff inhalation QID Copd 10/12/23 10/31/23 mcg/actuation mist for inhalation (Combivent Respimat) losartan 100 mg tablet 100 mg PO DAILY Hypertension 10/12/23 10/31/23 multivitamin with minerals 1 tab PO DAILY Supplement 10/12/23 10/31/23 ondansetron HCl 4 mg tablet 4 mg PO Q6H PRN Vomiting 10/12/23 10/31/23 polyethylene glycol 3350 17 gram 17 g PO HS Constipation 10/12/23 10/31/23 oral powder packet sennosides 8.6 mg-docusate sodium 8.6 tab PO BID Bowel care 10/12/23 10/31/23 50 mg tablet sertraline 50 mg tablet 50 mg PO HS Depression 10/12/23 10/31/23 spironolactone 25 mg tablet 25 mg PO DAILY Hypertension 10/12/23 10/31/23 vit C 250 mg-vit E 90 mg-zinc 40 1 tab PO BID Eye care 10/12/23 10/31/23 mg-copper 1 [id number] capsule (PreserVision AREDS-2) ferrous sulfate 325 mg (65 mg 325 mg PO MOWEFR Iron supplement 10/31/23 11/01/23 iron) tablet prednisone 20 mg tablet 20 mg PO BID 10/31/23 10/31/23 Previous Rx's Medication Instructions Recorded clopidogrel 75 mg tablet 75 mg PO DAILY HX of stents #90 10/02/22 tabs levofloxacin 750 mg tablet 750 mg PO DAILY 2 days #2 tabs 11/04/23 Allergies Allergy/AdvReac Type Severity Reaction Status Date / Time No Known Drug Allergies Allergy Unknown Verified 10/28/23 10:52 [NO KNOWN DRUG ALLERGIES] [facility] Disclaimer: The information contained in this section may have been updated after the patient was seen, as this information can be updated by other users. Medical History (Updated 12/19/23 @ 04:04 by Moises Hinojosa MD) Acute respiratory failure with hypoxia Breast cancer, right Breast mass, right Encounter for pre-operative cardiovascular clearance FH: mastectomy HLD (hyperlipidemia) HTN (hypertension) Renal artery stenosis Simple adnexal cyst greater than 1 cm in diameter in postmenopausal patient Surgical History History of renal stent Hx of total mastectomy of right breast Stented coronary artery Family History Other No significant family history Social History (Updated 10/31/23 @ 23:24 by Shiela Shelton RN) Smoking Status: Never smoker alcohol intake: never substance use type: denies use current occupational status: retired Travel in the last 8 weeks: None household members: none housing: apartment current occupational exposures/hazards: No caffeine: No ROS Obtained: Yes All systems reviewed & no additional complaints except as documented Physical Exam General General appearance: alert and in no apparent distress Head Head exam: atraumatic and normocephalic Eye Eye exam: Present normal appearance, PERRL and EOMI ENT ENT exam: Present normal oropharynx and normal external ear exam Neck Neck exam: Present normal inspection and full ROM Chest Chest inspection: Present normal inspection and symmetric chest wall rise; Absent tenderness Respiratory Respiratory exam: Present normal lung sounds bilaterally; Absent respiratory distress Cardiovascular Cardiovascular exam: Present regular rate and normal rhythm Abdominal Exam Abdominal exam: Present soft and distention; Absent tenderness or guarding Rectal Exam comment: Kerry stool noted in rectal vault Extremities Exam Extremities exam: Present other (Diffuse bruising of the right upper extremity consistent with recent IV access. Left upper extremity shows diffuse pitting edema concerning for DVT.) Back Exam Back exam: Present normal inspection; Absent tenderness Neurological Exam Neurological exam: Present alert and oriented X3; Absent motor sensory deficit Psychiatric Psychiatric exam: Present normal affect and normal mood Skin Skin exam: Present warm, dry and normal color Lymphatic Lymphatic Findings: no adenopathy Medical Decision Making Medical Records Medical records reviewed: Yes I reviewed the patient's medical records. Ramon Inquiry Pt receiving controlled substance: No Ramon was queried for this patient: No Vital Signs: 11/11/23 00:22 Temperature 98.5 F Temperature Source Oral Pulse Rate [Left Radial] 68 Respiratory Rate 18 Blood Pressure [Right Radial Artery] 126/50 L Blood Pressure Mean [Right Radial Artery] 75 Blood Pressure Source [Right Radial Artery] Automatic Cuff Blood Pressure Position [Right Radial Artery] Supine 02 Sat by Pulse Oximetry 91 L Oxygen Delivery Method Room Air Lab Data Lab results reviewed: Yes I reviewed the patient's lab results. Lab Results 11/11/23 00:56: WBC 20.2 H*, RBC 2.65 L, Hgb 8.0 L, Hct 25.0 L, MCV 94.6, MCH 30.4, MCHC 32.1, RDW 17.1, Plt Count 338, MPV 7.6, Neut % (Auto) 84.1 H, Lymph % (Auto) 11.5, [place] % (Auto) 4.2, Eos % (Auto) 0.0 L, Baso % (Auto) 0.1, Neut # (Auto) 17.0 H, Lymph # (Auto) 2.3, [place] # (Auto) 0.9, Eos # (Auto) 0.0, Baso # (Auto) 0.0, Sodium 133 L, Potassium 3.9, Chloride 105, Carbon Dioxide 26, Anion Gap 5.9, BUN 32 H, Creatinine 1.10 H, Estimated Creat Clear 47, Estimated GFR 47 L, Est GFR ( Amer) 57 L, Glucose 140 H, Calcium 7.3 L, Total Bilirubin 0.2, AST 26, ALT 30, Alkaline Phosphatase 99, Total Protein 5.0 L, Albumin 2.6 L , Globulin 2.4, Albumin/Globulin Ratio 1.1 11/11/23 01:15: Lactate 1.8, Blood Type O Positive, Antibody Screen Negative 11/11/23 01:20: Stool Occult Blood Positive A 11/11/23 02:30: Urine Color Yellow, Urine Appearance Clear, Urine pH 5.5, Ur Spe cific [place] 1.020, Urine Protein Negative, Urine Glucose (UA) Negative, Urine Ketones Negative, Urine Blood Negative, Urine Nitrate Negative, Urine Bilirubin Negative, Urine Urobilinogen 0.2, Ur Leukocyte Esterase Negative 11/11/23 00:56 11/11/23 00:56 Orders (Tests/Meds): ED MEDICATIONS Generic Name Dose Route Start Last Admin Trade Name Freq PRN Reason Stop Dose Admin Acetaminophen 650 mg 11/11/23 03:53 Acetaminophen 325mg Tab PO 12/11/23 03:52 Q4HP PRN Fever or Mild Pain (1-3) Morphine Sulfate 2 mg 11/11/23 03:53 Morphine 2mg/Ml Syringe IV 12/11/23 03:52 Q2HP PRN Severe Pain (7-10) Ondansetron HCl 4 mg 11/11/23 03:53 Ondansetron 4mg/2ml Vial IV 12/11/23 03:52 Q8HP PRN Nausea Pantoprazole Sodium 40 mg 11/11/23 09:00 Pantoprazole 40mg Vial IV 12/11/23 08:59 BID LATA Discontinued Medications Generic Name Dose Route Start Last Admin Trade Name Freq PRN Reason Stop Dose Admin Calcium Gluconate 2,000 mg/ 120 mls @ 60 mls/hr 11/11/23 01:45 11/11/23 02:09 Sodium Chloride IV 11/11/23 03:44 60 mls/hr ONCE ONE Administration Pantoprazole Sodium 80 mg/ 100 mls @ 100 mls/hr 11/11/23 02:11 11/11/23 02:22 Sodium Chloride IV 11/11/23 03:10 100 mls/hr ONCE ONE Administration Iopamidol 100 ml 11/11/23 02:09 11/11/23 02:10 Iopamidol-370 (76%);100ml Bottle IV 11/11/23 02:10 100 ml ONCE ONE Administration Sodium Chloride 50 ml 11/11/23 02:09 11/11/23 02:10 0.9 % Sodium Chloride 50 Ml Vial IV 11/11/23 02:10 50 ml ONCE ONE Administration Sodium Chloride 10 ml 11/11/23 02:09 11/11/23 02:10 Sodium Chloride 0.9% 10ml Syr (Rad Only) IV 11/11/23 02:10 10 ml ONCE ONE Administration ORDERS Category Date Time Status Type and Screen Stat BBK 11/11/23 01:[address] abdomen pelvis w con Stat Cat Scan 11/11/23 01:[address] abdomen pelvis wo con Stat Cat Scan 11/11/23 03:18 Completed CTA Chest [CT angio chest - dissection] Stat Cat Scan 11/11/23 01:29 Completed Surgery Consult (on-call) [Consult to On-Call Gen'l Cons 11/11/23 03:53 Ordered Surgeon] [CONS] Routine CBC w/Auto Diff [Complete Blood Count Auto Diff] Stat Lab 11/11/23 00:56 Results CMP [Comprehensive Metabolic Panel] Stat Lab 11/11/23 00:56 Completed Complete Blood Count Auto Diff AMLAB Lab 11/11/23 06:00 Ordered Comprehensive Metabolic Panel AMLAB Lab 11/11/23 06:00 Ordered HH [Hemoglobin and Hematocrit] Q6 Lab 11/11/23 11:00 Ordered HH [Hemoglobin and Hematocrit] Q6 Lab 11/11/23 17:00 Ordered HH [Hemoglobin and Hematocrit] Q6 Lab 11/11/23 23:00 Ordered HH [Hemoglobin and Hematocrit] Stat Lab 11/11/23 03:55 Ordered Lactic Acid Stat Lab 11/11/23 01:15 Completed Magnesium AMLAB Lab 11/11/23 06:00 Ordered Occult Blood,Stool Stat Lab 11/11/23 01:20 Completed UA [Urinalysis and Microscopic] Stat Lab 11/11/23 02:30 Results Medical Decision Narrative: 83-year-old female, presentation complicated by recent admission for treatment of sepsis and pneumonia and UTI as well as possible GI bleeding presents with reported bright red blood and large volume blood clots and dark tarry stools at nursing facility. History was obtained via conversation with patient, EMS, nursing facility. On arrival, patient is [afebrile, hemodynamically stable, sat ting appropriately, alert, oriented x4, GCS 15], moving all extremities spontaneously. Full physical exam performed and significant for kerry stool noted in the rectal vault, left upper extremity edema, right upper extremity bruising. Differential includes but is not limited to upper GI bleed, lower GI bleed, DVT, PE Workup initiated including CBC CMP UA type and screen CTA chest abdomen pelvis. Hemoccult positive. Patient was given 80 mg of IV Protonix On re-evaluation, patient [remains afebrile, HD stable.] Laboratory workup independently interpreted by me and significant for hemoglobin of 8, down from 8.7 from recent admission. Hypocalcemia, repleted IV. Marked leukocytosis noted, etiology unclear. Urine without evidence of infection. Imaging independently interpreted by me and significant for no large PE, small pleural effusions, no apparent active GI bleeding. Concern for hyperdense material in the stomach that may be active hemorrhage. Repeat delayed Noncon CT scan shows stable appearance of the hyperdense material, unlikely to be active GI bleeding. See radiology read for full review of final results. Given patient history, exam and workup, patient's presentation most likely represents lower GI bleeding. Given reported large-volume bleeding at nursing facility and hemoglobin near transfusion level, I think patient would benefit from admission for hemodynamic monitoring and serial hemoglobin. Patient would also likely benefit from left upper extremity ultrasound to assess for possible DVT given physical exam. Interactive discussion was had with hospitalist on- call for admission. Procedures Risk/Benefits of Procedure(s) Were Explained: Yes Limited Ultrasound Indication:: Ultrasound-guided IV. Indication: IV access, heart failure Procedure: Linear ultrasound probe was utilized to place a right upper extremity bicipital 20-gauge long IV. Successfully placed. Images were saved into the patient's permanent chart. Critical Care Critical Care Time Critical Care Time: No
[2023-11-11 01:25] LABS: MANUAL DIFFERENTIAL MANUAL DIFFERENTIAL (MANUAL DIFF)
[2023-11-11 01:29] LABS: Occult Blood,Stool Positive (Negative)
--- NOTE | 2023-11-11 01:29 | CT_ITS ---
PROCEDURE INFORMATION: Exam: CT Abdomen And Pelvis With Contrast Exam date and time: 11/11/2023 1:57 AM Age: 83 years old Clinical indication: Other: Gi bleed TECHNIQUE: Imaging protocol: Computed tomography of the abdomen and pelvis with contrast. Radiation optimization: All CT scans at this facility use at least one of these dose optimization techniques: automated exposure control; mA and/or kV adjustment per patient size (includes targeted exams where dose is matched to clinical indication); or iterative reconstruction. Contrast material: ISOVUE; Contrast volume: 100 ml; Contrast route: IV; REPORTING DATA: Count of CT and Cardiac NM exams in prior 12 months: This patient has received 8 known CTs and 0 known cardiac nuclear medicine studies in the 12 months prior to the current study. COMPARISON: 1. CT ANGIO ABDOMEN PELVIS 10/31/2023 7:[address] ABDOMEN PELVIS W CON 10/12/2023 9:[address] BONY PELVIS 07/07/2023 10:32 PM FINDINGS: Diaphragm: There is a moderate hiatal hernia. Liver: Normal. No mass. Gallbladder and bile ducts: The patient is status post cholecystectomy. There is dilation of the intrahepatic biliary ducts most likely reflecting post cholecystectomy effect. Pancreas: The pancreas is of normal size and morphology, without evidence of masses, cysts, or calcifications. The pancreatic duct is not dilated. Spleen: The spleen is normal in size and attenuation. No splenic masses or cysts are observed. Adrenal glands: The adrenal glands appear normal. Kidneys and ureters: Both kidneys are of normal size and show uniform attenuation. There are no renal masses, cysts, or calculi. The adrenal glands appear normal. Stomach and bowel: There are scattered colonic diverticula without evidence for active diverticulitis. Laparoscopic band is present. Appendix: No evidence of appendicitis. Intraperitoneal space: Unremarkable. No free air. No significant fluid collection. Vasculature: There is atherosclerotic disease of the visualized aorta and its major branch vessels. Lymph nodes: No enlarged or pathological lymph nodes are identified in the abdomen or pelvis. Urinary bladder: There is moderate distention of the urinary bladder. Reproductive: The patient has undergone prior hysterectomy. Bones/joints: There is diffuse degenerative disease of the visualized osseous structures. Soft tissues: There is a small fat containing umbilical hernia. There are calcifications within the buttocks which most likely reflect injection granulomas. Other findings: Please see the dedicated interpretation of the thorax for findings in that region. IMPRESSION: 1. No definite signs of inflammatory conditions, masses, adenopathy, or collections were observed in the abdomen or pelvis at the time of imaging. Additionally, the urinary tract and gastrointestinal system did not show any evidence of obstruction on the images acquired. 2. Please see the dedicated interpretation of the thorax for findings in that region. 3. Otherwise, incidental findings as above.
--- NOTE | 2023-11-11 01:29 | CT_ITS ---
PROCEDURE INFORMATION: Exam: CTA Chest With Contrast Exam date and time: 11/11/2023 1:57 AM Age: 83 years old Clinical indication: Shortness of breath; Additional info: Gi bleed, SOA, recent pneumonia, possible dvt TECHNIQUE: Imaging protocol: Computed tomographic angiography of the chest with contrast. Exam focused on the arteries. 3D rendering (Not supervised by radiologist): MIP and/or 3D reconstructed images were created by the technologist. Radiation optimization: All CT scans at this facility use at least one of these dose optimization techniques: automated exposure control; mA and/or kV adjustment per patient size (includes targeted exams where dose is matched to clinical indication); or iterative reconstruction. Contrast material: ISOVUE; Contrast volume: 100 ml; Contrast route: INTRAVENOUS (IV); REPORTING DATA: Count of CT and Cardiac NM exams in prior 12 months: This patient has received 8 known CTs and 0 known cardiac nuclear medicine studies in the 12 months prior to the current study. COMPARISON: 1. CT ANGIO CHEST PE PROTOCOL 10/12/2023 9:49 AM 2. CR XR CHEST PORTABLE 11/01/2023 5:16 AM FINDINGS: Pulmonary arteries: Linear focus in the left lower lobe pulmonary artery (image 33 series 5) is felt to be artifactual. There is fair opacification of the pulmonary arterial tree. No central pulmonary arterial filling defect is seen. Aorta: Unremarkable. No aortic aneurysm. No aortic dissection. Other arteries: Subsegmental vessels are not well evaluated due to contrast timing. Lungs: Atelectasis versus infectious consolidations at the bases. Evaluation for small pulmonary nodules is precluded by patient condition. Fleischner Society guidelines are n/a. Scattered areas of bronchial wall thickening which are likely chronic inflammatory. A few areas of subpleural reticulation are noted, nonspecific. Pleural spaces: Moderate left and small right pleural effusions. Heart: Unremarkable. No cardiomegaly. No pericardial effusion. Coronary arteries: There is moderate coronary atherosclerotic disease/calcification although evaluation is limited secondary to the non gated nature of the study. Lymph nodes: Unremarkable. No enlarged lymph nodes. Diaphragm: There is a moderate hiatal hernia. Intraperitoneal space: Please see the dedicated interpretation of abdomen and pelvis for findings in that region. Bones/joints: Unremarkable. No acute fracture. Soft tissues: Unremarkable. Other findings: Motion artifact mildly limits evaluation. IMPRESSION: 1. Moderate left and small right pleural effusions. 2. Atelectasis versus infectious consolidations at the bases. 3. No central pulmonary arterial filling defect is seen. Subsegmental vessels are not well evaluated due to contrast timing. 4. Please see the dedicated interpretation of abdomen and pelvis for findings in that region.
[2023-11-11 01:34] LABS: Lactic Acid 1.8 mmol/L (0.7-2.1)
--- NOTE | 2023-11-11 02:02 | PC.NURSE ---
pt in radiology
[2023-11-11] MEDS: CALCIUM GLUCONATE 2,000 MG in 0.9 % SODIUM CHLORIDE 100 ML 60 MG IV (02:09)
[2023-11-11] MEDS: 0.9 % SODIUM CHLORIDE 50 ML VIAL IV (02:10)
[2023-11-11] MEDS: IOPAMIDOL-370 (76%);100ML BOTTLE 100 ML IV (02:10)
[2023-11-11] MEDS: SODIUM CHLORIDE 0.9% 10ML SYR (RAD ONLY) 10 ML IV (02:10)
[2023-11-11] MEDS: PANTOPRAZOLE SODIUM 80 MG in 0.9 % SODIUM CHLORIDE 100 ML 100 MG IV (02:22)
[2023-11-11 03:10] LABS: Microscopic, Urine URINE MICROSCOPIC (MICROSCOPIC)
[2023-11-11 03:11] LABS: Appearance,Urine CLEAR (Clear); Bilirubin,Urine Negative (Negative); Blood, Urine Negative (Negative); Color,Urine YELLOW (Yellow); Glucose,Urine (UA) Negative (Negative); Ketones,Urine Negative (Negative); Leukocyte Esterase,Urine Negative (Negative); Nitrate,Urine Negative (Negative); PH,Urine 5.5 (5.0-8.5); Protein,Urine Negative (Negative); Urobilinogen,Urine 0.2 EU/dl (0.2)
--- NOTE | 2023-11-11 03:18 | CT_ITS ---
PROCEDURE INFORMATION: Exam: CT Abdomen And Pelvis Without Contrast Exam date and time: 11/11/2023 3:29 AM Age: 83 years old Clinical indication: Abnormal findings; Abnormal radiologic finding of the abdomen; Radiologic exam and body structure: CT abd/pelvis; Additional info: Gi bleed TECHNIQUE: Imaging protocol: Computed tomography of the abdomen and pelvis without contrast. Radiation optimization: All CT scans at this facility use at least one of these dose optimization techniques: automated exposure control; mA and/or kV adjustment per patient size (includes targeted exams where dose is matched to clinical indication); or iterative reconstruction. REPORTING DATA: Count of CT and Cardiac NM exams in prior 12 months: This patient has received 8 known CTs and 0 known cardiac nuclear medicine studies in the 12 months prior to the current study. COMPARISON: 1. CT ABDOMEN PELVIS W CON 11/11/2023 1:[address] ANGIO ABDOMEN PELVIS 10/31/2023 7:[address] ABDOMEN PELVIS W CON 10/12/2023 9:49 AM FINDINGS: Pleural spaces: Stable pleural effusions. Otherwise, stable exam. Stomach and bowel: Stable hyperdensity in the stomach when compared to the examination earlier the same day, findings unlikely to reflect active hemorrhage. Urinary bladder: There is excreted contrast within the urinary bladder. IMPRESSION: Stable hyperdensity in the stomach when compared to the examination earlier the same day, findings unlikely to reflect active hemorrhage. Overall stable exam.
--- NOTE | 2023-11-11 03:52 | PC.NURSE ---
dta in for patient called mix house tender for room assignment.
--- NOTE | 2023-11-11 03:56 | P.HP_ITS ---
History of Present Illness *Admission Date: 11/11/23 *Reason for visit:: GI bleed *History of present illness: This is a 83-year-old female, [place] [facility] resident, PMHx of diverticulosis, HTN, HLD, CAD s/p stent, on plavix, with recent admission for pneumonia, UTI and upper GI bleeding presented with reported lower GI bleeding. Per report nursing facility found a large bright red stool on her brief. She shortly thereafter reportedly had large-volume dark tarry stools and blood clots. She was discharged on 11/04. She had an EGD at that time that showed moderate hiatal hernia and mild diffuse nonerosive gastropathy without evidence of acute or recent upper GI bleeding. She was discharged on Protonix. She reports that she has had no other symptoms recently. She denies any specific chest pain abdominal pain shortness of breath. She denies any vomiting. . No recent fever. [facility] Disclaimer: The information contained in this section may have been updated after the patie nt was seen, as this information can be updated by other users. Medical History (Updated 11/11/23 @ 05:45 by Bharat Zavala APRN) Acute respiratory failure with hypoxia Breast cancer, right Breast mass, right Encounter for pre-operative cardiovascular clearance FH: mastectomy HLD (hyperlipidemia) HTN (hypertension) Renal artery stenosis Simple adnexal cyst greater than 1 cm in diameter in postmenopausal patient Surgical History History of renal stent Hx of total mastectomy of right breast Stented coronary artery Family History Other No significant family history Social History Smoking Status: Never smoker alcohol intake: never substance use type: denies use current occupational status: retired Travel in the last 8 weeks: None household members: none housing: apartment current occupational exposures/hazards: No caffeine: No Review of Systems Review of Systems Review of systems:: pertinent systems reviewed and negative unless documented below Meds Home Medications and Allergies Home Medications Medication Instructions Recorded Confirmed Type ranolazine 500 mg tablet,extended 500 mg PO BID Angina 90 days #180 03/11/19 11/11/23 History release,12 hr tabs levothyroxine 50 mcg tablet 50 mcg PO DAILY thyroid 07/14/20 11/11/23 History pantoprazole 40 mg tablet,delayed 40 mg PO BID acid reflux 01/28/21 11/11/23 History release rosuvastatin 40 mg tablet 40 mg PO HS Cholesterol 01/28/21 11/11/23 History gabapentin 300 mg capsule 300 mg PO BID Neuropathy 03/23/21 11/11/23 History anastrozole 1 mg tablet 1 mg PO DAILY Chemotherapy 05/30/21 11/11/23 History sucralfate 1 gram tablet 1 gm PO ACHS Esophagitis 03/20/22 11/11/23 History clopidogrel 75 mg tablet 75 mg PO DAILY HX of stents #90 10/02/22 11/11/23 Rx tabs amlodipine 5 mg tablet 5 mg PO DAILY Hypertension 02/19/23 11/11/23 History metoprolol succinate 100 mg 100 mg PO DAILY Hypertension 02/19/23 11/11/23 History tablet,extended release 24 hr acetaminophen 500 mg tablet 1,000 mg PO Q6HP PRN Mild 10/12/23 11/11/23 History pain/fever cholecalciferol (vitamin D3) 50 50 mcg PO DAILY Supplement 10/12/23 11/11/23 History mcg (2,000 unit) tablet (Vitamin D3) ipratropium 20 mcg-albuterol 100 1 puff inhalation QID Copd 10/12/23 11/11/23 History mcg/actuation mist for inhalation (Combivent Respimat) losartan 100 mg tablet 100 mg PO DAILY Hypertension 10/12/23 11/11/23 History multivitamin with minerals 1 tab PO DAILY Supplement 10/12/23 11/11/23 History ondansetron HCl 4 mg tablet 4 mg PO Q6H PRN Vomiting 10/12/23 11/11/23 History polyethylene glycol 3350 17 gram 17 g PO HS Constipation 10/12/23 11/11/23 History oral powder packet sennosides 8.6 mg-docusate sodium 8.6 tab PO BID Bowel care 10/12/23 11/11/23 History 50 mg tablet sertraline 50 mg tablet 50 mg PO HS Depression 10/12/23 11/11/23 History vit C 250 mg-vit E 90 mg-zinc 40 1 tab PO BID Eye care 10/12/23 11/11/23 History mg-copper 1 ib-guvvmd-szxgon capsule (PreserVision AREDS-2) ferrous sulfate 325 mg (65 mg 325 mg PO MOWEFR Iron supplement 10/31/23 11/11/23 History iron) tablet spironolactone 50 mg tablet 50 mg PO DAILY 11/11/23 11/11/23 History New Prescriptions to Start Prescriptions: Allergies Allergy/AdvReac Type Severity Reaction Status Date / Time No Known Drug Allergies Allergy Unknown Verified 10/28/23 10:52 [NO KNOWN DRUG ALLERGIES] Exam Data for Last 24 hours Vital signs and Labs for Last 24 Hours: Temp Pulse Resp BP Pulse Ox O2 Del Method 98.5 F 68 18 126/50 L 91 L Room Air 11/11/23 00:22 11/11/23 00:22 11/11/23 00:22 11/11/23 00:22 11/11/23 00:22 11/11/23 00:22 Laboratory Results - last 24 hr 11/11/23 00:56: WBC 20.2 H*, RBC 2.65 L, Hgb 8.0 L, Hct 25.0 L, MCV 94.6, MCH 30.4, MCHC 32.1, RDW 17.1, Plt Count 338, MPV 7.6, Neut % (Auto) 84.1 H, Lymph % (Auto) 11.5, [place] % (Auto) 4.2, Eos % (Auto) 0.0 L, Baso % (Auto) 0.1, Neut # (Auto) 17.0 H, Lymph # (Auto) 2.3, [place] # (Auto) 0.9, Eos # (Auto) 0.0, Baso # (Auto) 0.0, Sodium 133 L, Potassium 3.9, Chloride 105, Carbon Dioxide 26, Anion Gap 5.9, BUN 32 H, Creatinine 1.10 H, Estimated Creat Clear 47, Estimated GFR 47 L, Est GFR ( Amer) 57 L, Glucose 140 H, Calcium 7.3 L, Total Bilirubin 0.2, AST 26, ALT 30, Alkaline Phosphatase 99, Total Protein 5.0 L, Albumin 2.6 L , Globulin 2.4, Albumin/Globulin Ratio 1.1 11/11/23 01:15: Lactate 1.8, Blood Type O Positive, Antibody Screen Negative 11/11/23 01:20: Stool Occult Blood Positive A 11/11/23 02:30: Urine Color Yellow, Urine Appearance Clear, Urine pH 5.5, Ur Specific [place] 1.020, Urine Protein Negative, Urine Glucose (UA) Negative, Urine Ketones Negative, Urine Blood Negative, Urine Nitrate Negative, Urine Bilirubin Negative, Urine Urobilinogen 0.2, Ur Leukocyte Esterase Negative I & O for Last 24 hours: Intake & Output 11/08/23 11/09/23 11/10/23 11/11/23 23:59 23:59 23:59 23:59 Weight 79.379 kg Constitutional Constitutional: mild distress and cooperative *Routine HEENT Exam Head: Present normocephalic and atraumatic Eye: Present EOMI, PERRL and normal accommodation ENT: Present mucous membranes moist *Routine Neck Exam Neck: Present supple, full ROM and trachea midline *Routine Respiratory Exam Respiratory: Present normal respiratory effort, able to speak in complete sentences and symmetric chest movement *Routine Cardiovascular Exam Cardiovascular: Present RRR, Normal S1, Normal S2 and tachycardia *Routine Abdominal Exam Abdominal: Present soft, normoactive bowel sounds and tenderness; Absent organomegaly *Routine Rectal Exam Rectal:: deferred *Routine Genitalia Exam Genitalia:: deferred *Routine Extremities Exam Extremities: Present edema, full ROM and pulses intact; Absent cyanosis or clubbing *Routine Skin Exam Skin: Present intact, dry and warm *Routine Neurological Exam Neurological: Present alert, oriented X3, normal reflexes, moving all extremities and normal speech Routine Psychiatric Exam Psychiatric: Present normal thought process, cooperative and good judgment H&P: Result Imaging and Cardiology EKG: Status: image reviewed by me and Preliminary report CT scan - abdomen: Status: image reviewed by me, Preliminary report and final report Assessment and Plan *Assessment and plan (1) Acute GI bleeding: Status: Acute Category: Medical Code(s): K92.2 - Gastrointestinal hemorrhage, unspecified (2) Anemia: Status: Acute Qualifiers: Anemia type: other cause Other causes of anemia: other cause, not classified Qualified Code(s): D64.89 - Other specified anemias Category: Medical Code(s): D64.9 - Anemia, unspecified (3) ANDRESSA (acute kidney injury): Status: Resolved Category: Medical Code(s): N17.9 - Acute kidney failure, unspecified (4) Hypertension: Status: Acute Qualifiers: Hypertension type: primary hypertension Qualified Code(s): I10 - Essential (primary) hypertension Category: Medical Code(s): I10 - Essential (primary) hypertension (5) HLD (hyperlipidemia): Status: Chronic Qualifiers: Hyperlipidemia type: mixed hyperlipidemia Qualified Code(s): E78.2 - Mixed hyperlipidemia Category: Medical Code(s): E78.5 - Hyperlipidemia, unspecified (6) Hypothyroidism: Status: Acute Qualifiers: Hypothyroidism type: acquired Qualified Code(s): E03.9 - Hypothyroid ism, unspecified Category: Medical Code(s): E03.9 - Hypothyroidism, unspecified (7) Left upper extremity swelling: Status: Acute Category: Medical Code(s): M79.89 - Other specified soft tissue disorders (8) History of diverticulosis: Status: Acute Category: Medical Code(s): Z87.19 - Personal history of other diseases of the digestive system Plan Lower GI bleed, Hx of sigmoid divertuculosis: General surgery consult in a.m., appreciate recommendations. CTA Abdomen obtained. Stool noted in colon but no evidence of extavasation, mesenteric ischemia or active bleed Continue Protonix BID Antiemetics Aspiration precautions Hold DAPT at this time Serial CBCs Anemia Normocytic, likely secondary to acute blood loss Will send iron studies at this time ANDRESSA Creatinine of 1.2 with baseline 0.9 Continue maintenance IV fluids Monitor intake and output left UE swelling: US doppler ordered to r/o DVT Hypothyroidism HTN HLD CAD Holding oral medications at this time Holding DAPT for new bleeding DVT PPx SCDS Full Code. Attending attestation Patient was seen and evaluated at the bedside myself, agree with SALES CONSULTING DIRECTOR note. Anemia of blood loss - order 1 PRBC, discussed with General surgery
[2023-11-11 04:06] LABS: Bacteria,Urine 1+ /lpf; Yeast,Urine 1+ /lpf
--- NOTE | 2023-11-11 04:14 | PC.NURSE ---
Nurse to nurse report given to Catherine CHANDLER.
--- NOTE | 2023-11-11 04:35 | PC.NURSE ---
0403 received phone report from Penny RN/ED. Patient is a 83 yo female diagnosed GI Bleed. Recently D/C'ed from [facility] 11/04/23 back to [facility]. diagnosis Pnuemonia/uti/GI bleed.
--- NOTE | 2023-11-11 04:55 | PC.NURSE ---
Patient transported to the floor at this time.
--- NOTE | 2023-11-11 05:01 | PC.NURSE ---
0459 PATIENT ARRIVED TO THE FLOOR VIA STRETCHER.
[2023-11-11 05:14] LABS: Lymphocytes % 8 % (10-50); Monocytes % 1 % (2-9); Neutrophils % 91 % (42-76); Total Cells Counted 100
[2023-11-11 05:15] LABS: Platelet Estimate Normal; Stomatocytes 1+
--- NOTE | 2023-11-11 05:42 | CA_ITS ---
FINAL REPORT TECHNIQUE: Graded compression, spectral analysis and ultrasound images of the venous system of the upper extremity were obtained. CLINICAL HISTORY: Bruising to lateral left upper arm, longterm resident. r/o DVT FINDINGS: The jugular vein, subclavian vein, axillary vein, brachial vein, cephalic vein and basilic venous system are fully compressible and demonstrate no evidence of thrombosis. IMPRESSION: No evidence of thrombosis of the venous system of the left upper extremity. Reviewed, Interpreted and Dictated by Rasta Conteh MD Transcribed by Narda Gonzales Authenticated and . [facility]
--- NOTE | 2023-11-11 06:52 | EXP.SURG.CON ---
History of Present Illness *Admission Date: 11/11/23 *Reason for visit:: Possible lower GI bleed *History of present illness: Forwarded from admission H&P: This is a 83-year-old female[facility], PMHx of diverticulosis, HTN, HLD, CAD s/p stent, on plavix, with recent admission for pneumonia, UTI and upper GI bleeding presented with reported lower GI bleeding. Per report nursing facility found a large bright red stool on her brief. She shortly thereafter reportedly had large-volume dark tarry stools and blood clots. She was discharged on 11/04. She had an EGD at that time that showed moderate hiatal hernia and mild diffuse nonerosive gastropathy without evidence of acute or recent upper GI bleeding. She was discharged on Protonix. She reports that she has had no other symptoms recently. She denies any specific chest pain abdominal pain shortness of breath. She denies any vomiting. . No recent fever. [facility] Disclaimer: The information contained in this section may have been updated after the patient was seen, as this information can be updated by other users. Medical History (Updated 11/11/23 @ 05:45 by Bharat Zavala APRN) Acute respiratory failure with hypoxia Breast cancer, right Breast mass, right Encounter for pre-operative cardiovascular clearance FH: mastectomy HLD (hyperlipidemia) HTN (hypertension) Renal artery stenosis Simple adnexal cyst greater than 1 cm in diameter in postmenopausal patient Surgical History History of renal stent Hx of total mastectomy of right breast Stented coronary artery Family History Other No significant family history Social History Smoking Status: Never smoker alcohol intake: never substance use type: denies use current occupational status: retired Travel in the last 8 weeks: None household members: none housing: apartment current occupational exposures/hazards: No caffeine: No Meds Home Medications and Allergies Home Medications Medication Instructions Recorded Confirmed Type ranolazine 500 mg tablet,extended 500 mg PO BID Angina 90 days #180 03/11/19 10/31/23 History release,12 hr tabs levothyroxine 50 mcg tablet 50 mcg PO DAILY thyroid 07/14/20 10/31/23 History pantoprazole 40 mg tablet,delayed 40 mg PO BID acid reflux 01/28/21 10/31/23 History release rosuvastatin 40 mg tablet 40 mg PO HS Cholesterol 01/28/21 10/31/23 History gabapentin 300 mg capsule 300 mg PO BID Neuropathy 03/23/21 10/31/23 History anastrozole 1 mg tablet 1 mg PO DAILY Chemotherapy 05/30/21 10/31/23 History sucralfate 1 gram tablet 1 gm PO ACHS Esophagitis 03/20/22 11/01/23 History clopidogrel 75 mg tablet 75 mg PO DAILY HX of stents #90 10/02/22 10/31/23 Rx tabs amlodipine 5 mg tablet 5 mg PO DAILY Hypertension 02/19/23 10/31/23 History metoprolol succinate 100 mg 100 mg PO DAILY Hypertension 02/19/23 10/31/23 History tablet,extended release 24 hr acetaminophen 500 mg tablet 1,000 mg PO Q6HP PRN Mild 10/12/23 10/31/23 History pain/fever cholecalciferol (vitamin D3) 50 50 mcg PO DAILY Supplement 10/12/23 10/31/23 History mcg (2,000 unit) tablet (Vitamin D3) ipratropium 20 mcg-albuterol 100 1 puff inhalation QID Copd 10/12/23 10/31/23 History mcg/actuation mist for inhalation (Combivent Respimat) losartan 100 mg tablet 100 mg PO DAILY Hypertension 10/12/23 10/31/23 History multivitamin with minerals 1 tab PO DAILY Supplement 10/12/23 10/31/23 History ondansetron HCl 4 mg tablet 4 mg PO Q6H PRN Vomiting 10/12/23 10/31/23 History polyethylene glycol 3350 17 gram 17 g PO HS Constipation 10/12/23 10/31/23 History oral powder packet sennosides 8.6 mg-docusate sodium 8.6 tab PO BID Bowel care 10/12/23 10/31/23 History 50 mg tablet sertraline 50 mg tablet 50 mg PO HS Depression 10/12/23 10/31/23 History spironolactone 25 mg tablet 25 mg PO DAILY Hypertension 10/12/23 10/31/23 History vit C 250 mg-vit E 90 mg-zinc 40 1 tab PO BID Eye care 10/12/23 10/31/23 History mg-copper 1 xp-busqwj-ihaxso capsule (PreserVision AREDS-2) ferrous sulfate 325 mg (65 mg 325 mg PO MOWEFR Iron supplement 10/31/23 11/01/23 History iron) tablet prednisone 20 mg tablet 20 mg PO BID 10/31/23 10/31/23 History levofloxacin 750 mg tablet 750 mg PO DAILY 2 days #2 tabs 11/04/23 Rx New Prescriptions to Start Prescriptions: Allergies Allergy/AdvReac Type Severity Reaction Status Date / Time No Known Drug Allergies Allergy Unknown Verified 10/28/23 10:52 [NO KNOWN DRUG ALLERGIES] Exam (Inpt) Vital signs and Labs for Last 24 Hours: Temp Pulse Resp BP Pulse Ox O2 Del Method O2 Flow Rate 98.1 F 57 L 19 173/59 H 98 Nasal Cannula 2 11/11/23 04:15 11/11/23 04:30 11/11/23 04:15 11/11/23 04:30 11/11/23 05:41 11/11/23 06:21 11/11/23 06:21 Laboratory Results - last 24 hr 11/11/23 00:56: WBC 20.2 H*, RBC 2.65 L, Hgb 8.0 L, Hct 25.0 L, MCV 94.6, MCH 30.4, MCHC 32.1, RDW 17.1, Plt Count 338, MPV 7.6, Neut % (Auto) 84.1 H, Lymph % (Auto) 11.5, [place] % (Auto) 4.2, Eos % (Auto) 0.0 L, Baso % (Auto) 0.1, Neut # (Auto) 17.0 H, Lymph # (Auto) 2.3, [place] # (Auto) 0.9, Eos # (Auto) 0.0, Baso # (Auto) 0.0, Total Counted 100, Neutrophils % (Manual) 91 H, Lymphocytes % (Manual) 8 L, Monocytes % (Manual) 1 L, Platelet Estimate Normal, Stomatocytes 1+, Sodium 133 L, Potassium 3.9, Chloride 105, Carbon Dioxide 26, Anion Gap 5.9, BUN 32 H, Creatinine 1.10 H, Estimated Creat Clear 47, Estimated GFR 47 L, Est GFR ( Amer) 57 L, Glucose 140 H, Calcium 7.3 L, Total Bilirubin 0.2, AST 26, ALT 30, Alkaline Phosphatase 99, Total Protein 5.0 L, Albumin 2.6 L, Globulin 2.4, Albumin/Globulin Ratio 1.1 11/11/23 01:15: Lactate 1.8, Blood Type O Positive, Antibody Screen Negative 11/11/23 01:20: Stool Occult Blood Positive A 11/11/23 02:30: Urine Color Yellow, Urine Appearance Clear, Urine pH 5.5, Ur Specific [place] 1.020, Urine Protein Negative, Urine Glucose (UA) Negative, Urine Ketones Negative, Urine Blood Negative, Urine Nitrate Negative, Urine Bilirubin Negative, Urine Urobilinogen 0.2, Ur Leukocyte Esterase Negative, Urine WBC 3-5, Urine Bacteria 1+, Urine Yeast 1+ I & O for Labs for Last 24 Hours: Intake & Output 11/08/23 11/09/23 11/10/23 11/11/23 11:59 11:59 11:59 11:59 Output Total 0 / 0 Balance 0 / 0 Weight 177 lb 0.499 oz Constitutional: no acute distress Respiratory: Absent respiratory distress Comment:: on NC O2 Cardiac: Absent Tachycardia GI: Present soft Results Labs 11/11/23 00:56 11/11/23 00:56 Labs: Laboratory Results - last 24 hr 11/11/23 00:56: WBC 20.2 H*, RBC 2.65 L, Hgb 8.0 L, Hct 25.0 L, MCV 94.6, MCH 30.4, MCHC 32.1, RDW 17.1, Plt Count 338, MPV 7.6, Neut % (Auto) 84.1 H, Lymph % (Auto) 11.5, [place] % (Auto) 4.2, Eos % (Auto) 0.0 L, Baso % (Auto) 0.1, Neut # (Auto) 17.0 H, Lymph # (Auto) 2.3, [place] # (Auto) 0.9, Eos # (Auto) 0.0, Baso # (Auto) 0.0, Total Counted 100, Neutrophils % (Manual) 91 H, Lymphocytes % (Manual) 8 L, Monocytes % (Manual) 1 L, Platelet Estimate Normal, Stomatocytes 1+, Sodium 133 L, Potassium 3.9, Chloride 105, Carbon Dioxide 26, Anion Gap 5.9, BUN 32 H, Creatinine 1.10 H, Estimated Creat Clear 47, Estimated GFR 47 L, Est GFR ( Amer) 57 L, Glucose 140 H, Calcium 7.3 L, Total Bilirubin 0.2, AST 26, ALT 30, Alkaline Phosphatase 99, Total Protein 5.0 L, Albumin 2.6 L, Globulin 2.4, Albumin/Globulin Ratio 1.1 11/11/23 01:15: Lactate 1.8, Blood Type O Positive, Antibody Screen Negative 11/11/23 01:20: Stool Occult Blood Positive A 11/11/23 02:30: Urine Color Yellow, Urine Appearance Clear, Urine pH 5.5, Ur Specific [place] 1.020, Urine Protein Negative, Urine Glucose (UA) Negative, Urine Ketones Negative, Urine Blood Negative, Urine Nitrate Negative, Urine Bilirubin Negative, Urine Urobilinogen 0.2, Ur Leukocyte Esterase Negative, Urine WBC 3-5, Urine Bacteria 1+, Urine Yeast 1+ Assessment and Plan *Assessment and plan (1) Acute GI bleeding: Status: Acute Category: Medical Code(s): K92.2 - Gastrointestinal hemorrhage, unspecified Plan: As this episode initially developed as bright red blood followed by melena, the definitive etiology remains equivocal (large-volume upper source such as small bowel remains possibility; however, true lower source such as diverticular bleeding also remains a possibility). Recent esophagogastroduodenoscopy (Dr. Rosario) completed without identifying a definitive causative factor. No need for emergent colonoscopy (elective/semielective colonoscopy in near future remains a consideration) Serial hemoglobin/hematocrit evaluations (transfuse if/when needed) May ultimately require transfer to tertiary center for angiographic intervention Consider UGI/SBFT followed by capsule endoscopy in the outpatient setting (patient plans to discuss with Dr. Rosario on EGD follow-up appointment)
[2023-11-11 08:41] LABS: Chloride 106 mmol/L (98-107)
[2023-11-11 08:42] LABS: Potassium 3.6 mmoL/L (3.5-5.1); Sodium 138 mmol/L (136-145)
[2023-11-11 08:44] LABS: Alanine Aminotransferase 30 U/L (12-78); Albumin Level 2.5 g/dl (3.5-5.0); Albumin/Globulin Ratio 1.1 (1.1-1.8); Alkaline Phosphatase 101 U/L (38-126); Anion Gap 8.6 mEq/L (5-15); Aspartate Amino Transferase 25 U/L (14-36); Bilirubin,Total 0.2 mg/dl (0.2-1.3); Blood Urea Nitrogen 34 mg/dl (7-17); Calcium 8.3 mg/dl (8.4-10.2); Carbon Dioxide 27 mmol/L (22.0-30.0); Creatinine Clearance Estimated 47 mL/min (50-200); Estimated Glomerular Filt Rate 47 ml/min (>60); GFR (African American) 57 ML/MIN (>60); Globulin 2.2 g/dL (1.3-3.2); Glucose 111 mg/dl (74-100); Total Protein,Serum 4.7 g/dl (6.3-8.2)
[2023-11-11 08:45] LABS: Magnesium 1.8 mg/dl (1.6-2.3)
[2023-11-11] MEDS: PANTOPRAZOLE 40MG VIAL 40 MG IV ×2 (08:52→21:35)
[2023-11-11 08:59] LABS: Basophils % 0.1 % (0.1-2.0); Eosinophils % 0.1 % (0.1-12.0); Hematocrit 22.4 % (37.0-47.0); Hemoglobin 7.2 g/dL (12.2-16.2); Lymphocytes # 2.6 K/mm3 (0.7-4.5); Mean Corpuscular Hemoglobin 30.5 pg (27.0-31.2); Mean Corpuscular Volume 95.3 fl (81-99); Mean Platelet Volume 7.5 fl (7.4-10.4); Monocytes # 0.9 K/mm3 (0.1-1.0); Monocytes % 4.6 % (1.7-9.3); Neutrophils # 16.2 K/mm3 (1.8-7.8); Neutrophils % 82.2 % (37.0-80.0); Platelet Count 295 K/mm3 (142-424); Red Blood Count 2.35 M/mm3 (4.20-5.40); Red Cell Distribution Width 17.3 % (11.5-17.5); White Blood Count 19.7 K/mm3 (4.8-10.8)
--- NOTE | 2023-11-11 11:23 | DIET.NUTRFU ---
Chart review, patient is on MSOFT, ground meat at assisted.
[2023-11-11 11:34] LABS: Hematocrit 21.2 % (37.0-47.0)
[2023-11-11 11:38] LABS: Hemoglobin 6.8 g/dL (12.2-16.2)
--- NOTE | 2023-11-11 16:13 | PC.NURSE ---
Addendum entered by Catherine Yu RN 11/11/23 18:37: NOTIFIED PROVIDER ABOUT CHANGE IN LUNG SOUNDS (WHEEZES/RHONCHI). PROVIDER ORDERED LASIX 40 MG IV ONE TIME. PT HAD 1 LARGE DARK TARRY STOOL THIS SHIFT. Original Note: PT IS RESTING IN BED. ALERT AND ORIENTED X4. TOLERATING CLEAR LIQUIDS WELL. NO COMPLAINTS OF DISCOMFORT. LUNG SOUNDS CLEAR. ABDOMEN SOFT/NON TENDER WITH ACTIVE BOWEL SOUNDS. EDEMA NOTED TO BLE. O2 SATURATION 90-96% ON 2 L NC. WILL CONTINUE TO MONITOR.
[2023-11-11] MEDS: 0.9 % SODIUM CHLORIDE 250 ML 25 ML IV (17:20)
[2023-11-11] MEDS: FUROSEMIDE 40MG/4ML VIAL 40 MG IV (18:27)
--- NOTE | 2023-11-11 20:30 | PC.NURSE ---
Confirmed with ANIL Brooks to do post H&H at 2300 per his order in chart
[2023-11-11] MEDS: SODIUM CHLORIDE 0.9% 10ML VIAL 10 ML IV (21:35)
[2023-11-11 23:21] LABS: Hematocrit 27.5 % (37.0-47.0)
[2023-11-12 04:00] VITALS: BP 117/51; PULSE 62; RESP 18; TEMP 36.6; O2SAT 98; BMI 30.3
[2023-11-12 08:00] VITALS: BP 139/62; PULSE 66; RESP 16; TEMP 36.9; O2SAT 98
--- NOTE | 2023-11-12 08:29 | P.PN_ITS ---
Subjective Patient reports: no new complaints and feels better Exam Data for Last 24 hours Vital signs and Labs for Last 24 Hours: Temp Pulse Resp BP Pulse Ox O2 Del Method O2 Flow Rate 98.5 F 66 16 139/62 98 Nasal Cannula 2 11/12/23 08:00 11/12/23 08:00 11/12/23 08:00 11/12/23 08:00 11/12/23 08:00 11/12/23 08:00 11/12/23 08:00 Laboratory Results - last 24 hr 11/11/23 01:15: Blood Type O Positive, Antibody Screen Negative, Crossmatch (AHG) See Detail 11/11/23 08:19: WBC 19.7 H, RBC 2.35 L, Hgb 7.2 L, Hct 22.4 L, MCV 95.3, MCH 30.5, MCHC 32.0, RDW 17.3, Plt Count 295, MPV 7.5, Neut % (Auto) 82.2 H, Lymph % (Auto) 13.0, [place] % (Auto) 4.6, Eos % (Auto) 0.1, Baso % (Auto) 0.1, Neut # (Auto) 16.2 H, Lymph # (Auto) 2.6, [place] # (Auto) 0.9, Eos # (Auto) 0.0, Baso # (Auto) 0.0, Sodium 138, Potassium 3.6, Chloride 106, Carbon Dioxide 27, Anion Gap 8.6, BUN 34 H, Creatinine 1.10 H, Estimated Creat Clear 47, Estimated GFR 47 L, Est GFR ( Amer) 57 L, Glucose 111 H D, Calcium 8.3 L, Magnesium 1.8, Total Bilirubin 0.2, AST 25, ALT 30, Alkaline Phosphatase 101, Total Protein 4.7 L, Albumin 2.5 L, Globulin 2.2, Albumin/Globulin Ratio 1.1 11/11/23 11:07: Hgb 6.8 L*, Hct 21.2 L 11/11/23 23:10: Hgb 9.0 L D, Hct 27.5 L I & O for Last 24 hours: Intake & Output 11/09/23 11/10/23 11/11/23 11/12/23 11:59 11:59 11:59 11:59 Intake Total 120 / 120 590 / 590 Output Total 0 / 0 4500 / 4500 Balance 120 / 120 -3910 / -3910 Weight 177 lb 0.499 oz 177 lb 11.081 oz Constitutional Constitutional: no acute distress *Routine Respiratory Exam Respiratory: Absent respiratory distress *Routine Cardiovascular Exam Cardiovascular: Absent tachycardia *Routine Abdominal Exam Abdominal: Present soft Progress Note: A&P Assessment and plan (1) Acute GI bleeding: Status: Acute Assessment and plan: [id number] response to 1 unit packed red blood cells. Repeat hemoglobin this a.m. Continue to hold all antiplatelet/anticoagulation medications to the degree possible Continue serial hemoglobin/hematocrit and transfuse if/when needed Forwarded from prior consultation note: As this episode initially developed as bright red blood followed by melena, the definitive etiology remains equivocal (large-volume upper source such as small bowel remains possibility; however, true lower source such as diverticular bleeding also remains a possibility). Recent esophagogastroduodenoscopy (Dr. Rosario) completed without identifying a definitive causative factor. No need for emergent colonoscopy (elective/semielective colonoscopy in near future remains a consideration) Serial hemoglobin/hematocrit evaluations (transfuse if/when needed) May ultimately require transfer to tertiary center for angiographic intervention Consider UGI/SBFT followed by capsule endoscopy in the outpatient setting (patient plans to discuss with Dr. Rosario on EGD follow-up appointment)
[2023-11-12] MEDS: SODIUM CHLORIDE 0.9% 10ML VIAL 10 ML IV ×2 (08:40→21:56)
[2023-11-12] MEDS: PANTOPRAZOLE 40MG VIAL 40 MG IV ×2 (08:41→21:56)
[2023-11-12 09:27] LABS: Chloride 107 mmol/L (98-107); Potassium 3.4 mmoL/L (3.5-5.1); Sodium 136 mmol/L (136-145)
[2023-11-12 09:30] LABS: Blood Urea Nitrogen 33 mg/dl (7-17); Creatinine Clearance Estimated 52 mL/min (50-200); Estimated Glomerular Filt Rate 60 ml/min (>60); GFR (African American) 72 ML/MIN (>60)
[2023-11-12 09:31] LABS: Anion Gap 8.4 mEq/L (5-15); Calcium 7.7 mg/dl (8.4-10.2); Carbon Dioxide 24 mmol/L (22.0-30.0); Glucose 131 mg/dl (74-100)
[2023-11-12 10:09] LABS: Basophils % 0.2 % (0.1-2.0); Eosinophils # 0.1 K/mm3 (0.0-0.4); Eosinophils % 0.6 % (0.1-12.0); Hematocrit 23.5 % (37.0-47.0); Lymphocytes # 1.6 K/mm3 (0.7-4.5); Mean Corpuscular HGB Conc 33.1 g/dL (31.8-35.4); Mean Corpuscular Hemoglobin 29.9 pg (27.0-31.2); Mean Corpuscular Volume 90.4 fl (81-99); Mean Platelet Volume 7.8 fl (7.4-10.4); Monocytes # 0.8 K/mm3 (0.1-1.0); Monocytes % 5.9 % (1.7-9.3); Neutrophils # 11.6 K/mm3 (1.8-7.8); Neutrophils % 82.3 % (37.0-80.0); Platelet Count 226 K/mm3 (142-424); Red Cell Distribution Width 17.9 % (11.5-17.5); White Blood Count 14.1 K/mm3 (4.8-10.8)
[2023-11-12 10:44] LABS: Hemoglobin 7.8 g/dL (12.2-16.2)
--- NOTE | 2023-11-12 11:04 | SW/DCPLANNER ---
This patient currently resides at [facility] level of care. Updated patient information has been faxed to Aruna oliveira/ [facility]. Pending patient's labs from today patient may return back this afternoon. I will continue to update Aruna.
--- NOTE | 2023-11-12 11:14 | EXP.PN ---
Subjective *Date: 11/12/23 *Time: 11:18 Interval history: see at bedside, she is lying down, no acute events overnight Exam Data for Last 24 hours Vital signs and Labs for Last 24 Hours: Temp Pulse Resp BP Pulse Ox O2 Del Method O2 Flow Rate 98.5 F 66 16 139/62 98 Nasal Cannula 2 11/12/23 08:00 11/12/23 08:00 11/12/23 08:00 11/12/23 08:00 11/12/23 08:00 11/12/23 10:08 11/12/23 08:00 Laboratory Results - last 24 hr 11/11/23 01:15: Blood Type O Positive, Antibody Screen Negative, Crossmatch (AHG) See Detail 11/11/23 11:07: Hgb 6.8 L*, Hct 21.2 L 11/11/23 23:10: Hgb 9.0 L D, Hct 27.5 L 11/12/23 09:07: WBC 14.1 H D, RBC 2.60 L, Hgb 7.8 L D, Hct 23.5 L, MCV 90.4, MCH 29.9, MCHC 33.1, RDW 17.9 H, Plt Count 226, MPV 7.8, Neut % (Auto) 82.3 H, Lymph % (Auto) 11.0, [place] % (Auto) 5.9, Eos % (Auto) 0.6, Baso % (Auto) 0.2, Neut # (Auto) 11.6 H, Lymph # (Auto) 1.6, [place] # (Auto) 0.8, Eos # (Auto) 0.1, Baso # (Auto) 0.0, Sodium 136, Potassium 3.4 L, Chloride 107, Carbon Dioxide 24, Anion Gap 8.4, BUN 33 H, Creatinine 0.90, Estimated Creat Clear 52, Estimated GFR 60, Est GFR ( Amer) 72 D, Glucose 131 H, Calcium 7.7 L I & O for Last 24 hours: Intake & Output 11/09/23 11/10/23 11/11/23 11/12/23 23:59 23:59 23:59 23:59 Intake Total 240 / 240 470 / 470 Output Total 1900 / 3200 2600 / 2600 Balance -1660 / -2960 -2130 / -2130 Weight 80.3 kg 80.6 kg Constitutional Constitutional: no acute distress Comments: Patient appears weak and frail *Routine HEENT Exam Head: Present normocephalic Eye: Present EOMI and PERRL ENT: Present mucous membranes moist *Routine Neck Exam Neck: Present supple; Absent lymphadenopathy *Routine Respiratory Exam Respiratory: Present CTA bilaterally *Routine Cardiovascular Exam Cardiovascular: Present RRR *Routine Abdominal Exam Abdominal: Present soft and normoactive bowel sounds; Absent tenderness *Routine Extremities Exam Extremities: Absent cyanosis, clubbing or edema *Routine Skin Exam Skin: Present warm; Absent rash *Routine Neurological Exam Comments: Patient appears confused, not able to hold conversations, not following commands Assessment and Plan *Assessment and plan (1) Acute GI bleeding: Status: Acute Category: Medical Code(s): K92.2 - Gastrointestinal hemorrhage, unspecified (2) Anemia: Status: Acute Qualifiers: Anemia type: other cause Other causes of anemia: other cause, not classified Qualified Code(s): D64.89 - Other specified anemias Category: Medical Code(s): D64.9 - Anemia, unspecified (3) ANDRESSA (acute kidney injury): Status: Resolved Category: Medical Code(s): N17.9 - Acute kidney failure, unspecified (4) Hypertension: Status: Acute Qualifiers: Hypertension type: primary hypertension Qualified Code(s): I10 - Essential (primary) hypertension Category: Medical Code(s): I10 - Essential (primary) hypertension (5) HLD (hyperlipidemia): Status: Chronic Qualifiers: Hyperlipidemia type: mixed hyperlipidemia Qualified Code(s): E78.2 - Mixed hyperlipidemia Category: Medical Code(s): E78.5 - Hyperlipidemia, unspecified (6) Hypothyroidism: Status: Acute Qualifiers: Hypothyroidism type: acquired Qualified Code(s): E03.9 - Hypothyroidism, unspecified Category: Medical Code(s): E03.9 - Hypothyroidism, unspecified (7) Left upper extremity swelling: Status: Acute Category: Medical Code(s): M79.89 - Other specified soft tissue disorders (8) History of diverticulosis: Status: Acute Category: Medical Code(s): Z87.19 - Personal history of other diseases of the digestive system Plan Lower GI bleed, Hx of sigmoid divertuculosis: IV PPI CTA Abdomen obtained. Stool noted in colon but no evidence of extravasation, mesenteric ischemia or active bleed Continue IV Protonix BID GS consulted IV fluids Anemia Normocytic, likely secondary to acute blood loss, Hb improved Will send iron studies at this time will need work up including ANDRESSA - improved left UE swelling: US doppler ordered to r/o DVT Hypothyroidism HTN HLD CAD Holding oral medications at this time Holding DAPT for new bleeding DVT PPx SCDS Full Code. Plan - monitor Hb, continue IV PPI, monitor Hb
--- NOTE | 2023-11-12 12:34 | DIET.NUTRFU ---
Chart review, patient is on [employer], ground meat at [facility], updated order
[2023-11-12 13:28] VITALS: BMI 30.3
[2023-11-12 15:59] VITALS: BP 142/51; PULSE 73; RESP 18; TEMP 36.5; O2SAT 98
--- NOTE | 2023-11-12 16:08 | P.PN_ITS ---
Subjective *Date: 11/12/23 *Time: 16:08 Interval history: seen and examined at the bedside, she is lying down, no acute events overnight Exam Data for Last 24 hours Vital signs and Labs for Last 24 Hours: Temp Pulse Resp BP Pulse Ox O2 Del Method O2 Flow Rate 97.7 F 73 18 142/51 H 98 Nasal Cannula 2 11/12/23 15:59 11/12/23 15:59 11/12/23 15:59 11/12/23 15:59 11/12/23 15:59 11/12/23 15:59 11/12/23 15:59 Laboratory Results - last 24 hr 11/11/23 01:15: Blood Type O Positive, Antibody Screen Negative, Crossmatch (AHG) See Detail 11/11/23 23:10: Hgb 9.0 L D, Hct 27.5 L 11/12/23 09:07: WBC 14.1 H D, RBC 2.60 L, Hgb 7.8 L D, Hct 23.5 L, MCV 90.4, MCH 29.9, MCHC 33.1, RDW 17.9 H, Plt Count 226, MPV 7.8, Neut % (Auto) 82.3 H, Lymph % (Auto) 11.0, [place] % (Auto) 5.9, Eos % (Auto) 0.6, Baso % (Auto) 0.2, Neut # (Auto) 11.6 H, Lymph # (Auto) 1.6, [place] # (Auto) 0.8, Eos # (Auto) 0.1, Baso # (Auto) 0.0, Sodium 136, Potassium 3.4 L, Chloride 107, Carbon Dioxide 24, Anion Gap 8.4, BUN 33 H, Creatinine 0.90, Estimated Creat Clear 52, Estimated GFR 60, Est GFR ( Amer) 72 D, Glucose 131 H, Calcium 7.7 L I & O for Last 24 hours: Intake & Output 11/09/23 11/10/23 11/11/23 11/12/23 23:59 23:59 23:59 23:59 Intake Total 240 / 240 710 / 710 Output Total 1900 / 3200 2950 / 2950 Balance -1660 / -2960 -2240 / -2240 Weight 80.3 kg 80.6 kg Constitutional Constitutional: no acute distress Comments: Patient appears weak and frail *Routine HEENT Exam Head: Present normocephalic Eye: Present EOMI and PERRL ENT: Present mucous membranes moist *Routine Neck Exam Neck: Present supple; Absent lymphadenopathy *Routine Respiratory Exam Respiratory: Present CTA bilaterally *Routine Cardiovascular Exam Cardiovascular: Present RRR *Routine Abdominal Exam Abdominal: Present soft and normoactive bowel sounds; Absent tenderness *Routine Extremities Exam Extremities: Absent cyanosis, clubbing or edema *Routine Skin Exam Skin: Present warm; Absent rash *Routine Neurological Exam Comments: Patient appears confused, not able to hold conversations, not following commands Assessment and Plan *Assessment and plan (1) Acute GI bleeding: Status: Acute Category: Medical Code(s): K92.2 - Gastrointestinal hemorrhage, unspecified (2) Anemia: Status: Acute Qualifiers: Anemia type: other cause Other causes of anemia: other cause, not classified Qualified Code(s): D64.89 - Other specified anemias Category: Medical Code(s): D64.9 - Anemia, unspecified (3) ANDRESSA (acute kidney injury): Status: Resolved Category: Medical Code(s): N17.9 - Acute kidney failure, unspecified (4) Hypertension: Status: Acute Qualifiers: Hypertension type: primary hypertension Qualified Code(s): I10 - Essential (primary) hypertension Category: Medical Code(s): I10 - Essential (primary) hypertension (5) HLD (hyperlipidemia): Status: Chronic Qualifiers: Hyperlipidemia type: mixed hyperlipidemia Qualified Code(s): E78.2 - Mixed hyperlipidemia Category: Medical Code(s): E78.5 - Hyperlipidemia, unspecified (6) Hypothyroidism: Status: Acute Qualifiers: Hypothyroidism type: acquired Qualified Code(s): E03.9 - Hypothyroidism, unspecified Category: Medical Code(s): E03.9 - Hypothyroidism, unspecified (7) Left upper extremity swelling: Status: Acute Category: Medical Code(s): M79.89 - Other specified soft tissue disorders (8) History of diverticulosis: Status: Acute Category: Medical Code(s): Z87.19 - Personal history of other diseases of the digestive system Plan Lower GI bleed, Hx of sigmoid divertuculosis: IV PPI CTA Abdomen obtained. Stool noted in colon but no evidence of extravasation, mesenteric ischemia or active bleed Continue IV Protonix BID GS consulted - no plans for intervention inpatient IV fluids Anemia Normocytic, likely secondary to acute blood loss, Hb improved Will send iron studies at this time will need work up including ANDRESSA - improved left UE swelling: US doppler ordered to r/o DVT Hypothyroidism HTN HLD CAD Holding oral medications at this time Holding DAPT for new bleeding DVT PPx SCDS Full Code. Plan - monitor Hb, continue IV PPI, monitor Hb, if HB stable overnight, dc tomorrow
[2023-11-12 20:00] VITALS: BP 157/59; PULSE 77; RESP 18; TEMP 36.9; O2SAT 98
[2023-11-13 04:00] VITALS: BP 168/67; PULSE 77; RESP 18; TEMP 37.1; O2SAT 98; BMI 31.6
[2023-11-13 06:08] LABS: Basophils % 0.2 % (0.1-2.0); Eosinophils # 0.1 K/mm3 (0.0-0.4); Eosinophils % 0.8 % (0.1-12.0); Hematocrit 22.9 % (37.0-47.0); Hemoglobin 7.6 g/dL (12.2-16.2); Lymphocytes # 1.7 K/mm3 (0.7-4.5); Lymphocytes % 15.3 % (10-50); Mean Corpuscular Hemoglobin 29.5 pg (27.0-31.2); Mean Corpuscular Volume 89.5 fl (81-99); Mean Platelet Volume 8.5 fl (7.4-10.4); Monocytes # 0.8 K/mm3 (0.1-1.0); Monocytes % 7.2 % (1.7-9.3); Neutrophils # 8.5 K/mm3 (1.8-7.8); Neutrophils % 76.6 % (37.0-80.0); Platelet Count 235 K/mm3 (142-424); Red Blood Count 2.56 M/mm3 (4.20-5.40); Red Cell Distribution Width 18.3 % (11.5-17.5); White Blood Count 11.1 K/mm3 (4.8-10.8)
[2023-11-13 06:13] LABS: Chloride 109 mmol/L (98-107)
[2023-11-13 06:14] LABS: Potassium 3.2 mmoL/L (3.5-5.1); Sodium 139 mmol/L (136-145)
[2023-11-13 06:17] LABS: Anion Gap 4.2 mEq/L (5-15); Blood Urea Nitrogen 30 mg/dl (7-17); Calcium 7.3 mg/dl (8.4-10.2); Carbon Dioxide 29 mmol/L (22.0-30.0); Creatinine Clearance Estimated 50 mL/min (50-200); Estimated Glomerular Filt Rate 47 ml/min (>60); GFR (African American) 57 ML/MIN (>60); Glucose 106 mg/dl (74-100)
--- NOTE | 2023-11-13 07:01 | EXP.SURG.PN ---
Subjective Narrative: She states that she feels okay this morning . She does remain a little weak . She believes that she is not really bleeding anymore . Exam Data for Last 24 hours Vital signs and Labs for Last 24 Hours: Temp Pulse Resp BP Pulse Ox O2 Del Method O2 Flow Rate 98.7 F 77 18 168/67 H 98 Nasal Cannula 2 11/13/23 04:00 11/13/23 04:00 11/13/23 04:00 11/13/23 04:00 11/13/23 04:00 11/13/23 06:32 11/13/23 06:32 Laboratory Results - last 24 hr 11/12/23 09:07: WBC 14.1 H D, RBC 2.60 L, Hgb 7.8 L D, Hct 23.5 L, MCV 90.4, MCH 29.9, MCHC 33.1, RDW 17.9 H, Plt Count 226, MPV 7.8, Neut % (Auto) 82.3 H, Lymph % (Auto) 11.0, [place] % (Auto) 5.9, Eos % (Auto) 0.6, Baso % (Auto) 0.2, Neut # (Auto) 11.6 H, Lymph # (Auto) 1.6, [place] # (Auto) 0.8, Eos # (Auto) 0.1, Baso # (Auto) 0.0, Sodium 136, Potassium 3.4 L, Chloride 107, Carbon Dioxide 24, Anion Gap 8.4, BUN 33 H, Creatinine 0.90, Estimated Creat Clear 52, Estimated GFR 60, Est GFR ( Amer) 72 D, Glucose 131 H, Calcium 7.7 L 11/13/23 05:38: WBC 11.1 H, RBC 2.56 L, Hgb 7.6 L, Hct 22.9 L, MCV 89.5, MCH 29.5, MCHC 33.0, RDW 18.3 H, Plt Count 235, MPV 8.5, Neut % (Auto) 76.6, Lymph % (Auto) 15.3, [place] % (Auto) 7.2, Eos % (Auto) 0.8, Baso % (Auto) 0.2, Neut # (Auto) 8.5 H, Lymph # (Auto) 1.7, [place] # (Auto) 0.8, Eos # (Auto) 0.1, Baso # (Auto) 0.0, Sodium 139, Potassium 3.2 L, Chloride 109 H, Carbon Dioxide 29, Anion Gap 4.2 L, BUN 30 H, Creatinine 1.10 H D, Estimated Creat Clear 50, Estimated GFR 47 L, Est GFR ( Amer) 57 L D, Glucose 106 H, Calcium 7.3 L I & O for Last 24 hours: Intake & Output 11/10/23 11/11/23 11/12/23 11/13/23 11:59 11:59 11:59 11:59 Intake Total 120 / 120 590 / 590 600 / 600 Output Total 0 / 0 4500 / 4500 450 / 450 Balance 120 / 120 -3910 / -3910 150 / 150 Weight 177 lb 0.499 oz 177 lb 11.081 oz 185 lb 1 oz Constitutional Constitutional: no acute distress *Routine Respiratory Exam Respiratory: Absent respiratory distress *Routine Cardiovascular Exam Cardiovascular: Absent tachycardia Progress Note: A&P Assessment and plan (1) Acute GI bleeding: Status: Acute Assessment and plan: No definitive sign of ongoing hemorrhage. Hemoglobin 7.6 this a.m. (7.8 yesterday morning). This represents an appropriate response to her 1 unit blood transfusion. Consider transfusion of an additional unit (despite hemoglobin greater than 7) secondary to symptom of weakness . Continue to hold all antiplatelet/anticoagulation medications to the degree possible Continue serial hemoglobin/hematocrit and transfuse if/when needed Forwarded from prior consultation note: As this episode initially developed as bright red blood followed by melena, the definitive etiology remains equivocal (large-volume upper source such as small bowel remains possibility; however, true lower source such as diverticular bleeding also remains a possibility). Recent esophagogastroduodenoscopy (Dr. Rosario) completed without identifying a definitive causative factor. No need for emergent colonoscopy (elective/semielective colonoscopy in near future remains a consideration) Serial hemoglobin/hematocrit evaluations (transfuse if/when needed) May ultimately require transfer to tertiary center for angiographic intervention Consider UGI/SBFT followed by capsule endoscopy in the outpatient setting (patient plans to discuss with Dr. Rosario on EGD follow-up appointment) (2) Anemia: Status: Acute
[2023-11-13 08:00] VITALS: BP 164/68; PULSE 73; RESP 20; TEMP 36.7; O2SAT 100
[2023-11-13] MEDS: SODIUM CHLORIDE 0.9% 10ML VIAL 10 ML IV ×2 (08:09→20:35)
[2023-11-13] MEDS: PANTOPRAZOLE 40MG VIAL 40 MG IV ×2 (08:10→20:35)
--- NOTE | 2023-11-13 11:59 | EXP.EVENT.NO ---
Plan for patient transfer to [facility] for GI evaluation and possible colonoscopy. Patient is accepted and waiting for bed assignment
--- NOTE | 2023-11-13 14:42 | CARE MANAGER ---
Spoke with patient's spouse regarding discharge planning. He states that patient had HH services prior to admission, but does not remember the name of company. He states that he will call us with name once they get home, so that we can get order/clinical faxed to them.
[2023-11-13 16:00] VITALS: BP 166/82; PULSE 74; RESP 21; TEMP 36.4; O2SAT 100
--- NOTE | 2023-11-13 17:14 | EXP.PN ---
Subjective *Date: 11/13/23 *Time: 17:14 Interval history: seen and examined at the bedside, she is lying down, denied any active bleeding, no acute events overnight Exam Data for Last 24 hours Vital signs and Labs for Last 24 Hours: Temp Pulse Resp BP Pulse Ox O2 Del Method O2 Flow Rate 98.1 F 73 20 164/68 H 100 Nasal Cannula 2 11/13/23 08:00 11/13/23 08:00 11/13/23 08:00 11/13/23 08:00 11/13/23 08:00 11/13/23 15:00 11/13/23 15:00 Laboratory Results - last 24 hr 11/13/23 05:38: WBC 11.1 H, RBC 2.56 L, Hgb 7.6 L, Hct 22.9 L, MCV 89.5, MCH 29.5, MCHC 33.0, RDW 18.3 H, Plt Count 235, MPV 8.5, Neut % (Auto) 76.6, Lymph % (Auto) 15.3, [place] % (Auto) 7.2, Eos % (Auto) 0.8, Baso % (Auto) 0.2, Neut # (Auto) 8.5 H, Lymph # (Auto) 1.7, [place] # (Auto) 0.8, Eos # (Auto) 0.1, Baso # (Auto) 0.0, Sodium 139, Potassium 3.2 L, Chloride 109 H, Carbon Dioxide 29, Anion Gap 4.2 L, BUN 30 H, Creatinine 1.10 H D, Estimated Creat Clear 50, Estimated GFR 47 L, Est GFR ( Amer) 57 L D, Glucose 106 H, Calcium 7.3 L I & O for Last 24 hours: Intake & Output 11/10/23 11/11/23 11/12/23 11/13/23 23:59 23:59 23:59 23:59 Intake Total 240 / 240 950 / 1070 750 / 750 Output Total 1900 / 3200 3325 / 3325 0 / 0 Balance -1660 / -2960 -2375 / -2255 750 / 750 Weight 80.3 kg 80.6 kg 83.943 kg Constitutional Constitutional: no acute distress Comments: Patient appears weak and frail *Routine HEENT Exam Head: Present normocephalic Eye: Present EOMI and PERRL ENT: Present mucous membranes moist *Routine Neck Exam Neck: Present supple; Absent lymphadenopathy *Routine Respiratory Exam Respiratory: Present CTA bilaterally *Routine Cardiovascular Exam Cardiovascular: Present RRR *Routine Abdominal Exam Abdominal: Present soft and normoactive bowel sounds; Absent tenderness *Routine Extremities Exam Extremities: Absent cyanosis, clubbing or edema *Routine Skin Exam Skin: Present warm; Absent rash *Routine Neurological Exam Comments: Patient appears confused, not able to hold conversations, not following commands Assessment and Plan *Assessment and plan (1) Acute GI bleeding: Status: Acute Category: Medical Code(s): K92.2 - Gastrointestinal hemorrhage, unspecified (2) Anemia: Status: Acute Qualifiers: Anemia type: other cause Other causes of anemia: other cause, not classified Qualified Code(s): D64.89 - Other specified anemias Category: Medical Code(s): D64.9 - Anemia, unspecified (3) ANDRESSA (acute kidney injury): Status: Resolved Category: Medical Code(s): N17.9 - Acute kidney failure, unspecified (4) Hypertension: Status: Acute Qualifiers: Hypertension type: primary hypertension Qualified Code(s): I10 - Essential (primary) hypertension Category: Medical Code(s): I10 - Essential (primary) hypertension (5) HLD (hyperlipidemia): Status: Chronic Qualifiers: Hyperlipidemia type: mixed hyperlipidemia Qualified Code(s): E78.2 - Mixed hyperlipidemia Category: Medical Code(s): E78.5 - Hyperlipidemia, unspecified (6) Hypothyroidism: Status: Acute Qualifiers: Hypothyroidism type: acquired Qualified Code(s): E03.9 - Hypothyroidism, unspecified Category: Medical Code(s): E03.9 - Hypothyroidism, unspecified (7) Left upper extremity swelling: Status: Acute Category: Medical Code(s): M79.89 - Other specified soft tissue disorders (8) History of diverticulosis: Status: Acute Category: Medical Code(s): Z87.19 - Personal history of other diseases of the digestive system Plan Lower GI bleed, Hx of sigmoid divertuculosis: IV PPI CTA Abdomen obtained. Stool noted in colon but no evidence of extravasation, mesenteric ischemia or active bleed Continue IV Protonix BID GS consulted - no plans for intervention inpatient IV fluids Anemia Normocytic, likely secondary to acute blood loss, Hb improved Will send iron studies at this time will need work up including ANDRESSA - improved left UE swelling: US doppler ordered to r/o DVT Hypothyroidism HTN HLD CAD Holding oral medications at this time Holding DAPT for new bleeding DVT PPx SCDS Full Code. Plan - monitor Hb, continue IV PPI, monitor Hb,Hb trending down again, initiated transfer to [facility], patient is accepted, awaiting bed placement
[2023-11-13 20:00] VITALS: BP 183/69; PULSE 80; RESP 18; TEMP 36.3; O2SAT 100
[2023-11-13] MEDS: AMLODIPINE 5MG TABLET 5 MG PO (23:05)
--- NOTE | 2023-11-13 23:26 | PC.NURSE ---
Spoke to daughter Rissa, told her we were transferring patient to [facility] for GI. All questions were answered.
--- NOTE | 2023-11-13 23:29 | PC.NURSE ---
called [facility] to let them know we are transfering patient to [facility], spoke to Catherine Mattson
[2023-11-14] VITALS: BP 187/77; PULSE 73; RESP 18; TEMP 36.6; O2SAT 100
--- NOTE | 2023-11-14 01:34 | PC.NURSE ---
pt transfered off floor @01:34 via EMS
--- NOTE | 2023-11-27 19:05 | P.DS_ITS ---
General Admission date:: 11/11/23 Discharge date: 11/14/23 HPI HPI HPI: Forwarded from admission H&P: This is a 83-year-old female, group home resident, PMHx of diverticulosis, HTN, HLD, CAD s/p stent, on plavix, with recent admission for pneumonia, UTI and upper GI bleeding presented with reported lower GI bleeding. Per report nursing facility found a large bright red stool on her brief. She shortly thereafter reportedly had large-volume dark tarry stools and blood clots. She was discharged on 11/04. She had an EGD at that time that showed moderate hiatal hernia and mild diffuse nonerosive gastropathy without evidence of acute or recent upper GI bleeding. She was discharged on Protonix. She reports that she has had no other symptoms recently. She denies any specific chest pain abdominal pain shortness of breath. She denies any vomiting. . No recent fever. Hospital Course Hospital Course Hospital Course: Patient was seen and evaluated at the bedside on the day of discharge. Patient is stable for discharge. Patient wishes to be discharged. All patient questions were answered and patient was given time to ask questions. Patient was discharged in stable condition. Patient understands that she can return to ER in case of any sudden changes in health. Total time spent on DC - 38 mins Lower GI bleed, Hx of sigmoid divertuculosis: stable, and stopped IV PPI CTA Abdomen obtained. Stool noted in colon but no evidence of extravasation, mesenteric ischemia or active bleed Protonix GS consulted - no plans for intervention inpatient IV fluids Anemia Normocytic, likely secondary to acute blood loss, Hb improved Will send iron studies at this time will need work up including ANDRESSA - improved left UE swelling: US doppler ordered to r/o DVT Hypothyroidism HTN HLD CAD Holding oral medications at this time Holding DAPT for new bleeding DVT PPx SCDS Full Code. Exam Data for Last 24 hours Vital signs and Labs for Last 24 Hours: Temp Pulse Resp BP Pulse Ox O2 Del Method O2 Flow Rate 97.9 F 73 18 187/77 H 100 Nasal Cannula 2 11/14/23 00:00 11/14/23 00:00 11/14/23 00:00 11/14/23 00:00 11/14/23 00:00 11/14/23 01:00 11/14/23 01:00 Constitutional Constitutional: no acute distress Comments: Patient appears weak and frail *Routine HEENT Exam Head: Present normocephalic Eye: Present EOMI and PERRL ENT: Present mucous membranes moist *Routine Neck Exam Neck: Present supple; Absent lymphadenopathy *Routine Respiratory Exam Respiratory: Present CTA bilaterally *Routine Cardiovascular Exam Cardiovascular: Present RRR *Routine Abdominal Exam Abdominal: Present soft and normoactive bowel sounds; Absent tenderness *Routine Extremities Exam Extremities: Absent cyanosis, clubbing or edema *Routine Skin Exam Skin: Present warm; Absent rash *Routine Neurological Exam Comments: Patient appears confused, not able to hold conversations, not following commands DS: Diagnosis Discharge Diagnosis (1) Acute GI bleeding: Status: Acute Code(s): K92.2 - Gastrointestinal hemorrhage, unspecified (2) Anemia: Status: Acute Code(s): D64.9 - Anemia, unspecified Qualifiers: Anemia type: other cause Other causes of anemia: other cause, not classified Qualified Code(s): D64.89 - Other specified anemias (3) ANDRESSA (acute kidney injury): Status: Resolved Code(s): N17.9 - Acute kidney failure, unspecified (4) Hypertension: Status: Acute Code(s): I10 - Essential (primary) hypertension Qualifiers: Hypertension type: primary hypertension Qualified Code(s): I10 - Essential (primary) hypertension (5) HLD (hyperlipidemia): Status: Chronic Code(s): E78.5 - Hyperlipidemia, unspecified Qualifiers: Hyperlipidemia type: mixed hyperlipidemia Qualified Code(s): E78.2 - Mixed hyperlipidemia (6) Hypothyroidism: Status: Acute Code(s): E03.9 - Hypothyroidism, unspecified Qualifiers: Hypothyroidism type: acquired Qualified Code(s): E03.9 - Hypothyroidism, unspecified (7) Left upper extremity swelling: Status: Acute Code(s): M79.89 - Other specified soft tissue disorders (8) History of diverticulosis: Status: Acute Code(s): Z87.19 - Personal history of other diseases of the digestive system Meds Home Medications and Allergies Home Medications Medication Instructions Recorded Confirmed Type ranolazine 500 mg tablet,extended 500 mg PO BID Angina 90 days #180 03/11/19 11/11/23 History release,12 hr tabs levothyroxine 50 mcg tablet 50 mcg PO DAILY thyroid 07/14/20 11/11/23 History pantoprazole 40 mg tablet,delayed 40 mg PO BID acid reflux 01/28/21 11/11/23 History release rosuvastatin 40 mg tablet 40 mg PO HS Cholesterol 01/28/21 11/11/23 History gabapentin 300 mg capsule 300 mg PO BID Neuropathy 03/23/21 11/11/23 History anastrozole 1 mg tablet 1 mg PO DAILY Chemotherapy 05/30/21 11/11/23 History sucralfate 1 gram tablet 1 gm PO ACHS Esophagitis 03/20/22 11/11/23 History clopidogrel 75 mg tablet 75 mg PO DAILY HX of stents #90 10/02/22 11/11/23 Rx tabs amlodipine 5 mg tablet 5 mg PO DAILY Hypertension 02/19/23 11/11/23 History metoprolol succinate 100 mg 100 mg PO DAILY Hypertension 02/19/23 11/11/23 History tablet,extended release 24 hr acetaminophen 500 mg tablet 1,000 mg PO Q6HP PRN Mild 10/12/23 11/11/23 History pain/fever cholecalciferol (vitamin D3) 50 50 mcg PO DAILY Supplement 10/12/23 11/11/23 History mcg (2,000 unit) tablet (Vitamin D3) ipratropium 20 mcg-albuterol 100 1 puff inhalation QID Copd 10/12/23 11/11/23 History mcg/actuation mist for inhalation (Combivent Respimat) losartan 100 mg tablet 100 mg PO DAILY Hypertension 10/12/23 11/11/23 History multivitamin with minerals 1 tab PO DAILY Supplement 10/12/23 11/11/23 History ondansetron HCl 4 mg tablet 4 mg PO Q6H PRN Vomiting 10/12/23 11/11/23 History polyethylene glycol 3350 17 gram 17 g PO HS Constipation 10/12/23 11/11/23 History oral powder packet sennosides 8.6 mg-docusate sodium 8.6 tab PO BID Bowel care 10/12/23 11/11/23 History 50 mg tablet sertraline 50 mg tablet 50 mg PO HS Depression 10/12/23 11/11/23 History vit C 250 mg-vit E 90 mg-zinc 40 1 tab PO BID Eye care 10/12/23 11/11/23 History mg-copper 1 ik-zdegox-almdyo capsule (PreserVision AREDS-2) ferrous sulfate 325 mg (65 mg 325 mg PO MOWEFR Iron supplement 10/31/23 11/11/23 History iron) tablet spironolactone 50 mg tablet 50 mg PO DAILY 11/11/23 11/11/23 History New Prescriptions to Start Prescriptions: Allergies Allergy/AdvReac Type Severity Reaction Status Date / Time No Known Drug Allergies Allergy Unknown Verified 10/28/23 10:52 [NO KNOWN DRUG ALLERGIES] Discharge Plan Disposition Patient Disposition: Xfer Short-Term Hosp Discharge Order Discharge Orders: Discharge Order (Routine); Ordered 11/13/23 Ordered By: Bharat Zavala Follow up Plan Follow up with: Ilan Rosario MD [Staff Physician] - 1 week Prescriptions/Medication Reconciliation: No Action ranolazine 500 mg tablet extended release 12 hr 500 mg PO BID 90 Days Qty: 180 Patient Comments: anastrozole 1 mg tablet 1 mg PO DAILY levothyroxine 50 mcg tablet 50 mcg PO DAILY sucralfate 1 gram tablet 1 gm PO ACHS clopidogrel 75 mg tablet 75 mg PO DAILY Qty: 90 3RF gabapentin 300 MG capsule 300 mg PO BID polyethylene glycol 3350 17 gram Powder In Packet 17 g PO HS sennosides-docusate sodium 8.6-50 mg Tablet 8.6 tab PO BID cholecalciferol (vitamin D3) [Vitamin D3] 50 mcg (2,000 unit) Tablet 50 mcg PO DAILY Combivent Respimat 20-100 mcg/actuation Mist 1 puff INHALATION QID sertraline 50 mg Tablet 50 mg PO HS acetaminophen 500 mg Tablet 1,000 mg PO Q6HP PRN (Reason: Mild pain/fever) multivitamin with minerals Tablet 1 tab PO DAILY PreserVision AREDS-2 250-90-40-1 mg Capsule 1 tab PO BID ondansetron HCl 4 mg Tablet 4 mg PO Q6H PRN (Reason: Vomiting) losartan 100 mg tablet 100 mg PO DAILY spironolactone 50 mg Tablet 50 mg PO DAILY pantoprazole 40 MG tablet,delayed release (DR/EC) 40 mg PO BID rosuvastatin 40 MG tablet 40 mg PO HS metoprolol succinate 100 mg tablet extended release 24 hr 100 mg PO DAILY amlodipine 5 mg tablet 5 mg PO DAILY ferrous sulfate 325 mg (65 mg iron) Tablet 325 mg PO MOWEFR Rx Instructions: take 1 tablet daily every friday, friday, friday Problem Reconciliation Problems Reviewed?: Yes Patient Discharge Instructions Stand Alone Forms: Transfer Record Patient Instructions: DI for Gastrointestinal Bleeding Providers Primary Care Provider: Dov Gonzales Admit Provider: Karel Herbert Attending Provider: Karel Herebrt
== END 2023-11-14 01:34 | disposition short-term general hospital (02) ==
LOC: ER 00:40 → 2ND 04:04
PROVIDERS: Internal Medicine; Nurse Practitioner Family; Surgery; Admitting Provider Internal Medicine Adolescent Medicine; Emergency Provider Emergency Medicine; PCP Internal Medicine Adolescent Medicine; Visit Provider Internal Medicine Adolescent Medicine
DX: K92.2 Gastrointestinal hemorrhage, unspecified (principal); D64.89 Other specified anemias; N17.9 Acute kidney failure, unspecified; I10 Essential (primary) hypertension; E78.2 Mixed hyperlipidemia; E03.9 Hypothyroidism, unspecified; M79.89 Other specified soft tissue disorders; Z87.19 Personal history of other diseases of the digestive system; Z85.3 Personal history of malignant neoplasm of breast; I70.1 Atherosclerosis of renal artery; D64.9 Anemia, unspecified; Z95.5 Presence of coronary angioplasty implant and graft; I25.10 Atherosclerotic heart disease of native coronary artery without angina pectoris
CPT/HCPCS: 36415; 71275; 74176; 74177; 80048; 80053; 81001; 82272; 83605; 83735; 85007; 85014; 85018; 85025; 86850; 93971; 99285; G0328; G0378; P9016; Q9967

== ENCOUNTER 2023-12-11 21:41 | Outpatient (CLI) | payer MEDICARE, SELFPAY ==
[2023-12-11 22:04] LABS: Microscopic, Urine URINE MICROSCOPIC (MICROSCOPIC)
[2023-12-11 22:08] LABS: Appearance,Urine CLEAR (Clear); Bilirubin,Urine Negative (Negative); Blood, Urine Negative (Negative); Color,Urine YELLOW (Yellow); Glucose,Urine (UA) Negative (Negative); Ketones,Urine Negative (Negative); Leukocyte Esterase,Urine Negative (Negative); Nitrate,Urine Negative (Negative); PH,Urine 6.5 (5.0-8.5); Protein,Urine TRACE (Negative); Urobilinogen,Urine 0.2 EU/dl (0.2)
[2023-12-11 22:26] LABS: Bacteria,Urine 1+ /lpf; Squamous Epithelial Cell,Urine Occasional #/hpf (0-5)
== END 2023-12-11 23:59 ==
PROVIDERS: Nurse Practitioner Family; PCP Internal Medicine Adolescent Medicine; Visit Provider Internal Medicine Adolescent Medicine
DX: R10.9 Unspecified abdominal pain (principal); R82.998 Other abnormal findings in urine
CPT/HCPCS: 81001

== ENCOUNTER 2024-01-21 11:22 | Outpatient (CLI) | payer MEDICARE, MEDICAID, SELFPAY ==
[2024-01-21 11:54] LABS: Basophils % 0.4 % (0.1-2.0); Eosinophils # 0.1 K/mm3 (0.0-0.4); Eosinophils % 1.3 % (0.1-12.0); Hematocrit 43.8 % (37.0-47.0); Hemoglobin 13.7 g/dL (12.2-16.2); Lymphocytes # 3.3 K/mm3 (0.7-4.5); Lymphocytes % 30.4 % (10-50); Mean Corpuscular HGB Conc 31.3 g/dL (31.8-35.4); Mean Corpuscular Hemoglobin 28.9 pg (27.0-31.2); Mean Corpuscular Volume 92.3 fl (81-99); Mean Platelet Volume 8.3 fl (7.4-10.4); Monocytes # 0.6 K/mm3 (0.1-1.0); Monocytes % 5.6 % (1.7-9.3); Neutrophils # 6.9 K/mm3 (1.8-7.8); Neutrophils % 62.3 % (37.0-80.0); Platelet Count 254 K/mm3 (142-424); Red Blood Count 4.74 M/mm3 (4.20-5.40); Red Cell Distribution Width 15.9 % (11.5-17.5)
[2024-01-21 12:08] LABS: Chloride 111 mmol/L (98-107)
[2024-01-21 12:09] LABS: Potassium 3.2 mmoL/L (3.5-5.1); Sodium 140 mmol/L (136-145)
[2024-01-21 12:11] LABS: Alanine Aminotransferase 20 U/L (12-78); Alkaline Phosphatase 127 U/L (38-126); Anion Gap 7.2 mEq/L (5-15); Aspartate Amino Transferase 24 U/L (14-36); Bilirubin,Direct 0.1 mg/dl (0.0-0.4); Bilirubin,Indirect 0.1 mg/dL (0.0-0.9); Bilirubin,Total 0.2 mg/dl (0.2-1.3); Bilirubin,Unconjugated 0.1 mg/dL (0.0-1.1); Blood Urea Nitrogen 12 mg/dl (7-17); Calcium 9.1 mg/dl (8.4-10.2); Carbon Dioxide 25 mmol/L (22.0-30.0); Cholesterol 169 mg/dl (140-200); Estimated Glomerular Filt Rate 68 ml/min (>60); GFR (African American) 82 ML/MIN (>60); Glucose 122 mg/dl (74-100); Iron 56 ug/dL (37-170); Triglycerides 275 mg/dl (30-150); VLDL Cholesterol 55 mg/dL (0-40)
[2024-01-21 12:12] LABS: Albumin Level 3.6 g/dl (3.5-5.0); Chol/HDL Ratio 3.6 (1-3.5); HDL Cholesterol 47 mg/dl (40-60); Magnesium 1.9 mg/dl (1.6-2.3)
[2024-01-21 12:22] LABS: Direct LDL Cholesterol 71.71 mg/dL (100-129)
[2024-01-21 12:23] LABS: Total Iron Binding Capacity 294 ug/dL (265-497)
[2024-01-21 12:48] LABS: Ferritin 41.7 ng/ml (11.1-264)
[2024-01-21 13:24] LABS: Free T4 (Free Thyroxine) 1.46 ng/dl (0.78-2.19)
[2024-01-21 13:37] LABS: Thyroid Stimulating Hormone 3.04 uIU/mL (0.465-4.68)
[2024-01-21 14:13] LABS: Vitamin B12 769 pg/mL (239-931)
[2024-01-21 14:54] LABS: Folate 8.38 ng/mL
== END 2024-01-21 23:59 ==
PROVIDERS: PCP Internal Medicine Adolescent Medicine; Visit Provider Nurse Practitioner Family
DX: D64.9 Anemia, unspecified (principal); E78.5 Hyperlipidemia, unspecified; I10 Essential (primary) hypertension; R06.00 Dyspnea, unspecified; R53.83 Other fatigue; Z87.19 Personal history of other diseases of the digestive system; I65.23 Occlusion and stenosis of bilateral carotid arteries
CPT/HCPCS: 36415; 80048; 80061; 80076; 82607; 82728; 82746; 83540; 83550; 83735; 84439; 84443; 85025

== ENCOUNTER 2024-02-25 09:43 | Outpatient (CLI) | payer MEDICARE, MEDICAID, SELFPAY ==
--- NOTE | 2024-02-25 | CA_ITS ---
APPROVED REPORT Exam: Pharmacologic Technologist: Viridiana Lezama, Ht: 4 ft 10 in HR: 60 bpm BP: 143/60 mmHg Rhythm: NSR, poor R wave progression Medical History Medications: Amlodipine,,,,, Levothyroxine,,,,, Ferrous sulfate,,,,, Losartan,,,,, Metoprolol Succinate,,,,, Combivent,,,,, Tylenol,,,,, Vit D3,,,,, CloPIdogrel,,,,, Sertraline,,,,, SpirOnolactone,,,,, RoSUVASTATIN,,,,, Cardiac Risk Factors: HTN, Hyperlipidemia Stress Test Details Test: LEXISCAN HR Resting HR: 60 bpm Max Heart Rate (APMHR): 134 bpm Max HR Achieved: 73 bpm Target HR (85% APMHR): 114 bpm % of APMHR: 54 Recovery HR: 61 bpm BP Resting BP: 143/60 mmHg Max BP: 143/60 mmHg Recovery BP: 100.0/64.0 mmHg ECG Resting ECG: NSR, poor R wave progression Stress ECG: No ST changes Arrhythmia: None Clinical Exercise duration: 04:08 min Highest Stage Achieved: Stress ECG Conclusion During lexiscan pt experinced SOA, stomach discomfort, nausea, and head discomfort. No CP noted. No arrhythmias noted. No significant ST changes. Conclusion: Unremarkable lexiscan stress. Myoview images reported separately. Test Summary REST . . . . . . . Sitting REST . . . . . . . Sitting REST 05:14 . . 60 . 143/ 60 . . Stage 1 01:00 . . 68 . . . . Stage 2 01:00 . . 70 . . . . Stage 3 01:00 . . 67 . 107/ 44 . . Stage 4 01:00 . . 65 . . . . Stage 4 01:08 . . 64 . 103/ 33 . Stop exercise at 04:08 RECOVERY 01:00 . . 65 . . . . RECOVERY 02:00 . . 64 . . . . RECOVERY 03:00 . . 62 . . . . RECOVERY 04:00 . . 66 . 100/ 34 . . RECOVERY 05:00 . . 61 . 100/ 34 . . RECOVERY 06:00 . . 60 . 109/ 33 . . RECOVERY 07:00 . . 57 . 109/ 33 . . RECOVERY 08:00 . . 56 . 109/ 33 . . RECOVERY 09:00 . . 55 . 109/ 33 . . RECOVERY 10:00 . . 61 . 119/ 37 . . RECOVERY 11:00 . . 61 . 119/ 37 . . RECOVERY 12:00 . . 61 . 111/ 51 . . RECOVERY 13:00 . . 0 . 111/ 51 . . RECOVERY 13:30 . . 0 . 111/ 51 . . Electronically signed by : Tejal Galindo MD 02/26/2024 12:39:04
--- NOTE | 2024-02-25 09:44 | CA_ITS ---
FINAL REPORT TECHNIQUE: Color Doppler, duplex Doppler and lomas scale sonography of the bilateral neck vasculature was performed. Velocities were measured in the carotid arteries. Stenosis evaluation based on velocity criteria. CLINICAL HISTORY: MARCE, CAD, Wheelchair bound/scanned seated in wheelchair upright COMPARISON: 11/06/2022 FINDINGS: The peak systolic velocity of the right common carotid artery is cm/sec and internal carotid artery 77 cm/sec. The diastolic velocity in the internal carotid artery is 122 cm/sec. The ICA/CCA ratio is 2.74. Visually, a moderate amount of plaque is seen. These findings are consistent with less than 50% stenosis. The external carotid artery is patent. The right vertebral artery is patent with antegrade flow. The peak systolic velocity of the left common carotid artery is 74 cm/sec and internal carotid artery 85 cm/sec. The diastolic velocity in the internal carotid artery is 12 cm/sec. The ICA/CCA ratio is 1.9. Visually, a moderate amount of plaque is seen. These findings are consistent with less than 50% stenosis. The external carotid artery is patent. The left vertebral artery is patent with antegrade flow. IMPRESSION: Less than 50% stenosis of each carotid bifurcation, with moderate plaque. Bilateral patent vertebral arteries. If indicated, CTA or MRA could further evaluate. Reviewed, Interpreted and Dictated by Ilan Patel III, MD Transcribed by Aida Montana Authenticated and [facility]
--- NOTE | 2024-02-25 09:44 | CA_ITS ---
APPROVED REPORT EXAM: Comprehensive 2D, Doppler, and color-flow Echocardiogram Team Lead: SAGAR Oates, RVS Ht: 4 ft 8 in Wt: 166lbs BSA: 1.64 BP: 185/71 mmHg Indications: Patient wheelchair bound-scanned in chair-limited windows. Dyspnea, CAD, Anemia, Abn EKG 2D Dimensions IVSd 0.90 cm LVEF (Visual) 85.10 % PWd 0.93 cm LA Volume 63.90 mL LVDd 4.38 cm LA Volume Index 38.00 mL/m2 (M/F) 16-34 LVDs 2.01 cm Left Atrium 2.16 cm M-Mode Dimensions RVDd 1.24 cm (0.9-2.6) LA Diam 3.93 cm (1.9-4.0) LVDd 3.86 cm (3.5-5.7) LVDs 3.08 cm (3.5-5.7) IVSd 0.70 cm (0.6-1.1) PWd 1.07 cm (0.6-1.1) EF (Teich) 42.00% EPSs 1.65 cm FS 20.20% EDV (Teich) 64.30 mL TAPSE 1.54 (<1.7) ESV (Teich) 37.30 mL LV Diastology E Decel Time 343 (160-240 msec) E/A Ratio 0.77 MED A' 34.20 cm/s LAT A' 7.60 cm/s Aortic Valve GONZALO Index 0.86 cm2/m2 AoV Peak Declan. 140.0 (50-130 cm/s) AO Peak GR. 7.80 mmHg AO Mean GR. 3.90 (<5 mmHg) AO VTI 29.3 (18-25 cm) GONZALO (VTI) 1.45 (2.5-4.5 cm2) Mitral Valve MV A Velocity 130.0 (40-130 cm/s) E/A Ratio 0.77 Pulmonary Valve PV Peak Velocity 82.0 (50-150 cm/s) ME End VMAX 144.0 cm/s Tricuspid Valve TR P. Velocity 291.00 cm/s RAP Estimate 10.00 mmHg RVSP 44.00 mmHg Left Ventricle The left ventricle is normal size. The left ventricular systolic function is normal. The left ventricular ejection fraction is within the normal range. There is increased LV wall thickness. LV segmental wall motion cannot be accurately estimated due to technically difficult study, but grossly no regional wall motion abnormalities are noted. Grade 2 diastolic dysfunction present. LVEF is 55%. Right Ventricle Right ventricle is mildly dilated. The right ventricular systolic function is normal. Atria Left atrium is mildly dilated. Right atrium is mildly dilated. The interatrial septum is not well visualized. Aortic Valve The aortic valve is mildly thickened. There is no aortic valvular stenosis. No aortic regurgitation is present. Mitral Valve THe mitral valve is mildly thickened. No evidence of mitral valve stenosis. Trace mitral regurgitation. Tricuspid Valve The tricuspid valve leaflets are thin and pliable. Mild tricuspid regurgitation. RVSP is 35 mmHg + RA pressure. Pulmonic Valve The pulmonary valve is normal in structure. Trace pulmonic regurgitation. Great Vessels The aortic root is normal in size. The ascending aorta is normal in size. The IVC is not well visualized. Pericardium There is no pericardial effusion. Other Information Study Quality: Technically Difficult Conclusion Technically difficult study due to patient positioning. Normal biventricular systolic function. Grade 2 diastolic dysfunction. Mild RV dilation. Mild biatrial dilation. Mild TR. PV is not well visualized. RVSP is 35 mmHg + RA pressure. Electronically signed by : Tejal Galindo MD 02/29/2024 16:14:56
--- NOTE | 2024-02-25 10:45 | NM_ITS ---
APPROVED REPORT Exam: Nuclear Stress Test Indication: CAD, 1 STENT, OBESITY, HTN, FM HX, SOB, SYNCOPE, FATIGUE Patient Location: Outpatient Stress Tech: Viridiana Lezama [place] Tech:Alyce Obrien ARRT RT (R)(N)(M) Ht: 4 ft 9 in Wt: 163 lbs HR: 60 bpm BP: 143/60 mmHg BSA: 1.65 m2 TID: 1.44 BMI: 35.2 History: CAD, 1 STENT, OBESITY, HTN, FM HX, SOB, SYNCOPE, FATIGUE PT COULD NOT LAY ON STOMACH FOR PRONE IMAGES PT HAS HAD BREAST CANCER, WITH FILIBERTO MASECTOMIES Procedure: Patient received 0.4 mg of intravenous Lexiscan, resting heart rate 60 bpm, resting blood pressure 143/60 mmHg, with AdenosineLexiscan maximum heart rate achieved was 71 bpm which is % of the maximum predicted heart rate and blood pressure was 107/44 mmHg. With Lexiscan, patient denied any complaint of chest pain. Cardiac Stress and Resting SPECT Images: Cardiac Stress and Resting SPECT images were obtained using technetium 99m Myoview 31.6 mCi stress and 10.72 mCi at rest. The patient could not lie on his abdomen. Therefore, prone stress imaging could not be performed. This may affect the diagnostic interpretation of the study findings. Resting and stress imaging in supine positions demonstrate no evidence of fixed or reversible perfusion defects. There is increased transient ischemic dilatation ratio (TID 1.44), suggestive of possible multivessel disease or balanced ischemia. Gated imaging demonstrates normal global and regional LV systolic function. LVEF is calculated at 59%. Conclusion: No evidence of fixed or reversible perfusion defects. There is increased transient ischemic dilatation ratio (TID 1.44), suggestive of possible multivessel disease or balanced ischemia. Gated imaging demonstrates normal global and regional LV systolic function. LVEF is calculated at 59%. Electronically signed by : Tejal Galindo MD 02/26/2024 12:40:24
[2024-02-25] MEDS: SODIUM CHLORIDE 0.9% 10ML SYR (RAD ONLY) 10 ML IV ×2 (12:00→13:50)
[2024-02-25] MEDS: ISOTOPE MYOVIEW (PER STUDY) 1 DOSE IV (13:56)
[2024-02-25] MEDS: REGADENOSON 0.4MG/5ML SYRINGE 0.400000000000000022 MG IV (13:56)
== END 2024-02-25 23:59 ==
LOC: RT 09:44
PROVIDERS: PCP Internal Medicine Adolescent Medicine; Visit Provider Nurse Practitioner Family
DX: R42 Dizziness and giddiness (principal); Z87.19 Personal history of other diseases of the digestive system; D64.9 Anemia, unspecified; I10 Essential (primary) hypertension; E78.5 Hyperlipidemia, unspecified; I65.23 Occlusion and stenosis of bilateral carotid arteries; R53.83 Other fatigue; R06.00 Dyspnea, unspecified
CPT/HCPCS: 78452; 93017; 93018; 93306; 93880; A9502; J0280; J2785

== ENCOUNTER 2024-03-10 08:24 | Day surgery (SDC) | payer MEDICARE, MEDICAID, SELFPAY ==
[2024-03-10] VITALS (13 sets, daily range): BP systolic 151–192; BP diastolic 52–90; PULSE 52–60; RESP 15–20; TEMP 36.8; O2SAT 93–98; BMI 37.0
--- NOTE | 2024-03-10 07:09 | IR_ITS ---
APPROVED REPORT Patient Location: Outpatient [employer] Operator: SPENCER Calhoun RT (R) PROCEDURES Left heart catheterization Left ventriculogram Selective coronary angiogram Bilateral selective renal angiography INDICATION Known coronary artery disease, Abnormal high risk Myoview, Known renovascular hypertension, Known bilateral renal artery stents Informed consent was obtained prior to the procedure. COMPLICATIONS NONE Estimated Blood Loss: LESS THAN 10 ML TECHNIQUE One percent lidocaine was used to anesthetize the right groin. The right femoral artery was accessed via the Seldinger technique. A 4-Telugu sheath was placed in the right femoral artery. The JL-4 and JR-4 catheter was also used to perform left heart catheterization left ventriculogram and selective coronary angiogram. The JR4 catheter was used to cannulate each renal artery selectively. At the end of the procedure the patient was transferred to the post-op holding area in stable condition for arterial sheath removal. ANGIOGRAPHIC RESULTS The left main artery Normal The left anterior descending artery Has proximal eccentric 10% stenosis with a mid vessel stent with concentric smooth 40% stenosis. The distal LAD is highly tortuous The circumflex artery Nondominant and has proximal to mid vessel 30 to 40% concentric stenosis The right coronary artery Dominant with proximal and mid vessel 20% calcified stenoses and a distal 30% calcified stenosis The BRONSON ventriculogram reveals Normal 65% The left ventricular end-diastolic pressure 20 to 25 mmHg Right renal artery is singular with a stent in the ostial proximal segment which is widely patent with minimal in-stent restenosis Left renal artery singular with a stent in the ostial proximal segment which is widely patent with minimal in-stent restenosis IMPRESSION Coronary disease as described above Normal ejection fraction Elevated LVEDP likely secondary to hypertensive heart disease Widely patent bilateral renal artery stents PLAN 1. Medical management Electronically signed by : Remi Anton MD 03/10/2024 10:57:13
[2024-03-10 09:30] LABS: Chloride 105 mmol/L (98-107)
[2024-03-10 09:31] LABS: Sodium 142 mmol/L (136-145)
[2024-03-10 09:33] LABS: Basophils # 0.1 K/mm3 (0-0.2); Basophils % 0.7 % (0.1-2.0); Eosinophils # 0.2 K/mm3 (0.0-0.4); Hematocrit 46.8 % (37.0-47.0); Hemoglobin 14.8 g/dL (12.2-16.2); Lymphocytes % 24.5 % (10-50); Mean Corpuscular HGB Conc 31.7 g/dL (31.8-35.4); Mean Corpuscular Hemoglobin 28.5 pg (27.0-31.2); Mean Corpuscular Volume 89.7 fl (81-99); Monocytes # 0.7 K/mm3 (0.1-1.0); Monocytes % 5.5 % (1.7-9.3); Neutrophils # 8.2 K/mm3 (1.8-7.8); Neutrophils % 67.3 % (37.0-80.0); Platelet Count 268 K/mm3 (142-424); Red Blood Count 5.21 M/mm3 (4.20-5.40); Red Cell Distribution Width 15.1 % (11.5-17.5); White Blood Count 12.2 K/mm3 (4.8-10.8)
[2024-03-10 09:34] LABS: Anion Gap 9.8 mEq/L (5-15); Blood Urea Nitrogen 17 mg/dl (7-17); Calcium 9.5 mg/dl (8.4-10.2); Carbon Dioxide 30 mmol/L (22.0-30.0); Creatinine Clearance Estimated 48 mL/min (50-200); Estimated Glomerular Filt Rate 59 ml/min (>60); GFR (African American) 72 ML/MIN (>60); Glucose 122 mg/dl (74-100)
[2024-03-10 09:35] LABS: Potassium 2.8 mmoL/L (3.5-5.1)
[2024-03-10] MEDS: 0.9 % SODIUM CHLORIDE 500 ML 25 ML IV (10:20)
[2024-03-10] MEDS: HEPARIN 1,000 UNITS/500ML NS (CATH LAB) 3000 UNIT IV (10:20)
[2024-03-10] MEDS: NITROGLYCERIN 800MCG/8ML SYR (CATH LAB) 800 MCG IA (10:20)
[2024-03-10] MEDS: diphenhydrAMINE 50MG/ML VIAL 50 MG IV (10:20)
[2024-03-10] MEDS: LIDOCAINE 1% 10ML MDV 20 ML IJ (10:21)
[2024-03-10] MEDS: MIDAZOLAM HCL 1MG/1ML 5ML VIAL 1 MG IV (10:50)
[2024-03-10] MEDS: FENTANYL 100MCG/2ML VIAL 50 MCG IV (10:50)
[2024-03-10] MEDS: IOPAMIDOL-370 (76%);100ML BOTTLE 50 ML IV (11:09)
[2024-03-10] MEDS: POTASSIUM CHLORIDE 20MEQ TAB 40 MEQ PO (12:27)
== END 2024-03-10 14:22 | disposition home or self-care (01) ==
PROVIDERS: PCP Internal Medicine Adolescent Medicine; Visit Provider Internal Medicine
DX: I25.10 Atherosclerotic heart disease of native coronary artery without angina pectoris (principal); I15.0 Renovascular hypertension; I70.1 Atherosclerosis of renal artery; T82.858A Stenosis of other vascular prosthetic devices, implants and grafts, initial encounter; Z79.899 Other long term (current) drug therapy; I10 Essential (primary) hypertension; Y83.1 Surgical operation with implant of artificial internal device as the cause of abnormal reaction of the patient, or of later complication, without mention of misadventure at the time of the procedure
CPT/HCPCS: 36252; 80048; 85025; 93458; 99152; C1725; C1769; J1644; Q9967

== ENCOUNTER 2024-12-29 11:47 | Outpatient (CLI) | payer MEDICARE, MEDICAID, SELFPAY ==
--- NOTE | 2024-12-29 11:54 | XR_ITS ---
FINAL REPORT TECHNIQUE: Chest PA & Lateral CLINICAL HISTORY: crackles left lobe COMPARISON: None FINDINGS: 2 views of the chest were performed. The heart size is normal. The mediastinum is within normal limits. There is no acute cardiopulmonary process. Chronic changes are noted in the lung bases bilaterally. There are no pleural effusions. There is no pneumothorax. The bony thorax appears intact. IMPRESSION: Chronic changes are present in the lung bases, without acute cardiopulmonary process. Reviewed, Interpreted and Dictated by Rasta Conteh MD Transcribed by Aida Montana Authenticated and [facility]
== END 2024-12-29 23:59 | disposition home or self-care (01) ==
LOC: RAD 11:49
PROVIDERS: PCP Internal Medicine Adolescent Medicine; Visit Provider Nurse Practitioner
DX: R06.00 Dyspnea, unspecified (principal); R09.89 Other specified symptoms and signs involving the circulatory and respiratory systems
CPT/HCPCS: 71046

== ENCOUNTER 2025-02-27 23:49 | Emergency (ER) | payer MEDICARE, MEDICAID, SELFPAY ==
[2025-02-28 00:12] VITALS: BP 157/74; PULSE 53; RESP 20; TEMP 36.9; O2SAT 95; BMI 32.3
--- NOTE | 2025-02-28 00:20 | CT_ITS ---
PROCEDURE INFORMATION: Exam: CT Head Without Contrast Exam date and time: 02/28/2025 12:40 AM Age: 85 years old Clinical indication: Injury or trauma; Fall; Blunt trauma (contusions or hematomas); Additional info: Fall on thinners TECHNIQUE: Imaging protocol: Computed tomography of the head without contrast. Radiation optimization: All CT scans at this facility use at least one of these dose optimization techniques: automated exposure control; mA and/or kV adjustment per patient size (includes targeted exams where dose is matched to clinical indication); or iterative reconstruction. COMPARISON: CT HEAD/BRAIN WO CON 10/12/2023 9:42 AM FINDINGS: Brain: There is moderate diffuse cerebral atrophy present. Cerebral ventricles: No ventriculomegaly. Paranasal sinuses: Visualized sinuses are unremarkable. No fluid levels. Mastoid air cells: Visualized mastoid air cells are well aerated. Bones: Unremarkable. No acute fracture. Soft tissues: Unremarkable. IMPRESSION: No acute intracranial abnormality.
--- NOTE | 2025-02-28 00:20 | CT_ITS ---
PROCEDURE INFORMATION: Exam: CT Cervical Spine Without Contrast Exam date and time: 02/28/2025 12:50 AM Age: 85 years old Clinical indication: Injury or trauma; Fall; Blunt trauma; Additional info: Fall on thinners TECHNIQUE: Imaging protocol: Computed tomography of the cervical spine without contrast. Radiation optimization: All CT scans at this facility use at least one of these dose optimization techniques: automated exposure control; mA and/or kV adjustment per patient size (includes targeted exams where dose is matched to clinical indication); or iterative reconstruction. COMPARISON: CT HEAD/BRAIN WO CON 02/28/2025 12:40 AM FINDINGS: Bones/joints: Degenerative disc change every level. C2-C3: No significant disc bulge or herniation. No severe spinal canal stenosis. No significant neural foraminal narrowing. C3-C4: No significant disc bulge or herniation. No severe spinal canal stenosis. No significant neural foraminal narrowing. C4-C5: Anterolisthesis C4-C5 2 mm, degenerative in nature. C5-C6: No significant disc bulge or herniation. No severe spinal canal stenosis. No significant neural foraminal narrowing. C6-C7: No significant disc bulge or herniation. No severe spinal canal stenosis. No significant neural foraminal narrowing. C7-T1: No significant disc bulge or herniation. No severe spinal canal stenosis. No significant neural foraminal narrowing. Thyroid: Enlarged and heterogeneous thyroid gland, poorly visualized. Ultrasound would be helpful in further characterization. Lungs: Lung apices are normal. IMPRESSION: No acute findings.
--- NOTE | 2025-02-28 00:23 | XR_ITS ---
PROCEDURE INFORMATION: Exam: XR Right Forearm Exam date and time: 02/28/2025 12:53 AM Age: 85 years old Clinical indication: Injury or trauma; Fall; Blunt trauma (contusions or hematomas); Arm, lower; Right; Additional info: Fall ecchymosis pain TECHNIQUE: Imaging protocol: Radiologic exam of the right forearm. Views: 2 views. COMPARISON: CR XR HAND RT MIN 3V 09/04/2020 6:02 PM FINDINGS: Bones/joints: No acute fracture or dislocation. Soft tissues: Mild soft tissue swelling over the distal volar forearm. IMPRESSION: No acute fracture or dislocation.
--- NOTE | 2025-02-28 00:23 | XR_ITS ---
PROCEDURE INFORMATION: Exam: XR Left Knee Exam date and time: 02/28/2025 12:53 AM Age: 85 years old Clinical indication: Injury or trauma; Fall; Blunt trauma; Knee; Bilateral; Additional info: Fall onto knees from bed, minor abrasions TECHNIQUE: Imaging protocol: Radiologic exam of the left knee. Views: 3 views. COMPARISON: No relevant prior studies available. FINDINGS: Bones/joints: No acute fracture or dislocation. Soft tissues: Normal. IMPRESSION: No acute fracture or dislocation.
--- NOTE | 2025-02-28 00:23 | XR_ITS ---
PROCEDURE INFORMATION: Exam: XR Right Knee Exam date and time: 02/28/2025 12:53 AM Age: 85 years old Clinical indication: Injury or trauma; Fall; Blunt trauma; Knee; Bilateral; Additional info: Fall onto knees from bed, minor abrasions TECHNIQUE: Imaging protocol: Radiologic exam of the right knee. Views: 3 views. COMPARISON: CR XR KNEE RT 3V 07/07/2023 8:21 PM FINDINGS: Bones/joints: No acute fracture or dislocation. Soft tissues: Mild pretibial soft tissue swelling. Edema within Hoffa's fat pad. IMPRESSION: No acute fracture or dislocation.
[2025-02-28 01:04] VITALS: BP 170/61; PULSE 58; O2SAT 96
[2025-02-28 01:28] LABS: HIV Combo NEGATIVE (Negative)
[2025-02-28 01:30] VITALS: BP 151/61; PULSE 57; O2SAT 95
[2025-02-28 01:37] LABS: Hepatitis C Ab Qual. W/ RFX NEGATIVE (Negative)
[2025-02-28 01:39] VITALS: BP 151/61; PULSE 57; RESP 16; TEMP 36.6; O2SAT 96
--- NOTE | 2025-02-28 01:41 | PC.NURSE ---
Report called to ginna; IV removed. Catheter tip intact. Bleeding controlled.
--- NOTE | 2025-02-28 01:50 | HMH.EDGENADL ---
Discharge Plan Disposition Patient Disposition: Xfer SNF Condition: Good Prescriptions Prescriptions: No Action ranolazine 500 mg tablet extended release 12 hr 500 mg PO BID 90 Days Qty: 180 Patient Comments: anastrozole 1 mg tablet 1 mg PO DAILY sucralfate 1 gram tablet 1 gm PO ACHS gabapentin 100 mg capsule 100 mg PO DAILY albuterol sulfate 0.63 mg/3 mL solution for nebulization 0.63 mg inhalation Q6H dicyclomine 20 mg tablet 20 mg PO ONCE ondansetron HCl 4 mg tablet 4 mg PO guaifenesin 100 mg/5 mL liquid 100 mg PO levothyroxine 50 mcg tablet 50 mcg PO DAILY polyethylene glycol 3350 17 gram/dose powder 17 g PO DAILY artificial tear(jfeom-yjt-pzj) 0.1-0.3-0.2 % drops 1 drp Eye-Both lactulose 10 gram/15 mL solution 15 ml PO clopidogrel 75 mg tablet 75 mg PO DAILY Qty: 90 3RF spironolactone 50 mg tablet 100 mg PO DAILY cholecalciferol (vitamin D3) [Vitamin D3] 50 mcg (2,000 unit) Tablet 50 mcg PO DAILY Combivent Respimat 20-100 mcg/actuation Mist 1 puff INHALATION QID acetaminophen 500 mg Tablet 1,000 mg PO Q6HP PRN (Reason: Mild pain/fever) multivitamin with minerals Tablet 1 tab PO DAILY PreserVision AREDS-2 250-90-40-1 mg Capsule 1 tab PO BID pantoprazole 40 MG tablet,delayed release (DR/EC) 40 mg PO BID rosuvastatin 40 MG tablet 40 mg PO HS metoprolol succinate 100 mg tablet extended release 24 hr 100 mg PO DAILY amlodipine 5 mg tablet 5 mg PO DAILY Referrals Follow up/Referrals: Provider,Referral, MD [Referring] - See instructions Activity Restrictions/Add. Instructions Additional Instructions/Restrictions: Marti was evaluated in the ER and is appropriate for discharge at this time. Continue all home medications as previously prescribed. Follow-up with primary care doctor for reevaluation in a few days. Return to the ER with new, worsening, or otherwise concerning symptoms. Clinical Impressions Clinical Impression: Fall, Traumatic ecchymosis of right forearm Print Language Print Language: Slovenian Discharge ED Provider: Meera Ring Adult [facility] General Chief complaint: Fall Stated complaint: head injury Time Seen by Provider: 02/28/25 00:15 Mode of Arrival: EMS Source of Information: Patient Description of Symptoms (Recalled from ER Triage Doc. by RN): Pt states she fell out of bed. Bed is low to the ground. Pt had arm underneath her and has bruising on right forearm History of Present Illness HPI narrative: 85-year-old female with history of hypertension, hyperlipidemia presents to the ER from [facility] after fall from bed. Patient reports she was sitting on the bed when she leaned over to try and get her remote. She states she fell out of bed landing on her knees, she also bumped her forehead and landed on her right forearm. She states her right arm was stuck under her. She called for help and they immediately came to bedside to help her. She denies loss of consciousness. Patient takes Plavix. Patient reports no headache or neck pain, no numbness, tingling, or weakness, she states her knees feel slightly bruised but are not otherwise painful. She states her right forearm where she has bruising is slightly painful but she is able to move it. She has no chest pain or abdominal pain, no neck pain or back pain. She has no complaints of recently being ill. No other complaints at this time. EMS reports patient was GCS 15 and fully oriented with them. Related Data Home Medications ?Medication ?Instructions ?Recorded ?Confirmed ranolazine 500 mg tablet,extended 500 mg PO BID Angina 90 days #180 03/11/19 12/29/24 release,12 hr tabs pantoprazole 40 mg tablet,delayed 40 mg PO BID acid reflux 01/28/21 12/29/24 release rosuvastatin 40 mg tablet 40 mg PO HS Cholesterol 01/28/21 12/29/24 anastrozole 1 mg tablet 1 mg PO DAILY Chemotherapy 05/30/21 12/29/24 sucralfate 1 gram tablet 1 gm PO ACHS Esophagitis 03/20/22 12/29/24 amlodipine 5 mg tablet 5 mg PO DAILY Hypertension 02/19/23 12/29/24 metoprolol succinate 100 mg 100 mg PO DAILY Hypertension 02/19/23 12/29/24 tablet,extended release 24 hr acetaminophen 500 mg tablet 1,000 mg PO Q6HP PRN Mild 10/12/23 12/29/24 pain/fever cholecalciferol (vitamin D3) 50 50 mcg PO DAILY Supplement 10/12/23 12/29/24 mcg (2,000 unit) tablet (Vitamin D3) ipratropium 20 mcg-albuterol 100 1 puff inhalation QID Copd 10/12/23 12/29/24 mcg/actuation mist for inhalation (Combivent Respimat) multivitamin with minerals 1 tab PO DAILY Supplement 10/12/23 12/29/24 vit C 250 mg-vit E 90 mg-zinc 40 1 tab PO BID Eye care 10/12/23 12/29/24 mg-copper 1 he-adktid-kgfgle capsule (PreserVision AREDS-2) gabapentin 100 mg capsule 100 mg PO DAILY 01/21/24 12/29/24 spironolactone 50 mg tablet 100 mg PO DAILY 01/21/24 12/29/24 albuterol sulfate 0.63 mg/3 mL 0.63 mg inhalation Q6H 03/03/24 12/29/24 solution for nebulization dicyclomine 20 mg tablet 20 mg PO ONCE 03/03/24 12/29/24 artificial 1 drp Eye-Both 06/16/24 12/29/24 tears(vuxxnip-qwwsgkmy-dhlbiyu) 0.1 %-0.3 %-0.2 % eye drops guaifenesin 100 mg/5 mL oral liquid 100 mg PO 06/16/24 12/29/24 lactulose 10 gram/15 mL oral 15 ml PO 06/16/24 12/29/24 solution levothyroxine 50 mcg tablet 50 mcg PO DAILY 06/16/24 12/29/24 ondansetron HCl 4 mg tablet 4 mg PO 06/16/24 12/29/24 polyethylene glycol 3350 17 17 g PO DAILY 06/16/24 12/29/24 gram/dose oral powder Previous Rx's ?Medication ?Instructions ?Recorded clopidogrel 75 mg tablet 75 mg PO DAILY HX of stents #90 10/02/22 tabs Allergies Allergy/AdvReac Type Severity Reaction Status Date / Time No Known Drug Allergies (NO Allergy Unknown Verified 12/29/24 11:16 KNOWN DRUG ALLERGIES) [facility] Disclaimer: The information contained in this section may have been updated after the patient was seen, as this information can be updated by other users. Medical History (Updated 02/28/25 @ 01:35 by Meera Ring MD) Lung crackles Hypothyroidism Renal artery stenosis HLD (hyperlipidemia) HTN (hypertension) Chest pain Abnormal findings on diagnostic imaging of heart and coronary circulation History of diverticulosis Left upper extremity swelling Anemia Acute GI bleeding Anemia Hypoxia Hypertension Acute UTI Pneumonia Dyspnea Fatigue History of GI bleed Acute respiratory failure with hypoxia Simple adnexal cyst greater than 1 cm in diameter in postmenopausal patient FH: mastectomy Breast cancer, right Encounter for pre-operative cardiovascular clearance Breast mass, right Surgical History Hx of total mastectomy of right breast History of renal stent Stented coronary artery Family History Other No significant family history Social History Smoking Status: Never smoker alcohol intake: never substance use type: denies use current occupational status: retired Travel in the last 8 weeks: None household members: none housing: apartment current occupational exposures/hazards: No caffeine: No Have you lived/traveled outside US in past 30 days?: No Contact w/someone who lives/traveled outside US past 30 days?: No Exposure to someone with infectious disease in past 14 days?: No Do you have a fever (greater than 100.4 F or 38 C)?: No Have you tested positive for COVID-19: No Exposed to someone with COVID-19 in past 14 days?: No Do you have a sore throat?: No Do you have a cough?: No Do you have any weakness?: No Do you have any diarrhea?: No Are you experiencing any unusual bleeding?: No Do you have any muscle aches/pain?: No Do you have any abdominal pain?: No Are you experiencing loss of taste or smell?: No Other Medical History Have you received the Flu Vaccine for this season: No Have you received the Pneumonia Vaccine: Yes ROS Obtained: Yes Systems reviewed as appropriate & no additional complaints except as documented Per HPI Physical Exam General General appearance: alert and in no apparent distress Head Head exam: atraumatic and normocephalic Eye Eye exam: Present PERRL and EOMI ENT ENT exam: Present mucous membranes moist Neck Neck exam: Present other (C-collar in place on arrival, no midline tenderness, deformity, or step-off); Absent tenderness Chest Chest inspection: Present symmetric chest wall rise; Absent tenderness Respiratory Respiratory exam: Present normal lung sounds bilaterally; Absent respiratory distress, wheezes or stridor Cardiovascular Cardiovascular exam: Present regular rate and normal rhythm Abdominal Exam Abdominal exam: Present soft; Absent distention or tenderness Extremities Exam Extremities exam: Present full ROM and other (Bilateral knees with mild superficial abrasions but no tenderness or deformity, neurovascularly intact distally; right forearm with ecchymosis and small skin tear, no deformity, neurovascularly intact distally); Absent edema Neurological Exam Neurological exam: Present alert and oriented X3; Absent motor sensory deficit Psychiatric Psychiatric exam: Present normal affect and normal mood Skin Skin exam: Present warm and dry Medical Decision Making Medical Records Medical records reviewed: Yes I reviewed the patient's medical records. Screening: Per USPSTF and CDC recommendations, given the prevalence of disease in our region, it is our hospital?s policy to screen for HIV and viral Hepatitis for all patients aged 18 and over and those with ongoing risk factors. MR Comment: Patient's most recent cardiology note from December 2024 was reviewed. Plan for management at that time was to get a chest x-ray, patient was to take an extra dose of Lasix, and she was to follow-up outpatient with her PCP in 1 week, return to clinic in 6 months. The chest x-ray was reviewed and demonstrates chronic changes without acute pathology. Ramon Inquiry Pt receiving controlled substance: No Vital Signs: 02/28/25 00:12 02/28/25 01:39 Temperature 98.5 F 97.9 F Temperature Source Oral Oral Pulse Rate 57 L Pulse Rate [Right Brachial] 53 L Respiratory Rate 20 16 Blood Pressure 151/61 H Blood Pressure [Right Arm] 157/74 H Blood Pressure Mean [Right Arm] 101 Blood Pressure Source Automatic Cuff Blood Pressure Source [Right Arm] Automatic Cuff Blood Pressure Position Supine Blood Pressure Position [Right Arm] Sitting 02 Sat by Pulse Oximetry 95 Oxygen Delivery Method Room Air Room Air Lab Data Lab Results 02/28/25 00:15: HCV Ab JUDD w/Rflx PCR Qn Negative, HIV Ag/Ab Combo Qual Negative Orders (Tests/Meds): ORDERS Category Date Time Status CT cervical spine wo con Stat Cat Scan 02/28/25 00:[address] head/brain wo con Stat Cat Scan 02/28/25 00:20 Completed Forearm XR right 2 views [XR forearm RT 2V] Stat Exams 02/28/25 00:23 Completed Knee XR left 3 views [XR knee LT 3V] Stat Exams 02/28/25 00:23 Completed Knee XR right 3 views [XR knee RT 3V] Stat Exams 02/28/25 00:23 Completed HIV Combo Routine Lab 02/28/25 00:15 Completed Hepatitis C Ab Qual. W/ RFX Routine Lab 02/28/25 00:15 Completed Medical Decision Narrative: In summary, this 85-year-old female with comorbidities described in the HPI which may not be at goal presents to the emergency department today with concerns of possible injuries after fall [facility] her bed at [place]. On initial evaluation patient is hemodynamically stable, GCS 15, alert, oriented, no neurologic deficits, patient has ecchymosis and small skin tear on her right forearm without deformity, mild abrasions on bilateral knees without deformity or swelling, no tenderness or evidence of injury elsewhere. Differential diagnosis includes but is not limited to intracranial bleed, skull fracture, C-spine injury, none of these can be ruled out since patient is elderly and on blood thinners, CT imaging will be ordered. I also considered the possibility of acute osseous injury such as fracture, dislocation to the forearm, knees. X-rays ordered. Clinically there is no other evidence of traumatic injury and I do not believe further workup beyond these things is indicated. X-ray of right forearm and knees does not demonstrate any acute osseous injury on my personal interpretation. See radiology read for final interpretation. CT head and C-spine personally interpreted do not demonstrate acute traumatic injuries, see radiology reads for final interpretations. C-collar personally cleared by me. Patient has no midline tenderness or neurodeficits. Patient is appropriate for discharge at this time. Patient was given instructions on symptomatic management, follow up instructions, and return precautions for the emergency department. Patient indicated understanding and was discharged in stable condition. Critical Care Critical Care Time Critical Care Time: No
== END 2025-02-28 02:21 ==
PROVIDERS: Emergency Provider Emergency Medicine; PCP Internal Medicine Adolescent Medicine
DX: S50.11XA Contusion of right forearm, initial encounter (principal); M25.561 Pain in right knee; M25.562 Pain in left knee; M79.601 Pain in right arm; W06.XXXA Fall from bed, initial encounter; Y93.89 Activity, other specified; Y92.122 Bedroom in nursing home as the place of occurrence of the external cause
CPT/HCPCS: 70450; 72125; 73090; 73562; 86803; 87389; 99284

== ENCOUNTER 2025-06-29 13:33 | Outpatient (CLI) | payer MEDICARE, MEDICAID, SELFPAY ==
--- OUTSIDE RECORDS SUMMARY | 2025-06-29 13:36 | XMS_ITS | Clinical Summary ---
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 Active albuterol (ACCUNEB) 0.63 mg/3 mL nebulizer solution Take 3 mLs by nebulization 2 (two) times daily. Active amLODIPine (NORVASC) 5 MG tablet Take 1 tablet (5 mg total) by mouth daily. Active anastrozole (ARIMIDEX) 1 mg tablet Take 1 tablet (1 mg total) by mouth daily. Active clopidogreL (PLAVIX) 75 mg tablet Take 1 tablet (75 mg total) by mouth nightly. Active albuterol-iprat ropium (Combivent Respimat) 20-100 mcg/actuation Mist inhaler Inhale 2 puffs by mouth via inhaler 4 (four) times daily. Active ferrous sulfate 325 (65 FE) MG tablet Take 1 tablet (325 mg total) by mouth 3 (three) times a week MON/WED/FRI. Active lactulose (CHRONULAC) 10 gram/15 mL solution Take 30 mLs (20 g total) by mouth daily as needed (for Constipation). Active levothyroxine (SYNTHROID, LEVOTHROID) 50 MCG tablet Take 1 tablet (50 mcg total) by mouth Every morning on an empty stomach. Active losartan (COZAAR) 100 MG tablet Take 1 tablet (100 mg total) by mouth daily. Active metoprolol succinate (TOPROL-XL) 100 MG 24 hr tablet Take 1 tablet (100 mg total) by mouth daily. Active multivitamin per tablet Take 1 tablet by mouth daily. Active ondansetron (ZOFRAN) 4 MG tablet Take 1 tablet (4 mg total) by mouth every 6 (six) hours as needed for Nausea. Active pantoprazole (PROTONIX) 40 MG tablet Take 1 tablet (40 mg total) by mouth daily. Active polyethylene glycol (GLYCOLAX) 17 gram packet Take 17 g by mouth daily. Active vit A/vit C/vit E/zinc/copper (PRESERVISION AREDS ORAL) Take 1 capsule by mouth 2 (two) times daily. Active ranolazine (RANEXA) 500 MG 12 hr tablet Take 1 tablet (500 mg total) by mouth 2 (two) times daily. Active rosuvastatin (CRESTOR) 40 MG tablet Take 1 tablet (40 mg total) by mouth nightly. Active senna-docusate (SENOKOT S) 8.6-50 mg per tablet Take 1 tablet by mouth 2 (two) times daily. Active sertraline (ZOLOFT) 50 MG tablet Take 1 tablet (50 mg total) by mouth nightly. Active phenoL (CHLORASEPTIC) 1.4 % SprA oral spray Use as directed 1 spray in the mouth or throat 2 (two) times daily as needed (for Sore Throat). Active spironolactone (ALDACTONE) 50 MG tablet Take 1 tablet (50 mg total) by mouth daily. Active cholecalciferol , vitamin D3, 2,000 unit Tab Take 1 tablet (2,000 Units total) by mouth daily. Active gabapentin (NEURONTIN) 100 MG capsule Take 1 capsule (100 mg total) by mouth nightly. Max Daily Amount: 100 mg 3 capsule Active Active Problems Problem Noted Date Diagnosed Date GI bleed 11/14/2023 Acute blood loss anemia 11/14/2023 GIB (gastrointestinal bleeding) 11/13/2023 Social History Tobacco Use Types Packs/Day Years Used Date Smoking Tobacco: Never Smokeless Tobacco: Never Tobacco Cessation:Counseling Given: Not Answered Alcohol Use Standard Drinks/Week Comments Never 0 (1 standard drink = 0.6 oz pur e alcohol) PRAPARE - Transportation Answer Date Re corded In the past 12 months, has l ack of transportation kept you from medical appointments or from getting medications? Yes 11/14/2023 Lack of Transportation (Non-Medical) Not on file 11/14/2023 Food Insecurity Answer Date Recorded Food run out past 12 months Not on file 11/24 Food did not last past 12 months Not on file 12/03/2023 Employment Answer Date Recorded Help finding and keeping a job Not on file 0 12/03/2023 Family and Community Support Answer Marcio e Recorded Help with Day to Day Activities Not on file 12/03/2023 Feeling Lonely or Isolated Not on file 12/03 Educational Attainment Answer Date Fahad rded Speak language other than [place] Rican at home Not on file 12/03/2023 Want help with school or training Not on file 12/03/2023 Substance Use Answer Date Recorded Used prescription meds for non-medical reasons N ot on file 12/03/2023 Used illegal drugs past 12 months Not on file 12/03/2023 Comments No Sex and Gender Information Value Date Recorded Sex Assigned at Not on file Legal Sex Female 1:14 PM CDT Gender Identity Not on file Sexual Orientation Not on file Last Filed Vital Signs Vital Sign Reading Time Taken Comments Blood Pressure 118/58 11/20/2023 9:51 AM EST Pulse 97 11/20/2023 9:50 AM EST Temperature 36.7 C (98.1 F) 11/20/2023 9:50 AM EST Respiratory Rate 18 11/19/2023 8:40 PM EST Oxygen Saturation 94% 11/20/2023 9:40 AM EST Inhaled Oxygen Concentration - - Weight 78 kg (172 lb) 11/14/2023 2:44 AM EST Height 142.2 cm (4' 8 ) 11/14/2023 2:44 AM EST Body Mass Index 38.56 11/14/2023 2:44 AM EST Plan of Treatment Health Maintenance Due Date Last Done Comments Depression Screening (12+) 1950 Tobacco Cessation Counseling and Screening (12+) 1952 DTAP/TDAP/TD VACCINES (1 - Tdap) 1957 Pneumococcal 50+ years (1 of 1 - PCV) 02/05/1988 Shingles Vaccine (Zoster) (1 of 2) 02/05/1988 Respiratory Syncytial Virus (RSV) Adult or (1 - 1-dose 75+ series) 2013 COVID-19 VACCINE (2023-2 5 season) 2024 02/06/2022, 03/07/2021, 02/07/2021 Falls Risk Screening 11/24/2024 Influenza Vaccine (#1) 2025 , 07/26/2014, 07/26/2014, Additional history exists Insurance [facility] [id number] [facility] DUAL COMPLETE MCR ADV MEDICAID OF [place] Advance Directives For more information, please contact: [phone] * Full Code (Latest Code Status on File) Date Activated Date Inactivated Comments 11/17/2023 4:44 AM 11/20/2023 3:22 PM -Attempt R esuscitation if person has no pulse and is not breathing. -If no pulse or not breathing attempt CPR/CODE. -Call Rapid Response if patient is in distress. Care Teams Passenger Elevator Operator Relationship Specialty Start Date End Date Dov Gonzales MD [address] [facility] [address] [place] [address] PCP - General Adolescent Medicine 11/21/23
--- OUTSIDE RECORDS SUMMARY | 2025-06-29 13:36 | XMS_ITS | Referral Summary ---
Author Organization [employer] ([place], [place], [place], [place]) Address [address] [place] [address] Care Team Providers Care Laborer [employer] Name Role Phone Dov Gonzales MD Primary Care Provider [phone] Allergies No known active allergies Medications acetaminophen [...] Date Fahad rded Speak language other than Peruvian at home Not on file 12/03/2023 Want [...] 11/14/2023 2:44 AM EST Plan of Treatment Not on file Insurance [facility] [place] [id number] [facility] DUAL COMPLETE MCR ADV MEDICAID OF [place] Advance Directives For more information, please contact: [phone] * Full Code (Latest Code Status on File) Date Activated Date Inactivated Comments 11/17/2023 4:44 AM 11/20/2023 3:22 PM -Attempt R esuscitation if person has no pulse and is not breathing. -If no pulse or not breathing attempt CPR/CODE. -Call Rapid Response if patient is in distress. Care Teams Laborer [employer] Relationship Specialty Start Date End Date Dov Gonzales MD [address] [place] [address] [place] [address] PCP - General Adolescent Medicine 11/21/23
[2025-06-29 14:09] LABS: Hematocrit 44.1 % (37.0-47.0); Hemoglobin 13.8 g/dL (12.2-16.2); Immature Granulocytes % 0.3 %; Mean Corpuscular HGB Conc 31.3 g/dL (31.8-35.4); Mean Corpuscular Hemoglobin 28.3 pg (27.0-31.2); Mean Corpuscular Volume 90.4 fl (81-99); Nucleated Red Blood Cells % 0 %; Platelet Count 264 K/mm3 (142-424); Red Blood Count 4.88 M/mm3 (4.20-5.40); Red Cell Distribution Width-SD 53.7 fL; White Blood Count 10.3 K/mm3 (4.8-10.8)
[2025-06-29 14:43] LABS: Albumin Level 4.1 g/dl (3.5-5.0); Chloride 98 mmol/L (98-107); Sodium 139 mmol/L (136-145)
[2025-06-29 14:44] LABS: Potassium 3.6 mmoL/L (3.5-5.1)
[2025-06-29 14:46] LABS: Alanine Aminotransferase 20 U/L (12-78); Anion Gap 9.6 mEq/L (5-15); Aspartate Amino Transferase 26 U/L (14-36); Bilirubin,Unconjugated 0.2 mg/dL (0.0-1.1); Blood Urea Nitrogen 17 mg/dl (7-17); Carbon Dioxide 35 mmol/L (22.0-30.0); Cholesterol 146 mg/dl (140-200); Creatinine,Serum 1.10 mg/dl (0.52-1.04); Estimated Glomerular Filt Rate 47 ml/min (>60); GFR (African American) 57 ML/MIN (>60); Total Protein,Serum 6.7 g/dl (6.3-8.2); Triglycerides 279 mg/dl (30-150)
[2025-06-29 14:47] LABS: Alkaline Phosphatase 122 U/L (38-126); Bilirubin,Direct 0.0 mg/dl (0.0-0.4); Bilirubin,Indirect 0.3 mg/dL (0.0-0.9); Bilirubin,Total 0.3 mg/dl (0.2-1.3); Calcium 9.6 mg/dl (8.4-10.2); Glucose 136 mg/dl (74-100); HDL Cholesterol 44 mg/dl (40-60); Magnesium 2.0 mg/dl (1.6-2.3)
[2025-06-29 15:15] LABS: Free T4 (Free Thyroxine) 1.59 ng/dl (0.78-2.19)
[2025-06-29 15:31] LABS: Thyroid Stimulating Hormone 3.34 uIU/mL (0.465-4.68)
== END 2025-06-29 23:59 | disposition home or self-care (01) ==
LOC: LAB 13:34
PROVIDERS: PCP Internal Medicine Adolescent Medicine; Visit Provider Nurse Practitioner
DX: I25.10 Atherosclerotic heart disease of native coronary artery without angina pectoris (principal); I10 Essential (primary) hypertension; R53.83 Other fatigue
CPT/HCPCS: 36415; 80048; 80061; 80076; 83735; 84439; 84443; 85025

== ENCOUNTER 2025-10-28 10:59 | Outpatient (CLI) | payer MEDICARE, MEDICAID, SELFPAY ==
[2025-10-28 11:19] LABS: Hematocrit 39.3 % (37.0-47.0); Hemoglobin 12.7 g/dL (12.2-16.2); Immature Granulocytes % 0.4 %; Mean Corpuscular HGB Conc 32.3 g/dL (31.8-35.4); Mean Corpuscular Hemoglobin 28.0 pg (27.0-31.2); Mean Corpuscular Volume 86.8 fl (81-99); Nucleated Red Blood Cells % 0 %; Platelet Count 259 K/mm3 (142-424); Red Blood Count 4.53 M/mm3 (4.20-5.40); Red Cell Distribution Width-SD 53.8 fL; White Blood Count 10.5 K/mm3 (4.8-10.8)
[2025-10-28 11:47] LABS: Anion Gap 9.6 mEq/L (5-15); Blood Urea Nitrogen 16 mg/dl (7-17); Calcium 8.8 mg/dl (8.4-10.2); Carbon Dioxide 27 mmol/L (22.0-30.0); Chloride 102 mmol/L (98-107); Creatinine,Serum 1.00 mg/dl (0.52-1.04); Estimated Glomerular Filt Rate 52 ml/min (>60); GFR (African American) 63 ML/MIN (>60); Glucose 125 mg/dl (74-100); Potassium 3.6 mmoL/L (3.5-5.1); Sodium 135 mmol/L (136-145)
== END 2025-10-28 23:59 | disposition home or self-care (01) ==
LOC: LAB.DROPOF 11:00
PROVIDERS: PCP Internal Medicine Adolescent Medicine; Visit Provider Nurse Practitioner Family
DX: M62.81 Muscle weakness (generalized) (principal); R41.82 Altered mental status, unspecified
CPT/HCPCS: 80048; 85025

== ENCOUNTER 2025-11-23 14:10 | Emergency (ER) | payer MEDICARE, MEDICAID, SELFPAY ==
[2025-11-23] VITALS (13 sets, daily range): BP systolic 118–215; BP diastolic 64–181; PULSE 56–68; RESP 16–18; TEMP 36.7; O2SAT 93–97; BMI 28.3
--- NOTE | 2025-11-23 14:14 | XR_ITS ---
FINAL REPORT CLINICAL HISTORY: fall FINDINGS: AP, oblique, and lateral views of the left ankle were obtained. There is no prior exam for comparison. Osteopenia is noted. There is no fracture or dislocation. The ankle mortise is intact. There is prominent lateral soft tissue edema. IMPRESSION: Exam limited by osteopenia. No gross fracture. Soft tissue edema. Reviewed, Interpreted and Dictated by Duyen Gregorio MD Transcribed by Nickie Tompkins Authenticated and [facility]
--- NOTE | 2025-11-23 14:15 | CT_ITS ---
FINAL REPORT TECHNIQUE: Thin section axial images were obtained of the left knee without contrast. Reconstruction images were obtained from the axial data. Exam was performed using dose reduction technique. CLINICAL HISTORY: fall and knee pain COMPARISON: None FINDINGS: Irregularity at the lateral aspect of the lateral tibial plateau is age indeterminate. Osteopenia is noted. There are no other areas of fracture or irregularity. Mild degenerative joint disease is noted. There is no significant joint effusion or soft tissue edema at the knee. IMPRESSION: Area of irregularity in the lateral tibial plateau is age indeterminate. Given lack of joint effusion or other soft tissue findings, this may be chronic. Consider MRI in an outpatient setting for further evaluation. Reviewed, Interpreted and Dictated by Duyen Gregorio MD Transcribed by Nickie Tompkins Authenticated and [facility]
--- NOTE | 2025-11-23 14:17 | ED_ITS ---
<Statement entered by Caleb Zapien MD - 11/24/25 15:14> Caleb aZpien MD: I was consulted by the AMBER, and we discussed the complexity of the problems being addressed. I approve the treatment and management plan for this patient's care in the emergency department, thus performing a substantive portion of the medical decision making. Discharge Plan Disposition Patient Disposition: Home, Self-Care Prescriptions Prescriptions: New hydrocodone-acetaminophen 2.5-325 mg tablet 1 tab PO Q8H PRN (Reason: pain (scale score 7-10)) Qty: 12 0RF No Action ranolazine 500 mg tablet extended release 12 hr 500 mg PO BID 90 Days Qty: 180 Patient Comments: anastrozole 1 mg tablet 1 mg PO DAILY fluorouracil 5 % cream topical sucralfate 1 gram tablet 1 gm PO ACHS gabapentin 100 mg capsule 100 mg PO DAILY albuterol sulfate 0.63 mg/3 mL solution for nebulization 0.63 mg inhalation Q6H dicyclomine 20 mg tablet 20 mg PO ONCE furosemide 40 mg tablet 40 mg PO ondansetron HCl 4 mg tablet 4 mg PO guaifenesin 100 mg/5 mL liquid 100 mg PO levothyroxine 50 mcg tablet 50 mcg PO DAILY polyethylene glycol 3350 17 gram/dose powder 17 g PO DAILY artificial tear(nwxlb-mty-fci) 0.1-0.3-0.2 % drops 1 drp Eye-Both lactulose 10 gram/15 mL solution 15 ml PO clopidogrel 75 mg tablet 75 mg PO DAILY Qty: 90 3RF spironolactone 50 mg tablet 100 mg PO DAILY cholecalciferol (vitamin D3) [Vitamin D3] 50 mcg (2,000 unit) Tablet 50 mcg PO DAILY Combivent Respimat 20-100 mcg/actuation Mist 1 puff INHALATION QID acetaminophen 500 mg Tablet 1,000 mg PO Q6HP PRN (Reason: Mild pain/fever) multivitamin with minerals Tablet 1 tab PO DAILY PreserVision AREDS-2 250-90-40-1 mg Capsule 1 tab PO BID pantoprazole 40 MG tablet,delayed release (DR/EC) 40 mg PO BID rosuvastatin 40 MG tablet 40 mg PO HS metoprolol succinate 100 mg tablet extended release 24 hr 100 mg PO DAILY amlodipine 5 mg tablet 5 mg PO DAILY Referrals Follow up/Referrals: Claus Michelle DO [Staff Physician, Orthopedics] - See instructions Dov Gonzales MD [Primary Care Provider, Internal Medicine] - See instructions Activity Restrictions/Add. Instructions Additional Instructions/Restrictions: Hinged knee brace is to be locked straight if patient is being transferred. If patient is sitting in her wheelchair it is to be locked in a comfortable bent position for patient. Please have patient follow-up with Dr. Michelle in office. Clinical Impressions Clinical Impression: Closed fracture of tibial plateau, Ankle sprain Instructions Patient Instructions: Ankle Sprain, DI for Tibial Plateau Fracture Print Language Print Language: Upper Sorbian Discharge ED Provider: Caleb Zapien General Adult HPI <Kell Jonchongderic (ED), FURNITURE REFINISHER - Last Filed: 11/23/25 17:36> General Chief complaint: Extremity Injury, Lower Stated complaint: Fall from wheelchair Time Seen by Provider: 11/23/25 14:36 Mode of Arrival: EMS Source of Information: EMS Description of Symptoms (Recalled from ER Triage Doc. by RN): Pt presents following [facility]. Pt slid out of her chair onto her knees and is now c/o left ankle pain. Strong pedal and popliteal pulses present upon palpation History of Present Illness HPI narrative: 85-year-old female [facility] after she had a slip and fall out of her wheelchair onto the ground. She is complaining of left knee pain and left ankle pain. She says her ankle hurts worse in her knee. She is having difficulty bending her left knee. She denies any low back, hip, head or neck pain. She says she hit her head on the soft part of her wheelchair. No other injuries. Related Data Home Medications ?Medication ?Instructions ?Recorded ?Confirmed ranolazine 500 mg tablet,extended 500 mg PO BID Angina 90 days #180 03/11/19 06/29/25 release,12 hr tabs pantoprazole 40 mg tablet,delayed 40 mg PO BID acid re flux 01/28/21 06/29/25 release rosuvastatin 40 mg tablet 40 mg PO HS Cholesterol 03/0 06/1306/29/25 anastrozole 1 mg tablet 1 mg PO DAILY Chemotherapy 0 05/30/21 06/29/25 sucralfate 1 gram tablet 1 gm PO ACHS Esophagitis 06/29/25 amlodipine 5 mg tablet 5 mg PO DAILY Hypertension 0 02/19/23 06/29/25 metoprolol succinate 100 mg 100 mg PO DAILY Hypertensi on 02/19/23 06/29/25 tablet,extended release 24 hr acetaminophen 500 mg tablet 1,000 mg PO Q6HP PRN Mild 10/12/23 06/29/25 pain/fever cholecalciferol (vitamin D3) 50 50 mcg PO DAILY Supple ment 10/12/23 06/29/25 mcg (2,000 unit) tablet (Vitamin D3) ipratropium 20 mcg-albuterol 100 1 puff inhalation QID Copd 10/12/23 06/29/25 mcg/actuation mist for inhalation (Combivent Respimat) multivitamin with minerals 1 tab PO DAILY Supplement 1 12/12/22 06/29/25 vit C 250 mg-vit E 90 mg-zinc 40 1 tab PO BID Eye care 10/12/23 06/29/25 mg-copper 1 ht-xllwgg-xwfvya capsule (PreserVision AREDS-2) gabapentin 100 mg capsule 100 mg PO DAILY 01/21/2405/18 spironolactone 50 mg tablet 100 mg PO DAILY 01/21/24 0 06/29/25 albuterol sulfate 0.63 mg/3 mL 0.63 mg inhalation Q6H 03/03/24 06/29/25 solution for nebulization dicyclomine 20 mg tablet 20 mg PO ONCE 03/03/2406/29 artificial 1 drp Eye-Both 06/16/24 0805/18 tears(sugxbzd-qaxkokcd-drvkpsj) 0.1 %-0.3 %-0.2 % eye drops guaifenesin 100 mg/5 mL oral liquid 100 mg PO 06/16/24 06/29/25 lactulose 10 gram/15 mL oral 15 ml PO 06/16/24 5 solution levothyroxine 50 mcg tablet 50 mcg PO DAILY 06/16/24 0 06/29/25 ondansetron HCl 4 mg tablet 4 mg PO 06/16/24 06/29/25 polyethylene glycol 3350 17 17 g PO DAILY 06/16/2405/18 gram/dose oral powder furosemide 40 mg tablet 40 mg PO 03/09/25 06/29/25 fluorouracil 5 % topical cream applic topical 06/29/25 06/29/25 Previous Rx's ?Medication ?Instructions ?Recorded clopidogrel 75 mg tablet 75 mg PO DAILY HX of stents #90 10/02/22 tabs hydrocodone 2.5 mg-acetaminophen 1 tab PO Q8H PRN pain (scale score 11/23/25 325 mg tablet 7-10) #12 tabs Allergies Allergy/AdvReac Type Severity Reaction Status Date / Time No Known Drug Allergies (NO Allergy Unknown Verified 06/29/25 13:07 KNOWN DRUG ALLERGIES) [facility] <Kell Bell (ED), FURNITURE REFINISHER - Last Filed: 11/23/25 17:36> [facility] Disclaimer: The information contained in this section may have been updated after the patient was seen, as this information can be updated by other users. Medical History Lung crackles Hypothyroidism Renal artery stenosis HLD (hyperlipidemia) HTN (hypertension) Chest pain Abnormal findings on diagnostic imaging of heart and coronary circulation History of diverticulosis Left upper extremity swelling Anemia Acute GI bleeding Anemia Hypoxia Hypertension Acute UTI Pneumonia Dyspnea Fatigue History of GI bleed Acute respiratory failure with hypoxia Simple adnexal cyst greater than 1 cm in diameter in postmenopausal patient FH: mastectomy Breast cancer, right Encounter for pre-operative cardiovascular clearance Breast mass, right Surgical History Hx of total mastectomy of right breast right History of renal stent Bilateral renal stents MAY 2022 Stented coronary artery Family History Other No significant family history Social History Smoking Status: Never smoker alcohol intake: never substance use type: denies use current occupational status: retired Travel in the last 8 weeks?: None household members: none housing: apartment current occupational exposures/hazards: No caffeine: No Have you lived/traveled outside [place] in past 30 days?: No Contact w/someone who lives/traveled outside US past 30 days?: No Exposure to someone with infectious disease in past 14 days?: No Do you have a fever (greater than 100.4 F or 38 C)?: No Have you tested positive for COVID-19?: No Exposed to someone with COVID-19 in past 14 days?: No Do you have a sore throat?: No Do you have a cough?: No Do you have any weakness?: No Do you have any diarrhea?: No Are you experiencing any unusual bleeding?: No Do you have any muscle aches/pain?: No Do you have any abdominal pain?: No Are you experiencing loss of taste or smell?: No Other Medical History Have you received the Flu Vaccine for this season: No Have you received the Pneumonia Vaccine: Yes <[facility] (ED), FURNITURE REFINISHER - Last Filed: 11/23/25 17:36> ROS Obtained: Yes Systems reviewed as appropriate & no additional complaints except as documented Constitutional Constitutional: Reports as per HPI Physical Exam <[facility] (ED), FURNITURE REFINISHER - Last Filed: 11/23/25 17:36> General General appearance: alert Head Head exam: normocephalic Eye Eye exam: Present PERRL and EOMI ENT ENT exam: Present normal oropharynx Neck Neck exam: Present full ROM Respiratory Respiratory exam: Present normal lung sounds bilaterally Cardiovascular Cardiovascular exam: Present regular rate, normal rhythm, +S1 and +S2 Abdominal Exam Abdominal exam: Present soft and normal bowel sounds Extremities Exam Extremities exam: Present tenderness, normal capillary refill and edema (Left lateral ankle) Neurological Exam Neurological exam: Present alert and oriented X3 Skin Skin exam: Present warm and dry Medical Decision Making <[facility] (ED), FURNITURE REFINISHER - Last Filed: 11/23/25 17:36> Medical Records Screening: Per USPSTF and CDC recommendations, given the prevalence of disease in our region, it is our hospital?s policy to screen for HIV and viral Hepatitis for all patients aged 18 and over and those with ongoing risk factors. Ramon Inquiry Pt receiving controlled substance: No Ramon was queried for this patient: No Vital Signs: 11/23/25 14:08 11/23/25 14:10 11/23/25 15:23 Temperature 98.0 F Temperature Source Temporal Artery Scan Pulse Rate 59 L 64 Pulse Rate [Right] 68 Respiratory Rate 18 Blood Pressure 161/80 H 151/87 H Blood Pressure [Right Arm] 161/80 H Blood Pressure Mean Blood Pressure Mean [Right Arm] 107 Blood Pressure Source [Right Arm] Automatic Cuff Blood Pressure Position [Right Arm] Sitting 02 Sat by Pulse Oximetry 94 L 93 L 97 Oxygen Delivery Method Room Air Room Air 11/23/25 15:31 11/23/25 16:00 11/23/25 16:31 Temperature Temperature Source Pulse Rate 64 63 62 Pulse Rate [Right] Respiratory Rate 18 16 Blood Pressure 143/89 H 158/76 H 167/96 H Blood Pressure [Right Arm] Blood Pressure Mean 101 93 Blood Pressure Mean [Right Arm] Blood Pressure Source [Right Arm] Blood Pressure Position [Right Arm] 02 Sat by Pulse Oximetry 95 96 95 Oxygen Delivery Method 11/23/25 17:03 11/23/25 17:05 11/23/25 17:33 Temperature Temperature Source Pulse Rate 62 62 59 L Pulse Rate [Right] Respiratory Rate 16 Blood Pressure 215/119 H 213/181 H 118/69 Blood Pressure [Right Arm] Blood Pressure Mean 86 Blood Pressure Mean [Right Arm] Blood Pressure Source [Right Arm] Blood Pressure Position [Right Arm] 02 Sat by Pulse Oximetry 94 L 94 L 93 L Oxygen Delivery Method 11/23/25 18:01 Temperature Temperature Source Pulse Rate 58 L Pulse Rate [Right] Respiratory Rate 18 Blood Pressure 140/64 Blood Pressure [Right Arm] Blood Pressure Mean 78 Blood Pressure Mean [Right Arm] Blood Pressure Source [Right Arm] Blood Pressure Position [Right Arm] 02 Sat by Pulse Oximetry 94 L Oxygen Delivery Method Orders (Tests/Meds): ED MEDICATIONS Discontinued Medications Generic Name Dose Route Start Last Admin Trade Name Freq PRN Reason Stop Dose Admin Hydrocodone Bitart/Acetaminophen 2 tab 11/23/25 14:16 11/23/25 15:01 Hydrocodone/Apap 5/325 Mg Tablet PO 11/23/25 14:17 2 tab ONCE ONE Administration Ketorolac Tromethamine 30 mg 11/23/25 17:17 11/23/25 17:25 Ketorolac 30mg/Ml Vial IM 11/23/25 17:18 30 mg ONCE ONE Administration ORDERS Category Date Time Status CT knee LT wo con Stat Cat Scan 11/23/25 14:15 Completed Ankle XR - Left minimum 3 Views [XR ankle LT min 3V] Exams 11/23/25 14:14 Completed Stat Medical Decision Narrative: patient is a 85-year-old female presenting to the emergency department for evaluation of left ankle pain and left knee pain 8 out of 10 after slipping out of her wheelchair today. Patient is hemodynamically stable and nontoxic- appearing upon arrival, afebrile. Differential diagnosis includes fractures versus sprain strains. Workup will be conducted with specific imaging. Initial inventions include analgesics. Patient had x-ray of her left ankle which was negative. Patient also had a CT scan of her left knee which showed tibial plateau fracture she is tender at that area where the tibial plateau is. Patient will be placed in a hinged knee brace per Dr. Michelle. He wants it locked straight with transfers and when she is in her wheelchair the knee brace needs to be bent. I discussed this with Dr. Michelle. Blood pressure was 118/69. Patient is safe for [facility]. <Mike Baker MD - Last Filed: 11/23/25 18:17> Ramon Inquiry Pt receiving controlled substance: Yes Ramon was queried for this patient: Yes Risks and benefits of using a controlled substance: were not discussed with pt by me Vital Signs: 11/23/25 14:08 11/23/25 14:10 11/23/25 15:23 Temperature 98.0 F Temperature Source Temporal Artery Scan Pulse Rate 59 L 64 Pulse Rate [Right] 68 Respiratory Rate 18 Blood Pressure 161/80 H 151/87 H Blood Pressure [Right Arm] 161/80 H Blood Pressure Mean Blood Pressure Mean [Right Arm] 107 Blood Pressure Source [Right Arm] Automatic Cuff Blood Pressure Position [Right Arm] Sitting 02 Sat by Pulse Oximetry 94 L 93 L 97 Oxygen Delivery Method Room Air Room Air 11/23/25 15:31 11/23/25 16:00 11/23/25 16:31 Temperature Temperature Source Pulse Rate 64 63 62 Pulse Rate [Right] Respiratory Rate 18 16 Blood Pressure 143/89 H 158/76 H 167/96 H Blood Pressure [Right Arm] Blood Pressure Mean 101 93 Blood Pressure Mean [Right Arm] Blood Pressure Source [Right Arm] Blood Pressure Position [Right Arm] 02 Sat by Pulse Oximetry 95 96 95 Oxygen Delivery Method 11/23/25 17:03 11/23/25 17:05 11/23/25 17:33 Temperature Temperature Source Pulse Rate 62 62 59 L Pulse Rate [Right] Respiratory Rate 16 Blood Pressure 215/119 H 213/181 H 118/69 Blood Pressure [Right Arm] Blood Pressure Mean 86 Blood Pressure Mean [Right Arm] Blood Pressure Source [Right Arm] Blood Pressure Position [Right Arm] 02 Sat by Pulse Oximetry 94 L 94 L 93 L Oxygen Delivery Method 11/23/25 18:01 Temperature Temperature Source Pulse Rate 58 L Pulse Rate [Right] Respiratory Rate 18 Blood Pressure 140/64 Blood Pressure [Right Arm] Blood Pressure Mean 78 Blood Pressure Mean [Right Arm] Blood Pressure Source [Right Arm] Blood Pressure Position [Right Arm] 02 Sat by Pulse Oximetry 94 L Oxygen Delivery Method Orders (Tests/Meds): ED MEDICATIONS Discontinued Medications Generic Name Dose Route Start Last Admin Trade Name Freq PRN Reason Stop Dose Admin Hydrocodone Bitart/Acetaminophen 2 tab 11/23/25 14:16 11/23/25 15:01 Hydrocodone/Apap 5/325 Mg Tablet PO 11/23/25 14:17 2 tab ONCE ONE Administration Ketorolac Tromethamine 30 mg 11/23/25 17:17 11/23/25 17:25 Ketorolac 30mg/Ml Vial IM 11/23/25 17:18 30 mg ONCE ONE Administration ORDERS Category Date Time Status CT knee LT wo con Stat Cat Scan 11/23/25 14:15 Completed Ankle XR - Left minimum 3 Views [XR ankle LT min 3V] Exams 11/23/25 14:14 Completed Stat Critical Care <Kell Bell (ED), FURNITURE REFINISHER - Last Filed: 11/23/25 17:36> Critical Care Time Critical Care Time: No
--- OUTSIDE RECORDS SUMMARY | 2025-11-23 14:38 | XMS_ITS | Referral Summary ---
Author Organization [employer] ([place], [place], [place], [place], [place]) Address [address] [place] [address] Care Team Providers Care Car Inspector Name Role Phone Dov Gonzales MD Primary Care Provider [phone] Allergies No known active allergies Medications acetaminophen [...] Date Fahad rded Speak language other than Chadian at home Not on file 12/03/2023 Want [...] Plan of Treatment Not on file [facility] [id number] [facility] DUAL COMPLETE MCR ADV MEDICAID OF [place] Advance Directives For more information, please contact: [phone] * Full Code (Latest Code Status on File) Date Activated Date Inactivated Comments 11/17/2023 4:44 AM 11/20/2023 3:22 PM -Attempt R esuscitation if person has no pulse and is not breathing. -If no pulse or not breathing attempt CPR/CODE. -Call Rapid Response if patient is in distress. Care Teams Car Inspector Relationship Specialty Start Date End Date Dov Gonzales MD [address] [place] [address] [place] [id number] PCP - General Adolescent Medicine 11/21/23
--- OUTSIDE RECORDS SUMMARY | 2025-11-23 14:38 | XMS_ITS | Clinical Summary ---
Author Organization [employer] ([place], [place], [place], [place], [place]) Address [address] [place] [address] Care Team Providers Care Director Of Rooms Name Role Phone Dov Gonzales MD Primary Care Provider [phone] Allergies No known active allergies Medications acetaminophen [...] 0 12/03/2023 Family and Community Support Answer Macrio e Recorded Help with Day to Day Activities Not on file 12/03/2023 Feeling Lonely or Isolated Not on file 12/03 Educational Attainment Answer Date Fahad rded Speak language other than Vietnamese at home Not on file 12/03/2023 Want [...] or (1 - 1-dose 75+ series) 2013 Falls Risk Screening 11/24/2024 COVID-19 VACCINE (4 - 2024-2 6 season) 2025 02/06/2022, 03/07/2021, 02/07/2021 Influenza Vaccine (#1) 2025 , 07/26/2014, 07/26/2014, Additional history exists [facility] [id number] [facility] DUAL COMPLETE MCR ADV MEDICAID OF [place] Advance Directives For more information, please contact: [phone] * Full Code (Latest Code Status on File) Date Activated Date Inactivated Comments 11/17/2023 4:44 AM 11/20/2023 3:22 PM -Attempt R esuscitation if person has no pulse and is not breathing. -If no pulse or not breathing attempt CPR/CODE. -Call Rapid Response if patient is in distress. Care Teams Director Of Rooms Relationship Specialty Start Date End Date Dov Gonzales MD [address] [place] [address] [place] [address] PCP - General Adolescent Medicine 11/21/23
--- NOTE | 2025-11-23 14:47 | PC.NURSE ---
pt arrived to ER heavily soiled. sweatpants and sweat shirt was cut off and pt voiced both items could be thrown away. no personal items were found in pockets of sweatpants. pt wanted to keep sports bra. sports bra, shoes and socks were placed in belonging bag.
[2025-11-23] MEDS: HYDROCODONE/APAP 5/325 MG TABLET 2 TAB PO (15:01)
[2025-11-23] MEDS: KETOROLAC 30MG/ML VIAL 30 MG IM (17:25)
--- NOTE | 2025-11-23 17:53 | PC.NURSE ---
called report to nurse at [facility]
--- NOTE | 2025-11-23 18:08 | PC.NURSE ---
ems aware of transport
== END 2025-11-23 20:29 | disposition home or self-care (01) ==
PROVIDERS: Emergency Provider Student in an Organized Health Care Education/Training Program; PCP Internal Medicine Adolescent Medicine
DX: S93.402A Sprain of unspecified ligament of left ankle, initial encounter (principal); S82.102A Unspecified fracture of upper end of left tibia, initial encounter for closed fracture; M25.562 Pain in left knee; W05.0XXA Fall from non-moving wheelchair, initial encounter
CPT/HCPCS: 73610; 73700; 96372; 99284; 99285; J1885